=== PATIENT | female | born 1975 | race Caucasian/White ===

== ENCOUNTER → 2020-05-28 | Outpatient (CLI) | payer OTHER ==
--- NOTE | 2020-05-28 14:22 | P.HPBAR ---
Bariatric H&P - History & Physicial H&P Date: 05/28/20 History & Physicial: Visit/CC: initial clinic visit Patient initial contact: Initial weight: Initial weight in pounds: Height: 5 ft 5 in Initial BMI: Last weight: Current weight: 114.759 kg Current weight in pounds: 253.00 Current BMI: 42.0 [place] body weight (based on NIH guidelines): 56.699 kg Excess body weight loss: The patient is a 45 year-old F who presents for Bariatric Assessment. Has [place]: Once in a lifetime. Food and exercise journal. Urine drug screen. She is looking into procedures. Her highest with 374 pounds in high school and lost 100 pounds on her own. She went down to 150 pounds 10 years ago and now has re-gained. She has severe GERD. Esophogram, EGD and heart check. Tobacco use screen. Past Medical History Past Medical History: Hypertension Additional Past Medical History / Comment(s): history of kidney stones History of Any Multi-Drug Resistant Organisms: MRSA Year Discovered:: 2012 MDRO Source:: right hand Past Surgical History: Orthopedic Surgery Additional Past Surgical History / Comment(s): right heel surgery Past Anesthesia/Blood Transfusion Reactions: Postoperative Nausea & Vomiting (PONV) Past Psychological History: No Psychological Hx Reported Smoking Status: Former smoker Past Alcohol Use History: None Reported Additional Past Alcohol Use History / Comment(s): quit 2015 Past Drug Use History: None Reported Surgical - Exam Vital Signs Temp Pulse BP 98.4 F 105 H 129/90 05/28/20 13:16 05/28/20 13:16 05/28/20 13:16 Bariatric Checklist Checklist: Plan: Checklist: EGD: 1. Hiatal hernia: 2. H. Pylori: HgbA1c: Vitamin D: Smoking: Former smoker Primary care physician referral: dr bravo Psychiatry clearance: Cardiology clearance: Sleep study: Diet journal: VTE risk score: VTE risk level: Rehab needs at discharge:
[2020-05-28 15:47] LABS: HGB 13.8 gm/dL (11.4-16.0); MCH 28.8 pg (25.0-35.0); MCHC 32.1 g/dL (31.0-37.0); MCV 89.6 fL (80.0-100.0); Mean Platelet Volume 7.4; Platelet Count 288 k/uL (150-450); RDW 12.2 % (11.5-15.5); WBC 9.6 k/uL (3.8-10.6)
[2020-05-28 22:52] LABS: INR 0.97 (0.90-1.11); Partial Thromboplastin Time 29.1 sec (24.7-29.9); Prothrombin Time 10.4 sec (9.9-11.9)
[2020-05-28 23:26] LABS: % Iron Saturation 47.79 (12.00-45.00); African American GFR (CKD) 104.7 (60.0-200.0); Albumin 4.3 g/dL (3.80-4.90); Albumin/Globulin Ratio 1.95 (1.60-3.17); Anion Gap 9.1 mmol/L (4.00-12.00); BUN/Creat Ratio 22.5 Ratio (12.00-20.00); Calcium 9.2 mg/dL (8.7-10.3); Carbon Dioxide 25.9 mmol/L (21.6-31.8); Chol/HDL Ratio 4.23; Globulin 2.2 g/dL (1.6-3.3); LDL Cholesterol,Calculated 70.6 mg/dL (0.0-131.0); Magnesium 1.7 mg/dL (1.5-2.4); Non-African American GFR(CKD) 90.3 (60.0-200.0); Potassium 4.2 mmol/L (3.5-5.5); Total Bilirubin 0.4 mg/dL (0.3-1.2); Total Protein 6.5 g/dL (6.2-8.2); VLDL Calculation 55.4 mg/dL (5.00-40.00)
[2020-05-28 23:34] LABS: Ferritin 52.2 ng/mL (10.0-291.0)
[2020-05-28 23:52] LABS: Folate, Serum 11.8 ng/mL
[2020-05-29 00:24] LABS: Hemoglobin A1C 5.7 % (4.0-6.0)
[2020-05-29 11:55] LABS: Zinc, Serum 57 ug/dL (60-130)
[2020-05-30 07:29] LABS: Vitamin A 56 ug/dL (38-106)
[2020-05-30 09:27] VITALS: BP 129/90; PULSE 105; TEMP 98.4; BMI 42.0
[2020-05-30 13:17] LABS: Vit B1(Thiamine) 78 ug/L (38-122)
[2020-05-31 00:48] LABS: Selenium 112 mcg/L (63-160)
== END | disposition home or self-care (01) ==
LOC: BARWHC3 12:45
PROVIDERS: ATTEND Surgery Plastic and Reconstructive Surgery
DX: E66.01 Morbid (severe) obesity due to excess calories (principal); K21.9 Gastro-esophageal reflux disease without esophagitis; R82.998 Other abnormal findings in urine; E21.1 Secondary hyperparathyroidism, not elsewhere classified; D50.9 Iron deficiency anemia, unspecified; K90.9 Intestinal malabsorption, unspecified; E55.9 Vitamin D deficiency, unspecified; K74.1 Hepatic sclerosis; N19 Unspecified kidney failure; K50.90 Crohn's disease, unspecified, without complications; E89.1 Postprocedural hypoinsulinemia; Z68.41 Body mass index [BMI] 40.0-44.9, adult; Z87.891 Personal history of nicotine dependence
CPT/HCPCS: 84255; 84134; 84425; 80061; 80053; 82607; 82728; 82525; 82746; 83540; 83550; 83735; 84100; 84443; 84590; 84630; 85027; 85610; 85730; 82306; 83970; 83036; 93005; G0463; 99211

== ENCOUNTER → 2020-06-16 | Outpatient (CLI) | payer OTHER ==
--- NOTE | 2020-06-16 09:39 | FL ---
EXAMINATION TYPE: FL barium swallow DATE OF EXAM: 06/16/2020 COMPARISON: None HISTORY: Dysphasia, reflux TECHNIQUE: Double air-contrast technique is utilized to evaluate the esophagus. FINDINGS: Esophagus dilates to normal caliber has normal contour to the gastroesophageal junction. Ga stroesophageal junction opens to normal caliber. Reflux into the distal one half of the esophagus was elicited during the examination. No hiatal herni a is identified. No intraluminal or extramural defects are evident. Some subtle tertiary contractions may be evident during the exam. IMPRESSION: 1. Gastroesophageal reflux into the distal one half the esophagus below level aortic arch
== END | disposition home or self-care (01) ==
LOC: RADUSWWP 08:49
PROVIDERS: ATTEND Surgery Plastic and Reconstructive Surgery
DX: K21.9 Gastro-esophageal reflux disease without esophagitis (principal)
CPT/HCPCS: 74220

== ENCOUNTER → 2020-09-04 | Outpatient (CLI) | payer OTHER ==
--- NOTE | 2020-09-04 17:28 | CONS ---
CONSULTATION DATE OF SERVICE: 09/04/2020 A 45-year-old lady who has been evaluated in the [facility] for possible obstructive sleep apnea-hypopnea syndrome. HISTORY OF PRESENT ILLNESS/SLEEP WAKE EVALUATION: Patient usual sleep schedule on weekdays from 11 p.m. until 8 a.m. and on weekends from 11 p.m. until 9 - 10 a.m. She does have problems with falling asleep, has TV set in bedroom. She usually sleeps on the side position. According to her family, she has severe slow snoring and she has witnessed episodes of stopped breathing during sleep and awakenings from choking, episodes of restless legs, positive history of sleep talking, heartburn, dry mouth, grinding teeth. In the morning, patient wakes up tired, has difficulties paying attention, worrying about her sleep. Has problem with memory, concentration, debility, depression, anxiety. [place] Sleepiness Scale is 9. She may take up to 2 naps usually before 2 pm. During the sleep, she wakes up from sleep up to 7 times with up to 2 episodes of nocturia. Positive history of some jerking leg movements and muscle spasms. PAST MEDICAL HISTORY: Positive for hypertension, sciatic nerve problems. PAST SURGICAL HISTORY: Foot surgery 2 years ago. Surgery for venous problems of the legs, lithotripsy. MEDICATIONS: Lisinopril 20 mg twice daily, melatonin, multivitamins. SOCIAL HISTORY: Positive for smoking for about 20 pack years, quit 4 years ago. Alcohol consumption occasional. FAMILY HISTORY: Positive for heart problems, sleep apnea. REVIEW OF SYSTEMS: Multiple awakenings from sleep, sleepiness during the day. PHYSICAL EXAM: lady without distress, BP 167/120, HR 88, RR 15, height 5, 5, weight 252, BMI 42.7, temperature 98.5, oxygen saturation at room air 97%. OROPHARYNX: Extremely low position of soft palate, Mallampati IV, wide neck is 17-1/2 inches in circumference. ABDOMEN: Obese. NECK: Supple, no JVD. Thyroid is not palpable. LUNGS: Clear to percussion and to auscultation. Good air exchange. No wheezing or rhonchi. HEART: S1, S2 regular. No murmurs, gallops, or rubs. EXTREMITIES: No clubbing or cyanosis. [employer] OPERATOR: Awake, alert, and oriented X3. Cranial nerves 2 to 7 intact. There is no fasciculation or atrophy. noted. No focal deficits observed. IMPRESSION: 1. Loud snoring, witnessed episodes of stopped breathing during the sleep, extremely low position of soft palate, wide neck, obstructive sleep apnea-hypopnea syndrome. 2. Obesity, BMI 42.7. 3. Jerking movements during sleep. Possible . 4. Hypertension. 5. Status post foot surgery 2 years ago. 6. Status post lithotripsy. 7. Status post leg surgery for venous problems. 8. Status post cervix surgery at age of 30. PLAN: 1. Polysomnography for evaluation of patient's breathing during sleep. 2. CPAP/BiPAP titration if sleep study confirms obstructive sleep apnea-hypopnea syndrome. 3. Preferable position during sleep on the side. 4. No driving if patient feels any sleepiness. 5. I will see patient for follow up visit to explain results of testing and following plan. Thank you very much for referring this patient for consultation. Sincerely. Enrico Lynch MD, PhD, FAASM Diplomat of [employer] Mysql Database Developer of [facility] [place] MMODL / IJN: [id number] /
== END | disposition home or self-care (01) ==
LOC: SLEEP 11:27
PROVIDERS: ATTEND Internal Medicine
DX: G47.33 Obstructive sleep apnea (adult) (pediatric) (principal); I10 Essential (primary) hypertension; Z98.890 Other specified postprocedural states; E66.9 Obesity, unspecified; Z68.41 Body mass index [BMI] 40.0-44.9, adult; Z79.3 Long term (current) use of hormonal contraceptives; Z79.899 Other long term (current) drug therapy
CPT/HCPCS: 99211

== ENCOUNTER → 2020-09-22 | Outpatient (CLI) | payer OTHER ==
[2020-09-22 14:19] VITALS: BMI 42.3
== END | disposition home or self-care (01) ==
LOC: BARWHC3 08:39
PROVIDERS: ATTEND Surgery Plastic and Reconstructive Surgery
DX: E66.01 Morbid (severe) obesity due to excess calories (principal); Z71.3 Dietary counseling and surveillance; Z68.41 Body mass index [BMI] 40.0-44.9, adult
CPT/HCPCS: 97804

== ENCOUNTER → 2020-11-05 | Outpatient (CLI) | payer OTHER ==
[2020-11-05 14:35] VITALS: BP 145/82; PULSE 101; RESP 18; TEMP 97.9; BMI 41.5
--- NOTE | 2020-11-05 15:02 | P.PN ---
Subjective Progress Note Date: 11/05/20 DATE OF SERVICE: 11/05/2020 CHIEF COMPLAINT: Morbid obesity HISTORY OF PRESENT ILLNESS: Kathleen Velez is a 45-year-old female who comes with lifelong morbid obesity. As a result of her morbid obesity, she has developed hypertensive heart disease. She completed medical supervised weight loss. Separately, she is on lisinopril. She is looking into gastric bypass. At height of 5 feet 5 inches, her ideal body weight is 149 pounds. Her highest weight was 374 pounds, BMI 62.4. She comes in 250 pounds from 255 pounds, 4 months ago. She has lost 5 pounds, 4 months. Her body mass index is 41.6. She is 101 pounds overweight. PAST MEDICAL HISTORY: 1. Morbid obesity due to excess calories 2. Body mass index of 62.4, initial 3. Hypertensive heart disease. 4. Gastroesophageal reflux disease PAST SURGICAL HISTORY: 1. Right heel surgery 2. Upper endoscopy HOME MEDICATIONS: Home Medications Medication Instructions Recorded Confirmed Cholecalciferol (Vitamin D3) 125 mcg PO DAILY 06/16/20 11/05/20 [Vitamin D3] Loratadine [Claritin] 10 mg PO DAILY PRN 06/16/20 11/05/20 Melatonin 20 mg PO HS 06/16/20 11/05/20 diphenhydrAMINE [Benadryl] 50 mg PO HS 06/16/20 11/05/20 lisinopriL [Prinivil] 20 mg PO BID 06/16/20 11/05/20 Bio Cleanse 1 tab PO DIRECTED 09/22/20 11/05/20 Cider Vinegar [Apple Cider Vinegar] 1 tab PO DAILY 09/22/20 11/05/20 Multivitamin [Multivitamins Adult 1 each PO DAILY 09/22/20 11/05/20 Gummies] ALLERGIES: Allergies Allergy/AdvReac Type Severity Reaction Status Date / Time No Known Allergies Allergy Verified 11/05/20 15:21 SOCIAL HISTORY: Past tobacco use. FAMILY HISTORY: No family history of ulcerative colitis disease or Crohn's disease. Family history of morbid obesity. No lupus in the family. No reports of stomach or esophageal cancer. REVIEW OF ORGAN SYSTEMS: CONSTITUTIONAL: At height of 5 feet 5 inches, her ideal body weight is 149 pounds. Her highest weight was 374 pounds, BMI 62.4. HEENT: Denies any active troubles with vision or hearing. ENDOCRINE: Denies diabetes. No hypothyroidism. CARDIOVASCULAR: New palpitations. No heart attacks or chest pain. Has hypertension. RESPIRATORY: Has daytime somnolence. Denies asthma. GASTROINTESTINAL: Denies any bright red blood per rectum. No diarrhea. No constipation. Has gastroesophageal reflux disease. MUSCULOSKELETAL: Has lower back pain and joint pain. Has osteoarthritis of the knees. NEURO: No headaches. No seizure disorders. PSYCH: Denies depression. No suicidal ideation. RHEUMATOLOGIC: No lupus. No rheumatoid arthritis. HEMATOLOGIC: Denies any abnormal bleeding or bruising. No personal history of DVTs. SKIN: No rash. No skin cancer. PHYSICAL EXAM: VITAL SIGNS: Height 5 foot 5 inches, weight 250 pounds. BMI 41.6 Vital Signs Temp 97.9 F 11/05/20 14:23 Pulse 101 H 11/05/20 14:23 Resp 18 11/05/20 14:23 BP 145/82 11/05/20 14:23 Pulse Ox GENERAL: Well-developed in no acute distress. HEENT: No scleral icterus. Extraocular movements grossly intact. Hears conversational speech. No nasal drainage. NECK: Supple without lymphadenopathy. CHEST: Nonlabored respirations with equal bilateral excursions. CARDIOVASCULAR: Tachycardic. Distal 2+ pulses. ABDOMEN: Obese, soft, nontender, nondistended. MUSCULOSKELETAL: No clubbing, cyanosis. NEURO: No focal or lateralizing signs. Cranial nerves 2 through 12 grossly within normal limits. PSYCH: Appropriate affect. Alert and oriented to person, place and time. SKIN: Good skin turgor. Well perfused. ASSESSMENT: 1. Morbid obesity due to excess calories 2. Body mass index of 62.4, initial 3. Hypertensive heart disease. 4. Gastroesophageal reflux disease 5. Persistent tachycardia 6. Hiatal hernia 7. Chronic gastritis PLAN: 1. Bariatric options between a sleeve, band and a Jewels-en-Y gastric bypass were reviewed in detail. The patient elected for a gastric bypass. Robotic assisted approach described. 2. The [place] [facility] Data was also reviewed with benefits and risks as described. 3. An 8 page second-generation bariatric consent form was reviewed in detail including potential of bleeding, infection, leaks, adequate weight loss, nutritional deficiencies which the patient demonstrated understanding of the risks. 4. A 2 week high-protein low caloric 800 kcal diet described to address hepatomegaly. 5. Preoperative labs including complete metabolic panel and CBC with type and screen recommended. 6. DVT prophylaxis per [place] [facility]. 7. Antibiotic prophylaxis. 8. Inpatient hospitalization anticipated for more than 2 nights. 9. All questions and concerns were addressed with the patient. 10. She is at elevated risk for perioperative complications secondary to pre- existing persistent tachycardia. 11. Overall, patient has expressed understanding of bariatric care including postoperative diet and commitment of lifestyle. Patient should benefit from surgical intervention for correction of her morbid obesity. 12. Recommend cardiac risk assessment for persistent tachycardia. 13. She is on lisinopril. Recommend well hydrated diet prior to surgery. Objective - Vital Signs Vital signs: Vital Signs Temp 97.9 F 11/05/20 14:23 Pulse 101 H 11/05/20 14:23 Resp 18 11/05/20 14:23 BP 145/82 11/05/20 14:23 Pulse Ox Intake & Output 11/04/20 11/05/20 11/05/20 18:59 06:59 18:59 Weight 113.443 kg
== END | disposition home or self-care (01) ==
LOC: BARWHC3 14:13
PROVIDERS: ATTEND Surgery Plastic and Reconstructive Surgery
DX: E66.01 Morbid (severe) obesity due to excess calories (principal); I11.9 Hypertensive heart disease without heart failure; K21.9 Gastro-esophageal reflux disease without esophagitis; R00.0 Tachycardia, unspecified; K44.9 Diaphragmatic hernia without obstruction or gangrene; K29.50 Unspecified chronic gastritis without bleeding; Z68.44 Body mass index [BMI] 60.0-69.9, adult; Z87.891 Personal history of nicotine dependence; Z83.49 Family history of other endocrine, nutritional and metabolic diseases; Z79.899 Other long term (current) drug therapy
CPT/HCPCS: 99211

== ENCOUNTER → 2020-12-24 | Outpatient (CLI) | payer OTHER ==
[2020-12-24 14:54] VITALS: BP 124/79; PULSE 117; RESP 18; TEMP 98.1; BMI 41.9
--- NOTE | 2020-12-24 15:18 | P.PN ---
Subjective Progress Note Date: 12/24/20 DATE OF SERVICE: 12/24/2020 CHIEF COMPLAINT: Morbid obesity HISTORY OF PRESENT ILLNESS: Kathleen Velez is a 45-year-old female who comes with lifelong morbid obesity. As a result of her morbid obesity, she has developed hypertensive heart disease. She is looking into gastric bypass. 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 She denies active right upper quadrant abdominal, nausea or vomiting. She presents for bariatric surgical options. At height of 5 feet 5 inches, her ideal body weight is 149 pounds. Her highest weight was 374 pounds, BMI 62.4. She comes in 251 pounds from 250 pounds, 2 months ago. She has lost 2 pounds, 2 months. Her body mass index is 41.9. She is 102 pounds overweight. PAST MEDICAL HISTORY: 1. Morbid obesity due to excess calories 2. Body mass index of 62.4, initial 3. Hypertensive heart disease. 4. Gastroesophageal reflux disease PAST SURGICAL HISTORY: 1. Right heel surgery 2. Upper endoscopy HOME MEDICATIONS: Home Medications Medication Instructions Recorded Confirmed Cholecalciferol (Vitamin D3) 125 mcg PO DAILY 06/16/20 11/05/20 [Vitamin D3] Loratadine [Claritin] 10 mg PO DAILY PRN 06/16/20 11/05/20 Melatonin 20 mg PO HS 06/16/20 11/05/20 diphenhydrAMINE [Benadryl] 50 mg PO HS 06/16/20 11/05/20 lisinopriL [Prinivil] 20 mg PO BID 06/16/20 11/05/20 Bio Cleanse 1 tab PO DIRECTED 09/22/20 11/05/20 Cider Vinegar [Apple Cider Vinegar] 1 tab PO DAILY 09/22/20 11/05/20 Multivitamin [Multivitamins Adult 1 each PO DAILY 09/22/20 11/05/20 Gummies] ALLERGIES: Allergies Allergy/AdvReac Type Severity Reaction Status Date / Time No Known Allergies Allergy Verified 11/05/20 15:21 SOCIAL HISTORY: Past tobacco use. FAMILY HISTORY: No family history of ulcerative colitis disease or Crohn's disease. Family history of morbid obesity. No lupus in the family. No reports of stomach or esophageal cancer. REVIEW OF ORGAN SYSTEMS: CONSTITUTIONAL: At height of 5 feet 5 inches, her ideal body weight is 149 pounds. Her highest weight was 374 pounds, BMI 62.4. HEENT: Denies any active troubles with vision or hearing. ENDOCRINE: Denies diabetes. No hypothyroidism. CARDIOVASCULAR: New palpitations. No heart attacks or chest pain. Has hypertension. RESPIRATORY: Has daytime somnolence. Denies asthma. GASTROINTESTINAL: Denies any bright red blood per rectum. No diarrhea. No constipation. Has gastroesophageal reflux disease. MUSCULOSKELETAL: Has lower back pain and joint pain. Has osteoarthritis of the knees. NEURO: No headaches. No seizure disorders. PSYCH: Denies depression. No suicidal ideation. RHEUMATOLOGIC: No lupus. No rheumatoid arthritis. HEMATOLOGIC: Denies any abnormal bleeding or bruising. No personal history of DVTs. SKIN: No rash. No skin cancer. PHYSICAL EXAM: VITAL SIGNS: Height 5 foot 5 inches, weight 251 pounds. BMI 41.9 Vital Signs Temp 98.1 F 12/24/20 14:49 Pulse 117 H 12/24/20 14:49 Resp 18 12/24/20 14:49 BP 124/79 12/24/20 14:49 Pulse Ox GENERAL: Well-developed in no acute distress. HEENT: No scleral icterus. Extraocular movements grossly intact. Hears conversational speech. No nasal drainage. NECK: Supple without lymphadenopathy. CHEST: Nonlabored respirations with equal bilateral excursions. CARDIOVASCULAR: Tachycardic. Distal 2+ pulses. ABDOMEN: Obese, soft, nontender, nondistended. MUSCULOSKELETAL: No clubbing, cyanosis. NEURO: No focal or lateralizing signs. Cranial nerves 2 through 12 grossly within normal limits. PSYCH: Appropriate affect. Alert and oriented to person, place and time. SKIN: Good skin turgor. Well perfused. ASSESSMENT: 1. Morbid obesity due to excess calories 2. Body mass index of 62.4, initial to 41.9 3. Hypertensive heart disease. 4. Gastroesophageal reflux disease 5. Persistent tachycardia 6. Hiatal hernia 7. Chronic gastritis PLAN: 1. Bariatric options between a sleeve, band and a Jewels-en-Y gastric bypass were reviewed in detail. The patient elected for a gastric bypass. Robotic assisted approach described. 2. The [place] [facility] Data was also reviewed with benefits and risks as described. 3. An 8 page second-generation bariatric consent form was reviewed in detail including potential of bleeding, infection, leaks, adequate weight loss, nutritional deficiencies which the patient demonstrated understanding of the risks. 4. A 2 week high-protein low caloric 800 kcal diet described to address hepatomegaly. 5. Preoperative labs including complete metabolic panel and CBC with type and screen recommended. 6. DVT prophylaxis per [place] [facility]. 7. Antibiotic prophylaxis. 8. All questions and concerns were addressed with the patient. 9. She is at elevated risk for complications with pre-existing cardiac disease. Objective - Vital Signs Vital signs: Vital Signs Temp 98.1 F 12/24/20 14:49 Pulse 117 H 12/24/20 14:49 Resp 18 12/24/20 14:49 BP 124/79 12/24/20 14:49 Pulse Ox Intake & Output 12/23/20 12/24/20 12/24/20 18:59 06:59 18:59 Weight 114.305 kg
== END | disposition home or self-care (01) ==
LOC: BARWHC3 14:04
PROVIDERS: ATTEND Surgery Plastic and Reconstructive Surgery
DX: E66.01 Morbid (severe) obesity due to excess calories (principal); Z68.44 Body mass index [BMI] 60.0-69.9, adult; I11.9 Hypertensive heart disease without heart failure; K21.9 Gastro-esophageal reflux disease without esophagitis; K44.9 Diaphragmatic hernia without obstruction or gangrene; K29.50 Unspecified chronic gastritis without bleeding; R00.0 Tachycardia, unspecified; Z88.8 Allergy status to other drugs, medicaments and biological substances; Z79.899 Other long term (current) drug therapy; Z79.811 Long term (current) use of aromatase inhibitors
CPT/HCPCS: 99211

== ENCOUNTER → 2021-01-01 | Outpatient (CLI) | payer OTHER ==
[2021-01-01 13:29] LABS: Basophils % (A) 0 %; Eosinophils # (A) 0.1 k/uL (0-0.7); Eosinophils % (A) 1 %; HCT 39.9 % (34.0-46.0); HGB 13.6 gm/dL (11.4-16.0); Lymphocytes # (A) 1.9 k/uL (1.0-4.8); Lymphocytes % (A) 22 %; MCH 30.3 pg (25.0-35.0); MCHC 34.1 g/dL (31.0-37.0); Mean Platelet Volume 7.7; Monocytes # (A) 0.6 k/uL (0-1.0); Monocytes % (A) 7 %; Neutrophils # (A) 5.8 k/uL (1.3-7.7); Neutrophils % (A) 68 %; Platelet Count 266 k/uL (150-450); RBC 4.48 m/uL (3.80-5.40); RDW 12.2 % (11.5-15.5); WBC 8.5 k/uL (3.8-10.6)
[2021-01-01 13:52] LABS: ALT 57 U/L (4-34); AST 49 U/L (14-36); African American GFR (CKD) >90 (>60 ml/min/1.73 sqM); Albumin 4.3 g/dL (3.5-5.0); Alkaline Phosphatase 46 U/L (38-126); Anion Gap 7 mmol/L; Blood Urea Nitrogen 24 mg/dL (7-17); Calcium 9.8 mg/dL (8.4-10.2); Carbon Dioxide 29 mmol/L (22-30); Chloride 100 mmol/L (98-107); Glucose 94 mg/dL (74-99); Non-African American GFR(CKD) >90 (>60 ml/min/1.73 sqM); Potassium 4.4 mmol/L (3.5-5.1); Sodium 136 mmol/L (137-145); Total Bilirubin 0.5 mg/dL (0.2-1.3); Total Protein 7.2 g/dL (6.3-8.2)
== END | disposition home or self-care (01) ==
LOC: LABPAT 13:00
PROVIDERS: ATTEND Surgery Plastic and Reconstructive Surgery
DX: Z01.818 Encounter for other preprocedural examination (principal)
CPT/HCPCS: 36415; 80053; 85025

== ENCOUNTER 2021-01-05 06:09 | Inpatient (IN) | payer OTHER ==
[2021-01-02 09:15] VITALS: BMI 41.9
--- NOTE | 2021-01-05 05:06 | P.GSHP ---
History of Present Illness H&P Date: 01/05/21 CHIEF COMPLAINT: Morbid obesity HISTORY OF PRESENT ILLNESS: Kathleen Velez is a 45-year-old female who comes with lifelong morbid obesity. As a result of her morbid obesity, she has developed hypertensive heart disease. She presents today for gastric bypass At height of 5 feet 5 inches, her ideal body weight is 149 pounds. Her highest weight was 374 pounds, BMI 62.4. She comes in 251 pounds. Her body mass index is 41.9. She is 102 pounds overweight. PAST MEDICAL HISTORY: 1. Morbid obesity due to excess calories 2. Body mass index of 62.4, initial 3. Hypertensive heart disease. 4. Gastroesophageal reflux disease PAST SURGICAL HISTORY: 1. Right heel surgery 2. Upper endoscopy HOME MEDICATIONS: Home Medications Medication Instructions Recorded Confirmed Cholecalciferol (Vitamin D3) 125 mcg PO DAILY 06/16/20 11/05/20 [Vitamin D3] Loratadine [Claritin] 10 mg PO DAILY PRN 06/16/20 11/05/20 Melatonin 20 mg PO HS 06/16/20 11/05/20 diphenhydrAMINE [Benadryl] 50 mg PO HS 06/16/20 11/05/20 lisinopriL [Prinivil] 20 mg PO BID 06/16/20 11/05/20 Bio Cleanse 1 tab PO DIRECTED 09/22/20 11/05/20 Cider Vinegar [Apple Cider Vinegar] 1 tab PO DAILY 09/22/20 11/05/20 Multivitamin [Multivitamins Adult 1 each PO DAILY 09/22/20 11/05/20 Gummies] ALLERGIES: Allergies Allergy/AdvReac Type Severity Reaction Status Date / Time No Known Allergies Allergy Verified 11/05/20 15:21 SOCIAL HISTORY: Past tobacco use. FAMILY HISTORY: No family history of ulcerative colitis disease or Crohn's disease. Family history of morbid obesity. No lupus in the family. No reports of stomach or esophageal cancer. REVIEW OF ORGAN SYSTEMS: CONSTITUTIONAL: At height of 5 feet 5 inches, her ideal body weight is 149 pounds. Her highest weight was 374 pounds, BMI 62.4. HEENT: Denies any active troubles with vision or hearing. ENDOCRINE: Denies diabetes. No hypothyroidism. CARDIOVASCULAR: New palpitations. No heart attacks or chest pain. Has hypertension. RESPIRATORY: Has daytime somnolence. Denies asthma. GASTROINTESTINAL: Denies any bright red blood per rectum. No diarrhea. No constipation. Has gastroesophageal reflux disease. MUSCULOSKELETAL: Has lower back pain and joint pain. Has osteoarthritis of the knees. NEURO: No headaches. No seizure disorders. PSYCH: Denies depression. No suicidal ideation. RHEUMATOLOGIC: No lupus. No rheumatoid arthritis. HEMATOLOGIC: Denies any abnormal bleeding or bruising. No personal history of DVTs. SKIN: No rash. No skin cancer. PHYSICAL EXAM: VITAL SIGNS: Height 5 foot 5 inches, weight 251 pounds. BMI 41.9 GENERAL: Well-developed in no acute distress. HEENT: No scleral icterus. Extraocular movements grossly intact. Hears conversational speech. No nasal drainage. NECK: Supple without lymphadenopathy. CHEST: Nonlabored respirations with equal bilateral excursions. CARDIOVASCULAR: Tachycardic. Distal 2+ pulses. ABDOMEN: Obese, soft, nontender, nondistended. MUSCULOSKELETAL: No clubbing, cyanosis. NEURO: No focal or lateralizing signs. Cranial nerves 2 through 12 grossly within normal limits. PSYCH: Appropriate affect. Alert and oriented to person, place and time. SKIN: Good skin turgor. Well perfused. ASSESSMENT: 1. Morbid obesity due to excess calories 2. Body mass index of 62.4, initial to 41.9 3. Hypertensive heart disease. 4. Gastroesophageal reflux disease 5. Persistent tachycardia 6. Hiatal hernia 7. Chronic gastritis PLAN: 1. Bariatric options between a sleeve, band and a Jewels-en-Y gastric bypass were reviewed in detail. The patient elected for a gastric bypass. Robotic assisted approach described. 2. DVT prophylaxis per [place] [facility] collaborative. 3. Antibiotic prophylaxis. 4. All questions and concerns were addressed with the patient. 5. She is at elevated risk for complications with pre-existing cardiac disease. Past Medical History Past Medical History: Hypertension, Sleep Apnea/CPAP/BIPAP Additional Past Medical History / Comment(s): uses cpap, hx history of kidney stones,varicose veins History of Any Multi-Drug Resistant Organisms: MRSA Date of last positivie culture/infection: 2012 MDRO Source:: right hand Past Surgical History: Orthopedic Surgery Additional Past Surgical History / Comment(s): right heel surgery,egd,vein stripping Past Anesthesia/Blood Transfusion Reactions: Postoperative Nausea & Vomiting (PONV) Additional Past Anesthesia/Blood Transfusion Reaction / Comment(s): no hx blood transfusion Smoking Status: Former smoker - Past Family History Mother Family Medical History: No Reported History Brother(s) Additional Family Medical History / Comment(s): oral CA-tongue partially removed Medications and Allergies Home Medications Medication Instructions Recorded Confirmed Type Cholecalciferol (Vitamin D3) 125 mcg PO DAILY 06/16/20 01/02/21 History [Vitamin D3 (5000 Iu)] Loratadine [Claritin] 10 mg PO DAILY PRN 06/16/20 01/02/21 History Melatonin 20 mg PO HS 06/16/20 01/02/21 History diphenhydrAMINE [Benadryl] 50 mg PO HS PRN 06/16/20 01/02/21 History lisinopriL [Prinivil] 20 mg PO BID 06/16/20 01/02/21 History Bio Cleanse 1 tab PO DIRECTED 09/22/20 01/02/21 History Cider Vinegar [Apple Cider Vinegar] 1 tab PO DAILY 09/22/20 01/02/21 History Multivitamin [Multivitamins Adult 1 each PO DAILY 09/22/20 01/02/21 History Gummies] Allergies Allergy/AdvReac Type Severity Reaction Status Date / Time No Known Allergies Allergy Verified 12/25/20 12:39
[~2021-01-05 06:09] MED LIST: ACETAMINOPHEN TAB 500 MG TAB PO STA; CHLORHEXIDINE GLUCONATE 15 ML CUP MUCOUS MEM PRN; DEXAMETHASONE SOD PHOSPHATE 4 MG/ML 1 ML VIAL IV ONE; ENOXAPARIN 40 MG/0.4 ML SYRINGE SQ PRN; GABAPENTIN 300 MG CAP PO STA; MELOXICAM 7.5 MG TAB PO ONE; MIDAZOLAM 2 MG/2 ML VIAL IV PRN; PANTOPRAZOLE 40 MG/10 ML VIAL IVP PRN; SCOPOLAMINE 1.5MG/72HR PATCH TRANSDERM ONE; SCOPOLAMINE 1.5MG/72HR PATCH TRANSDERM STA
[2021-01-05] MEDS: LACTATED RINGERS 1,000 ML IV SCH (07:17)
[2021-01-05] MEDS: ONDANSETRON 4 MG/2 ML VIAL IVP ONE ×2 (07:17→10:47)
[2021-01-05 08:11] LABS: Basophils % (A) 1 %; Eosinophils # (A) 0.1 k/uL (0-0.7); Eosinophils % (A) 2 %; HCT 39.7 % (34.0-46.0); HGB 13.3 gm/dL (11.4-16.0); Lymphocytes # (A) 1.6 k/uL (1.0-4.8); Lymphocytes % (A) 28 %; MCH 29.6 pg (25.0-35.0); MCHC 33.4 g/dL (31.0-37.0); MCV 88.6 fL (80.0-100.0); Mean Platelet Volume 8.3; Monocytes # (A) 0.5 k/uL (0-1.0); Monocytes % (A) 9 %; Neutrophils # (A) 3.4 k/uL (1.3-7.7); Neutrophils % (A) 60 %; Platelet Count 275 k/uL (150-450); RBC 4.48 m/uL (3.80-5.40); RDW 12.5 % (11.5-15.5); WBC 5.6 k/uL (3.8-10.6)
[2021-01-05 08:24] LABS: ALT 70 U/L (4-34); AST 67 U/L (14-36); African American GFR (CKD) >90 (>60 ml/min/1.73 sqM); Albumin 4.3 g/dL (3.5-5.0); Alkaline Phosphatase 47 U/L (38-126); Anion Gap 11 mmol/L; Blood Urea Nitrogen 12 mg/dL (7-17); Calcium 9.5 mg/dL (8.4-10.2); Carbon Dioxide 21 mmol/L (22-30); Chloride 103 mmol/L (98-107); Glucose 91 mg/dL (74-99); Non-African American GFR(CKD) >90 (>60 ml/min/1.73 sqM); Potassium 4.3 mmol/L (3.5-5.1); Sodium 135 mmol/L (137-145); Total Bilirubin 0.8 mg/dL (0.2-1.3); Total Protein 7.2 g/dL (6.3-8.2)
[2021-01-05] MEDS ORDERED: LIDOCAINE 1%-EPI 1:100,000 20 ML VIAL SQ ONE (08:40)
[2021-01-05] MEDS ORDERED: LACTATED RINGERS 1,000 ML IV ONE (09:55)
[2021-01-05] MEDS ORDERED: NALOXONE 0.4 MG/ML 1 ML VIAL IV PRN (10:26)
[2021-01-05] MEDS: HYDROmorphone 0.5 MG/0.5 ML SYRINGE IVP PRN ×6 (10:28→12:45)
--- NOTE | 2021-01-05 10:36 | P.OP ---
Date of Procedure: 01/05/21 Description of Procedure: SURGEON: SUKHDEV GAMA MD PREOPERATIVE DIAGNOSES: 1. Morbid obesity due to excess calories 2. Body mass index of 62.4, initial to 42.0 3. Hypertensive heart disease. 4. Gastroesophageal reflux disease 5. Persistent tachycardia 6. Hiatal hernia 7. Chronic gastritis POSTOPERATIVE DIAGNOSES: 1. Morbid obesity due to excess calories 2. Body mass index of 62.4, initial to 42.0 3. Hypertensive heart disease. 4. Gastroesophageal reflux disease 5. Persistent tachycardia 6. Hiatal hernia 7. Chronic gastritis OPERATION: 1. Robotic assisted da Neftaly Xi laparoscopic Valerie-en-Y gastric bypass, 100 cm antecolic antegastric Valerie limb, with 25 mm EEA. 2. Intraoperative esophagogastrojejunoscopy. ANESTHESIA: GETA and local ESTIMATED BLOOD LOSS: 5 mL SPECIMENS REMOVED: None. COMPLICATIONS: NONE. INDICATIONS: Kathleen Velez is a 45-year-old female who comes with lifelong morbid obesity. As a result of her morbid obesity, she has developed hypertensive heart disease. She presents today for gastric bypass At height of 5 feet 5 inches, her ideal body weight is 149 pounds. Her highest weight was 374 pounds, BMI 62.4. She comes in 251 pounds. Her body mass index is 41.9. She is 102 pounds overweight. A second-generation bariatric consent form was described in detail including the possibility of protein malnutrition, leaks, gastrojejunal stricture, venous thrombosis, need for further surgery for which she demonstrated understanding. Benefits and risks of the procedure were described at length. Informed consent was obtained. DESCRIPTION: The patient was brought into the operating room theater. She was placed supine. She had received Lovenox subcutaneously for DVT prophylaxis. Additionally she Peridex oral solution as an oral decontaminant was placed per anesthesia. After general induction, the abdomen was prepped and draped in standard sterile fashion. Ioban draping was placed along the abdomen. Rose catheter was placed A robotic da Neftaly Xi system was prepped and primed. Incisions were proposed at 15 cm from the xiphoid. Proposed port sites were marked with indelible marker along the anterior axillary line bilaterally, mid clavicular line bilaterally with each port marked 10 cm from each other. The robotic stapler port was marked for the right midclavicular line including along the left midclavicular line. A 5 mm 0 degrees laparoscopic trocar entry was performed along the left upper quadrant. The abdomen was insufflated to 15 mmHg pressure, which she tolerated well. Diagnostic laparoscopy demonstrated no injury to bowel, viscera, or mesentery. The liver was consistent with her 2-week protein diet. An 8 mm camera port was placed left lateral to the umbilicus at the epigastrium, 15 cm distal to the xiphoid. Next, 12-mm robot stapler port was placed along the right mid abdomen. An 12 mm port was exchanged along the left upper quadrant. An 8 mm port was placed on the left lateral abdominal wall under direct visualization Please note that the ports were placed 18 to 20 cm away from the target anatomy of the stomach. Care was taken to check that each robotic arm was safely away from collision with the bed or the patient. At the epigastrium, a medium sized Kassandra liver retractor was placed under direct visualization with the Iron Guest Services Ambassador placed under the right shoulder of the patient. The patient was repositioned in reverse Trendelenburg position at 21-degrees after lowering the bed. The robot was docked over the patient. Using grasper for arm 3, a grasper for arm 1, including vessel sealer for arm 4, the robotic system was docked and primed as described. Instruments were interchanged by the multimedia assistant including endoscissors, the needle oil transport driver, and stapler. I had sat at the console. Next, the transverse mesocolon was reflected into the upper abdomen after dividing the mesentery and preparing for the jejunojejunostomy portion of the case. The ligament of Treitz was identified and measured 60 cm antegrade and marked using 3-0 Silk. The jejunum was divided at the 60 cm point using 60-mm white loads above the suture measurement. The biliopancreatic limb was held in place. The Valerie limb was measured 100 cm in an antegrade fashion to avoid tension along the proposed gastrojejunal anastomosis. At 100 cm along the anti-mesenteric border of the Valerie limb, a jejunojejunostomy was proposed whereby enterotomies were created along the biliopancreatic limb including the Valerie limb using a Bovie cautery. A stay suture of 3-0 Slik was placed to align and create the anastomosis. The enterotomies along the anti- mesenteric borders were created followed by unidirectional fire from the patient's right side using 60 mm blue loads Smart technology robotic stapler. The jejunojejunostomy was found to be hemostatic. The enterotomy was closed after horizontal mattress stitch of 3-0 silk used to elevate the enterotomy followed by closure with the robotic stapler blue load. The jejunal limb was temporarily tacked along the left upper quadrant. Attention was now brought to the creation of the gastrojejunostomy. Along the lesser curvature of the stomach, dissection was made along the retrogastric space to allow first firing of the robotic staple. Green loads of 60 mm staplers were used to divide the stomach to create the gastric pouch. The patient was then prepared for placement of a Orvil. The patient was Mallampati 2. A 25-mm Orvil was selected for placement by the nurse senior production manager. The Orvil tubing was placed anterior to the staple line of the gastric pouch and brought out through the left inferior lateral port. I re-scrubbed into the case. The robotic arms were temporarily undocked. The Orvil was then carefully and successfully navigated with the help of the nurse senior production manager into the gastric pouch. The sutures were identified and divided. The tubing was from the 25 mm anvil. As the Orvil had been placed, the blind jejunal limb was brought proximally into the upper abdomen. No torsion was found upon the Valerie limb. No tension was identified as the limb was brought along the upper abdomen. The blind jejunal limb was previously opened using endo-scissors with cautery. The 25-mm EEA stapler was brought through the left anterior lateral port site from the left side. The EEA stapler was brought through the open jejunal limb and its needle was deployed at the antimesenteric border where the anvil were mated for a pproximately 1 minute upon firing. The stapler was removed after irrigating the shaft of the instrument with warm normal saline. Donuts were found to be intact and on both sides. The GripeO Xi robot arms were then re-docked. I sat at the console. The open jejunal limb defect was closed using 60 mm blue loads after releasing any tension from the blind jejunal limb. Care was taken to avoid any long blind limb to avoid candycane syndrome. Reinforcement sutures were placed along the gastrojejunal anastomosis and placed along the 9:00 and 3 o'clock position using 3-0 Vicryl. The Deutshc's and jejunojejunostomy mesenteric defect were closed using 2-0 VLOC I then went to the head of the bed to perform the esophagogastrojejunoscopy and a leak test. An Olympus gastroscope was passed alongthe posterior oropharynx which was unremarkable for any injury to the vocal cords. The scope was passed down to the proximal portion of the pouch, whereby no active bleeding was encountered. Excellent visualization of the gastrojejunostomy anastomosis, including the Valerie limb was encountered with endoscopic image obtained. The anastomosis was found to be patent. The gastrointestinal tract was desufflated. No evidence of intraoperative leak was encountered as the gastric pouch and anastomosis were submerged under normal saline solution. The robot was then undocked. I then went back to the bedside of the patient, whereby with coordinated effort of the multimedia assistant, irrigation was aspirated from the upper abdominal cavity. Tisseel was placed circumferentially over the anastomosis of the ga strojejunostomy. The fascial defect of the EEA stapler was closed using Heriberto Fry and 0 Vicryl. All instruments and pneumoperitoneum were evacuated from the abdominal cavity. The port correlating with the EEA stapler device was cleansed with normal saline solution and hydrogen peroxide. The rest of incisions were reapproximated using 4-0 Monocryl in an interrupted subcuticular fashion. Local anesthetic was infiltrated along the skin for postop analgesia. Liquid glue was applied to the skin. OptiFoam dressing was placed along the EEA stapler site. At the end of the procedure, needle, sponge and instrument count had been verified correct by the ophthalmology surgical technician. The patient had tolerated the procedure well and was extubated and taken to the postanesthesia unit in stable condition. Intraoperative findings were described to the patient's family who were very pleased with the level of care. Operative Findings: 1. Biliopancreatic limb 60 cm 2. Bypass performed using 100 cm valerie limb secondary to avoid increased tension at 150 cm. 3. Jejunojejunostomy and Deutsch's defects closed using 2-0 VLOC 4. Leak test negative with gastrojejunal anastomosis patent and hemostatic. 5. Reinforcement sutures were placed along the gastrojejunal anastomosis at 9:00, 12:00 and 3:00 6. No fatty liver disease with gallbladder unremarkable and apparent 7. Thoracic length 18 cm 8. Total staple loads 8-60 mm with 460 mm green staple loads for gastric pouch
[2021-01-05] MEDS ORDERED: DEXAMETHASONE SOD PHOSPHATE 10 MG/ML 1 ML VIAL IV PRN (12:53)
[2021-01-05] MEDS ORDERED: LORATADINE 10 MG TAB PO PRN (12:55)
[2021-01-05] MEDS ORDERED: diphenhydrAMINE 50 MG CAP PO PRN (12:55)
[2021-01-05] MEDS: ALBUTEROL NEBULIZED 2.5 MG/3 ML INHALATION SCH ×3 (14:39→19:13)
[2021-01-05] MEDS: ACETAMINOPHEN IV (For NPO) 1,000 MG in EMPTY BAG 1 BAG IVPB SCH ×2 (15:14→20:51)
[2021-01-05] MEDS: SIMETHICONE 40 MG/0.6 ML DROPS 2,000 MG/30 ML BOTTLE PO SCH ×3 (15:16→20:52)
[2021-01-05] MEDS: DEXAMETHASONE SOD PHOSPHATE 4 MG/ML 1 ML VIAL IV SCH ×2 (15:19→19:16)
[2021-01-05] MEDS: 0.9% NACL WITH KCL 20 MEQ/L 1,000 ML IV SCH ×2 (17:16→18:00)
[2021-01-05] MEDS: HYDROmorphone 1 MG/ML 1 ML SYRINGE IVP PRN ×2 (19:16→23:34)
[2021-01-05] MEDS: LIDOCAINE 5% PATCH TOPICAL SCH (19:16)
[2021-01-05] MEDS: lisinopriL 20 MG TAB PO SCH (20:52)
[2021-01-06] MEDS: ACETAMINOPHEN IV (For NPO) 1,000 MG in EMPTY BAG 1 BAG IVPB SCH ×2 (02:32→09:12)
[2021-01-06] MEDS: DEXAMETHASONE SOD PHOSPHATE 4 MG/ML 1 ML VIAL IV SCH ×4 (02:32→19:07)
[2021-01-06] MEDS: HYDROmorphone 1 MG/ML 1 ML SYRINGE IVP PRN ×6 (03:19→23:07)
[2021-01-06] MEDS: 0.9% NACL WITH KCL 20 MEQ/L 1,000 ML IV SCH ×3 (03:23→18:19)
[2021-01-06] MEDS: ALBUTEROL NEBULIZED 2.5 MG/3 ML INHALATION SCH ×4 (07:15→20:18)
[2021-01-06] MEDS: LACTATED RINGERS 1,000 ML IV SCH (09:10)
[2021-01-06] MEDS: ENOXAPARIN 40 MG/0.4 ML SYRINGE SQ SCH (09:11)
[2021-01-06] MEDS: SIMETHICONE 40 MG/0.6 ML DROPS 2,000 MG/30 ML BOTTLE PO SCH ×4 (09:11→20:35)
[2021-01-06] MEDS: lisinopriL 20 MG TAB PO SCH (09:18)
[2021-01-06 11:50] LABS: Basophils # (A) 0.01 X 10*3/uL (0.00-0.10); Basophils % (A) 0.1 %; Eosinophils # (A) 0 X 10*3/uL (0.04-0.35); Eosinophils % (A) 0 %; HCT 27.5 % (37.2-46.3); HGB 8.8 g/dL (12.0-15.0); Lymphocytes # (A) 0.57 X 10*3/uL (0.90-5.00); Lymphocytes % (A) 5.9 %; MCH 29.7 pg (27.0-32.0); MCV 92.9 fL (80.0-97.0); Mean Platelet Volume 11.1 fL (9.5-12.2); Monocytes # (A) 0.52 X 10*3/uL (0.20-1.00); Monocytes % (A) 5.4 %; Neutrophils # (A) 8.52 X 10*3/uL (1.80-7.70); Neutrophils % (A) 88.3 %; Platelet Count 256 X 10*3/uL (140-440); RBC 2.96 X 10*6/uL (4.10-5.20); RDW 12.1 % (11.5-14.5); WBC 9.65 X 10*3/uL (4.50-10.00)
[2021-01-06 12:07] LABS: African American GFR (CKD) 129.4 (60.0-200.0); Calcium 8.2 mg/dL (8.7-10.3); Magnesium 1.8 mg/dL (1.5-2.4); Non-African American GFR(CKD) 111.6 (60.0-200.0); Phosphorus 2.9 mg/dL (2.4-5.1); Potassium 4.8 mmol/L (3.5-5.5)
--- NOTE | 2021-01-06 14:23 | P.PN ---
<Jenny Dover - Last Filed: 01/06/21 15:26> Subjective Progress Note Date: 01/06/21 CHIEF COMPLAINT: Morbid obesity HISTORY OF PRESENT ILLNESS: Patient is status post Robotic assisted da Neftaly Xi laparoscopic Jewels-en-Y gastric bypass and Intraoperative esophagogastrojejunoscopy. Patient is complaining of urinary retention. She did require to be straight cath 3 times. Scopolamine patch was removed this morning. Patient is now able to urinate. She does complain of abdominal pain. However, she does report the pain is controlled with pain medication. She denies any nausea or vomiting. Denies any flatus or BM. She has been up and ambulating. She is currently on bariatric clear liquid diet. She is afebrile. WBC 9.65 hemoglobin decreased from 13.3 to 8.8, creatinine 0.6 magnesium 1.8 PHYSICAL EXAM: VITAL SIGNS: Reviewed GENERAL: Well-developed in no acute distress. HEENT: No sclera icterus. Extraocular movements grossly intact. Moist buccal mucosa. Head is atraumatic, normocephalic. Hears conversational speech. No nasal drainage. NECK: Supple without lymphadenopathy. CHEST: Non-labored respirations and equal bilateral excursions. CARDIOVASCULAR: Palpable 2+ radial pulses. ABDOMEN: Soft. Nondistended. Incision sites clean dry and intact. Abdominal binder in place MUSCULOSKELETAL: No clubbing or cyanosis. NEUROLOGIC: No focal or lateralizing signs. Cranial nerves II through XII grossly intact. PSYCH: Appropriate affect. Alert and oriented to person, place and time. SKIN: Well perfused. Good skin turgor. ASSESSMENT: 1. Morbid obesity due to excess calories status post Robotic assisted da Neftaly Xi laparoscopic Jewels-en-Y gastric bypass and Intraoperative esophagogas trojejunoscopy 2. Body mass index of 62.4, initial to 42.0 3. Hypertensive heart disease. 4. Gastroesophageal reflux disease 5. Persistent tachycardia 6. Hiatal hernia 7. Chronic gastritis 8. Hypomagnesemia 9. Urinary retention improved after discontinuation of scopolamine patch PLAN: -Continue pain medication as needed -Continue bariatric clear liquid diet -Replace magnesium -Continue IV fluids -Encourage patient to ambulate -Encourage patient to use incentive spirometer -DVT prophylaxis Lovenox prophylaxis Lovenox Physician Associate Designer note has been reviewed by physician. Signing provider agrees with the documented findings, assessment, and plan of care. Objective - Vital Signs Vital signs: Vital Signs Temp 97.6 F 01/06/21 14:00 Pulse 105 H 01/06/21 14:00 Resp 18 01/06/21 14:00 BP 95/61 01/06/21 14:00 Pulse Ox 96 01/06/21 14:00 Intake & Output 01/05/21 01/06/21 01/06/21 18:59 06:59 18:59 Intake Total 1050 0 Output Total 65 1999 300 Balance 985 -2000 -300 Weight 114.4 kg Intake: IV 1050 Oral 0 Output: Urine 60 1999 300 Straight 1300 Estimated Blood Loss 5 Other: Voiding Method Toilet # Voids 1 1 - Labs CBC & Chem 7: 01/06/21 06:41 01/06/21 06:41 Labs: Abnormal Lab Results - Last 24 Hours (Table) 01/06/21 01/06/21 Range/Units 06:41 06:41 RBC 2.96 L (4.10-5.20) X 10*6/uL Hgb 8.8 L (12.0-15.0) g/dL Hct 27.5 L (37.2-46.3) % Neutrophils # 8.52 H (1.80-7.70) X 10*3/uL Lymphocytes # 0.57 L (0.90-5.00) X 10*3/uL Eosinophils # 0 L (0.04-0.35) X 10*3/uL Calcium 8.2 L (8.7-10.3) mg/dL <Anabella Denton N - Last Filed: 01/06/21 17:47> Subjective Patient seen and evaluated. She denies nausea. She is tolerating liquids. B lood pressure has been under 100 systolic with anti-hypertensive medications. Recommend discontinue antihypertensive medications for low blood pressure. Patient had minimal blood loss during surgery and will monitor CBC. Hemoglobin likely dilutional. Objective - Vital Signs Vital signs: Vital Signs Temp 97.6 F 01/06/21 14:00 Pulse 102 H 01/06/21 16:39 Resp 18 01/06/21 14:00 BP 95/61 01/06/21 14:00 Pulse Ox 96 01/06/21 14:00 Intake & Output 01/05/21 01/06/21 01/06/21 18:59 06:59 18:59 Intake Total 1050 0 Output Total 65 1999 300 Balance 985 -1999 -300 Weight 114.4 kg Intake: IV 1050 Oral 0 Output: Urine 60 1999 300 Straight 1300 Estimated Blood Loss 5 Other: Voiding Method Toilet # Voids 1 1 - Labs CBC & Chem 7: 01/06/21 06:41 01/06/21 06:41 Labs: Abnormal Lab Results - Last 24 Hours (Table) 01/06/21 01/06/21 Range/Units 06:41 06:41 RBC 2.96 L (4.10-5.20) X 10*6/uL Hgb 8.8 L (12.0-15.0) g/dL Hct 27.5 L (37.2-46.3) % Neutrophils # 8.52 H (1.80-7.70) X 10*3/uL Lymphocytes # 0.57 L (0.90-5.00) X 10*3/uL Eosinophils # 0 L (0.04-0.35) X 10*3/uL Calcium 8.2 L (8.7-10.3) mg/dL
[2021-01-06] MEDS ORDERED: MAGNESIUM SULFATE-D5W PMX 1 GM in DEXTROSE/WATER 1 100ML.BAG IVPB ONE (14:30)
[2021-01-06] MEDS: LIDOCAINE 5% PATCH TOPICAL SCH (15:54)
[2021-01-07] MEDS: DEXAMETHASONE SOD PHOSPHATE 4 MG/ML 1 ML VIAL IV SCH ×3 (02:22→14:19)
[2021-01-07] MEDS: HYDROmorphone 1 MG/ML 1 ML SYRINGE IVP PRN ×4 (02:22→23:42)
[2021-01-07] MEDS: 0.9% NACL WITH KCL 20 MEQ/L 1,000 ML IV SCH ×2 (03:39→19:36)
[2021-01-07] MEDS: LACTATED RINGERS 1,000 ML IV SCH (03:40)
[2021-01-07] MEDS: ALBUTEROL NEBULIZED 2.5 MG/3 ML INHALATION SCH ×4 (07:18→19:54)
[2021-01-07] MEDS: ENOXAPARIN 40 MG/0.4 ML SYRINGE SQ SCH (07:44)
[2021-01-07] MEDS: LIDOCAINE 5% PATCH TOPICAL SCH (07:44)
[2021-01-07] MEDS: SIMETHICONE 40 MG/0.6 ML DROPS 2,000 MG/30 ML BOTTLE PO SCH ×4 (07:45→21:00)
[2021-01-07 09:21] LABS: Basophils # (A) 0 X 10*3/uL (0.00-0.10); Basophils % (A) 0 %; Eosinophils # (A) 0 X 10*3/uL (0.04-0.35); Eosinophils % (A) 0 %; HGB 8.3 g/dL (12.0-15.0); Lymphocytes # (A) 0.63 X 10*3/uL (0.90-5.00); Lymphocytes % (A) 7.9 %; MCH 29.7 pg (27.0-32.0); MCHC 31.9 g/dL (32.0-37.0); MCV 93.2 fL (80.0-97.0); Monocytes # (A) 0.69 X 10*3/uL (0.20-1.00); Monocytes % (A) 8.6 %; Neutrophils # (A) 6.64 X 10*3/uL (1.80-7.70); Neutrophils % (A) 82.9 %; Platelet Count 239 X 10*3/uL (140-440); RBC 2.79 X 10*6/uL (4.10-5.20); RDW 12.5 % (11.5-14.5); WBC 8.01 X 10*3/uL (4.50-10.00)
[2021-01-07] MEDS: SODIUM CHLORIDE 0.9% 1,000 ML IV SCH ×2 (11:54→14:19)
[2021-01-07] MEDS: SODIUM FERRIC GLUCONAT-SUCROSE 125 MG in SODIUM CHLORIDE 0.9% 100 ML IVPB SCH (12:56)
--- NOTE | 2021-01-07 13:22 | P.PN ---
<Jenny Dover - Last Filed: 01/07/21 13:12> Subjective Progress Note Date: 01/07/21 CHIEF COMPLAINT: Morbid obesity HISTORY OF PRESENT ILLNESS: Patient is status post Robotic assisted da Neftaly Xi laparoscopic Jewels-en-Y gastric bypass and Intraoperative esophagogastrojejunoscopy. Postoperative day #2. Patient had 2 large dark bloody bowel movements today. This is an expected finding after surgery. She also had been complaining of abdominal cramping at that time. The cramping has resolved after the bowel movement. She was feeling nauseous and lightheaded. Vitals showed a blood pressure of 108/76 and heart rate of 101. She is currently on a bariatric clear liquid diet. Patient had been ambulating in the hallway earlier today without difficulty. Afebrile. WBC 8.01 hemoglobin 8.3 magnesium 2.0 PHYSICAL EXAM: VITAL SIGNS: Reviewed GENERAL: Well-developed in no acute distress. HEENT: No sclera icterus. Extraocular movements grossly intact. Moist buccal mucosa. Head is atraumatic, normocephalic. Hears conversational speech. No nasal drainage. NECK: Supple without lymphadenopathy. CHEST: Non-labored respirations and equal bilateral excursions. CARDIOVASCULAR: Palpable 2+ radial pulses. ABDOMEN: Soft. Nondistended. Incision sites clean dry and intact. Abdominal binder in place MUSCULOSKELETAL: No clubbing or cyanosis. NEUROLOGIC: No focal or lateralizing signs. Cranial nerves II through XII grossly intact. PSYCH: Appropriate affect. Alert and oriented to person, place and time. SKIN: Well perfused. Good skin turgor. ASSESSMENT: 1. Morbid obesity due to excess calories status post Robotic assisted da Neftaly Xi laparoscopic Jewels-en-Y gastric bypass and Intraoperative esophagogastrojejunoscopy 2. Body mass index of 62.4, initial to 42.0 3. Hypertensive heart disease. 4. Gastroesophageal reflux disease 5. Persistent tachycardia 6. Hiatal hernia 7. Chronic gastritis 8. Hypomagnesemia improved with supplement 9. Urinary retention improved after discontinuation of scopolamine patch PLAN: -Due to bloody bowel movements lovenox has been discontinued, 2 L fluid bolus ordered and 1 dose of IV iron ordered -Continue pain medication as needed -Continue bariatric clear liquid diet -Continue IV fluids -Encourage patient to ambulate -Encourage patient to use incentive spirometer Physician Reliability Engineer note has been reviewed by physician. Signing provider agrees with the documented findings, assessment, and plan of care. Objective - Vital Signs Vital signs: Vital Signs Temp 98.2 F 01/07/21 07:28 Pulse 99 01/07/21 07:46 Resp 16 01/07/21 07:46 BP 121/83 01/07/21 07:28 Pulse Ox 96 01/07/21 07:28 Intake & Output 01/06/21 01/07/21 01/07/21 18:59 06:59 18:59 Intake Total 1000 Output Total 300 1800 Balance -300 -800 Weight 114.4 kg Intake: Intake, IV Titration 800 Amount 0.9% NaCl with KCl 20 Meq 800 /l 1,000 ml @ 150 mls/hr IV .Q6H40M [facility] Rx#: [id number] Oral 200 Output: Urine 300 1800 Other: Voiding Method Toilet Toilet # Voids 1 - Labs CBC & Chem 7: 01/07/21 06:22 01/06/21 06:41 Labs: Abnormal Lab Results - Last 24 Hours (Table) 01/07/21 Range/Units 06:22 RBC 2.79 L (4.10-5.20) X 10*6/uL Hgb 8.3 L (12.0-15.0) g/dL Hct 26.0 L (37.2-46.3) % MCHC 31.9 L (32.0-37.0) g/dL Immature Gran # 0.05 H (0.00-0.04) X 10*3/uL Lymphocytes # 0.63 L (0.90-5.00) X 10*3/uL Eosinophils # 0 L (0.04-0.35) X 10*3/uL <Anabella Denton N - Last Filed: 01/07/21 19:12> Subjective Patient seen and evaluated this evening. No further bloody bowel movement. Abdominal cramps resolved. She reported right lower quadrant abdominal pain at Lovenox injection site. Mild bruising identified. She reports feeling better this evening compared to this morning and yesterday. She is passing flatus with out diarrhea. She is trying to maintain her liquid intake. Her main concern includes trouble sleeping. She takes melatonin and Benadryl for sleep. Will order melatonin including Benadryl one-time dose. Will use scheduled Tylenol liquid. Recommend another 1-L NS due to dehydration from protein diet. Advance to protein shakes tomorrow including full liquid diet. Continue iron infusion Bloody bowel movement is expected following gastric bypass with Lovenox injection Likely discharge tomorrow following our infusion and tolerating Objective - Vital Signs Vital signs: Vital Signs Temp 99 F 01/07/21 14:03 Pulse 98 01/07/21 17:08 Resp 18 01/07/21 14:03 BP 112/74 01/07/21 14:03 Pulse Ox 97 01/07/21 14:03 Intake & Output 01/07/21 01/07/21 01/08/21 06:59 18:59 06:59 Intake Total 1000 Output Total 1800 Balance -800 Weight 114.4 kg Intake: Intake, IV Titration 800 Amount 0.9% NaCl with KCl 20 Meq 800 /l 1,000 ml @ 150 mls/hr IV .Q6H40M [facility] Rx#: [id number] Oral 200 Output: Urine 1800 Other: Voiding Method Toilet Toilet - Labs CBC & Chem 7: 01/07/21 06:22 01/06/21 06:41 Labs: Abnormal Lab Results - Last 24 Hours (Table) 01/07/21 Range/Units 06:22 RBC 2.79 L (4.10-5.20) X 10*6/uL Hgb 8.3 L (12.0-15.0) g/dL Hct 26.0 L (37.2-46.3) % MCHC 31.9 L (32.0-37.0) g/dL Immature Gran # 0.05 H (0.00-0.04) X 10*3/uL Lymphocytes # 0.63 L (0.90-5.00) X 10*3/uL Eosinophils # 0 L (0.04-0.35) X 10*3/uL
[2021-01-07] MEDS ORDERED: SODIUM CHLORIDE 0.9% 1,000 ML IV ONE (19:06)
[2021-01-07] MEDS ORDERED: diphenhydrAMINE 50 MG/ML 1 ML VIAL IVP STA (19:06)
[2021-01-07] MEDS ORDERED: ACETAMINOPHEN TAB 500 MG TAB PO SCH (19:15)
[2021-01-07] MEDS: ONDANSETRON 4 MG/2 ML VIAL IVP SCH (20:58)
[2021-01-07] MEDS: ACETAMINOPHEN ORAL SUSP (PEDS) 3,840 MG/120 ML BOTTLE PO SCH (20:59)
[2021-01-07] MEDS: MELATONIN 5 MG TABLET PO SCH (21:00)
[2021-01-08] MEDS: ONDANSETRON 4 MG/2 ML VIAL IVP SCH ×5 (01:44→22:09)
[2021-01-08] MEDS: ACETAMINOPHEN ORAL SUSP (PEDS) 3,840 MG/120 ML BOTTLE PO SCH ×4 (01:45→19:30)
[2021-01-08] MEDS: 0.9% NACL WITH KCL 20 MEQ/L 1,000 ML IV SCH ×2 (01:45→11:14)
[2021-01-08] MEDS: LACTATED RINGERS 1,000 ML IV SCH (07:11)
[2021-01-08] MEDS: ALBUTEROL NEBULIZED 2.5 MG/3 ML INHALATION SCH ×4 (08:02→20:17)
[2021-01-08] MEDS: LIDOCAINE 5% PATCH TOPICAL SCH (08:42)
[2021-01-08] MEDS: SODIUM FERRIC GLUCONAT-SUCROSE 125 MG in SODIUM CHLORIDE 0.9% 100 ML IVPB SCH (08:46)
[2021-01-08] MEDS: SIMETHICONE 40 MG/0.6 ML DROPS 2,000 MG/30 ML BOTTLE PO SCH ×4 (09:02→19:44)
[2021-01-08 10:37] LABS: MCH 30.2 pg (25.0-35.0); MCHC 32.3 g/dL (31.0-37.0); MCV 93.5 fL (80.0-100.0); Mean Platelet Volume 8.1; Platelet Count 182 k/uL (150-450); RBC 1.82 m/uL (3.80-5.40); RDW 12.6 % (11.5-15.5); WBC 6.5 k/uL (3.8-10.6)
[2021-01-08 10:50] LABS: HGB 5.5 gm/dL (11.4-16.0)
--- NOTE | 2021-01-08 13:30 | P.PN ---
Subjective Progress Note Date: 01/08/21 CHIEF COMPLAINT: Morbid obesity HISTORY OF PRESENT ILLNESS: Kathleen Velez is a 45-year-old female status post gastric bypass 01/05/2021. She is postoperative day 3. She reports having a bowel movement dark however improved from her last bowel movement yesterday. Her abdominal cramping has also improved. She feels better today. No reports of nausea or vomiting. She is tolerating full liquid diet. She reports moderate urination. She received 3 L of normal saline yesterday. She reports her urine is clear. She reports dizziness. PHYSICAL EXAM: VITAL SIGNS: Reviewed GENERAL: Well-developed in no acute distress. HEENT: No scleral icterus. Extraocular movements grossly intact. Hears conversational speech. No nasal drainage. NECK: Supple without lymphadenopathy. CHEST: Nonlabored respirations with equal bilateral excursions. CARDIOVASCULAR: Tachycardic. Distal 2+ pulses. ABDOMEN: Obese, soft, nontender, nondistended. MUSCULOSKELETAL: No clubbing, cyanosis. NEURO: No focal or lateralizing signs. Cranial nerves 2 through 12 grossly within normal limits. PSYCH: Appropriate affect. Alert and oriented to person, place and time. SKIN: Good skin turgor. Well perfused. LABS: Hemoglobin down 8.3-5.5 ASSESSMENT: 1. Morbid obesity due to excess calories 2. Body mass index of 62.4, initial to 42.0 3. Hypertensive heart disease. 4. Gastroesophageal reflux disease 5. Persistent tachycardia 6. Hiatal hernia 7. Chronic gastritis 8. Status post gastric bypass 9. Acute blood loss anemia 10. Melena, expected following gastric bypass PLAN: 1. Agree with blood transfusion for symptomatic anemia 2. Continue iron infusion 3. Continue hospitalization. 4. Discontinue additional IV fluids due to dilutional factor Objective - Vital Signs Vital signs: Vital Signs Temp 98.3 F 01/08/21 07:36 Pulse 82 01/08/21 12:24 Resp 16 01/08/21 07:41 BP 96/63 01/08/21 07:36 Pulse Ox 97 01/08/21 07:36 Intake & Output 01/07/21 01/08/21 01/08/21 18:59 06:59 18:59 Weight 114.4 kg Other: Voiding Method Toilet Toilet Toilet - Labs CBC & Chem 7: 01/08/21 10:01 01/06/21 06:41 Labs: Abnormal Lab Results - Last 24 Hours (Table) 01/08/21 01/08/21 Range/Units 10:01 11:21 RBC 1.82 L (3.80-5.40) m/uL Hgb 5.5 L* D (11.4-16.0) gm/dL Hct 17.0 L* (34.0-46.0) % Crossmatch See Detail Assessment and Plan (1) Acute blood loss anemia Current Visit: Yes Status: Acute Code(s): D62 - ACUTE POSTHEMORRHAGIC ANEMIA SNOMED Code(s): 423691925 (2) Melena Current Visit: Yes Status: Acute Code(s): K92.1 - MELENA SNOMED Code(s): 6710377 (3) Status post gastric surgery Current Visit: Yes Status: Acute Code(s): Z98.890 - OTHER SPECIFIED POSTPROCEDURAL STATES SNOMED Code(s): 001634011 (4) BMI 40.0-44.9, adult Current Visit: Yes Status: Acute Code(s): Z68.41 - BODY MASS INDEX [BMI]40.0-44.9, ADULT SNOMED Code(s): 956282991 (5) Hypertensive heart disease Current Visit: Yes Status: Acute Code(s): I11.9 - HYPERTENSIVE HEART DISEASE WITHOUT HEART FAILURE SNOMED Code(s): 35469557 (6) Morbid obesity due to excess calories Current Visit: Yes Status: Acute Code(s): E66.01 - MORBID (SEVERE) OBESITY DUE TO EXCESS CALORIES SNOMED Code(s): 465517783 (7) Sleep apnea Current Visit: Yes Status: Acute Code(s): G47.30 - SLEEP APNEA, UNSPECIFIED SNOMED Code(s): 83075082
[2021-01-08] MEDS: ONDANSETRON 4 MG TAB PO PRN (19:26)
[2021-01-08] MEDS: MELATONIN 5 MG TABLET PO SCH (19:44)
[2021-01-09] MEDS: ACETAMINOPHEN ORAL SUSP (PEDS) 3,840 MG/120 ML BOTTLE PO SCH ×3 (01:50→14:34)
[2021-01-09] MEDS: ONDANSETRON 4 MG/2 ML VIAL IVP SCH ×2 (05:06→13:28)
[2021-01-09 06:55] LABS: Glucose,Whole Blood 98 mg/dL (75-99)
[2021-01-09] MEDS ORDERED: DESMOPRESSIN ACETATE 4 MCG/ML VIAL (MDV) IV SCH ×2 (07:00→09:00)
[2021-01-09] MEDS: SIMETHICONE 40 MG/0.6 ML DROPS 2,000 MG/30 ML BOTTLE PO SCH ×2 (07:29→14:38)
[2021-01-09] MEDS: ALBUTEROL NEBULIZED 2.5 MG/3 ML INHALATION SCH ×3 (08:50→15:06)
[2021-01-09] MEDS: SODIUM FERRIC GLUCONAT-SUCROSE 125 MG in SODIUM CHLORIDE 0.9% 100 ML IVPB SCH (09:00)
[2021-01-09 09:22] LABS: MCH 31.1 pg (25.0-35.0); MCHC 34.5 g/dL (31.0-37.0); MCV 90.2 fL (80.0-100.0); Mean Platelet Volume 7.7; Platelet Count 219 k/uL (150-450); RBC 2.13 m/uL (3.80-5.40); RDW 13.4 % (11.5-15.5); WBC 6.7 k/uL (3.8-10.6)
[2021-01-09 09:25] LABS: HGB 6.6 gm/dL (11.4-16.0)
[2021-01-09 09:26] LABS: HCT 19.2 % (34.0-46.0)
[2021-01-09] MEDS: LIDOCAINE 5% PATCH TOPICAL SCH (09:37)
[2021-01-09] MEDS ORDERED: FUROSEMIDE 10 MG/ML 2 ML VIAL IV PRN (09:41)
[2021-01-09] MEDS ORDERED: diphenhydrAMINE 50 MG/ML 1 ML VIAL IVP ONE (09:41)
[2021-01-09 09:59] LABS: HCT 18.2 % (37.2-46.3); HGB 5.9 g/dL (12.0-15.0); MCH 30.3 pg (27.0-32.0); MCHC 32.4 g/dL (32.0-37.0); MCV 93.3 fL (80.0-97.0); Mean Platelet Volume 10.7 fL (9.5-12.2); Platelet Count 206 X 10*3/uL (140-440); RBC 1.95 X 10*6/uL (4.10-5.20); RDW 13.5 % (11.5-14.5); WBC 7.49 X 10*3/uL (4.50-10.00)
[2021-01-09] MEDS: ONDANSETRON 4 MG TAB PO PRN ×2 (10:18→16:48)
--- NOTE | 2021-01-09 10:37 | P.PN ---
Subjective Progress Note Date: 01/09/21 CHIEF COMPLAINT: Morbid obesity HISTORY OF PRESENT ILLNESS: Kathleen Velez is a 45-year-old female status post gastric bypass 01/05/2021. She is postoperative day 4. Overnight and this morning, she had smaller baby smear bowel movements. She reports her bowel movements small being dark with blood. SNo moderate abdominal pain. She wants to go home. She is tolerating liquids. PHYSICAL EXAM: VITAL SIGNS: Reviewed GENERAL: Well-developed in no acute distress. HEENT: No scleral icterus. Extraocular movements grossly intact. Hears conversational speech. No nasal drainage. NECK: Supple without lymphadenopathy. CHEST: Nonlabored respirations with equal bilateral excursions. CARDIOVASCULAR: Regular rate and rhythm. Distal 2+ pulses. ABDOMEN: Obese, soft, nontender, nondistended. MUSCULOSKELETAL: No clubbing, cyanosis. NEURO: No focal or lateralizing signs. Cranial nerves 2 through 12 grossly within normal limits. PSYCH: Appropriate affect. Alert and oriented to person, place and time. SKIN: Good skin turgor. Well perfused. LABS: Hemoglobin 5.9-6.6. ASSESSMENT: 1. Morbid obesity due to excess calories 2. Body mass index of 62.4, initial to 42.0 3. Hypertensive heart disease. 4. Gastroesophageal reflux disease 5. Persistent tachycardia 6. Hiatal hernia 7. Chronic gastritis 8. Status post gastric bypass 9. Acute blood loss anemia 10. Melena, expected following gastric bypass PLAN: 1. I reviewed with her causes for bleeding including treatment plan. At this time, we'll treat for dysfunctional bleeding including with cryoprecipitate and DDAVP. She has received DDAVP subcutaneously. 2. She had a loss of IV access despite multiple tries, midline performed for blood transfusion 3. Additionally, element of hemodilution reviewed. We'll give Lasix in between blood transfusions to minimize volume overload. 4. Repeat of hemoglobin following blood transfusions. 5. Possible discharge pending response to blood transfusion and blood count. Objective - Vital Signs Vital signs: Vital Signs Temp 98.1 F 01/09/21 07:24 Pulse 92 01/09/21 09:01 Resp 16 01/09/21 08:05 BP 109/75 01/09/21 07:24 Pulse Ox 99 01/09/21 07:24 Intake & Output 01/08/21 01/09/21 01/09/21 18:59 06:59 18:59 Intake Total 386 Balance 386 Intake: Intake, IV Titration 100 Amount Sodium Ferric Gluconat- 100 Sucrose 125 mg In Sodium Chloride 0.9% 100 ml @ 100 mls/hr IVPB DAILY [facility] Rx#:[id number] Blood Product 286 Rc Pheresis As-3 Unit 286 [id number] Other: Voiding Method Toilet Toilet Toilet # Voids 2 # Bowel Movements 1 1 - Labs CBC & Chem 7: 01/09/21 08:04 01/06/21 06:41 Labs: Abnormal Lab Results - Last 24 Hours (Table) 01/08/21 01/08/21 01/09/21 Range/Units 10:01 11:21 06:07 RBC 1.82 L 1.95 L (3.80-5.40) m/uL Hgb 5.5 L* D 5.9 L* (11.4-16.0) gm/dL Hct 17.0 L* 18.2 L* (34.0-46.0) % Absolute Nucleated RBC 0.03 H (0.00-0.00) X 10*3/uL NRBC/100 WBC Diff 0.4 H (0.0-0.0) /100 WBCS Crossmatch See Detail 01/09/21 Range/Units 08:04 RBC 2.13 L (3.80-5.40) m/uL Hgb 6.6 L* (11.4-16.0) gm/dL Hct 19.2 L* (34.0-46.0) % Absolute Nucleated RBC (0.00-0.00) X 10*3/uL NRBC/100 WBC Diff (0.0-0.0) /100 WBCS Crossmatch Assessment and Plan (1) Acute blood loss anemia Current Visit: Yes Status: Acute Code(s): D62 - ACUTE POSTHEMORRHAGIC ANEMIA SNOMED Code(s): 069054873 (2) Melena Current Visit: Yes Status: Acute Code(s): K92.1 - MELENA SNOMED Code(s): 9455868 (3) Status post gastric surgery Current Visit: Yes Status: Acute Code(s): Z98.890 - OTHER SPECIFIED POSTPROCEDURAL STATES SNOMED Code(s): 084360194 (4) BMI 40.0-44.9, adult Current Visit: Yes Status: Acute Code(s): Z68.41 - BODY MASS INDEX [BMI]40.0-44.9, ADULT SNOMED Code(s): 616856679 (5) Hypertensive heart disease Current Visit: Yes Status: Acute Code(s): I11.9 - HYPERTENSIVE HEART DISEASE WITHOUT HEART FAILURE SNOMED Code(s): 41341131 (6) Morbid obesity due to excess calories Current Visit: Yes Status: Acute Code(s): E66.01 - MORBID (SEVERE) OBESITY DUE TO EXCESS CALORIES SNOMED Code(s): 148948227 (7) Sleep apnea Current Visit: Yes Status: Acute Code(s): G47.30 - SLEEP APNEA, UNSPECIFIED SNOMED Code(s): 06530185
[2021-01-09 11:41] LABS: Glucose,Whole Blood 89 mg/dL (75-99)
[2021-01-09 14:01] VITALS: RESP 16
[2021-01-09 15:33] VITALS: TEMP 98.1
[2021-01-09 16:10] LABS: Basophils % (A) 0 %; Eosinophils # (A) 0.1 k/uL (0-0.7); Eosinophils % (A) 2 %; HCT 20.5 % (34.0-46.0); Lymphocytes # (A) 2.1 k/uL (1.0-4.8); Lymphocytes % (A) 32 %; MCH 30.9 pg (25.0-35.0); MCHC 34.4 g/dL (31.0-37.0); MCV 89.8 fL (80.0-100.0); Mean Platelet Volume 7.8; Monocytes # (A) 0.4 k/uL (0-1.0); Monocytes % (A) 6 %; Neutrophils # (A) 3.9 k/uL (1.3-7.7); Neutrophils % (A) 59 %; Platelet Count 190 k/uL (150-450); RBC 2.28 m/uL (3.80-5.40); RDW 13.5 % (11.5-15.5); WBC 6.5 k/uL (3.8-10.6)
[2021-01-09 16:35] LABS: Glucose,Whole Blood 100 mg/dL (75-99)
--- NOTE | 2021-01-09 17:22 | CDI ---
Documentation Clarification Form Date: 01/09/2021 04:57:00 PM From: Karley Dominguez RN, CCDS Admit Date: 01/05/2021 06:09:00 AM Patient Name: Kathleen Velez Visit Number: [id number] Discharge Date: ATTENTION: The Clinical Documentation Specialists (CDI) and [facility] Coding Staff appreciate your assistance in clarifying documentation. Please respond to the clarification below the line at the bottom and electronically sign. The CDI & [facility] Coding staff will review the response and follow-up if needed. Please note: Queries are made part of the Legal Health Record. If you have any questions, please contact the author of this message via ITS. Dr. Anabella Denton Acute blood loss anemia is documented on 01/08 and in subsequent progress notes. Please further clarify acute blood loss anemia following a procedure. Patients Admitting Diagnosis: Morbid obesity due to excess calories Post-Operative Diagnosis: Same Procedure performed: 01/05: Robotic assisted dev Neftaly Xi laparoscopic Jewels-en-Y gastric bypass History/Risk Factors: Morbid obesity, GERD, Hiatal hernia, chronic gastritis, Clinical Indicators: 45-year-old female present on 01/05 for elective Robotic assisted da Neftaly Xi laparoscopic Jewels-en-Y gastric bypass. Per operative note estimated blood loss was 5 ml. 01/06 vital signs 95/61 105 18 97.6 01/06 progress notes: hemoglobin decreased from 13.3 to 8.8 01/08 HGB 5.5, HCT 17.0 01/09 HGB 5.9, HCT 18.2 Treatment: Monitor CBC DAILY Transfuse PRBC (01/08, 01/09 total =2 Units) DDAVP 1 mcg IV 01/09 Lasix 20 mg IV once .9 NS 1,000 ML/IV Bolus x2 01/07 In order to accurately reflect this patients severity of illness, please clarify if the acute blood loss anemia: -is a complication of surgical procedure -is an expected outcome of the surgical procedure -is related to co-morbid condition(s) of -Other please specify -Unable to determine (Last Revision: December 2019) -is an expected outcome of the surgical procedure 01/09/2021 1745 [facility]
[2021-01-09 17:43] VITALS: BP 112/72; PULSE 90
--- NOTE | 2021-01-09 17:56 | P.DS ---
Providers Date of admission: 01/05/21 06:09 Expected date of discharge: 01/09/21 Attending physician: Anabella Denton Primary care physician: Nel Stephen, DO - Discharge Diagnosis(es) (1) Acute blood loss anemia Current Visit: Yes Status: Acute (2) Melena Current Visit: Yes Status: Acute (3) Status post gastric surgery Current Visit: Yes Status: Acute (4) BMI 40.0-44.9, adult Current Visit: Yes Status: Acute (5) Hypertensive heart disease Current Visit: Yes Status: Acute (6) Morbid obesity due to excess calories Current Visit: Yes Status: Acute (7) Sleep apnea Current Visit: Yes Status: Acute Hospital Course: COURSE: Kathleen Velez is a 45-year-old female status post gastric bypass 01/05/2021. Following surgery, she had melena. Hemoglobin dropped from 13-5.5. She received 2 units of packed RBCs including DDAVP. She also received IV fluid hydration. Hemoglobin on repeat increased to 7.0. Prior to discharge, she reported feeling much better than yesterday and in the morning. She denied any large bloody bowel movements. She was eager to go home. Options including extended stay with repeat hemoglobin tomorrow was described. The patient was clinically stable without weakness. She reportedly more energy. She opted for discharge with follow-up in the bariatric center in 3 days. Discharge instructions including contact information were reviewed. PHYSICAL EXAM: VITAL SIGNS: Reviewed GENERAL: Well-developed in no acute distress. HEENT: No scleral icterus. Extraocular movements grossly intact. Hears conversational speech. No nasal drainage. NECK: Supple without lymphadenopathy. CHEST: Nonlabored respirations with equal bilateral excursions. CARDIOVASCULAR: Regular rate and rhythm. Distal 2+ pulses. ABDOMEN: Obese, soft, nontender, nondistended. MUSCULOSKELETAL: No clubbing, cyanosis. NEURO: No focal or lateralizing signs. Cranial nerves 2 through 12 grossly within normal limits. PSYCH: Appropriate affect. Alert and oriented to person, place and time. SKIN: Good skin turgor. Well perfused. LABS: Hemoglobin 5.9-6.6, now 7.0 ASSESSMENT: 1. Morbid obesity due to excess calories 2. Body mass index of 62.4, initial to 42.0 3. Hypertensive heart disease. 4. Gastroesophageal reflux disease 5. Persistent tachycardia 6. Hiatal hernia 7. Chronic gastritis 8. Status post gastric bypass 9. Acute blood loss anemia, expected outcome of the procedure 10. Melena, expected following gastric bypass Patient Condition at Discharge: Stable Plan - Discharge Summary Discharge Rx Participant: Yes New Discharge Prescriptions: New bisacodyL [Dulcolax] 5 mg PO DAILY PRN #10 tablet.dr EASON Reason: Constipation Simethicone 40 mg/0.6 ml Drops [Mylicon Drops] 40 mg PO PCHS PRN #30 ml PRN Reason: Gas Omeprazole [PriLOSEC] 40 mg PO DAILY #30 capsule. Ondansetron Odt [Zofran Odt] 4 mg PO Q8HR PRN #9 tab PRN Reason: Nausea Acetaminophen Oral Susp [Tylenol Oral Susp] 500 mg PO Q4-6H PRN #400 ml PRN Reason: Pain Continue diphenhydrAMINE [Benadryl] 50 mg PO HS PRN PRN Reason: alg Melatonin 20 mg PO HS lisinopriL [Prinivil] 20 mg PO BID Loratadine [Claritin] 10 mg PO DAILY PRN PRN Reason: ALLERGY SYMPTOMS Discontinued Cholecalciferol (Vitamin D3) [Vitamin D3 (5000 Iu)] 125 mcg PO DAILY Multivitamin [Multivitamins Adult Gummies] 1 each PO DAILY Cider Vinegar [Apple Cider Vinegar] 1 tab PO DAILY Bio Cleanse 1 tab PO DIRECTED Discharge Medication List Loratadine [Claritin] 10 mg PO DAILY PRN 06/16/20 [History] Melatonin 20 mg PO HS 06/16/20 [History] diphenhydrAMINE [Benadryl] 50 mg PO HS PRN 06/16/20 [History] lisinopriL [Prinivil] 20 mg PO BID 06/16/20 [History] Acetaminophen Oral Susp [Tylenol Oral Susp] 500 mg PO Q4-6H PRN #400 ml 01/09/21 [Rx] Omeprazole [PriLOSEC] 40 mg PO DAILY #30 capsule. 01/09/21 [Rx] Ondansetron Odt [Zofran Odt] 4 mg PO Q8HR PRN #9 tab 01/09/21 [Rx] Simethicone 40 mg/0.6 ml Drops [Mylicon Drops] 40 mg PO PCHS PRN #30 ml 02/19/21 [Rx] bisacodyL [Dulcolax] 5 mg PO DAILY PRN #10 tablet. 01/09/21 [Rx] Follow up [facility]ment(s[facility] [facility] [place] [facility] - 01/14/21 1:00 pm Patient Instructions/Handouts: How to Use an Incentive Spirometer (DC), Abdominal Binder (DC), Nutrition after Bariatric Surgery (DC), Jewels-en-Y Gastric Bypass (GEN) Activity/Diet/Wound Care/Special Instructions: AVOID OVER EXERTION!!!!! Continue to use incentive spirometry to prevent pneumonias. Please continue to ambulate at home to prevent blood clots in legs. Please notify your surgeon if you develop nausea and vomiting including new onset of abdominal pain. (CALL BARIATRIC CENTER OFFICE NUMBER FIRST) No lifting over 4 pounds in 4 weeks, February 02 Follow-up at the bariatric center. May shower. No soaking in bath tubs for 2 weeks until, until January 19 Drink 64 oz of fluid daily. Conitnue protein shakes. Notify bariatric center for temp over 101.0, increased pain, drainage from incisions. No straws or carbonated beverages. Liquid diet only. Sugar content should be less than 6 g to avoid dumping syndrome. Take MOM for constipation. CRUSH, OPEN, OR CUT TABLETS LARGER THAN A SIZE OF A TIC TAC Discharge Disposition: HOME SELF-CARE
== END 2021-01-09 18:30 | disposition home or self-care (01) | DRG 620 ==
LOC: 2ORMAIN 06:09 → 4SSUR 13:53
PROVIDERS: ADMIT Surgery Plastic and Reconstructive Surgery; ATTEND Surgery Plastic and Reconstructive Surgery
PROC: 8E0W4CZ Robotic Assisted Procedure of Trunk Region, Percutaneous Endoscopic Approach (ICD-10-PCS; 2021-01-05)
PROC: 0DJ08ZZ Inspection of Upper Intestinal Tract, Via Natural or Artificial Opening Endoscopic (ICD-10-PCS; 2021-01-05)
PROC: 0D164ZA Bypass Stomach to Jejunum, Percutaneous Endoscopic Approach (ICD-10-PCS; principal; 2021-01-05 07:30)
PROC: 5A09357 Assistance with Respiratory Ventilation, Less than 24 Consecutive Hours, Continuous Positive Airway Pressure (ICD-10-PCS; 2021-01-06)
PROC: 30233N1 Transfusion of Nonautologous Red Blood Cells into Peripheral Vein, Percutaneous Approach (ICD-10-PCS; 2021-01-08)
PROC: 05HD33Z Insertion of Infusion Device into Right Cephalic Vein, Percutaneous Approach (ICD-10-PCS; 2021-01-09)
DX: E66.01 Morbid (severe) obesity due to excess calories (principal); D62 Acute posthemorrhagic anemia; K92.1 Melena; I11.9 Hypertensive heart disease without heart failure; Z68.41 Body mass index [BMI] 40.0-44.9, adult; K21.9 Gastro-esophageal reflux disease without esophagitis; K44.9 Diaphragmatic hernia without obstruction or gangrene; K29.50 Unspecified chronic gastritis without bleeding; R00.0 Tachycardia, unspecified; G47.30 Sleep apnea, unspecified; I83.90 Asymptomatic varicose veins of unspecified lower extremity; R33.9 Retention of urine, unspecified; M17.0 Bilateral primary osteoarthritis of knee; Z71.3 Dietary counseling and surveillance; E83.42 Hypomagnesemia; Z98.890 Other specified postprocedural states; Z79.899 Other long term (current) drug therapy; Z87.891 Personal history of nicotine dependence; Z87.442 Personal history of urinary calculi; Z86.14 Personal history of Methicillin resistant Staphylococcus aureus infection; Z80.8 Family history of malignant neoplasm of other organs or systems
CPT/HCPCS: 80051; 80053; 81025; 82310; 82565; 83735; 84100; 84520; 85025; 85027; 86850; 86900; 86901; 86920; 94640; 94760

== ENCOUNTER → 2021-01-12 | Outpatient (CLI) | payer OTHER ==
[2021-01-12 12:47] LABS: HCT 27.7 % (34.0-46.0); MCH 30.7 pg (25.0-35.0); MCHC 33.3 g/dL (31.0-37.0); MCV 92.2 fL (80.0-100.0); Mean Platelet Volume 8.2; Platelet Count 322 k/uL (150-450); RDW 13.9 % (11.5-15.5); WBC 10.4 k/uL (3.8-10.6)
[2021-01-12 12:52] LABS: HGB 9.2 gm/dL (11.4-16.0)
[2021-01-12 14:17] VITALS: BP 120/86; PULSE 98; RESP 18; TEMP 98.7; BMI 41.1
[2021-01-12 19:10] LABS: % Iron Saturation 9.31 (12.00-45.00)
[2021-01-12 19:18] LABS: Ferritin 150.5 ng/mL (10.0-291.0)
== END | disposition home or self-care (01) ==
LOC: BARWHC3 12:04
PROVIDERS: ATTEND Surgery Plastic and Reconstructive Surgery
DX: D50.9 Iron deficiency anemia, unspecified (principal)
CPT/HCPCS: 82728; 83540; 83550; 85027; G0463; 99211

== ENCOUNTER → 2021-01-14 | Outpatient (CLI) | payer OTHER ==
[2021-01-14 14:06] VITALS: BP 127/88; PULSE 100; RESP 16; TEMP 98.2; BMI 41.1
--- NOTE | 2021-01-14 14:49 | P.PN ---
Subjective Progress Note Date: 01/14/21 DATE OF SERVICE: 01/14/2021 CHIEF COMPLAINT: Status post gastric bypass HISTORY OF PRESENT ILLNESS: Kathleen Velez is a 45-year-old female who is status post gastric bypass, 01/05/21. She is 1 week out. She feels great! Her bowel movements are good. No further abdominal pain. She is drinking her fluids. Her protein is between 2 to 3 shakes per day. No swelling of the feet. Otherwise she is doing well. At height of 5 feet 5 inches, her ideal body weight is 149 pounds. Her highest weight was 374 pounds, BMI 62.4. She comes in 246 pounds from 251 pounds, 3 weeks ago. She has lost 5 pounds, 3 weeks. Her body mass index is 41.1. Lifetime weight loss is 128 pounds. Her lifetime weight loss is 57%. She is 97 pounds overweight. PHYSICAL EXAM: VITAL SIGNS: Height 5 foot 5 inches, weight 246 pounds. BMI 41.1 Vital Signs Temp 98.2 F 01/14/21 14:04 Pulse 100 01/14/21 14:04 Resp 16 01/14/21 14:04 BP 127/88 01/14/21 14:04 Pulse Ox GENERAL: Well-developed in no acute distress. HEENT: No scleral icterus. Extraocular movements grossly intact. Hears conversational speech. No nasal drainage. NECK: Supple without lymphadenopathy. CHEST: Nonlabored respirations with equal bilateral excursions. CARDIOVASCULAR: Tachycardic. Distal 2+ pulses. ABDOMEN: Obese, soft, nontender, nondistended. MUSCULOSKELETAL: No clubbing, cyanosis. NEURO: No focal or lateralizing signs. Cranial nerves 2 through 12 grossly within normal limits. PSYCH: Appropriate affect. Alert and oriented to person, place and time. SKIN: Good skin turgor. Well perfused. LABS: Hgb is stable 9.1 from 9.2. Iron is low ASSESSMENT: 1. Morbid obesity due to excess calories 2. Body mass index of 62.4, initial to 41.1 3. Hypertensive heart disease. 4. Gastroesophageal reflux disease 5. Persistent tachycardia 6. Hiatal hernia 7. Chronic gastritis 8. Status post gastric bypass 9. Iron deficiency anemia PLAN: 1. Recommend 4 weeks of recovery. 2. Follow up in 2 weeks. 3. Her labs were reviewed. 4. Recommend iron infusion for iron deficiency anemia Objective - Vital Signs Vital signs: Vital Signs Temp 98.2 F 01/14/21 14:04 Pulse 100 01/14/21 14:04 Resp 16 01/14/21 14:04 BP 127/88 01/14/21 14:04 Pulse Ox Intake & Output 01/13/21 01/14/21 01/14/21 18:59 06:59 18:59 Weight 112.037 kg
== END | disposition home or self-care (01) ==
LOC: BARWHC3 14:03
PROVIDERS: ATTEND Surgery Plastic and Reconstructive Surgery
DX: E66.01 Morbid (severe) obesity due to excess calories (principal); Z68.44 Body mass index [BMI] 60.0-69.9, adult; I11.9 Hypertensive heart disease without heart failure; K21.9 Gastro-esophageal reflux disease without esophagitis; K44.9 Diaphragmatic hernia without obstruction or gangrene; K29.50 Unspecified chronic gastritis without bleeding; D50.9 Iron deficiency anemia, unspecified; R00.0 Tachycardia, unspecified; Z98.84 Bariatric surgery status
CPT/HCPCS: 97803; G0463; 99211

== ENCOUNTER → 2021-01-22 | Outpatient (CLI) | payer OTHER ==
--- NOTE | 2021-01-22 18:50 | SFUN ---
SLEEP CENTER FOLLOW UP NOTE DATE OF SERVICE: 01/22/2021 This 45-year-old lady has been followed in Sleep Center for treatment of obstructive sleep apnea-hypopnea syndrome. Recently, patient had a home sleep apnea test which showed apnea-hypopnea index 13.2 with oxygen desaturation to 75%. Subsequently, after the patient was started on treatment with CPAP. The patient is able to use CPAP equipment pretty well, but then she underwent gastric bypass surgery and after surgery because of discomfort in her belly she has had more difficulties to use her CPAP equipment. [place] Sleepiness Scale today is slightly increased to 11. I checked her CPAP unit. Range of the pressure 5-15, average pressure 8.3. For the last month, usage 27/30 nights and 11/30 nights more than 4 hours. Average usage 3.8 hours per night, leakage 31 L/minute. Apnea-hypopnea index only 2.0. For the whole period of time when the patient has the machine she used it 63/66 nights and 43/66 nights for more than 4 hours. At present she has some discomfort with her mask. MEDICATIONS: Amlodipine, Levemir, Xanax, Motrin, candesartan. PHYSICAL EXAM: GENERAL: Patient in no distress. VITAL SIGNS: BP 138/86, HR 94, RR 12, weight 234.6, temperature 97.3, oxygen saturation at room air 97%. HEENT: PERRLA, EOMI, evaluation of oropharynx showed tongue protrudes midline. Low position of soft palate, Mallampati 3-4. NECK: Supple, no JVD. Thyroid is not palpable. LUNGS: Clear to percussion and to auscultation. Good air exchange. No wheezing or rhonchi. HEART: S1, S2 regular. No murmurs, gallops, or rubs. ABDOMEN: Obese, soft and nontender. Bowel sounds are present. No organomegaly appreciated. EXTREMITIES: No clubbing or cyanosis. [employer]: Awake, alert, and oriented X3. Cranial nerves 2 to 7 intact. There is no fasciculation or atrophy. noted. No focal deficits observed. IMPRESSION: 1. Obstructive sleep apnea-hypopnea syndrome. The patient demonstrated borderline compliance with treatment, benefitting from treatment. 2. Obesity status post gastric bypass surgery about one month ago. 3. Hypertension. 4. History of kicking at night, possibly periodic limb movements. 5. Diabetes mellitus. 6. History of anxiety. PLAN: 1. The patient should use equipment every night for the whole night. At present she is using it every night, but the time of usage slightly shorter than recommended. The patient promised to follow our recommendations. 2. I discussed with the patient the possibility to use special pillow with a space for the tube. 3. Sleep hygiene with regular time in bed for at least 7-1/2 to 8 hours. 4. Precautions related to driving. No driving if feeling sleepiness. 5. I will maintain all necessary prescription for PAP supplies including mask, tube, filters. 6. Watching weight. 7. No driving if feeling sleepiness. 8. Follow-up visit in 6 months or earlier if patient has any problems. Thank you very much for allowing me to participate in the management of your patient. Sincerely, Enrico Lynch MD, PhD, FAASM Diplomat of [place] [place] Loss Control Consultant of [facility] [place] MMMERT / SHIRLEYN: [id number] /
== END | disposition home or self-care (01) ==
LOC: SLEEP 14:51
PROVIDERS: ATTEND Internal Medicine
DX: G47.33 Obstructive sleep apnea (adult) (pediatric) (principal); E66.9 Obesity, unspecified; I10 Essential (primary) hypertension; E11.9 Type 2 diabetes mellitus without complications; Z99.89 Dependence on other enabling machines and devices; Z79.1 Long term (current) use of non-steroidal anti-inflammatories (NSAID); Z79.899 Other long term (current) drug therapy; Z98.84 Bariatric surgery status; Z86.59 Personal history of other mental and behavioral disorders

== ENCOUNTER 2021-01-25 10:05 | Emergency (ER) | payer OTHER ==
[2021-01-25 10:11] VITALS: TEMP 97.8
[2021-01-25] MEDS ORDERED: ONDANSETRON 4 MG/2 ML VIAL IVP STA (10:22)
[2021-01-25] MEDS ORDERED: HYDROmorphone 0.5 MG/0.5 ML SYRINGE IVP STA ×2 (10:22→12:55)
[2021-01-25] MEDS ORDERED: SODIUM CHLORIDE 0.9% 500 ML 500 ML IV STA (10:22)
--- NOTE | 2021-01-25 10:29 | ED ---
Abdominal Pain HPI - General Chief Complaint: Abdominal Pain Stated Complaint: Kidney stone Time Seen by Provider: 01/25/21 10:11 Source: patient Mode of arrival: ambulatory Limitations: no limitations - History of Present Illness Initial Comments: 45-year-old female with history of kidney stones and recent bariatric surgery presents emergency Department with chief complaint of flank pain. Patient reports the pain started early this morning and woke her up out of bed. Patient reports the pain is located in the right flank region and feels that her typical kidney stone. States the pain does radiate to the groin. Reports some nausea but no vomiting. She believes there is some gross hematuria. Does report obstructive urinary symptoms like dribbling but denies dysuria or increased frequency or urgency. Denies any back pain chest pain shortness of breath. Denies any vaginal symptoms. - Related Data Home Medications Medication Instructions Recorded Confirmed diphenhydrAMINE [Benadryl] 50 mg PO HS PRN 06/16/20 01/25/21 Acetaminophen Oral Susp [Tylenol 480 mg PO Q4-6H PRN 01/25/21 01/25/21 Oral Susp] Magnesium Hydroxide [Milk of 400 mg PO DAILY PRN 01/25/21 01/25/21 Magnesia] Previous Rx's Medication Instructions Recorded Omeprazole [PriLOSEC] 40 mg PO DAILY #30 capsule. 01/09/21 HYDROcodone/APAP [[place] Elixir 15 ml PO Q6HR PRN #180 ml 01/25/21 7.5-325Mg/15Ml] Allergies Allergy/AdvReac Type Severity Reaction Status Date / Time No Known Allergies Allergy Verified 01/25/21 11:41 Review of Systems ROS Statement: Those systems with pertinent positive or pertinent negative responses have been documented in the HPI. ROS Other: All systems not noted in ROS Statement are negative. Past Medical History Past Medical History: Hypertension, Sleep Apnea/CPAP/BIPAP Additional Past Medical History / Comment(s): history of kidney stones History of Any Multi-Drug Resistant Organisms: MRSA Date of last positivie culture/infection: 2012 MDRO Source:: right hand Past Surgical History: Orthopedic Surgery Additional Past Surgical History / Comment(s): right heel surgery, gastric bypass 2020, leg artery cauterization Past Anesthesia/Blood Transfusion Reactions: Postoperative Nausea & Vomiting (PONV) Additional Past Anesthesia/Blood Transfusion Reaction / Comment(s): no hx blood transfusion Past Psychological History: No Psychological Hx Reported Smoking Status: Former smoker Past Alcohol Use History: Occasional Past Drug Use History: None Reported - Past Family History Mother Family Medical History: No Reported History Brother(s) Additional Family Medical History / Comment(s): oral CA-tongue partially removed General Exam Limitations: no limitations General appearance: alert, in no apparent distress, obese Head exam: Present: atraumatic, normocephalic, normal inspection Eye exam: Present: normal appearance, PERRL, EOMI Pupils: Present: normal accommodation ENT exam: Present: normal exam, normal oropharynx, mucous membranes moist Neck exam: Present: normal inspection, full ROM. Absent: tenderness Respiratory exam: Present: normal lung sounds bilaterally. Absent: respiratory distress, wheezes, rales, rhonchi, stridor Cardiovascular Exam: Present: regular rate, normal rhythm, normal heart sounds GI/Abdominal exam: Present: soft. Absent: distended, tenderness, guarding Extremities exam: Present: normal inspection, full ROM, normal capillary refill, other (Palpable DP and PT bilaterally). Absent: tenderness, pedal edema, joint swelling, calf tenderness Back exam: Present: normal inspection, full ROM, CVA tenderness (R). Absent: tenderness, CVA tenderness (L) Neurological exam: Present: alert, oriented X3, normal gait Psychiatric exam: Present: normal affect, normal mood Skin exam: Present: warm, dry, intact, normal color Course Vital Signs 01/25/21 10:06 Temperature 97.8 F Pulse Rate 91 Respiratory 18 Rate Blood Pressure 164/109 O2 Sat by Pulse 100 Oximetry Medical Decision Making - Medical Decision Making 44-year-old female with history of kidney stones presents emergency Department with a chief complaint of a kidney stone. On physical examination, right-sided flank tenderness. Patient was given IV fluids, antiemetics and analgesia. CBC shows anemia of 10.7 which has improved compare to most recent laboratory work. CMP unremarkable. UA shows elevated red blood cells and positive for blood. Very low suspicion for a UTI at this time. Urine culture pending. KUB shows no signs of a renal stone. Clinically does not correlate to colitis or an ileus. Patient will be discharged with [place] for pain and advised to follow-up with urologist. Opioid form signed. Strict return parameters were thoroughly discussed the patient was understanding and agreeable. Case discussed with Dr. Dotson. - Lab Data Result diagrams: 01/25/21 10:32 01/25/21 10:32 Lab Results 01/25/21 01/25/21 01/25/21 Range/Units 10:32 10:32 10:54 WBC 5.8 (3.8-10.6) k/uL RBC 3.58 L (3.80-5.40) m/uL Hgb 10.7 L (11.4-16.0) gm/dL Hct 32.9 L (34.0-46.0) % MCV 92.0 (80.0-100.0) fL MCH 30.0 (25.0-35.0) pg MCHC 32.6 (31.0-37.0) g/dL RDW 14.6 (11.5-15.5) % Plt Count 313 (150-450) k/uL MPV 7.9 Neutrophils % 68 % Lymphocytes % 23 % Monocytes % 5 % Eosinophils % 2 % Basophils % 0 % Neutrophils # 3.9 (1.3-7.7) k/uL Lymphocytes # 1.3 (1.0-4.8) k/uL Monocytes # 0.3 (0-1.0) k/uL Eosinophils # 0.1 (0-0.7) k/uL Basophils # 0.0 (0-0.2) k/uL Hypochromasia Slight Poikilocytosis Slight Sodium 141 (137-145) mmol/L Potassium 4.2 (3.5-5.1) mmol/L Chloride 109 H (98-107) mmol/L Carbon Dioxide 24 (22-30) mmol/L Anion Gap 8 mmol/L BUN 12 (7-17) mg/dL Creatinine 0.64 (0.52-1.04) mg/dL Est GFR (CKD-EPI)AfAm >90 (>60 ml/min/1.73 sqM) Est GFR (CKD-EPI)NonAf >90 (>60 ml/min/1.73 sqM) Glucose 107 H (74-99) mg/dL Calcium 8.8 (8.4-10.2) mg/dL Total Bilirubin 0.4 (0.2-1.3) mg/dL AST 32 (14-36) U/L ALT 31 (4-34) U/L Alkaline Phosphatase 67 (38-126) U/L Total Protein 6.5 (6.3-8.2) g/dL Albumin 3.8 (3.5-5.0) g/dL Lipase 92 (23-300) U/L Urine Color Light Red Urine Appearance Turbid H (Clear) Urine pH 5.5 (5.0-8.0) Ur Specific [place] 1.028 (1.001-1.035) Urine Protein 1+ H (Negative) Urine Glucose (UA) Negative (Negative) Urine Ketones 1+ H (Negative) Urine Blood Large H (Negative) Urine Nitrite Negative (Negative) Urine Bilirubin Negative (Negative) Urine Urobilinogen <2.0 (<2.0) mg/dL Ur Leukocyte Esterase Negative (Negative) Urine RBC >182 H (0-5) /hpf Urine WBC 22 H (0-5) /hpf Ur Squamous Epith Cells 3 (0-4) /hpf Amorphous Sediment Few H (None) /hpf Urine Bacteria Few H (None) /hpf Urine Mucus Many H (None) /hpf Disposition Clinical Impression: Kidney stones, Hematuria Disposition: HOME SELF-CARE Condition: Stable Instructions (If sedation given, give patient instructions): Kidney Stones (ED) Additional Instructions: Take prescribed medication as directed. Follow-up with a urologist. Return to emergency department if symptoms worsen. Prescriptions: HYDROcodone/APAP [[place] Elixir 7.5-325Mg/15Ml] 15 ml PO Q6HR PRN #180 ml PRN Reason: Pain Is patient prescribed a controlled substance at d/c from ED?: Yes If prescribed controlled substance>3 days was MAPS reviewed?: Prescribed <3 Days Referrals: Nonstaff,Physician [Primary Care Provider] - 1-2 days Dwayne Pabon MD [STAFF PHYSICIAN] - 1-2 days Time of Disposition: 12:50
[2021-01-25 10:41] LABS: Basophils % (A) 0 %; Eosinophils # (A) 0.1 k/uL (0-0.7); Eosinophils % (A) 2 %; HCT 32.9 % (34.0-46.0); HGB 10.7 gm/dL (11.4-16.0); Hypochromasia Slight; Lymphocytes # (A) 1.3 k/uL (1.0-4.8); Lymphocytes % (A) 23 %; MCHC 32.6 g/dL (31.0-37.0); Mean Platelet Volume 7.9; Monocytes # (A) 0.3 k/uL (0-1.0); Monocytes % (A) 5 %; Neutrophils # (A) 3.9 k/uL (1.3-7.7); Neutrophils % (A) 68 %; Platelet Count 313 k/uL (150-450); Poikilocytosis Slight; RBC 3.58 m/uL (3.80-5.40); RDW 14.6 % (11.5-15.5); WBC 5.8 k/uL (3.8-10.6)
[2021-01-25 10:50] LABS: ALT 31 U/L (4-34); AST 32 U/L (14-36); African American GFR (CKD) >90 (>60 ml/min/1.73 sqM); Albumin 3.8 g/dL (3.5-5.0); Alkaline Phosphatase 67 U/L (38-126); Anion Gap 8 mmol/L; Blood Urea Nitrogen 12 mg/dL (7-17); Calcium 8.8 mg/dL (8.4-10.2); Carbon Dioxide 24 mmol/L (22-30); Chloride 109 mmol/L (98-107); Glucose 107 mg/dL (74-99); Lipase 92 U/L (23-300); Non-African American GFR(CKD) >90 (>60 ml/min/1.73 sqM); Potassium 4.2 mmol/L (3.5-5.1); Sodium 141 mmol/L (137-145); Total Bilirubin 0.4 mg/dL (0.2-1.3); Total Protein 6.5 g/dL (6.3-8.2)
--- NOTE | 2021-01-25 11:41 | XR ---
KUB HISTORY: Abdominal pain, right flank pain Frontal KUB submitted on 2 images, no comparisons There is mild spinal curvature. Lung bases are clear. Air-fluid levels present without bowel distenti on. No pneumoperitoneum. No pathologic calcification seen. IMPRESSION: Correlate for enteritis, ileus
[2021-01-25 12:25] LABS: Amorphous Sediment,Urine Few /hpf; Appearance,Urine Turbid (Clear); Bacteria,Urine Few /hpf; Bilirubin,Urine Negative (Negative); Blood,Urine Large (Negative); Color,Urine Light Red; Glucose,Urine (UA) Negative (Negative); Ketones,Urine 1+ (Negative); Leukocyte Esterase,Urine Negative (Negative); Mucus,Urine Many /hpf; Nitrite,Urine Negative (Negative); PH, Urine 5.5 (5.0-8.0); Protein,Urine 1+ (Negative); RBC,Urine >182 /hpf (0-5); Specific Gravity,Urine 1.028 (1.001-1.035); Squamous Epithelial Cell,Urine 3 /hpf (0-4); Urobilinogen,Urine <2.0 mg/dL (<2.0); WBC,Urine 22 /hpf (0-5)
[2021-01-25 13:25] VITALS: BP 127/80; PULSE 81; RESP 19
== END 2021-01-25 13:40 | disposition home or self-care (01) ==
LOC: EC 10:05
DX: N20.0 Calculus of kidney (principal); I10 Essential (primary) hypertension; Z87.891 Personal history of nicotine dependence; Z98.84 Bariatric surgery status
CPT/HCPCS: 36415; 80053; 83690; 85025; 81001; 87086; 74018; 99284; 96374; 96375; 96376; 96361; J2405; J1170

== ENCOUNTER → 2021-01-28 | Outpatient (CLI) | payer OTHER ==
[2021-01-28 14:20] VITALS: BP 127/84; PULSE 100; TEMP 98.2; BMI 39.1
--- NOTE | 2021-01-28 14:48 | P.PN ---
Subjective Progress Note Date: 01/28/21 She is on pureed diet. She cannot tolerate textured food. She has 5 mm stones. She had to go to the ER. She lost over 20 pounds in 1 month. She has history of kidney stones. She may beed kidney stone extraction. No heart burn. She reports mild dysphagia with tuna. Recommend EGD as need. Warm beverages advised. Flomax advised per ER. Avoiding NSAIDs. Recommend excellent hydration. Constipation. Add dulcolax. Possible EGD planned for February 09 and . May need iron infusion. Objective - Vital Signs Vital signs: Vital Signs Temp 98.2 F 01/28/21 14:17 Pulse 100 01/28/21 14:17 Resp BP 127/84 01/28/21 14:17 Pulse Ox Intake & Output 01/27/21 01/28/21 01/28/21 18:59 06:59 18:59 Weight 106.594 kg
== END | disposition home or self-care (01) ==
LOC: BARWHC3 13:41
PROVIDERS: ATTEND Surgery Plastic and Reconstructive Surgery
DX: E66.01 Morbid (severe) obesity due to excess calories (principal)
CPT/HCPCS: 97803; G0463; 99211

== ENCOUNTER 2021-02-02 11:58 | Day surgery (SDC) | payer OTHER ==
[2021-01-30 12:22] VITALS: BMI 38.9
--- NOTE | 2021-01-30 17:41 | P.GSHP ---
History of Present Illness H&P Date: 01/30/21 Chief Complaint: Right renal colic The patient is a 45-year-old white female who underwent a robotic-assisted laparoscopic Jewels-en-Y gastric bypass on 01/05/2021. She has a history of recurrent urolithiasis. She has undergone a formal metabolic evaluation and previously was treated with potassiums citrate. On January 25, she experienced acute onset of right renal colic. A computed tomography scan showed mild right hydronephrosis due to a 5 mm right proximal ureteral calculus, just distal to the ureteropelvic junction. She has experienced intermittent symptoms since January 25. The calculus is not visible on a plain radiograph. - Constitutional Constitutional: Denies chills, Denies fever - Gastrointestinal Gastrointestinal: Reports nausea, Reports vomiting - Genitourinary (Female) Genitourinary: Reports flank pain, Reports hematuria, Reports kidney stones Past Medical History Past Medical History: GERD/Reflux, Hypertension, Sleep Apnea/CPAP/BIPAP Additional Past Medical History / Comment(s): No HTN Rx since gastric bypass. Uses CPAP. HR is fast; has leaky valve being monitored. History of kidney stones History of Any Multi-Drug Resistant Organisms: MRSA Date of last positivie culture/infection: 2012 MDRO Source:: right hand Past Surgical History: Bariatric Surgery, Orthopedic Surgery Additional Past Surgical History / Comment(s): right heel surgery, Jewels-en-Y gastric bypass 01-05-2021, varicose vein leg artery cauterization. Lithotripsy. Laparoscopy x2 w/ exc pre-cancer lesions Past Anesthesia/Blood Transfusion Reactions: Postoperative Nausea & Vomiting (PONV) Additional Past Anesthesia/Blood Transfusion Reaction / Comment(s): no hx blood transfusion Smoking Status: Former smoker - Past Family History Mother Family Medical History: No Reported History Brother(s) Family Medical History: Cancer Additional Family Medical History / Comment(s): oral CA-tongue partially removed Medications and Allergies Home Medications Medication Instructions Recorded Confirmed Type diphenhydrAMINE [Benadryl] 50 mg PO HS PRN 06/16/20 01/30/21 History Omeprazole [PriLOSEC] 40 mg PO DAILY #30 capsule. 01/09/21 01/30/21 Rx Acetaminophen Oral Susp [Tylenol 480 mg PO Q4-6H PRN 01/25/21 01/30/21 History Oral Susp] bisacodyL [Dulcolax] 5 mg PO DAILY #20 tablet. 01/28/21 01/30/21 Rx Glycerin Adult Suppository 1 each RECTAL ONCE PRN 01/30/21 01/30/21 History HYDROcodone/APAP 5-325MG [[place] 1 tab PO Q6HR PRN 01/30/21 01/30/21 History 5-325] Hydrocodone/Acetaminophen 15 ml PO Q6HR PRN 01/30/21 01/30/21 History [Hydrocodone/Acetaminophen 7.5-325/15 Ml] Ondansetron [Zofran ODT] 4 mg PO Q8HR PRN 01/30/21 01/30/21 History Tamsulosin HCl [Flomax] 0.4 mg PO DAILY 01/30/21 01/30/21 History Allergies Allergy/AdvReac Type Severity Reaction Status Date / Time No Known Allergies Allergy Verified 01/30/21 11:55 Surgical - Exam - General well developed, well nourished, no distress - Neck no masses, trachea midline - Respiratory normal respiratory effort, clear to auscultation - Cardiovascular Rhythm: regular Abnormal Heart Sounds: no systolic murmur, no diastolic murmur, no rub, no S3 Gallop, no S4 Gallop, no click, no other - Abdomen Abdomen: soft, non tender, no guarding, no rigid, no rebound - Psychiatric oriented to time, oriented to person, oriented to place, speech is normal, memory intact Results - Imaging CT scan - abdomen: report reviewed, image reviewed Assessment and Plan (1) Calculus of ureter Status: Acute Code(s): N20.1 - CALCULUS OF URETER SNOMED Code(s): 79612690 Plan: The patient was offered the options of medical expulsion therapy versus ureteroscopy with laser lithotripsy. The pros and cons of each approach were discussed in detail. She has elected to undergo cystoscopy, right retrograde pyelogram, right ureteroscopy with Holmium laser lithotripsy, right ureteral candace nt insertion. The procedure has been reviewed in detail with the patient. Risks were discussed, which include anesthesia, bleeding, infection, ureteral injury, postoperative pain, and the development of a ureteral stricture.
[~2021-02-02 11:58] MED LIST changes: -ACETAMINOPHEN TAB 500 MG TAB PO STA; -CHLORHEXIDINE GLUCONATE 15 ML CUP MUCOUS MEM PRN; -ENOXAPARIN 40 MG/0.4 ML SYRINGE SQ PRN; -GABAPENTIN 300 MG CAP PO STA; +HYDROmorphone 0.5 MG/0.5 ML SYRINGE IVP PRN; +LACTATED RINGERS 1,000 ML IV SCH; -MELOXICAM 7.5 MG TAB PO ONE; +ONDANSETRON 4 MG/2 ML VIAL IVP ONE; -PANTOPRAZOLE 40 MG/10 ML VIAL IVP PRN; -SCOPOLAMINE 1.5MG/72HR PATCH TRANSDERM STA
[2021-02-02] MEDS ORDERED: ONDANSETRON 4 MG/2 ML VIAL IVP ONE (13:14)
[2021-02-02] MEDS ORDERED: DEXAMETHASONE SOD PHOSPHATE 4 MG/ML 1 ML VIAL IVP ONE (13:14)
[2021-02-02] MEDS ORDERED: LIDOCAINE 1% INJ 10MG/ML (20 ML MDV) ONE (14:04)
[2021-02-02] MEDS ORDERED: fentaNYL (PF) 50 MCG/ML 2 ML AMP ONE (14:04)
[2021-02-02] MEDS ORDERED: HYDROmorphone (PF) 1 MG/ML ONE (14:04)
[2021-02-02] MEDS ORDERED: MIDAZOLAM 2 MG/2 ML VIAL ONE (14:04)
[2021-02-02] MEDS ORDERED: SUCCINYLCHOLINE CHLORIDE 100 MG/5 ML SYR IV ONE (14:04)
[2021-02-02] MEDS ORDERED: PROPOFOL 10 MG/ML 20 ML VIAL IV ONE (14:04)
[2021-02-02] MEDS ORDERED: KETOROLAC 15 MG/ML 1 ML VIAL ONE (14:04)
[2021-02-02] MEDS ORDERED: LACTATED RINGERS 1,000 ML IV ONE ×2 (14:54)
[2021-02-02] MEDS ORDERED: IOPAMIDOL-370 50ML BTL IRRIGATION ONE ×2 (14:54)
[2021-02-02 15:28] VITALS: TEMP 98.5
--- NOTE | 2021-02-02 15:33 | P.OP ---
Date of Procedure: 02/02/21 Preoperative Diagnosis: Right ureteral calculus Postoperative Diagnosis: Same Procedure(s) Performed: Cystoscopy, right retrograde pyelogram, right ureteroscopy with Holmium laser lithotripsy and stone basketing Anesthesia: LALITA Surgeon: Dwayne Pabon Estimated Blood Loss (ml): 0 IV fluids (ml): 600 Pathology: other (Calculus fragments, sent for chemical analysis) Condition: stable Disposition: PACU Indications for Procedure: The patient is a 45-year-old white female who underwent a robotic-assisted laparoscopic Jewels-en-Y gastric bypass on 01/05/2021. She has a history of recurrent urolithiasis. She has undergone a formal metabolic evaluation and previously was treated with potassiums citrate. On January 25, she experienced acute onset of right renal colic. A computed tomography scan showed mild right hydronephrosis due to a 5 mm right proximal ureteral calculus, just distal to the ureteropelvic junction. She has experienced intermittent symptoms since January 25. The calculus is not visible on a plain radiograph. Operative Findings: Right proximal ureteral calculus, fragmented and removed completely. Description of Procedure: The patient was taken to the operating room and placed in the dorsolithotomy position, with legs supported in Connor stirrups. The external genitalia was prepped and draped sterilely. The 30 lens was used to introduce the 21-[place] Satrks cystoscopic sheath through the urethra and into the bladder under direct vision. The bladder was examined in its entirety. Both ureteral orifices were normal anatomic location and configuration. No tumors or foreign bodies were seen. Using a 10-[place] cone-tipped catheter, a right retrograde pyelogram was performed in the standard fashion. The calculus was identified within the right proximal ureter. The ureter was otherwise unremarkable. The cystoscope was removed. The [place] semirigid ureteroscope was advanced into the bladder, and the right ureteral orifice was cannulated. The ureteroscope was slowly advanced under direct vision, up to the calculus. The 272 micron Holmium laser probe was passed through the ureteroscope, and lithotripsy was performed. A dusting mode was primarily utilized, with settings to minimize retropulsion. Once the calculus had been lasered, there were several fragments measuring 2-3 mm in size. These were removed using a 1.9-[place] nitinol basket. The ureter was inspected. There was no evidence of ureteral trauma. After removing the ureteroscope, the cystoscope was replaced into the bladder, and the calculus fragments were removed. The patient tolerated the procedure well and was taken to the recovery room in stable condition. EUNICE ROCKChristoph Report: Procedure Acuity: Semi-Urgent Stone Size and Location: 6 mm, right proximal ureter Ureteral Dilation: No Ureteral Access Sheath Used: No Stone Sent for Analysis: Yes All Stones/Fragments Were Removed with a Basket: Yes Complications: No Preoperative Antibiotics Given: Yes Stent Placed: No
[2021-02-02] MEDS ORDERED: diphenhydrAMINE 50 MG/ML 1 ML VIAL IVP ONE (15:56)
[2021-02-02 16:01] VITALS: RESP 16
[2021-02-02 16:33] VITALS: BP 137/96; PULSE 77
--- NOTE | 2021-02-03 09:21 | FL ---
EXAMINATION TYPE: FL urography retrograde DATE OF EXAM: 02/02/2021 COMPARISON: NONE HISTORY: Fluoroscopy. TECHNIQUE: Fluoroscopy. FINDINGS: Fluoroscopic guidance was provided during procedure of 6 seconds. IMPRESSION: 1. Fluoroscopy
== END 2021-02-02 16:35 | disposition home or self-care (01) ==
LOC: OR 11:58
PROVIDERS: ATTEND Urology
DX: N20.1 Calculus of ureter (principal); K21.9 Gastro-esophageal reflux disease without esophagitis; I10 Essential (primary) hypertension; G47.33 Obstructive sleep apnea (adult) (pediatric); Z99.89 Dependence on other enabling machines and devices; Z87.442 Personal history of urinary calculi; I38 Endocarditis, valve unspecified; Z86.14 Personal history of Methicillin resistant Staphylococcus aureus infection; Z98.84 Bariatric surgery status; Z98.890 Other specified postprocedural states; Z87.891 Personal history of nicotine dependence; Z80.8 Family history of malignant neoplasm of other organs or systems; Z79.899 Other long term (current) drug therapy
CPT/HCPCS: 81025; 82365; 74420; 52353; C1758; J2250; J1200; J1100; J0690; J2405; J2001; J3010; J1170 ×2; J1885; J0330; J2704; Q9967

== ENCOUNTER → 2021-02-04 | Outpatient (CLI) | payer OTHER ==
[2021-02-04 14:32] VITALS: BP 129/79; PULSE 81; RESP 16; TEMP 98.6; BMI 38.9
--- NOTE | 2021-02-04 15:03 | P.PN ---
Subjective Progress Note Date: 02/04/21 She had a lithotripsy for stones and without fragments. She did take flomax is smaller than omeprazole. Labs described. Tuna sticks in the chest. May need esophogram. Objective - Vital Signs Vital signs: Vital Signs Temp 98.6 F 02/04/21 14:29 Pulse 81 02/04/21 14:29 Resp 16 02/04/21 14:29 BP 129/79 02/04/21 14:29 Pulse Ox Intake & Output 02/03/21 02/04/21 02/04/21 18:59 06:59 18:59 Weight 106.141 kg
--- NOTE | 2021-02-04 15:07 | P.PN ---
Progress Note - Text Progress Note Date: 02/04/21 To whom it may concern: Kathleen Velez is under my surgical care. She may return to work February 14, 2021 without restrictions. Regards, Anabella Denton MD, FACS
[2021-02-04 15:55] LABS: HCT 34.7 % (34.0-46.0); HGB 11.2 gm/dL (11.4-16.0); Hypochromasia Slight; MCH 30.2 pg (25.0-35.0); MCHC 32.3 g/dL (31.0-37.0); MCV 93.3 fL (80.0-100.0); Mean Platelet Volume 7.8; Platelet Count 252 k/uL (150-450); RBC 3.72 m/uL (3.80-5.40); RDW 14.3 % (11.5-15.5)
[2021-02-05 00:45] LABS: INR 0.95 (0.90-1.11); Partial Thromboplastin Time 25.7 sec (23.5-31.0); Prothrombin Time 10.4 sec (9.9-11.9)
[2021-02-05 03:48] LABS: Hemoglobin A1C 3.9 % (4.0-6.0)
[2021-02-05 06:34] LABS: % Iron Saturation 9.67 (12.00-45.00); African American GFR (CKD) 104.7 (60.0-200.0); Albumin 4.6 g/dL (3.80-4.90); Albumin/Globulin Ratio 2.3 (1.60-3.17); Calcium 9.9 mg/dL (8.7-10.3); Magnesium 1.9 mg/dL (1.5-2.4); Non-African American GFR(CKD) 90.3 (60.0-200.0); Phosphorus 4.4 mg/dL (2.4-5.1); Potassium 4.1 mmol/L (3.5-5.5); Total Bilirubin 0.3 mg/dL (0.3-1.2); Total Protein 6.6 g/dL (6.2-8.2)
[2021-02-05 06:43] LABS: Ferritin 84.2 ng/mL (10.0-291.0)
[2021-02-05 07:41] LABS: Folate, Serum 22.2 ng/mL
[2021-02-05 14:55] LABS: Zinc, Serum 62 ug/dL (60-130)
[2021-02-06 11:05] LABS: Vit B1(Thiamine) 73 ug/L (38-122)
[2021-02-08 17:22] LABS: Selenium 119 mcg/L (63-160)
[2021-02-10 06:18] LABS: Vitamin A 52 ug/dL (38-106)
== END ==
LOC: BARWHC3 13:16
PROVIDERS: ATTEND Surgery Plastic and Reconstructive Surgery
DX: E66.01 Morbid (severe) obesity due to excess calories (principal); E89.1 Postprocedural hypoinsulinemia; D50.8 Other iron deficiency anemias; E44.0 Moderate protein-calorie malnutrition; E55.9 Vitamin D deficiency, unspecified; K74.1 Hepatic sclerosis; N19 Unspecified kidney failure; K50.90 Crohn's disease, unspecified, without complications; Z68.38 Body mass index [BMI] 38.0-38.9, adult; I10 Essential (primary) hypertension; K21.9 Gastro-esophageal reflux disease without esophagitis; Z79.899 Other long term (current) drug therapy
CPT/HCPCS: 84255; 84134; 84425; 80053; 82607; 82728; 82525; 82746; 83540; 83550; 83735; 84100; 84443; 84590; 84630; 85027; 85610; 85730; 82306; 83970; 83036; G0463; 99211

== ENCOUNTER 2021-02-25 17:06 | Observation (INO) | payer OTHER ==
[2021-02-25] MEDS ORDERED: SODIUM CHLORIDE 0.9% 1,000 ML IV STA ×2 (17:18)
[2021-02-25] MEDS ORDERED: AMPICILLIN-SULBACTAM 3 GM in SODIUM CHLORIDE 0.9% 100 ML IVPB STA (17:18)
[2021-02-25] MEDS ORDERED: MORPHINE SULFATE 4 MG/ML SYRINGE IV STA (17:18)
[2021-02-25] MEDS ORDERED: ONDANSETRON 4 MG/2 ML VIAL IVP STA (17:18)
[2021-02-25] MEDS ORDERED: NALOXONE 0.4 MG/ML 1 ML VIAL IV PRN (17:19)
--- NOTE | 2021-02-25 18:03 | ED ---
Abdominal Pain HPI - General Stated Complaint: Abd Pain Time Seen by Provider: 02/25/21 17:18 - History of Present Illness Initial Comments: Kathleen a pleasant 45-year-old female who presents to the ER today from her surgeon's office for evaluation of right upper quadrant abdominal pain. Patient underwent bariatric surgery on January 05 since that time she suffered from chronic abdominal pain. She states that since Tuesday she has not been able to tolerate any oral intake. She has severe pain in her right upper quadrant. She was evaluated by her surgeon today who has concern for gallbladder dysfunction requested admission to the hospital with IV antibiotics with the plan for cholecystectomy. - Related Data Home Medications Medication Instructions Recorded Confirmed diphenhydrAMINE [Benadryl] 50 mg PO HS PRN 06/16/20 02/25/21 Acetaminophen Oral Susp [Tylenol 480 mg PO Q4-6H PRN 01/25/21 02/25/21 Oral Susp] HYDROcodone/APAP 5-325MG [[place] 1 tab PO Q6HR PRN 01/30/21 02/25/21 5-325] Ondansetron [Zofran ODT] 4 mg PO Q8HR PRN 01/30/21 02/25/21 Ferrous Sulfate [Feosol] 65 mg PO DAILY 02/25/21 02/25/21 Previous Rx's Medication Instructions Recorded Omeprazole [PriLOSEC] 40 mg PO DAILY #30 capsule. 01/09/21 bisacodyL [Dulcolax] 5 mg PO DAILY #20 tablet. 01/28/21 Allergies Allergy/AdvReac Type Severity Reaction Status Date / Time No Known Allergies Allergy Verified 02/25/21 18:26 Review of Systems ROS Statement: Those systems with pertinent positive or pertinent negative responses have been documented in the HPI. ROS Other: All systems not noted in ROS Statement are negative. Past Medical History Past Medical History: GERD/Reflux, Hypertension, Sleep Apnea/CPAP/BIPAP Additional Past Medical History / Comment(s): No HTN Rx since gastric bypass. Uses CPAP. HR is fast; has leaky valve being monitored. History of kidney stones History of Any Multi-Drug Resistant Organisms: MRSA Date of last positivie culture/infection: 2012 MDRO Source:: right hand Past Surgical History: Bariatric Surgery, Orthopedic Surgery Additional Past Surgical History / Comment(s): right heel surgery, Jewels-en-Y gastric bypass 2-15-2021, varicose vein leg artery cauterization. Lithotripsy. Laparoscopy x2 w/ exc pre-cancer lesions Past Anesthesia/Blood Transfusion Reactions: Postoperative Nausea & Vomiting (PONV) Additional Past Anesthesia/Blood Transfusion Reaction / Comment(s): no hx blood transfusion Past Psychological History: No Psychological Hx Reported Smoking Status: Former smoker Past Alcohol Use History: Occasional Additional Past Alcohol Use History / Comment(s): quit 2015 Past Drug Use History: None Reported - Past Family History Mother Family Medical History: No Reported History Brother(s) Family Medical History: Cancer Additional Family Medical History / Comment(s): oral CA-tongue partially removed General Exam - General Exam Comments Initial Comments: Physical Exam GENERAL: Patient is well-developed and well-nourished. Patient is nontoxic and well-hydrated and is in no distress. HENT: Normocephalic, Atraumatic. EYES: PERRL, EOMI PULMONARY: Unlabored respirations. CARDIOVASCULAR: RRR Warm and well perfused extremities ABDOMEN: Non-distended SKIN: No rashes or bruising : Deferred NEUROLOGIC: Alert and oriented Normal speech Normal gait MUSCULOSKELETAL: Moving all extremities with no apparent injury PSYCHIATRIC: No SI/HI Course Vital Signs 02/25/21 18:26 Temperature 98 F Pulse Rate 78 Respiratory 18 Rate Blood Pressure 139/84 O2 Sat by Pulse 99 Oximetry Medical Decision Making - Medical Decision Making She contacted me prior to patient coming to the ER requesting the patient receive IV fluids, pain management, antibiotics and admission Patient was seen and evaluated, history is obtained from patient and surgeon Patient with right upper quadrant abdominal pain Labs, ultrasound and antibiotics ordered She was admitted to her surgeon Dr. Denton Disposition Clinical Impression: Abdominal pain Disposition: ADMITTED IP TO THIS HOSP Condition: Stable Referrals: Nonstaff,Physician [Primary Care Provider] - 1-2 days
[2021-02-25 18:35] LABS: Basophils % (A) 1 %; Eosinophils # (A) 0.1 k/uL (0-0.7); Eosinophils % (A) 1 %; HCT 42.8 % (34.0-46.0); Lymphocytes % (A) 27 %; MCH 30.4 pg (25.0-35.0); MCHC 34.1 g/dL (31.0-37.0); MCV 89.2 fL (80.0-100.0); Mean Platelet Volume 7.9; Monocytes # (A) 0.4 k/uL (0-1.0); Monocytes % (A) 6 %; Neutrophils # (A) 4.8 k/uL (1.3-7.7); Neutrophils % (A) 64 %; Platelet Count 236 k/uL (150-450); RDW 14.1 % (11.5-15.5); WBC 7.5 k/uL (3.8-10.6)
[2021-02-25 18:42] LABS: Appearance,Urine Cloudy (Clear); Bilirubin,Urine Negative (Negative); Blood,Urine Negative (Negative); Color,Urine Yellow; Glucose,Urine (UA) Negative (Negative); Ketones,Urine 4+ (Negative); Leukocyte Esterase,Urine Negative (Negative); Mucus,Urine Few /hpf; Nitrite,Urine Negative (Negative); PH, Urine 5.5 (5.0-8.0); Protein,Urine Trace (Negative); Squamous Epithelial Cell,Urine 2 /hpf (0-4); Urobilinogen,Urine <2.0 mg/dL (<2.0); WBC,Urine 2 /hpf (0-5)
[2021-02-25 18:43] LABS: HGB 14.6 gm/dL (11.4-16.0)
[2021-02-25 18:47] LABS: ALT 36 U/L (4-34); AST 42 U/L (14-36); African American GFR (CKD) >90 (>60 ml/min/1.73 sqM); Albumin 4.7 g/dL (3.5-5.0); Alkaline Phosphatase 71 U/L (38-126); Amylase 59 U/L (30-110); Anion Gap 11 mmol/L; Blood Urea Nitrogen 8 mg/dL (7-17); Calcium 9.7 mg/dL (8.4-10.2); Carbon Dioxide 25 mmol/L (22-30); Chloride 103 mmol/L (98-107); Glucose 81 mg/dL (74-99); Lipase 121 U/L (23-300); Non-African American GFR(CKD) >90 (>60 ml/min/1.73 sqM); Sodium 139 mmol/L (137-145); Total Bilirubin 0.5 mg/dL (0.2-1.3); Total Protein 7.5 g/dL (6.3-8.2)
[2021-02-25] MEDS ORDERED: IOPAMIDOL CONTRAST (ORAL USE) VIAL PO PRN (21:17)
--- NOTE | 2021-02-25 22:32 | US ---
EXAMINATION TYPE: US gallbladder DATE OF EXAM: 02/25/2021 COMPARISON: NONE CLINICAL HISTORY: RUQ pain. RUQ pain x 2 days. Hx gastric bypass 01/05/2021. Hx kidney stones. EXAM MEASUREMENTS: Liver Length: 19.7 cm Gallbladder Wall: 0.23 cm CBD: 0.24 cm Right Kidney: 11.0 x 5.6 x 4.5 cm Limited due to gas and patient body habitus. Pancreas: Not well seen. Liver: Appears enlarged and heterogeneous. Appears to have an increased echogenicity. Gallbladder: Minimal internal echoes versus artifact seen. Evidence for sonographic Bowers's sign: Patient felt tenderness while scanning over the gallbladde r. CBD: Limited, portion seen appears wnl. Right Kidney: No hydronephrosis or masses seen IMPRESSION: Suggestion of biliary sludge with reported positive sonographic Bowers's sign. Findings are equivocal for acute cholecystitis. HIDA scan may be obtained as clinically indicated. Hepatomegaly with steatosis.
[2021-02-25] MEDS: ACETAMINOPHEN IV (For NPO) 1,000 MG in EMPTY BAG 1 BAG IVPB SCH (22:39)
--- NOTE | 2021-02-25 22:47 | CT ---
EXAMINATION TYPE: CT abdomen pelvis w con DATE OF EXAM: 02/25/2021 COMPARISON: Single view HISTORY: abdominal pain and htn post bariatric sx CT DLP: 1804.2 mGycm Automated exposure control for dose reduction was used. CONTRAST: Performed with IV Contrast, patient injected with 100 mL of Isovue 300. Images obtained from the diaphragm to the floor the pelvis with IV contrast. Lung bases are clear. There is no pleural effusion. Heart size is normal. There is no pericardial eff usion. There is previous gastric bariatric surgery. Spleen is intact. There is no pancreatic mass. Ga llbladder appears normal. Liver appears normal. There is no adrenal mass. Kidneys show satisfactory contrast opacification. There is no hydronephrosi s. Delayed images show normal renal excretion. There is subcutaneous fat stranding over the left mid abdomen that could relate to previous surgery. The bladder distends smoothly. There is no inguinal hernia. There is small amount of fluid in the cul -de-sac on the left side. There is no evidence of a solid pelvic mass. Uterus appears normal. There is no mesenteric edema. There is no ascites or free air. There is no bowel obstruction. Appendi x appears normal. Lumbar vertebra have normal alignment. There is no compression fracture. Posterior elements are intac t. Bony pelvis is intact. The hip joints are intact. Sacrum and coccyx appear intact. IMPRESSION: Negative CT scan of the abdomen and pelvis. Previous surgery.
[2021-02-26] MEDS: HYDROmorphone 1 MG/ML 1 ML SYRINGE IVP PRN ×3 (00:46→23:28)
[2021-02-26] MEDS ORDERED: diphenhydrAMINE 50 MG/ML 1 ML VIAL ONE (02:02)
[2021-02-26] MEDS: diphenhydrAMINE 50 MG/ML 1 ML VIAL IVP PRN ×2 (02:09→20:36)
[2021-02-26] MEDS: ACETAMINOPHEN IV (For NPO) 1,000 MG in EMPTY BAG 1 BAG IVPB SCH ×6 (04:12→21:55)
[2021-02-26] MEDS ORDERED: SODIUM CHLORIDE 0.9% 2,000 ML IV ONE (08:33)
--- NOTE | 2021-02-26 08:57 | P.GSHP ---
History of Present Illness H&P Date: 02/26/21 CHIEF COMPLAINT: Acute cholecystitis HISTORY OF PRESENT ILLNESS: Kathleen Velez is a 45-year-old female status post gastric bypass 01/05/2021. She is almost 2 months out. She reports severe right upper back including she is as multiple recent procedures including for kidney stones. Her last procedure was less than 1 month ago for lithotripsy and removal of kidney stones from the right side. She reports an otherwise fatigue. She has new epigastric abdominal pain for more than 2 days. She reports new intractable nausea and vomiting. She is unable to keep fluids down. She presented to the bariatric center with worsening symptoms and was directed to the emergency room. Patient had additional diagnostic studies confirming acute cholecystitis hence her admission. At height of 5 feet 5 inches, her ideal body weight is 149 pounds. Her highest weight was 374 pounds, BMI 62.4. She has lost 30 pounds in less than 2 months. Her body mass index is 37.1. She is 74 pounds overweight. PAST MEDICAL HISTORY: 1. Morbid obesity due to excess calories 2. Body mass index of 62.4, initial 3. Hypertensive heart disease. 4. Gastroesophageal reflux disease PAST SURGICAL HISTORY: 1. Right heel surgery 2. Upper endoscopy 3. Status post gastric bypass December, 4. Status post lithotripsy, right kidney, January 2021 HOME MEDICATIONS: See list and reviewed ALLERGIES: See list and reviewed SOCIAL HISTORY: Past tobacco use. FAMILY HISTORY: No family history of ulcerative colitis disease or Crohn's disease. Family history of morbid obesity. No lupus in the family. No reports of stomach or esophageal cancer. REVIEW OF ORGAN SYSTEMS: CONSTITUTIONAL: At height of 5 feet 5 inches, her ideal body weight is 149 pounds. Her highest weight was 374 pounds, BMI 62.4. HEENT: Denies any active troubles with vision or hearing. ENDOCRINE: Denies diabetes. No hypothyroidism. CARDIOVASCULAR: New palpitations. No heart attacks or chest pain. Has hypertension. RESPIRATORY: Has daytime somnolence. Denies asthma. GASTROINTESTINAL: Denies any bright red blood per rectum. No diarrhea. No constipation. Has gastroesophageal reflux disease. MUSCULOSKELETAL: Has lower back pain and joint pain. Has osteoarthritis of the knees. NEURO: No headaches. No seizure disorders. PSYCH: Denies depression. No suicidal ideation. RHEUMATOLOGIC: No lupus. No rheumatoid arthritis. HEMATOLOGIC: Denies any abnormal bleeding or bruising. No personal history of DVTs. SKIN: No rash. No skin cancer. PHYSICAL EXAM: VITAL SIGNS: Height 5 foot 5 inches, weight 223 pounds. BMI 37.1 GENERAL: Well-developed in mild distress. HEENT: No scleral icterus. Extraocular movements grossly intact. Hears conversational speech. No nasal drainage. NECK: Supple without lymphadenopathy. CHEST: Nonlabored respirations with equal bilateral excursions. CARDIOVASCULAR: Regular rate and regular rhythm Distal 2+ pulses. ABDOMEN: Obese, soft, nontender, nondistended. MUSCULOSKELETAL: No clubbing, cyanosis. NEURO: No focal or lateralizing signs. Cranial nerves 2 through 12 grossly within normal limits. PSYCH: Appropriate affect. Alert and oriented to person, place and time. SKIN: Good skin turgor. Well perfused. LABS: AST and ALT elevated, 42 and 36 respectively. WBC normal 7.5. Hemoglobin of 14.6. Iron within normal limits. STUDIES: Abdominal ultrasound independent review demonstrating sludge is in the gallbladder. CT of the abdomen pelvis independent review demonstrating no leaks or small bowel obstruction. This is my independent interpretation. No mesentery swirl identified. RADIOLOGY: Radiology report on ultrasound confirms tenderness along right upper quadrant consistent with Bowers sign and acute cholecystitis ASSESSMENT: 1. Acute cholecystitis 2. Epigastric abdominal pain 3. Elevated AST ALT, transaminitis 4. History of kidney stones status post recent right kidney stone lithotripsy 5. Morbid obesity due to excess calories 6. Body mass index of 62.4, initial to 37.1 7. Hypertensive heart disease. 8. Gastroesophageal reflux disease 9. Status post gastric bypass. PLAN: 1. She reports epigastric abdominal pain in the setting of gastric bypass. Recommend upper endoscopy with balloon dilation including assessment for active ulcers and obstruction. 2. She has clinical findings consistent with acute cholecystitis. Robotic cholecystectomy also described. 3. Patient's elevated risk for perioperative complications due to recent surgical procedure less than 30 days ago 4. DVT prophylaxis. 5. Antibiotic prophylaxis 6. Protonix 40 mg IV daily. 7. Change antibiotics from Unasyn to Zosyn for broader antibiotic coverage. Past Medical History Past Medical History: GERD/Reflux, Hypertension, Sleep Apnea/CPAP/BIPAP Additional Past Medical History / Comment(s): No HTN Rx since gastric bypass. Uses CPAP. HR is fast; has leaky valve being monitored. History of kidney stones History of Any Multi-Drug Resistant Organisms: MRSA Date of last positivie culture/infection: 2012 MDRO Source:: right hand Past Surgical History: Bariatric Surgery, Orthopedic Surgery Additional Past Surgical History / Comment(s): right heel surgery, Jewels-en-Y gastric bypass 01-05-2021, varicose vein leg artery cauterization. Lithotripsy. Laparoscopy x2 w/ exc pre-cancer lesions Past Anesthesia/Blood Transfusion Reactions: Postoperative Nausea & Vomiting (PONV) Additional Past Anesthesia/Blood Transfusion Reaction / Comment(s): no hx blood transfusion Past Psychological History: No Psychological Hx Reported Smoking Status: Former smoker Past Alcohol Use History: Occasional Additional Past Alcohol Use History / Comment(s): quit 2015 Past Drug Use History: None Reported - Past Family History Mother Family Medical History: No Reported History Brother(s) Family Medical History: Cancer Additional Family Medical History / Comment(s): oral CA-tongue partially removed Medications and Allergies Home Medications Medication Instructions Recorded Confirmed Type Acetaminophen Oral Susp [Tylenol 480 mg PO Q4-6H PRN 01/25/21 02/25/21 History Oral Susp] bisacodyL [Dulcolax] 5 mg PO DAILY #20 tablet. 01/28/21 02/25/21 Rx Ondansetron [Zofran ODT] 4 mg PO Q8HR PRN 01/30/21 02/25/21 History Calcium Citrate 500 mg PO DAILY 02/25/21 02/25/21 History Cholecalciferol (Vitamin D3) 125 mcg PO DAILY 02/25/21 02/25/21 History [Vitamin D3 (5000 Iu)] Ferrous Sulfate [Feosol] 325 mg PO DAILY 02/25/21 02/25/21 History Multivitamins, Thera [Multivitamin 1 tab PO DAILY 02/25/21 02/25/21 History (formulary)] diphenhydrAMINE HCL [Benadryl] 50 mg PO HS PRN 02/25/21 02/25/21 History lisinopriL 20 mg PO BID 02/25/21 02/25/21 History Allergies Allergy/AdvReac Type Severity Reaction Status Date / Time No Known Allergies Allergy Verified 02/25/21 19:53 Surgical - Exam Vital Signs Temp Pulse Resp BP Pulse Ox 98 F 78 18 139/84 99 02/25/21 18:26 02/25/21 18:26 02/25/21 18:26 02/25/21 18:26 02/25/21 18:26 Results - Labs 02/25/21 18:29 02/25/21 18:29 Abnormal Lab Results - Last 24 Hours (Table) 02/25/21 02/25/21 Range/Units 18:29 18:29 AST 42 H (14-36) U/L ALT 36 H (4-34) U/L Urine Appearance Cloudy H (Clear) Urine Protein Trace H (Negative) Urine Ketones 4+ H (Negative) Urine Mucus Few H (None) /hpf Diabetes panel 02/25/21 Range/Units 18:29 Sodium 139 (137-145) mmol/L Potassium 4.0 (3.5-5.1) mmol/L Chloride 103 (98-107) mmol/L Carbon Dioxide 25 (22-30) mmol/L BUN 8 (7-17) mg/dL Creatinine 0.66 (0.52-1.04) mg/dL Glucose 81 (74-99) mg/dL Calcium 9.7 (8.4-10.2) mg/dL AST 42 H (14-36) U/L ALT 36 H (4-34) U/L Alkaline Phosphatase 71 (38-126) U/L Total Protein 7.5 (6.3-8.2) g/dL Albumin 4.7 (3.5-5.0) g/dL Calcium panel 02/25/21 Range/Units 18:29 Calcium 9.7 (8.4-10.2) mg/dL Albumin 4.7 (3.5-5.0) g/dL Pituitary panel 02/25/21 Range/Units 18:29 Sodium 139 (137-145) mmol/L Potassium 4.0 (3.5-5.1) mmol/L Chloride 103 (98-107) mmol/L Carbon Dioxide 25 (22-30) mmol/L BUN 8 (7-17) mg/dL Creatinine 0.66 (0.52-1.04) mg/dL Glucose 81 (74-99) mg/dL Calcium 9.7 (8.4-10.2) mg/dL Adrenal panel 02/25/21 Range/Units 18:29 Sodium 139 (137-145) mmol/L Potassium 4.0 (3.5-5.1) mmol/L Chloride 103 (98-107) mmol/L Carbon Dioxide 25 (22-30) mmol/L BUN 8 (7-17) mg/dL Creatinine 0.66 (0.52-1.04) mg/dL Glucose 81 (74-99) mg/dL Calcium 9.7 (8.4-10.2) mg/dL Total Bilirubin 0.5 (0.2-1.3) mg/dL AST 42 H (14-36) U/L ALT 36 H (4-34) U/L Alkaline Phosphatase 71 (38-126) U/L Total Protein 7.5 (6.3-8.2) g/dL Albumin 4.7 (3.5-5.0) g/dL Assessment and Plan (1) Acute cholecystitis due to biliary calculus Current Visit: Yes Status: Acute Code(s): K80.00 - CALCULUS OF GALLBLADDER W ACUTE CHOLECYST W/O OBSTRUCTION SNOMED Code(s): 09375514287040
[2021-02-26 09:25] LABS: Basophils % (A) 0 %; Eosinophils # (A) 0.1 k/uL (0-0.7); Eosinophils % (A) 2 %; HCT 34.4 % (34.0-46.0); HGB 11.7 gm/dL (11.4-16.0); Lymphocytes # (A) 1.4 k/uL (1.0-4.8); Lymphocytes % (A) 34 %; MCHC 34.1 g/dL (31.0-37.0); MCV 90.9 fL (80.0-100.0); Mean Platelet Volume 7.7; Monocytes # (A) 0.3 k/uL (0-1.0); Monocytes % (A) 8 %; Neutrophils # (A) 2.2 k/uL (1.3-7.7); Neutrophils % (A) 53 %; Platelet Count 151 k/uL (150-450); RBC 3.78 m/uL (3.80-5.40); RDW 14.2 % (11.5-15.5); WBC 4.1 k/uL (3.8-10.6)
[2021-02-26 09:31] LABS: ALT 24 U/L (4-34); AST 30 U/L (14-36); African American GFR (CKD) >90 (>60 ml/min/1.73 sqM); Alkaline Phosphatase 47 U/L (38-126); Anion Gap 6 mmol/L; Blood Urea Nitrogen 7 mg/dL (7-17); Calcium 8.2 mg/dL (8.4-10.2); Carbon Dioxide 21 mmol/L (22-30); Chloride 110 mmol/L (98-107); Glucose 76 mg/dL (74-99); Non-African American GFR(CKD) >90 (>60 ml/min/1.73 sqM); Potassium 3.8 mmol/L (3.5-5.1); Sodium 137 mmol/L (137-145); Total Bilirubin 0.4 mg/dL (0.2-1.3); Total Protein 5.5 g/dL (6.3-8.2)
[2021-02-26] MEDS: PIPERACILLIN-TAZOBACTAM 3.375 GM in SODIUM CHLORIDE 0.9% 100 ML IVPB SCH ×2 (09:33→16:51)
[2021-02-26] MEDS ORDERED: IV FLUID CONTINUATION 1,000 ML IV ONE (10:01)
[2021-02-26] MEDS: IV FLUID CONTINUATION 1,000 ML IV ONE ×2 (10:01→13:05)
[2021-02-26] MEDS ORDERED: ONDANSETRON 4 MG/2 ML VIAL ONE (10:03)
[2021-02-26] MEDS ORDERED: LIDOCAINE 1% INJ 10MG/ML (20 ML MDV) ONE ×2 (10:03→13:58)
[2021-02-26] MEDS ORDERED: PROPOFOL 10 MG/ML 20 ML VIAL IV ONE ×2 (10:03→13:58)
--- NOTE | 2021-02-26 10:22 | P.PCN ---
Date of Procedure: 02/26/21 Description of Procedure: PREOPERATIVE DIAGNOSES: 1. Epigastric abdominal pain. 2. Nausea and vomiting. 3. History of gastric bypass. POSTOPERATIVE DIAGNOSES: 1. Epigastric abdominal pain. 2. Nausea and vomiting. 3. Acute gastrojejunal ulceration which gastric stricture PROCEDURE PERFORMED: Esophagogastrojejunoscopy. SURGEON: Anabella Denton MD ANESTHESIA: MAC. INDICATIONS: The patient is a 45-year-old female with intermittent nausea and vomiting, particularly of the epigastric abdominal pain. Upper endoscopy was offered for further evaluation and management. DESCRIPTION: Patient was brought to the endoscopy suite and laid in the left lateral decubitus position. After adequate IV sedation, a bite block was placed. An Olympus gastroscope was passed along the posterior oropharynx down to the distal esophagus where the squamocolumnar junction was found at approximately 36 cm from the incisors. She had active gastrojejunal ulcer 8 mm. The scope was advanced 60 cm from the incisors. No evidence of foreign body was found. Active gastrojejunal ulcerations were encountered. The stricture was identified and undisturbed due to active acute gastric ulcer. The GI tract was desufflated. The patient tolerated the procedure well. FINDINGS: 1. Acute gastrojejunal ulceration with partial stenosis 2. No foreign body found along the anastomosis. PLAN: 1. Omeprazole and Carafate treatment for 4 weeks. 2. Repeat upper endoscopy in 4 weeks for dilation
--- NOTE | 2021-02-26 10:29 | P.PN ---
Progress Note - Text Progress Note Date: 02/26/21 Per patient request, kortney Aguilar [phone] notified of upper endoscopy findings of new gastric ulcers including plan for surgery of cholecystectomy for acute cholecystitis later today.
[2021-02-26] MEDS: PANTOPRAZOLE 40 MG/10 ML VIAL IVP SCH ×2 (10:44→20:32)
[2021-02-26] MEDS ORDERED: HEPARIN SODIUM,PORCINE/PF 5,000 UNIT/0.5 ML SYRINGE SQ ONE (13:40)
[2021-02-26] MEDS ORDERED: HEPARIN SODIUM,PORCINE 5,000 UNIT/ML 1 ML VIAL SQ ONE ×2 (13:43)
[2021-02-26] MEDS ORDERED: SCOPOLAMINE 1.5MG/72HR PATCH TRANSDERM ONE (13:44)
[2021-02-26] MEDS ORDERED: ROCURONIUM 10 MG/ML (5 ML VIAL) IV ONE (13:58)
[2021-02-26] MEDS ORDERED: GLYCOPYRROLATE 0.2 MG/ML 2 ML VIAL ONE (13:58)
[2021-02-26] MEDS ORDERED: INDOCYANINE GREEN 25 MG VIAL IV ONE (13:58)
[2021-02-26] MEDS ORDERED: fentaNYL (PF) 50 MCG/ML 2 ML AMP ONE (13:58)
[2021-02-26] MEDS ORDERED: SUCCINYLCHOLINE CHLORIDE 100 MG/5 ML SYR IV ONE (13:58)
[2021-02-26] MEDS ORDERED: MIDAZOLAM 2 MG/2 ML VIAL ONE (13:58)
[2021-02-26] MEDS ORDERED: NEOSTIGMINE 1 MG/ML 10 ML VIAL ONE (13:58)
[2021-02-26] MEDS ORDERED: BUPIVACAINE (PF) 0.25% 30 ML VIAL SQ ONE ×2 (14:20→14:23)
[2021-02-26] MEDS ORDERED: ONDANSETRON 4 MG/2 ML VIAL IVP ONE (15:49)
[2021-02-26] MEDS: HYDROmorphone 0.5 MG/0.5 ML SYRINGE IVP ONE ×4 (15:49→16:13)
--- NOTE | 2021-02-26 15:51 | P.OP ---
Date of Procedure: 02/26/21 Description of Procedure: SURGEON: SUKHDEV GAMA MD PREOPERATIVE DIAGNOSES: 1. Acute cholecystitis 2. Symptomatic gallstones 3. Gastrojejunal ulcer 4. Status post gastric bypass 5. Morbid obesity due to excess calories 6. Body mass index of 62.4, initial to 37.1 7. Hypertensive heart disease. 8. Gastroesophageal reflux disease 9. Anemia POSTOPERATIVE DIAGNOSES: 1. Acute cholecystitis 2. Symptomatic gallstones 3. Gastrojejunal ulcer 4. Status post gastric bypass 5. Morbid obesity due to excess calories 6. Body mass index of 62.4, initial to 37.1 7. Hypertensive heart disease. 8. Gastroesophageal reflux disease 9. Anemia 10. Moderate hepatomegaly OPERATION: Robotic-assisted da Neftaly Xi laparoscopic cholecystectomy, multiport with FIREFLY ESTIMATED BLOOD LOSS: 20 mL. SPECIMENS REMOVED: Gallbladder. COMPLICATIONS: None. OPERATIVE FINDINGS: 1. Acute cholecystitis with hydrops and distended gallbladder 2. Common bile duct within normal limits, without dilation 3. Moderate hepatomegaly INDICATIONS: The patient is a 45 year-old female who presents with epigastric and symptomatic gallstones with moderate severe pain. Surgical intervention with cholecystectomy was described. Robotic assisted laparoscopic approach was described. Benefits and risks of the procedure including but not limited to bleeding, infection, injury to the biliary tree was reviewed. Informed consent was obtained. DESCRIPTION OF PROCEDURE: Patient was brought to the operating room, placed in supine position. After general induction, the abdomen had been prepped and draped in standard sterile fashion. The robotic da Neftaly XI system was primed. After a timeout protocol was performed, the patient had been prepped and draped in standard sterile fashion. The patient was injected with indocyanine green. A 5 mm 0 degrees laparoscopic trocar entry was performed along the left upper quadrant. The abdomen insufflated to 15 mmHg pressure which was tolerated well. Diagnostic laparoscopy demonstrated no injury to bowel viscera or mesentery. The liver surface was unremarkable. A moderately distended gallbladder was identified adding complexity to the case. Next, two 8 mm robotic ports were placed along the right upper abdomen. The camera 8-mm port was maintained along the epigastrium. Another 8 mm port was placed along the left upper abdominal wall after exchanging the 5 mm port. Please note that the ports were placed at least 10 to 15 cm away from the target anatomy of the gallbladder. The robot was docked along the left lateral abdomen. The patient was repositioned in reverse Trendelenburg position with the right side up. Using a grasper for arm 3, a grasper for arm 4, including hook cautery for arm 1, the robotic system was docked and primed as described. Instruments were interchanged by the assistant loan processor including hook cautery, Bovie cautery and clip appliers. I had sat at the console. The gallbladder was reflected towards the dome of the liver. Moderate hepatomegaly was identified adding complexity to her case including moderately distended gallbladder. Initial dissection was performed on the gallbladder infundibulum using indocyanine green to illuminate the cystic duct and common bile duct. Due to moderate distention of the infundibulum, dome down technique was performed removing the gallbladder from the hepatic fossa starting from the fundus towards the infundibulum. The liver was reflected towards the diaphragm and starting at the gallbladder fundus, hook cautery was used to find the avascular plane between the liver and the gallbladder. As the gallbladder was dissected from the hepatic fossa, hemostasis was checked using vessel sealer along the posterior gallbladder. Next, indocyanine green was used to confirm the common bile duct as well as cystic duct. The cystic duct was short and dissection was performed at the junction of the cystic duct and infundibulum. The infundibulum was retracted laterally to expose the cystic duct away from the common bile duct. The cystic duct was dissected free from its surrounding tissue. FIREFLY was used to identify the cystic structures. A critical view of safety was obtained. Large PLASTIC clips were used throughout the entire case. Using a clip neurodiagnostic tech, a clip was placed at the junction of the infundibulum and cystic duct. The cystic duct was divided using vessel sealer. Next, the cystic artery was divided using vessel sealer. Electro-Bovie cautery and vessel sealer was used to remove the gallbladder without decompression. Hemostasis was checked and found to be adequate. The robot was undocked. I re-scrubbed into the case. A 10 mm Endo Catch bag was used to remove the gallbladder in total via the left upper quadrant incision after widening the incision. The specimen was removed from the abdominal cavity. Heriberto Fry and 0 Vicryl was used to close the fascial defect of the left upper quadrant. All pneumoperitoneum instruments were evacuated from the abdominal cavity. The incisions were cleansed using dilute hydrogen peroxide. The incisions were reapproximated using 4-0 Monocryl in an interrupted subcuticular fashion. Please note along the trocar sites, local anesthetic was placed as a field block prior to insertion of all instruments. Liquid glue was applied to the skin. At the end of the procedure needle, sponge, and instrument count had been verified correct by the surgical appliance fitter. The patient was transferred to postanesthesia care unit in stable condition. Intraoperative findings were discussed with the phone with her margoth.
[2021-02-26] MEDS ORDERED: AMPICILLIN-SULBACTAM 3 GM in SODIUM CHLORIDE 0.9% 100 ML IVPB SCH (16:00)
[2021-02-26] MEDS: SIMETHICONE 40 MG/0.6 ML DROPS 2,000 MG/30 ML BOTTLE PO SCH ×4 (16:52→21:54)
[2021-02-27] MEDS: PIPERACILLIN-TAZOBACTAM 3.375 GM in SODIUM CHLORIDE 0.9% 100 ML IVPB SCH ×2 (02:10→10:13)
[2021-02-27] MEDS: diphenhydrAMINE 50 MG/ML 1 ML VIAL IVP PRN (03:05)
[2021-02-27] MEDS: HYDROmorphone 1 MG/ML 1 ML SYRINGE IVP PRN (03:06)
[2021-02-27] MEDS: ACETAMINOPHEN IV (For NPO) 1,000 MG in EMPTY BAG 1 BAG IVPB SCH ×3 (04:14→10:12)
[2021-02-27 08:19] LABS: Basophils % (A) 0 %; Eosinophils # (A) 0.1 k/uL (0-0.7); Eosinophils % (A) 2 %; HGB 11.4 gm/dL (11.4-16.0); Lymphocytes # (A) 0.8 k/uL (1.0-4.8); Lymphocytes % (A) 20 %; MCH 30.3 pg (25.0-35.0); MCHC 33.6 g/dL (31.0-37.0); MCV 90.4 fL (80.0-100.0); Mean Platelet Volume 8.4; Monocytes # (A) 0.2 k/uL (0-1.0); Monocytes % (A) 6 %; Neutrophils # (A) 2.9 k/uL (1.3-7.7); Neutrophils % (A) 71 %; Platelet Count 147 k/uL (150-450); RBC 3.76 m/uL (3.80-5.40); RDW 14.1 % (11.5-15.5); WBC 4.1 k/uL (3.8-10.6)
[2021-02-27 08:23] LABS: ALT 121 U/L (4-34); AST 269 U/L (14-36); African American GFR (CKD) >90 (>60 ml/min/1.73 sqM); Albumin 3.1 g/dL (3.5-5.0); Alkaline Phosphatase 59 U/L (38-126); Anion Gap 6 mmol/L; Blood Urea Nitrogen 5 mg/dL (7-17); Calcium 8.3 mg/dL (8.4-10.2); Carbon Dioxide 24 mmol/L (22-30); Chloride 106 mmol/L (98-107); Glucose 76 mg/dL (74-99); Non-African American GFR(CKD) >90 (>60 ml/min/1.73 sqM); Potassium 3.8 mmol/L (3.5-5.1); Sodium 136 mmol/L (137-145); Total Bilirubin 0.5 mg/dL (0.2-1.3); Total Protein 5.6 g/dL (6.3-8.2)
[2021-02-27 09:23] VITALS: BP 150/98; PULSE 85; RESP 20; TEMP 98.1
--- NOTE | 2021-02-27 09:32 | P.DS ---
Providers Date of admission: 02/25/21 17:20 Expected date of discharge: 02/27/21 Attending physician: Anabella Denton Primary care physician: Physician Nonstaff - Discharge Diagnosis(es) (1) Acute cholecystitis due to biliary calculus Current Visit: Yes Status: Acute Hospital Course: POSTOPERATIVE DIAGNOSES: 1. Acute cholecystitis 2. Symptomatic gallstones 3. Gastrojejunal ulcer 4. Status post gastric bypass 5. Morbid obesity due to excess calories 6. Body mass index of 62.4, initial to 37.1 7. Hypertensive heart disease. 8. Gastroesophageal reflux disease 9. Anemia 10. Moderate hepatomegaly COURSE: The patient is a 45-year-old female admitted for atypical chest pain including right upper back pain. Clinical presentation consistent with acute cholecystitis. She had a upper endoscopy finding of acute gastric ulcer. She is now status post cholecystectomy for acute cholecystitis. She is postoperative day 1. She is tolerating diet. No further ports of atypical chest pain. She only complains of incisional pain. Her back pain is resolved. ROS: No reports of nausea and vomiting. No bowel movements. No fevers or chills. No new chest pain. No productive sputum PHYSICAL EXAM: VITAL SIGNS: Reviewed CONSTITUTIONAL: Well developed and in no acute distress. EYES: Conjuctivae without sclera icterus. Extraocular movements grossly intact. HEAD, EARS, NOSE, THROAT: Moist buccal mucosa. Head is atraumatic, normocephalic. Hears conversational speech. No nasal drainage. NECK: Supple. No thyroidomegaly. RESPIRATORY: Non-labored respirations and equal bilateral excursions. CARDIOVASCULAR: Palpable 2+ radial pulses. Regular rate. Regular rhythm. ABDOMEN: Incisions clean dry and intact. Soft. No peritonitis. Minimal tenderness left upper quadrant. MUSCULOSKELETAL: No gross deformity of the lower extremities noted. No clubbing. No cyanosis. SKIN: Good skin turgor. Well perfused. NEUROLOGIC: Cranial nerves II through XII grossly intact. No focal or lateralizing signs. PSYCH: Appropriate affect. Alert and oriented to person, place and time. CLINICAL LABS: White blood cell count normal. AST ALT elevated. Total bilirubin normal. ASSESSMENT: 1. Acute hydrops cholecystitis due to gallstones PLAN: 1. Monitor LFTs with repeat blood work as outpatient. 2. Stable for discharge with follow-up at the bariatric center one week. Procedures: OPERATION: Robotic-assisted da Neftaly Xi laparoscopic cholecystectomy, multiport with FIREFLY ESTIMATED BLOOD LOSS: 20 mL. SPECIMENS REMOVED: Gallbladder. COMPLICATIONS: None. OPERATIVE FINDINGS: 1. Acute cholecystitis with hydrops and distended gallbladder 2. Common bile duct within normal limits, without dilation 3. Moderate hepatomegaly Patient Condition at Discharge: Stable Plan - Discharge Summary Discharge Rx Participant: Yes New Discharge Prescriptions: New Sucralfate [Carafate] 1 gm PO BID #60 tablet Omeprazole [PriLOSEC] 40 mg PO BID #60 cap Acetaminophen Tab [Tylenol Tab] 1,000 mg PO Q6HR PRN #30 tablet PRN Reason: Pain Simethicone 40 mg/0.6 ml Drops [Mylicon Drops] 40 mg PO Q6HR PRN #30 ml PRN Reason: Abdominal Distention Continue lisinopriL 20 mg PO BID Discontinued Acetaminophen Oral Susp [Tylenol Oral Susp] 480 mg PO Q4-6H PRN PRN Reason: Pain bisacodyL [Dulcolax] 5 mg PO DAILY #20 tablet. Ondansetron [Zofran ODT] 4 mg PO Q8HR PRN PRN Reason: Nausea Multivitamins, Thera [Multivitamin (formulary)] 1 tab PO DAILY diphenhydrAMINE HCL [Benadryl] 50 mg PO HS PRN PRN Reason: SLEEP Ferrous Sulfate [Feosol] 325 mg PO DAILY Cholecalciferol (Vitamin D3) [Vitamin D3 (5000 Iu)] 125 mcg PO DAILY Calcium Citrate 500 mg PO DAILY Discharge Medication List lisinopriL 20 mg PO BID 02/25/21 [History] Acetaminophen Tab [Tylenol Tab] 1,000 mg PO Q6HR PRN #30 tablet 02/26/21 [Rx] Omeprazole [PriLOSEC] 40 mg PO BID #60 cap 02/26/21 [Rx] Simethicone 40 mg/0.6 ml Drops [Mylicon Drops] 40 mg PO Q6HR PRN #30 ml 02/26/21 [Rx] Sucralfate [Carafate] 1 gm PO BID #60 tablet 02/26/21 [Rx] Follow up Appointment(s)/Referral(s): Nonstaff,Physician [Primary Care Provider] - 1-2 days [place], [place] [NON-STAFF] - 03/04/21 Patient Instructions/Handouts: Peptic Ulcer (GEN), Diet for Stomach Ulcers and Gastritis (ED) Activity/Diet/Wound Care/Special Instructions: Recommend blenderized or pured low-fat diet for the next 2 days. Open capsule, cut or crush to tolerate.No lifting pushing or pulling over 10 pounds in 2 weeks until March 12.May shower. No bath tub soaks for two weeks until March 12. Use Tylenol scheduled for the next 24-48 hours for best pain relief. Use ice along incisions for today to prevent swelling. Follow up with physicians as directed. Call with any questions comments concerns worsening returning symptoms, fever 101 or higher, not tolerating diet or fluids, pain not controlled by prescribed pain medications. Discharge Disposition: HOME SELF-CARE
[2021-02-27] MEDS: PANTOPRAZOLE 40 MG/10 ML VIAL IVP SCH (09:49)
[2021-02-27] MEDS: SIMETHICONE 40 MG/0.6 ML DROPS 2,000 MG/30 ML BOTTLE PO SCH (10:17)
== END 2021-02-27 11:10 | disposition home or self-care (01) ==
LOC: EC 17:06 → 6PED 17:20
PROVIDERS: ADMIT Surgery Plastic and Reconstructive Surgery; ATTEND Surgery Plastic and Reconstructive Surgery
DX: K81.2 Acute cholecystitis with chronic cholecystitis (principal); K28.3 Acute gastrojejunal ulcer without hemorrhage or perforation; K82.1 Hydrops of gallbladder; K21.9 Gastro-esophageal reflux disease without esophagitis; G47.33 Obstructive sleep apnea (adult) (pediatric); I11.9 Hypertensive heart disease without heart failure; K76.0 Fatty (change of) liver, not elsewhere classified; E66.01 Morbid (severe) obesity due to excess calories; Z68.37 Body mass index [BMI] 37.0-37.9, adult; R74.01 Elevation of levels of liver transaminase levels; D64.9 Anemia, unspecified; I34.1 Nonrheumatic mitral (valve) prolapse; Z99.89 Dependence on other enabling machines and devices; Z79.899 Other long term (current) drug therapy; Z98.84 Bariatric surgery status; Z86.14 Personal history of Methicillin resistant Staphylococcus aureus infection; Z87.442 Personal history of urinary calculi; Z87.891 Personal history of nicotine dependence; Z98.890 Other specified postprocedural states; Z80.8 Family history of malignant neoplasm of other organs or systems
CPT/HCPCS: 47562; S2900; 36415; 43235; 74177; 76705; 80053; 81001; 82150; 83690; 84703; 85025; 87635; 88304; 96365; 96375; 96376; 99211; 99285

== ENCOUNTER → 2021-02-25 | Outpatient (CLI) | payer OTHER ==
[2021-02-25 16:16] VITALS: BP 156/96; PULSE 108; RESP 16; TEMP 98.2; BMI 37.0
--- NOTE | 2021-02-25 16:59 | P.PN ---
Subjective Progress Note Date: 02/25/21 She comes in with right upper quadrant abdominal pain. She comes in with acute cholecystitis. Recommend immediate admission with lap rei, EGD for epigastric pain. Objective - Vital Signs Vital signs: Vital Signs Temp 98.2 F 02/25/21 16:14 Pulse 108 H 02/25/21 16:14 Resp 16 02/25/21 16:14 BP 156/96 02/25/21 16:14 Pulse Ox Intake & Output 02/24/21 02/25/21 02/25/21 18:59 06:59 18:59 Weight 101.151 kg
== END ==
LOC: BARWHC3 15:47
PROVIDERS: ATTEND Surgery Plastic and Reconstructive Surgery
DX: E66.01 Morbid (severe) obesity due to excess calories (principal); Z68.37 Body mass index [BMI] 37.0-37.9, adult; K21.9 Gastro-esophageal reflux disease without esophagitis; I10 Essential (primary) hypertension; Z98.84 Bariatric surgery status; Z87.891 Personal history of nicotine dependence
CPT/HCPCS: 99211

== ENCOUNTER → 2021-03-04 | Outpatient (CLI) | payer OTHER ==
[2021-03-04 14:08] VITALS: BP 138/91; PULSE 91; RESP 18; TEMP 99.4; BMI 36.9
--- NOTE | 2021-03-04 14:27 | P.PN ---
Subjective Progress Note Date: 03/04/21 She feels better. No further pain. She is swallowing better. She reports still moderate soreness. She wants to return to work when able. Recommend taking vitamin C. She wants a refresher. She is pending for EGD. Objective - Vital Signs Vital signs: Vital Signs Temp 99.4 F 03/04/21 13:56 Pulse 91 03/04/21 13:56 Resp 18 03/04/21 13:56 BP 138/91 03/04/21 13:56 Pulse Ox Intake & Output 03/03/21 03/04/21 03/04/21 18:59 06:59 18:59 Weight 100.698 kg
--- NOTE | 2021-03-04 14:30 | P.PN ---
Progress Note - Text Progress Note Date: 03/04/21 To whom it may concern: Ventura Velez is under my surgical care. She may return to work without restrictions Sunday, March 14, 2021. Regards, Anabella Denton MD, FACS
== END | disposition home or self-care (01) ==
LOC: BARWHC3 13:48
PROVIDERS: ATTEND Surgery Plastic and Reconstructive Surgery
DX: Z02.79 Encounter for issue of other medical certificate (principal)
CPT/HCPCS: 99211

== ENCOUNTER → 2021-03-12 | Outpatient (CLI) | payer OTHER ==
[2021-03-13 01:34] LABS: ALT 32 U/L (8-44); AST 28 U/L (13-35); Alkaline Phosphatase 73 U/L (41-126)
== END | disposition home or self-care (01) ==
LOC: LABWHC1 12:41
PROVIDERS: ATTEND Surgery Plastic and Reconstructive Surgery
DX: R94.5 Abnormal results of liver function studies (principal)
CPT/HCPCS: 36415; 84075; 84450; 84460

== ENCOUNTER → 2021-03-25 | Outpatient (CLI) | payer OTHER ==
--- NOTE | 2021-03-25 12:57 | US ---
EXAMINATION TYPE: US kidneys/renal and bladder DATE OF EXAM: 03/25/2021 COMPARISON: CT 2020 CLINICAL HISTORY: N13.2 Hydronephrosis. History of kidney stones EXAM MEASUREMENTS: Right Kidney: 11.5 x 5.5 x 5.1 cm Left Kidney: 11.7 x 5.3 x 4.6 cm Right Kidney: No hydronephrosis or masses seen Left Kidney: No hydronephrosis or masses seen Bladder: wnl Bilateral Jets seen: yes There is no evidence for hydronephrosis at this point in time. No nephrolithiasis is seen. No georgina s are identified. The urinary bladder is anechoic. Bilateral ureteral jets are seen. IMPRESSION: Unremarkable study.
== END | disposition home or self-care (01) ==
LOC: RADUSWWP 12:26
PROVIDERS: ATTEND Urology
DX: N13.30 Unspecified hydronephrosis (principal)
CPT/HCPCS: 76770

== ENCOUNTER → 2021-04-08 | Outpatient (CLI) | payer OTHER ==
[2021-04-08 14:49] VITALS: BP 115/72; PULSE 92; TEMP 98.2; BMI 35.7
--- NOTE | 2021-04-08 15:21 | P.PN ---
Subjective Progress Note Date: 04/08/21 DATE OF SERVICE: 04/08/2021 CHIEF COMPLAINT: Status post gastric bypass HISTORY OF PRESENT ILLNESS: Kathleen Velez is a 45-year-old female who is status post gastric bypass, 01/05/21. She is status post cholecystectomy, 02/26/2021. She is over 1 month out. She feels great since her gallbladder surge ry. She has recurrent kidney stones. She was drinking much diet soda. Nos, she feels fine. She is over 3 months out from her gastric bypass. She is down from 20 to size 14 and is happy. At height of 5 feet 5 inches, her ideal body weight is 149 pounds. Her highest weight was 374 pounds, BMI 62.4. She comes in 214 pounds from 221 pounds, 1 month ago. She has lost 7 pounds, 1 month. Her body mass index is 35.8. Lifetime weight loss is 159 pounds. Her lifetime weight loss is 71 %. She is 65 pounds overweight. PHYSICAL EXAM: VITAL SIGNS: Height 5 foot 5 inches, weight 214 pounds. BMI 35.8 Vital Signs Temp 98.2 F 04/08/21 14:47 Pulse 92 04/08/21 14:47 Resp BP 115/72 04/08/21 14:47 Pulse Ox GENERAL: Well-developed in no acute distress. HEENT: No scleral icterus. Extraocular movements grossly intact. Hears conversational speech. No nasal drainage. NECK: Supple without lymphadenopathy. CHEST: Nonlabored respirations with equal bilateral excursions. CARDIOVASCULAR: Regular, rate and rhythm. 2+ radial pulses. ABDOMEN: No infection. Non-tender. MUSCULOSKELETAL: No clubbing, cyanosis. NEURO: No focal or lateralizing signs. Cranial nerves 2 through 12 grossly within normal limits. PSYCH: Appropriate affect. Alert and oriented to person, place and time. SKIN: Good skin turgor. Well perfused. ASSESSMENT: 1. Morbid obesity due to excess calories 2. Body mass index of 62.4, initial to 35.8 3. Hypertensive heart disease. 4. Gastroesophageal reflux disease 5. Persistent tachycardia 6. Hiatal hernia 7. Chronic gastritis 8. Status post gastric bypass 9. Iron deficiency anemia 10. Dysphagia. 11. Kidney stones, right 12. Low hemoglobin A1c 13. Hypoglycemia 14. Acalculous chronic cholecystitis 15. Acute gastrojejunal ulcer with stricture. PLAN: 1. She has kidney stones. Kidney stone diet reviewed including potassium citrate to decrease stone formation. 2. Recommend bariatric labs for follow-up gastric bypass. Objective - Vital Signs Vital signs: Vital Signs Temp 98.2 F 04/08/21 14:47 Pulse 92 04/08/21 14:47 Resp BP 115/72 04/08/21 14:47 Pulse Ox Intake & Output 04/07/21 04/08/21 04/08/21 18:59 06:59 18:59 Weight 97.522 kg - Labs CBC & Chem 7: 04/08/21 15:41 04/08/21 15:41
[2021-04-08 16:02] LABS: HCT 42.9 % (34.0-46.0); MCH 28.1 pg (25.0-35.0); MCHC 32.7 g/dL (31.0-37.0); MCV 86.1 fL (80.0-100.0); Mean Platelet Volume 7.8; Platelet Count 247 k/uL (150-450); RBC 4.98 m/uL (3.80-5.40); RDW 13.9 % (11.5-15.5); WBC 7.4 k/uL (3.8-10.6)
[2021-04-08 16:16] LABS: INR 0.9 (<1.2); Partial Thromboplastin Time 23.1 sec (22.0-30.0)
[2021-04-09 04:38] LABS: Ferritin 115.3 ng/mL (10.0-291.0)
[2021-04-09 04:46] LABS: % Iron Saturation 30.73 (12.00-45.00); ALT 39 U/L (8-44); AST 29 U/L (13-35); African American GFR (CKD) 90.8 (60.0-200.0); Albumin/Globulin Ratio 2.13 (1.60-3.17); Alkaline Phosphatase 82 U/L (41-126); BUN/Creat Ratio 22.22 Ratio (12.00-20.00); Calcium 9.9 mg/dL (8.7-10.3); Carbon Dioxide 23.9 mmol/L (21.6-31.8); Chloride 105 mmol/L (96-109); Chol/HDL Ratio 2.96; Cholesterol 166 mg/dL (0-200); Folate, Serum >24.0 ng/mL; Globulin 2.3 g/dL (1.6-3.3); Glucose 101 mg/dL (70-110); Iron 114 ug/dL (50-170); LDL Cholesterol,Calculated 92.2 mg/dL (0.0-131.0); Magnesium 1.8 mg/dL (1.5-2.4); Non-African American GFR(CKD) 78.3 (60.0-200.0); Phosphorus 3.9 mg/dL (2.4-5.1); Potassium 4.3 mmol/L (3.5-5.5); Sodium 141 mmol/L (135-145); Total Bilirubin 0.4 mg/dL (0.3-1.2); Total Iron Binding Capacity 371 ug/dL (228-460); Total Protein 7.2 g/dL (6.2-8.2)
[2021-04-09 14:46] LABS: Vitamin A 71 ug/dL (38-106)
[2021-04-09 15:07] LABS: Zinc, Serum 55 ug/dL (60-130)
[2021-04-10 06:55] LABS: Vit B1(Thiamine) 79 ug/L (38-122)
[2021-04-11 00:25] LABS: Hemoglobin A1C 5.5 % (4.0-6.0)
[2021-04-13 10:53] LABS: Selenium 123 mcg/L (63-160)
== END ==
LOC: BARWHC3 14:28
PROVIDERS: ATTEND Surgery Plastic and Reconstructive Surgery
DX: E66.01 Morbid (severe) obesity due to excess calories (principal); D50.9 Iron deficiency anemia, unspecified; I11.9 Hypertensive heart disease without heart failure; K21.9 Gastro-esophageal reflux disease without esophagitis; K29.50 Unspecified chronic gastritis without bleeding; K44.9 Diaphragmatic hernia without obstruction or gangrene; N20.0 Calculus of kidney; R00.0 Tachycardia, unspecified; K81.1 Chronic cholecystitis; E16.2 Hypoglycemia, unspecified; K28.9 Gastrojejunal ulcer, unspecified as acute or chronic, without hemorrhage or perforation; Z68.35 Body mass index [BMI] 35.0-35.9, adult; Z98.84 Bariatric surgery status; Z87.891 Personal history of nicotine dependence
CPT/HCPCS: 84255; 84134; 84425; 80061; 80053; 82607; 82728; 82525; 82746; 83540; 83550; 83735; 84100; 84443; 84590; 84630; 85027; 85610; 85730; 82306; 83970; 83036; 97803; 36415; G0463; 99211

== ENCOUNTER 2021-04-30 16:25 | Emergency (ER) | payer OTHER ==
--- NOTE | 2021-04-30 17:14 | ED ---
SOB HPI - General Chief Complaint: Shortness of Breath Stated Complaint: Covid, MALINA Time Seen by Provider: 04/30/21 17:00 Source: patient Mode of arrival: ambulatory Limitations: no limitations - History of Present Illness Initial Comments: 65-year-old female presents to emergency Department with a chief complaint of shortness of breath. States she began having symptoms about 4 days ago and tested negative on a rapid covert test. States she received the PCR results today and spoke to her primary care physician who prescribed her an albuterol inhaler along with a Medrol dosepak. States she continues to feel dyspneic on exertion along with pleuritic chest pain whenever she taking a deep breath. Also reports generalized myalgias and fatigue. However, she denies any fevers or chills. Reports she has been taking [id number] antihistamines as well. Denies any nausea vomiting diarrhea abdominal pain. - Related Data Home Medications Medication Instructions Recorded Confirmed lisinopriL 20 mg PO BID 02/25/21 04/08/21 Iron 64 mg PO DAILY 04/08/21 04/08/21 Metoprolol Succinate [Toprol XL] 25 mg PO DAILY 04/08/21 04/08/21 amLODIPine [Norvasc] 6 mg PO DAILY 04/08/21 04/08/21 Previous Rx's Medication Instructions Recorded Omeprazole [PriLOSEC] 40 mg PO BID #60 cap 02/26/21 Allergies Allergy/AdvReac Type Severity Reaction Status Date / Time No Known Allergies Allergy Verified 04/30/21 16:40 Review of Systems ROS Statement: Those systems with pertinent positive or pertinent negative responses have been documented in the HPI. ROS Other: All systems not noted in ROS Statement are negative. Past Medical History Past Medical History: GERD/Reflux, Hypertension, Sleep Apnea/CPAP/BIPAP Additional Past Medical History / Comment(s): No HTN Rx since gastric bypass. Uses CPAP. HR is fast; has leaky valve being monitored. History of kidney stones History of Any Multi-Drug Resistant Organisms: MRSA Date of last positivie culture/infection: 2012 MDRO Source:: right hand Past Surgical History: Bariatric Surgery, Cholecystectomy, Orthopedic Surgery Additional Past Surgical History / Comment(s): right heel surgery, Jewels-en-Y gastric bypass 01-05-2021, varicose vein leg artery cauterization. Lithotripsy. Laparoscopy x2 w/ exc pre-cancer lesions Past Anesthesia/Blood Transfusion Reactions: Postoperative Nausea & Vomiting (PONV) Additional Past Anesthesia/Blood Transfusion Reaction / Comment(s): no hx blood transfusion Past Psychological History: No Psychological Hx Reported Smoking Status: Former smoker Past Alcohol Use History: Occasional Past Drug Use History: None Reported - Past Family History Mother Family Medical History: No Reported History Brother(s) Family Medical History: Cancer Additional Family Medical History / Comment(s): oral CA-tongue partially removed General Exam Limitations: no limitations General appearance: alert, in no apparent distress, obese Head exam: Present: atraumatic, normocephalic, normal inspection Eye exam: Present: normal appearance, PERRL, EOMI Pupils: Present: normal accommodation ENT exam: Present: normal exam, normal oropharynx, mucous membranes moist Neck exam: Present: normal inspection, full ROM. Absent: tenderness Respiratory exam: Present: normal lung sounds bilaterally. Absent: respiratory distress, wheezes, rales, rhonchi, stridor, chest wall tenderness, accessory muscle use Cardiovascular Exam: Present: regular rate, normal rhythm, normal heart sounds. Absent: systolic murmur GI/Abdominal exam: Present: soft. Absent: distended, tenderness, guarding, rebound Extremities exam: Present: normal inspection, full ROM, normal capillary refill. Absent: tenderness, pedal edema, joint swelling Back exam: Present: normal inspection, full ROM. Absent: tenderness, CVA tenderness (R), CVA tenderness (L) Neurological exam: Present: alert, oriented X3 Psychiatric exam: Present: normal affect, normal mood Skin exam: Present: warm, dry, intact, normal color Course Vital Signs 04/30/21 04/30/21 16:37 17:27 Temperature 97.9 F Pulse Rate 116 H Respiratory 22 18 Rate Blood Pressure 126/86 O2 Sat by Pulse 98 Oximetry Medical Decision Making - Medical Decision Making 65-year-old female presents to emergency Department with a chief complaint of shortness of breath. Physical examination, she is well-appearing but she had complaints of pleuritic chest pain. No respiratory distress here. Vital signs within normal limits. Chest x-ray is unremarkable. CBC CMP coags within normal limits. D-dimer negative. Patient was given monoclonal antibody. Return parameters were discussed the patient was upsetting agreeable. Case discussed with Dr. Davey. - Lab Data Result diagrams: 04/30/21 17:42 04/30/21 17:42 Lab Results 04/30/21 04/30/21 04/30/21 Range/Units 17:42 17:42 17:42 WBC 3.4 L (3.8-10.6) k/uL RBC 5.36 (3.80-5.40) m/uL Hgb 15.1 (11.4-16.0) gm/dL Hct 45.2 (34.0-46.0) % MCV 84.4 (80.0-100.0) fL MCH 28.3 (25.0-35.0) pg MCHC 33.5 (31.0-37.0) g/dL RDW 14.6 (11.5-15.5) % Plt Count 169 (150-450) k/uL MPV 8.0 Neutrophils % 56 % Lymphocytes % 28 % Monocytes % 14 % Eosinophils % 0 % Basophils % 1 % Neutrophils # 1.9 (1.3-7.7) k/uL Lymphocytes # 1.0 (1.0-4.8) k/uL Monocytes # 0.5 (0-1.0) k/uL Eosinophils # 0.0 (0-0.7) k/uL Basophils # 0.0 (0-0.2) k/uL PT 10.0 (9.0-12.0) sec INR 0.9 (<1.2) APTT 22.6 (22.0-30.0) sec D-Dimer 0.51 (<0.60) mg/L FEU Sodium 136 L (137-145) mmol/L Potassium 4.6 (3.5-5.1) mmol/L Chloride 100 (98-107) mmol/L Carbon Dioxide 25 (22-30) mmol/L Anion Gap 11 mmol/L BUN 20 H (7-17) mg/dL Creatinine 0.74 (0.52-1.04) mg/dL Est GFR (CKD-EPI)AfAm >90 (>60 ml/min/1.73 sqM) Est GFR (CKD-EPI)NonAf >90 (>60 ml/min/1.73 sqM) Glucose 111 H (74-99) mg/dL Calcium 9.8 (8.4-10.2) mg/dL Total Bilirubin 0.3 (0.2-1.3) mg/dL AST 150 H (14-36) U/L ALT 134 H (4-34) U/L Alkaline Phosphatase 92 (38-126) U/L Troponin I (0.000-0.034) ng/mL Total Protein 7.9 (6.3-8.2) g/dL Albumin 4.8 (3.5-5.0) g/dL 04/30/21 Range/Units 17:42 WBC (3.8-10.6) k/uL RBC (3.80-5.40) m/uL Hgb (11.4-16.0) gm/dL Hct (34.0-46.0) % MCV (80.0-100.0) fL MCH (25.0-35.0) pg MCHC (31.0-37.0) g/dL RDW (11.5-15.5) % Plt Count (150-450) k/uL MPV Neutrophils % % Lymphocytes % % Monocytes % % Eosinophils % % Basophils % % Neutrophils # (1.3-7.7) k/uL Lymphocytes # (1.0-4.8) k/uL Monocytes # (0-1.0) k/uL Eosinophils # (0-0.7) k/uL Basophils # (0-0.2) k/uL PT (9.0-12.0) sec INR (<1.2) APTT (22.0-30.0) sec D-Dimer (<0.60) mg/L FEU Sodium (137-145) mmol/L Potassium (3.5-5.1) mmol/L Chloride (98-107) mmol/L Carbon Dioxide (22-30) mmol/L Anion Gap mmol/L BUN (7-17) mg/dL Creatinine (0.52-1.04) mg/dL Est GFR (CKD-EPI)AfAm (>60 ml/min/1.73 sqM) Est GFR (CKD-EPI)NonAf (>60 ml/min/1.73 sqM) Glucose (74-99) mg/dL Calcium (8.4-10.2) mg/dL Total Bilirubin (0.2-1.3) mg/dL AST (14-36) U/L ALT (4-34) U/L Alkaline Phosphatase (38-126) U/L Troponin I <0.012 (0.000-0.034) ng/mL Total Protein (6.3-8.2) g/dL Albumin (3.5-5.0) g/dL - EKG Data EKG Comments: Sinus tachycardia Ventricular rate 103, NV 134, QRS 80, QTC 427. Disposition Clinical Impression: Shortness of breath, COVID-19 Disposition: HOME SELF-CARE Condition: Stable Instructions (If sedation given, give patient instructions): Coronavirus Disease 2019 (COVID-19) Additional Instructions: Please return to the Emergency Department if symptoms worsen or any other concerns. Is patient prescribed a controlled substance at d/c from ED?: No Referrals: LOBO GARCÍA DO [Primary Care Provider] - 1-2 days Time of Disposition: 19:44
[2021-04-30 17:54] LABS: Basophils % (A) 1 %; Eosinophils % (A) 0 %; HCT 45.2 % (34.0-46.0); HGB 15.1 gm/dL (11.4-16.0); Lymphocytes % (A) 28 %; MCH 28.3 pg (25.0-35.0); MCHC 33.5 g/dL (31.0-37.0); MCV 84.4 fL (80.0-100.0); Monocytes # (A) 0.5 k/uL (0-1.0); Monocytes % (A) 14 %; Neutrophils # (A) 1.9 k/uL (1.3-7.7); Neutrophils % (A) 56 %; Platelet Count 169 k/uL (150-450); RBC 5.36 m/uL (3.80-5.40); RDW 14.6 % (11.5-15.5); WBC 3.4 k/uL (3.8-10.6)
[2021-04-30 18:04] LABS: ALT 134 U/L (4-34); AST 150 U/L (14-36); African American GFR (CKD) >90 (>60 ml/min/1.73 sqM); Albumin 4.8 g/dL (3.5-5.0); Alkaline Phosphatase 92 U/L (38-126); Anion Gap 11 mmol/L; Blood Urea Nitrogen 20 mg/dL (7-17); Calcium 9.8 mg/dL (8.4-10.2); Carbon Dioxide 25 mmol/L (22-30); Chloride 100 mmol/L (98-107); Glucose 111 mg/dL (74-99); Non-African American GFR(CKD) >90 (>60 ml/min/1.73 sqM); Potassium 4.6 mmol/L (3.5-5.1); Sodium 136 mmol/L (137-145); Total Bilirubin 0.3 mg/dL (0.2-1.3); Total Protein 7.9 g/dL (6.3-8.2)
[2021-04-30 18:05] LABS: D-Dimer 0.51 mg/L FEU (<0.60); INR 0.9 (<1.2); Partial Thromboplastin Time 22.6 sec (22.0-30.0)
--- NOTE | 2021-04-30 18:36 | XR ---
EXAMINATION: XR chest 1V portable DATE AND TIME: 04/30/2021 5:56 PM CLINICAL INDICATION: [facility]; covid TECHNIQUE: Departmental protocol COMPARISON: None FINDINGS: The lungs are clear. The pleural spaces are negative. The cardiac silhouette is not enlarged. The remainder of the mediastinal silhouette is unremarkable. The skeletal structures and soft tissues are negative for acute findings. IMPRESSION: NO ACUTE PROCESS.
[2021-04-30] MEDS ORDERED: BAMLANIVIMAB (EUA) 700 MG, ETESEVIMAB (EUA) 1,400 MG in SODIUM CHLORIDE 0.9% 50 ML IVPB ONE (19:30)
[2021-04-30] MEDS ORDERED: SODIUM CHLORIDE 0.9% 50 ML IVPB ONE (19:30)
[2021-04-30] MEDS ORDERED: ONDANSETRON 4 MG/2 ML VIAL IVP STA (23:04)
[2021-05-01 00:21] VITALS: BP 136/74; PULSE 77; RESP 21; TEMP 97.8
== END 2021-05-01 00:19 | disposition home or self-care (01) ==
LOC: EC 16:25
DX: R06.02 Shortness of breath (principal); U07.1 COVID-19; I10 Essential (primary) hypertension; K21.9 Gastro-esophageal reflux disease without esophagitis; G47.33 Obstructive sleep apnea (adult) (pediatric); Z99.81 Dependence on supplemental oxygen; Z87.442 Personal history of urinary calculi; Z87.891 Personal history of nicotine dependence; Z98.84 Bariatric surgery status
CPT/HCPCS: 36415; 93005; 85379; 80053; 84484; 85025; 85610; 85730; 71045; 99285; 96365; 96375; J2405; Q0245; 96374

== ENCOUNTER 2021-05-01 19:33 | Emergency (ER) | payer OTHER ==
[2021-05-01 19:40] VITALS: TEMP 98.3
[2021-05-01] MEDS ORDERED: SODIUM CHLORIDE 0.9% 500 ML 500 ML IV STA (19:41)
--- NOTE | 2021-05-01 20:00 | ED ---
General Adult HPI - General Chief complaint: Nausea/Vomiting/Diarrhea Stated complaint: nausea, vomiting, COVID+ Time Seen by Provider: 05/01/21 19:40 Source: patient, EMS Mode of arrival: EMS Limitations: no limitations - History of Present Illness Initial comments: Dictation was produced using [employer] dictation software. please excuse any grammatical, word or spelling errors. Chief Complaint: 45-year-old female presents today with nausea vomiting abdominal cramping History of Present Illness: 45-year-old female she presents to the emergency department for nausea vomiting and abdominal cramping. Patient states that she's had these symptoms for the last 3-4 days. She isn't symptomatically: For 6 days and tested positive for days ago. Patient still having some fevers. She was seen here in emergency department last night. She is given monoclonal antibodies. The ROS documented in this emergency department record has been reviewed and confirmed by me. Those systems with pertinent positive or negative responses have been documented in the HPI. All other systems are other negative and/or noncontributory. PHYSICAL EXAM: General Impression: Alert and oriented x3, not in acute distress HEENT: Normocephalic atraumatic, extra-ocular movements intact, pupils equal and reactive to light bilaterally, mucous membranes moist. Cardiovascular: Heart regular rate and rhythm Chest: Able to complete full sentences, no retractions, no tachypnea Abdomen: abdomen soft, non-tender, non-distended, no organomegaly Musculoskeletal: Pulses present and equal in all extremities, no peripheral edema Motor: no focal deficits noted Neurological: CN II-XII grossly intact, no focal motor or sensory deficits noted Skin: Intact with no visualized rashes Psych: Normal affect and mood ED course: 45-year-old female presents with nausea, anorexia and abdominal cramping. vital signs upon arrival shows tachycardia of 112, rest of vital signs are within acceptable limits. Patient evaluated at bedside with normal heart rate. Patient is not hypoxic. Laboratory evaluation obtained. CBC, metabolic panel is unremarkable. Abdominal x-ray shows no acute processes. Patient reevaluated at bedside. Patient reevaluated at bedside at 8:45 PM. She states she still having some severe cramping. She does appear to be in acute distress. She continuously says that "something is wrong." CT of the abdomen and pelvis is ordered.Computed tomography scan of the abdomen and pelvis shows no acute processes. Patient is agreeable with discharge. She is given prescription for Zofran and [place]. Patient's symptoms are likely secondary to coronavirus - Related Data Home Medications Medication Instructions Recorded Confirmed lisinopriL 20 mg PO DAILY 02/25/21 05/01/21 Metoprolol Succinate [Toprol XL] 25 mg PO DAILY 04/08/21 05/01/21 amLODIPine [Norvasc] 5 mg PO DAILY 04/08/21 05/01/21 Albuterol Sulfate [Proair Hfa] 2 puff INHALATION RT-Q6H PRN 05/01/21 05/01/21 Ascorbic Acid [Vitamin C] 500 mg PO DAILY 05/01/21 05/01/21 Aspirin EC [Ecotrin Low Dose] 81 mg PO DAILY 05/01/21 05/01/21 [place] 1 tab PO BID 05/01/21 05/01/21 Bisacodyl 5 mg PO BID PRN 05/01/21 05/01/21 Calcium Citrate 500 mg PO DAILY 05/01/21 05/01/21 Doxycycline Hyclate [Vibramycin] 100 mg PO BID 05/01/21 05/01/21 Ferrous Sulfate [Feosol] 325 mg PO DAILY 05/01/21 05/01/21 Fexofenadine HCl [Terese Allergy] 180 mg PO DAILY PRN 05/01/21 05/01/21 Potassium Citrate [Urocit-K] 15 meq PO TID 05/01/21 05/01/21 methylPREDNISolone Dose Pack See Taper PO DIRECTED 05/01/21 05/01/21 [Medrol Dose Pack] Previous Rx's Medication Instructions Recorded Omeprazole [PriLOSEC] 40 mg PO BID #60 cap 02/26/21 HYDROcodone/APAP 5-325MG [[place] 1 tab PO Q6HR PRN 3 Days #12 tab 05/01/21 5-325] Ondansetron Odt [Zofran Odt] 4 mg PO Q8HR PRN #12 tab 05/01/21 Allergies Allergy/AdvReac Type Severity Reaction Status Date / Time No Known Allergies Allergy Verified 05/01/21 19:40 Review of Systems ROS Statement: Those systems with pertinent positive or pertinent negative responses have been documented in the HPI. ROS Other: All systems not noted in ROS Statement are negative. Past Medical History Past Medical History: GERD/Reflux, Hypertension, Sleep Apnea/CPAP/BIPAP Additional Past Medical History / Comment(s): No HTN Rx since gastric bypass. Uses CPAP. HR is fast; has leaky valve being monitored. History of kidney stones History of Any Multi-Drug Resistant Organisms: MRSA Date of last positivie culture/infection: 2012 MDRO Source:: right hand Past Surgical History: Bariatric Surgery, Cholecystectomy, Orthopedic Surgery Additional Past Surgical History / Comment(s): right heel surgery, Jewels-en-Y gastric bypass 01-05-2021, varicose vein leg artery cauterization. Lithotripsy. Laparoscopy x2 w/ exc pre-cancer lesions Past Anesthesia/Blood Transfusion Reactions: Postoperative Nausea & Vomiting (PONV) Additional Past Anesthesia/Blood Transfusion Reaction / Comment(s): no hx blood transfusion Past Psychological History: No Psychological Hx Reported Smoking Status: Former smoker Past Alcohol Use History: Occasional Past Drug Use History: None Reported - Past Family History Mother Family Medical History: No Reported History Brother(s) Family Medical History: Cancer Additional Family Medical History / Comment(s): oral CA-tongue partially removed General Exam Limitations: no limitations Course Vital Signs 05/01/21 05/01/21 05/01/21 19:34 20:00 22:02 Temperature 98.3 F Pulse Rate 112 H 92 93 Respiratory 18 18 16 Rate Blood Pressure 123/95 123/81 96/68 O2 Sat by Pulse 98 99 97 Oximetry Medical Decision Making - Lab Data Result diagrams: 05/01/21 19:50 05/01/21 19:50 Lab Results 05/01/21 05/01/21 Range/Units 19:50 19:50 WBC 6.6 (3.8-10.6) k/uL RBC 5.06 (3.80-5.40) m/uL Hgb 14.8 (11.4-16.0) gm/dL Hct 42.8 (34.0-46.0) % MCV 84.5 (80.0-100.0) fL MCH 29.2 (25.0-35.0) pg MCHC 34.6 (31.0-37.0) g/dL RDW 14.1 (11.5-15.5) % Plt Count 150 (150-450) k/uL MPV 8.5 Neutrophils % 71 % Lymphocytes % 17 % Monocytes % 10 % Eosinophils % 0 % Basophils % 1 % Neutrophils # 4.7 (1.3-7.7) k/uL Lymphocytes # 1.1 (1.0-4.8) k/uL Monocytes # 0.6 (0-1.0) k/uL Eosinophils # 0.0 (0-0.7) k/uL Basophils # 0.1 (0-0.2) k/uL Sodium 135 L (137-145) mmol/L Potassium 4.3 (3.5-5.1) mmol/L Chloride 99 (98-107) mmol/L Carbon Dioxide 24 (22-30) mmol/L Anion Gap 12 mmol/L BUN 24 H (7-17) mg/dL Creatinine 0.67 (0.52-1.04) mg/dL Est GFR (CKD-EPI)AfAm >90 (>60 ml/min/1.73 sqM) Est GFR (CKD-EPI)NonAf >90 (>60 ml/min/1.73 sqM) Glucose 124 H (74-99) mg/dL Calcium 9.3 (8.4-10.2) mg/dL Total Bilirubin 0.4 (0.2-1.3) mg/dL AST 98 H (14-36) U/L ALT 116 H (4-34) U/L Alkaline Phosphatase 86 (38-126) U/L Total Protein 7.2 (6.3-8.2) g/dL Albumin 4.2 (3.5-5.0) g/dL Lipase 190 (23-300) U/L Disposition Clinical Impression: Abdominal cramping Disposition: HOME SELF-CARE Condition: Fair Instructions (If sedation given, give patient instructions): Acute Nausea and Vomiting (ED) Prescriptions: HYDROcodone/APAP 5-325MG [[place] 5-325] 1 tab PO Q6HR PRN 3 Days #12 tab PRN Reason: Severe Pain Ondansetron Odt [Zofran Odt] 4 mg PO Q8HR PRN #12 tab PRN Reason: Nausea Is patient prescribed a controlled substance at d/c from ED?: No Referrals: LOBO GARCÍA DO [Primary Care Provider] - 1-2 days
[2021-05-01 20:01] LABS: Basophils # (A) 0.1 k/uL (0-0.2); Basophils % (A) 1 %; Eosinophils % (A) 0 %; HCT 42.8 % (34.0-46.0); HGB 14.8 gm/dL (11.4-16.0); Lymphocytes # (A) 1.1 k/uL (1.0-4.8); Lymphocytes % (A) 17 %; MCH 29.2 pg (25.0-35.0); MCHC 34.6 g/dL (31.0-37.0); MCV 84.5 fL (80.0-100.0); Mean Platelet Volume 8.5; Monocytes # (A) 0.6 k/uL (0-1.0); Monocytes % (A) 10 %; Neutrophils # (A) 4.7 k/uL (1.3-7.7); Neutrophils % (A) 71 %; Platelet Count 150 k/uL (150-450); RBC 5.06 m/uL (3.80-5.40); RDW 14.1 % (11.5-15.5); WBC 6.6 k/uL (3.8-10.6)
--- NOTE | 2021-05-01 20:27 | XR ---
EXAMINATION TYPE: XR abdomen 1V DATE OF EXAM: 05/01/2021 COMPARISON: 02/04/2021 HISTORY: Abdominal cramping TECHNIQUE: 3 views supine FINDINGS: There is no sign of intestinal obstruction or pneumoperitoneum. Fecal pattern is normal. Th ere is no evidence of a mass. There are no pathologic calcifications over the kidneys. Lung bases are clear. Bony structures are intact. IMPRESSION: Nonacute abdomen. No adverse change compared to old exam.
[2021-05-01 20:35] LABS: ALT 116 U/L (4-34); AST 98 U/L (14-36); African American GFR (CKD) >90 (>60 ml/min/1.73 sqM); Albumin 4.2 g/dL (3.5-5.0); Alkaline Phosphatase 86 U/L (38-126); Anion Gap 12 mmol/L; Blood Urea Nitrogen 24 mg/dL (7-17); Calcium 9.3 mg/dL (8.4-10.2); Carbon Dioxide 24 mmol/L (22-30); Chloride 99 mmol/L (98-107); Glucose 124 mg/dL (74-99); Lipase 190 U/L (23-300); Non-African American GFR(CKD) >90 (>60 ml/min/1.73 sqM); Potassium 4.3 mmol/L (3.5-5.1); Sodium 135 mmol/L (137-145); Total Bilirubin 0.4 mg/dL (0.2-1.3); Total Protein 7.2 g/dL (6.3-8.2)
--- NOTE | 2021-05-01 21:54 | CT ---
EXAMINATION TYPE: CT abdomen pelvis w con DATE OF EXAM: 05/01/2021 COMPARISON: February 25, 2021 HISTORY: abd pain CT DLP: 1610 mGycm Automated exposure control for dose reduction was used. CONTRAST: Performed with IV Contrast, patient injected with 100 mL of Isovue 300. Lung bases are clear. There is no pleural effusion. There are multiple gastric surgical clips. Heart size is normal. Liver spleen pancreas appear intact. Bile ducts are nondilated. Gallbladder appears absent. There is no adrenal mass. Kidneys show satisfactory contrast opacification. There is no hydronephrosi s. Ureters are not dilated. Bladder distends smoothly. There is no inguinal hernia. There is no free fluid in the pelvis. Uterus is anteverted. There is no evidence of a pelvic mass. There is no adnexal mass. There is no mesenteric edema. There is no ascites or free air. There is no bowel obstruction. There i s no evidence of thickened appendix. Lumbar vertebra have normal alignment. There is no compression f racture. Posterior elements are intact. Bony pelvis is intact. IMPRESSION: No sign of acute abdomen and pelvis. No adverse change compared to old exam.
[2021-05-01 22:03] VITALS: BP 96/68; PULSE 93; RESP 16
[2021-05-01] MEDS ORDERED: ONDANSETRON 4 MG ODT STARTER PACK 2 TAB BTL PO STA (22:14)
== END 2021-05-01 22:30 | disposition home or self-care (01) ==
LOC: EC 19:33
DX: R10.9 Unspecified abdominal pain (principal); I10 Essential (primary) hypertension; K21.9 Gastro-esophageal reflux disease without esophagitis; G47.33 Obstructive sleep apnea (adult) (pediatric); Z79.82 Long term (current) use of aspirin; Z87.442 Personal history of urinary calculi; Z87.891 Personal history of nicotine dependence; Z98.84 Bariatric surgery status; Z99.81 Dependence on supplemental oxygen
CPT/HCPCS: 36415; 80053; 83690; 85025; 74018; 74177; 99284; 96360; S0119; Q9967

== ENCOUNTER 2021-08-27 08:22 | Observation (INO) | payer OTHER ==
[2021-08-27] MEDS ORDERED: SODIUM CHLORIDE 0.9% 1,000 ML IV STA ×2 (08:33)
[2021-08-27] MEDS ORDERED: FAMOTIDINE 20 MG/2 ML VIAL IV STA (08:34)
[2021-08-27 08:52] LABS: Basophils % (A) 0 %; Eosinophils % (A) 1 %; HCT 34.4 % (34.0-46.0); HGB 11.4 gm/dL (11.4-16.0); Lymphocytes # (A) 1.6 k/uL (1.0-4.8); Lymphocytes % (A) 22 %; MCH 31.8 pg (25.0-35.0); MCHC 33.2 g/dL (31.0-37.0); MCV 95.9 fL (80.0-100.0); Mean Platelet Volume 8.4; Monocytes # (A) 0.5 k/uL (0-1.0); Monocytes % (A) 6 %; Neutrophils % (A) 69 %; Platelet Count 182 k/uL (150-450); RBC 3.58 m/uL (3.80-5.40); WBC 7.3 k/uL (3.8-10.6)
--- NOTE | 2021-08-27 08:52 | ED ---
Nausea/Vomiting/Diarrhea HPI - General Chief complaint: Nausea/Vomiting/Diarrhea Stated complaint: vomiting blood Time Seen by Provider: 08/27/21 08:30 Source: patient, EMS, RN notes reviewed Mode of arrival: EMS Limitations: no limitations - History of Present Illness Initial comments: 46-year-old female with a history of gastric bypass history of ulcers in the past who presents with complaints of vomiting blood this morning. She states she started feeling nauseated around 7 AM vomited up for some dark colored blood with clots and seem to get later and she vomited. She states she had a total of 7 episodes. No blood per rectum no black colored stools he does have a history of ulcers in the past but has not had any problems with this since. No fevers chills sweats she did have some lightheadedness. MD complaint: nausea, vomiting, abdominal pain, other - Related Data Home Medications Medication Instructions Recorded Confirmed lisinopriL 20 mg PO DAILY 02/25/21 08/27/21 Metoprolol Succinate [Toprol XL] 25 mg PO DAILY 04/08/21 08/27/21 amLODIPine [Norvasc] 5 mg PO DAILY 04/08/21 08/27/21 Rome-Melts 1 tab PO BID 05/01/21 08/27/21 Calcium Citrate 500 mg PO DAILY 05/01/21 08/27/21 Ferrous Sulfate [Feosol] 325 mg PO DAILY 05/01/21 08/27/21 Cholecalciferol (Vitamin D3) 125 mcg PO DAILY 08/27/21 08/27/21 [Vitamin D3 (125 MCG = 5,000 IU)] Previous Rx's Medication Instructions Recorded Omeprazole [PriLOSEC] 40 mg PO BID #60 cap 02/26/21 Allergies Allergy/AdvReac Type Severity Reaction Status Date / Time No Known Allergies Allergy Verified 08/27/21 10:25 Review of Systems ROS Statement: Those systems with pertinent positive or pertinent negative responses have been documented in the HPI. ROS Other: All systems not noted in ROS Statement are negative. Past Medical History Past Medical History: GERD/Reflux, Hypertension, Sleep Apnea/CPAP/BIPAP Additional Past Medical History / Comment(s): No HTN Rx since gastric bypass. Uses CPAP. HR is fast; has leaky valve being monitored. History of kidney stones History of Any Multi-Drug Resistant Organisms: MRSA Date of last positivie culture/infection: 2012 MDRO Source:: right hand Past Surgical History: Bariatric Surgery, Cholecystectomy, Orthopedic Surgery Additional Past Surgical History / Comment(s): right heel surgery, Jewels-en-Y gastric bypass 01-05-2021, varicose vein leg artery cauterization. Lithotripsy. Laparoscopy x2 w/ exc pre-cancer lesions Past Anesthesia/Blood Transfusion Reactions: Postoperative Nausea & Vomiting (PONV) Additional Past Anesthesia/Blood Transfusion Reaction / Comment(s): no hx blood transfusion Past Psychological History: No Psychological Hx Reported Smoking Status: Former smoker Past Alcohol Use History: Occasional Past Drug Use History: None Reported - Past Family History Mother Family Medical History: No Reported History Brother(s) Family Medical History: Cancer Additional Family Medical History / Comment(s): oral CA-tongue partially removed General Exam - General Exam Comments Initial Comments: This is a well-developed well-nourished awake alert oriented 3 female Limitations: no limitations General appearance: alert, anxious Head exam: Present: atraumatic, normocephalic, normal inspection Eye exam: Present: normal appearance, PERRL, EOMI. Absent: scleral icterus, conjunctival injection, periorbital swelling ENT exam: Present: normal exam, mucous membranes moist Neck exam: Present: normal inspection. Absent: tenderness, meningismus, l ymphadenopathy Respiratory exam: Present: normal lung sounds bilaterally. Absent: respiratory distress, wheezes, rales, rhonchi, stridor Cardiovascular Exam: Present: regular rate, normal rhythm, normal heart sounds. Absent: systolic murmur, diastolic murmur, rubs, gallop, clicks GI/Abdominal exam: Present: soft, tenderness (Mild epigastric tenderness with no guarding rebound masses or bruits), normal bowel sounds. Absent: distended, guarding, rebound, rigid Rectal exam: Present: deferred, other (The patient did have a bowel movement while in emergency department it appeared be dark colored Hemoccult testing was performed) Extremities exam: Present: normal inspection, full ROM, normal capillary refill. Absent: tenderness, pedal edema, joint swelling, calf tenderness Back exam: Present: normal inspection Neurological exam: Present: alert, oriented X3, CN II-XII intact Psychiatric exam: Present: normal affect, normal mood Skin exam: Present: warm, dry, intact, normal color. Absent: rash Course Vital Signs 08/27/21 08/27/21 08/27/21 08:26 09:02 10:00 Temperature 98.4 F Pulse Rate 96 70 85 Respiratory 18 18 18 Rate Blood Pressure 100/77 128/90 115/82 O2 Sat by Pulse 96 98 99 Oximetry Medical Decision Making - Medical Decision Making The patient was heme positive on Hemoccult testing. Patient does demonstrate elevated BUN though the hemoglobin and hematocrit currently is normal. His symptoms patient will be admitted I did discuss case with Dr. Aquino. - Lab Data Result diagrams: 08/27/21 08:36 08/27/21 08:36 Lab Results 08/27/21 08/27/21 08/27/21 Range/Units 08:36 08:36 08:36 WBC 7.3 (3.8-10.6) k/uL RBC 3.58 L (3.80-5.40) m/uL Hgb 11.4 (11.4-16.0) gm/dL Hct 34.4 (34.0-46.0) % MCV 95.9 (80.0-100.0) fL MCH 31.8 (25.0-35.0) pg MCHC 33.2 (31.0-37.0) g/dL RDW 12.0 (11.5-15.5) % Plt Count 182 (150-450) k/uL MPV 8.4 Neutrophils % 69 % Lymphocytes % 22 % Monocytes % 6 % Eosinophils % 1 % Basophils % 0 % Neutrophils # 5.0 (1.3-7.7) k/uL Lymphocytes # 1.6 (1.0-4.8) k/uL Monocytes # 0.5 (0-1.0) k/uL Eosinophils # 0.0 (0-0.7) k/uL Basophils # 0.0 (0-0.2) k/uL PT (9.0-12.0) sec INR (<1.2) APTT (22.0-30.0) sec Sodium 136 L (137-145) mmol/L Potassium 4.6 (3.5-5.1) mmol/L Chloride 106 (98-107) mmol/L Carbon Dioxide 22 (22-30) mmol/L Anion Gap 8 mmol/L BUN 27 H (7-17) mg/dL Creatinine 0.57 (0.52-1.04) mg/dL Est GFR (CKD-EPI)AfAm >90 (>60 ml/min/1.73 sqM) Est GFR (CKD-EPI)NonAf >90 (>60 ml/min/1.73 sqM) Glucose 111 H (74-99) mg/dL Calcium 8.3 L (8.4-10.2) mg/dL Magnesium 1.5 L (1.6-2.3) mg/dL Total Bilirubin 0.5 (0.2-1.3) mg/dL AST 32 (14-36) U/L ALT 27 (4-34) U/L Alkaline Phosphatase 50 (38-126) U/L Troponin I (0.000-0.034) ng/mL Total Protein 5.6 L (6.3-8.2) g/dL Albumin 3.1 L (3.5-5.0) g/dL Lipase 88 (23-300) U/L Stool Occult Blood Positive H (Negative) 08/27/21 08/27/21 Range/Units 08:36 08:36 WBC (3.8-10.6) k/uL RBC (3.80-5.40) m/uL Hgb (11.4-16.0) gm/dL Hct (34.0-46.0) % MCV (80.0-100.0) fL MCH (25.0-35.0) pg MCHC (31.0-37.0) g/dL RDW (11.5-15.5) % Plt Count (150-450) k/uL MPV Neutrophils % % Lymphocytes % % Monocytes % % Eosinophils % % Basophils % % Neutrophils # (1.3-7.7) k/uL Lymphocytes # (1.0-4.8) k/uL Monocytes # (0-1.0) k/uL Eosinophils # (0-0.7) k/uL Basophils # (0-0.2) k/uL PT 10.3 (9.0-12.0) sec INR 1.0 (<1.2) APTT 20.6 L (22.0-30.0) sec Sodium (137-145) mmol/L Potassium (3.5-5.1) mmol/L Chloride (98-107) mmol/L Carbon Dioxide (22-30) mmol/L Anion Gap mmol/L BUN (7-17) mg/dL Creatinine (0.52-1.04) mg/dL Est GFR (CKD-EPI)AfAm (>60 ml/min/1.73 sqM) Est GFR (CKD-EPI)NonAf (>60 ml/min/1.73 sqM) Glucose (74-99) mg/dL Calcium (8.4-10.2) mg/dL Magnesium (1.6-2.3) mg/dL Total Bilirubin (0.2-1.3) mg/dL AST (14-36) U/L ALT (4-34) U/L Alkaline Phosphatase (38-126) U/L Troponin I <0.012 (0.000-0.034) ng/mL Total Protein (6.3-8.2) g/dL Albumin (3.5-5.0) g/dL Lipase (23-300) U/L Stool Occult Blood (Negative) - EKG Data -: EKG Interpreted by Me EKG shows normal: sinus rhythm, axis, intervals, QRS complexes, ST-T waves Rate: normal EKG Comments: Normal sinus rhythm of 89. Interval 138 QRS duration 74 QT since QTC 370/450 and no T-wave changes - Radiology Data Radiology results: report reviewed (Initial imaging reviewed no acute findings.), image reviewed Disposition Clinical Impression: Upper GI bleeding, Epigastric pain, History of gastric bypass Disposition: ADMITTED IP TO THIS [facility] Condition: Fair Referrals: LOBO GARCÍA DO [Primary Care Provider] - 1-2 days
[2021-08-27 09:02] LABS: Anion Gap 8 mmol/L; Blood Urea Nitrogen 27 mg/dL (7-17); Carbon Dioxide 22 mmol/L (22-30); Chloride 106 mmol/L (98-107); Glucose 111 mg/dL (74-99); Potassium 4.6 mmol/L (3.5-5.1); Sodium 136 mmol/L (137-145)
[2021-08-27 09:03] LABS: ALT 27 U/L (4-34); AST 32 U/L (14-36); African American GFR (CKD) >90 (>60 ml/min/1.73 sqM); Albumin 3.1 g/dL (3.5-5.0); Alkaline Phosphatase 50 U/L (38-126); Calcium 8.3 mg/dL (8.4-10.2); Lipase 88 U/L (23-300); Magnesium 1.5 mg/dL (1.6-2.3); Non-African American GFR(CKD) >90 (>60 ml/min/1.73 sqM); Total Bilirubin 0.5 mg/dL (0.2-1.3); Total Protein 5.6 g/dL (6.3-8.2)
--- NOTE | 2021-08-27 09:19 | XR ---
EXAMINATION TYPE: XR KUB DATE OF EXAM: 08/27/2021 COMPARISON: NONE HISTORY: Vomiting TECHNIQUE: One view abdominal series FINDINGS: The osseous structures are intact. The bowel gas pattern is nonspecific. Multiple air-fluid levels a re seen involving the right abdomen. Curvature of the spine. Lung bases clear. IMPRESSION: 1. Multiple air-fluid levels correlate for ileus, enteritis or partial obstruction
[2021-08-27 09:23] LABS: Prothrombin Time 10.3 sec (9.0-12.0)
[2021-08-27 09:30] LABS: Partial Thromboplastin Time 20.6 sec (22.0-30.0)
[2021-08-27] MEDS ORDERED: IOPAMIDOL CONTRAST (ORAL USE) VIAL PO PRN (10:14)
[2021-08-27] MEDS ORDERED: NALOXONE 0.4 MG/ML 1 ML VIAL IV PRN (10:47)
[2021-08-27 11:48] LABS: Basophils % (A) 0 %; Eosinophils % (A) 1 %; HCT 33.5 % (34.0-46.0); HGB 11.5 gm/dL (11.4-16.0); Lymphocytes # (A) 1.1 k/uL (1.0-4.8); Lymphocytes % (A) 15 %; MCH 32.2 pg (25.0-35.0); MCHC 34.3 g/dL (31.0-37.0); MCV 93.8 fL (80.0-100.0); Mean Platelet Volume 8.5; Monocytes # (A) 0.3 k/uL (0-1.0); Monocytes % (A) 4 %; Neutrophils % (A) 79 %; Platelet Count 197 k/uL (150-450); RBC 3.57 m/uL (3.80-5.40); RDW 12.5 % (11.5-15.5); WBC 7.5 k/uL (3.8-10.6)
[2021-08-27] MEDS: HYDROmorphone 0.5 MG/0.5 ML SYRINGE IVP PRN ×3 (11:53→21:47)
[2021-08-27] MEDS: SODIUM CHLORIDE 0.9% 1,000 ML IV SCH ×2 (11:54→18:38)
[2021-08-27] MEDS ORDERED: MAGNESIUM SULFATE-D5W PMX 2 GM in DEXTROSE/WATER 1 100ML.BAG IVPB ONE (13:54)
--- NOTE | 2021-08-27 14:14 | CT ---
EXAMINATION TYPE: CT abdomen pelvis w con DATE OF EXAM: 08/27/2021 HISTORY: Epigastric pain CT DLP: 1329.5mGycm Automated Exposure Control for Dose Reduction was Utilized. CONTRAST: CT scan of the abdomen and pelvis is performed with IV Contrast, patient injected with 100 ml mL of I sovue 300. COMPARISON: CT abdomen and pelvis May 01, 2021 FINDINGS: LUNG BASES: No significant abnormality is appreciated. LIVER/GB: Liver is diffusely low dense consistent with diffuse fatty infiltration. Gallbladder is sofia gically absent. PANCREAS: No significant abnormality is seen. SPLEEN: No significant abnormality is seen. ADRENALS: No significant abnormality is seen. KIDNEYS: No significant abnormality is seen. BOWEL: Oral contrast does not reach level of terminal ileum. No suspicious small or large bowel dilat ation. Some abnormal fluid with a few air-fluid levels in the distal colon. Surgical changes from gas tric bypass procedure redemonstrated. Some scattered air-fluid levels in the upper to mid abdominal s mall and large bowel loops. Additional surgical sutures in the left upper anterior small bowel loops redemonstrated. UTERUS/ADNEXA: Anteverted uterus. LYMPH NODES: No greater than 1cm abdominal or pelvic lymph nodes are appreciated. OSSEOUS STRUCTURES: No significant abnormality is seen. OTHER: No significant additional abnormality is seen. IMPRESSION: Possible mild underlying enterocolitis as detailed above. No bowel obstruction.
--- NOTE | 2021-08-27 15:42 | P.GSHP ---
History of Present Illness H&P Date: 08/27/21 CHIEF COMPLAINT: Vomiting blood and black stools HISTORY OF PRESENT ILLNESS: This is a 46-year-old female with a known history of peptic ulcer disease and history of Jewels-en-Y gastric bypass. Patient presents to the emergency room with complaints of vomiting bright red blood that started this morning. She's also had 3 black stools. This mornings emesis was bright red blood with clots. She reports vomiting about 7 times. She reports symptoms presented suddenly. She complains of a burning sensation and the epigastric area and had reported some lower abdominal discomfort. She is feeling bloated. She does take a baby aspirin daily at home. She denies any NSAID use or steroid use. Her hemoglobin was 11.5 and fecal occult blood was positive. Patient denies any difficulty with swallowing. PAST MEDICAL HISTORY: GERD, hypertension, obstructive sleep apnea, moderate hepatomegaly PAST SURGICAL HISTORY: Jewels-en-Y gastric bypass 01/05/2021, cholecystectomy and varicose vein leg adrianna ry cauterization, lithotripsy, laparoscopy 2 MEDICATIONS: See list. ALLERGIES: See list. SOCIAL HISTORY: No illicit drug use. REVIEW OF SYSTEMS: CONSTITUTIONAL: Denies fever or chills. HEENT: Denies blurred vision, vision changes, or eye pain. Denies hemoptysis ENDOCRINE: Denies heat or cold intolerance. CARDIOVASCULAR: Denies chest pain or pressure. RESPIRATORY: No shortness of breath. GASTROINTESTINAL: Please refer to HPI NEURO: Denies history of seizures. PSYCH: No depression or suicidal ideation HEMATOLOGIC: Denies bleeding disorders. LYMPHATIC: The patient denies any lumps and bumps around the neck. GENITOURINARY: Denies any blood in urine or increased urinary frequency. MUSCULOSKELETAL: Denies myalgias. Denies joint swelling. Denies decreased range of motion beyond patients baseline. SKIN: Denies pruitis. Denies rash. PHYSICAL EXAM: VITAL SIGNS: Reviewed GENERAL: Well-developed in no acute distress. HEENT: No sclera icterus. Extraocular movements grossly intact. Moist buccal mucosa. Head is atraumatic, normocephalic. Hears conversational speech. No nasal drainage. NECK: Supple without lymphadenopathy. CHEST: Non-labored respirations and equal bilateral excursions. CARDIOVASCULAR: Palpable 2+ radial pulses. ABDOMEN: Soft. Nondistended. Epigastric tenderness MUSCULOSKELETAL: No clubbing or cyanosis. NEUROLOGIC: No focal or lateralizing signs. Cranial nerves II through XII grossly intact. PSYCH: Appropriate affect. Alert and oriented to person, place and time. SKIN: Well perfused. Good skin turgor. LABORATORY DATA: WBC 7.5 hemoglobin 11.4 on admission and repeat hemoglobin 11.5 platelets 197 INR 1.0 Sodium 136 potassium 4.6 BUN 27 creatinine 0.57 Magnesium 1.5 LFTs normal lipase normal stool for occult blood positive COVID-19 not detected IMAGING: KUB x-ray shows multiple air fluid levels correlate for ileus, enteritis or partial obstruction Computed tomography scan abdomen and pelvis showing possible mild underlying enterocolitis. No bowel obstruction ASSESSMENT: 1. Acute GI bleed with hematemesis and black stools. Patient has been taking a daily baby aspirin 2. History of peptic ulcer disease 3. History of Jewels-en-Y 4. Hypomagnesemia PLAN: -Patient scheduled for EGD tomorrow, 08/28/[address] Denton -Patient can have bariatric clear liquid diet today and then nothing by mouth after midnight -Hold aspirin -Continue Protonix 40 mg IV twice a day -Start Carafate 1 g twice a day -Replace magnesium Physician Sectionizer note has been reviewed by physician. Signing provider agrees with the documented findings, assessment, and plan of care. Past Medical History Past Medical History: GERD/Reflux, Hypertension, Sleep Apnea/CPAP/BIPAP Additional Past Medical History / Comment(s): No HTN Rx since gastric bypass. Uses CPAP. HR is fast; has leaky valve being monitored. History of kidney stones History of Any Multi-Drug Resistant Organisms: MRSA Date of last positivie culture/infection: 2012 MDRO Source:: right hand Past Surgical History: Bariatric Surgery, Cholecystectomy, Orthopedic Surgery Additional Past Surgical History / Comment(s): right heel surgery, Jewels-en-Y gastric bypass 01-05-2021, varicose vein leg artery cauterization. Lithotripsy. Laparoscopy x2 w/ exc pre-cancer lesions Past Anesthesia/Blood Transfusion Reactions: Postoperative Nausea & Vomiting (PONV) Additional Past Anesthesia/Blood Transfusion Reaction / Comment(s): no hx blood transfusion Past Psychological History: No Psychological Hx Reported Smoking Status: Former smoker Past Alcohol Use History: Occasional Past Drug Use History: None Reported - Past Family History Mother Family Medical History: No Reported History Brother(s) Family Medical History: Cancer Additional Family Medical History / Comment(s): oral CA-tongue partially removed Medications and Allergies Home Medications Medication Instructions Recorded Confirmed Type lisinopriL 20 mg PO DAILY 02/25/21 08/27/21 History Omeprazole [PriLOSEC] 40 mg PO BID #60 cap 02/26/21 08/27/21 Rx Metoprolol Succinate [Toprol XL] 25 mg PO DAILY 04/08/21 08/27/21 History amLODIPine [Norvasc] 5 mg PO DAILY 04/08/21 08/27/21 History Rome-Melts 1 tab PO BID 05/01/21 08/27/21 History Calcium Citrate 500 mg PO DAILY 05/01/21 08/27/21 History Ferrous Sulfate [Feosol] 325 mg PO DAILY 05/01/21 08/27/21 History Cholecalciferol (Vitamin D3) 125 mcg PO DAILY 08/27/21 08/27/21 History [Vitamin D3 (125 MCG = 5,000 IU)] Allergies Allergy/AdvReac Type Severity Reaction Status Date / Time No Known Allergies Allergy Verified 08/27/21 10:25 Surgical - Exam Vital Signs Temp Pulse Resp BP Pulse Ox 98.4 F 96 18 100/77 96 08/27/21 08:26 08/27/21 08:26 08/27/21 08:26 08/27/21 08:26 08/27/21 08:26 Results - Labs 08/27/21 11:30 08/27/21 08:36 Abnormal Lab Results - Last 24 Hours (Table) 08/27/21 08/27/21 08/27/21 Range/Units 08:36 08:36 08:36 RBC 3.58 L (3.80-5.40) m/uL Hct (34.0-46.0) % APTT (22.0-30.0) sec Sodium 136 L (137-145) mmol/L BUN 27 H (7-17) mg/dL Glucose 111 H (74-99) mg/dL Calcium 8.3 L (8.4-10.2) mg/dL Magnesium 1.5 L (1.6-2.3) mg/dL Total Protein 5.6 L (6.3-8.2) g/dL Albumin 3.1 L (3.5-5.0) g/dL Stool Occult Blood Positive H (Negative) 08/27/21 08/27/21 Range/Units 08:36 11:30 RBC 3.57 L (3.80-5.40) m/uL Hct 33.5 L (34.0-46.0) % APTT 20.6 L (22.0-30.0) sec Sodium (137-145) mmol/L BUN (7-17) mg/dL Glucose (74-99) mg/dL Calcium (8.4-10.2) mg/dL Magnesium (1.6-2.3) mg/dL Total Protein (6.3-8.2) g/dL Albumin (3.5-5.0) g/dL Stool Occult Blood (Negative) Diabetes panel 08/27/21 Range/Units 08:36 Sodium 136 L (137-145) mmol/L Potassium 4.6 (3.5-5.1) mmol/L Chloride 106 (98-107) mmol/L Carbon Dioxide 22 (22-30) mmol/L BUN 27 H (7-17) mg/dL Creatinine 0.57 (0.52-1.04) mg/dL Glucose 111 H (74-99) mg/dL Calcium 8.3 L (8.4-10.2) mg/dL AST 32 (14-36) U/L ALT 27 (4-34) U/L Alkaline Phosphatase 50 (38-126) U/L Total Protein 5.6 L (6.3-8.2) g/dL Albumin 3.1 L (3.5-5.0) g/dL Calcium panel 08/27/21 Range/Units 08:36 Calcium 8.3 L (8.4-10.2) mg/dL Albumin 3.1 L (3.5-5.0) g/dL Pituitary panel 08/27/21 Range/Units 08:36 Sodium 136 L (137-145) mmol/L Potassium 4.6 (3.5-5.1) mmol/L Chloride 106 (98-107) mmol/L Carbon Dioxide 22 (22-30) mmol/L BUN 27 H (7-17) mg/dL Creatinine 0.57 (0.52-1.04) mg/dL Glucose 111 H (74-99) mg/dL Calcium 8.3 L (8.4-10.2) mg/dL Adrenal panel 08/27/21 Range/Units 08:36 Sodium 136 L (137-145) mmol/L Potassium 4.6 (3.5-5.1) mmol/L Chloride 106 (98-107) mmol/L Carbon Dioxide 22 (22-30) mmol/L BUN 27 H (7-17) mg/dL Creatinine 0.57 (0.52-1.04) mg/dL Glucose 111 H (74-99) mg/dL Calcium 8.3 L (8.4-10.2) mg/dL Total Bilirubin 0.5 (0.2-1.3) mg/dL AST 32 (14-36) U/L ALT 27 (4-34) U/L Alkaline Phosphatase 50 (38-126) U/L Total Protein 5.6 L (6.3-8.2) g/dL Albumin 3.1 L (3.5-5.0) g/dL
[2021-08-27] MEDS ORDERED: MAGNESIUM SULFATE-D5W PMX 1 GM in DEXTROSE/WATER 1 100ML.BAG IVPB ONE (16:15)
[2021-08-27 17:39] LABS: Basophils % (A) 0 %; Eosinophils # (A) 0.1 k/uL (0-0.7); Eosinophils % (A) 1 %; HCT 31.9 % (34.0-46.0); HGB 10.8 gm/dL (11.4-16.0); Lymphocytes % (A) 31 %; MCH 32.4 pg (25.0-35.0); MCHC 33.8 g/dL (31.0-37.0); MCV 95.7 fL (80.0-100.0); Mean Platelet Volume 8.4; Monocytes # (A) 0.5 k/uL (0-1.0); Monocytes % (A) 7 %; Neutrophils # (A) 3.8 k/uL (1.3-7.7); Neutrophils % (A) 58 %; Platelet Count 180 k/uL (150-450); RBC 3.33 m/uL (3.80-5.40); RDW 12.1 % (11.5-15.5); WBC 6.5 k/uL (3.8-10.6)
[2021-08-27] MEDS: ONDANSETRON 4 MG/2 ML VIAL IVP PRN (18:38)
[2021-08-27] MEDS: SUCRALFATE 1 GM TAB PO SCH (18:38)
[2021-08-27] MEDS: ACETAMINOPHEN IV (For NPO) 1,000 MG in EMPTY BAG 1 BAG IVPB SCH (19:27)
[2021-08-27] MEDS: PANTOPRAZOLE 40 MG/10 ML VIAL IVP SCH (20:23)
[2021-08-28] MEDS: ACETAMINOPHEN IV (For NPO) 1,000 MG in EMPTY BAG 1 BAG IVPB SCH ×3 (01:01→14:39)
[2021-08-28] MEDS: HYDROmorphone 0.5 MG/0.5 ML SYRINGE IVP PRN ×2 (03:57→08:44)
[2021-08-28] MEDS: SUCRALFATE 1 GM TAB PO SCH ×2 (06:25→17:05)
[2021-08-28] MEDS: SODIUM CHLORIDE 0.9% 1,000 ML IV SCH ×3 (06:27→19:46)
[2021-08-28 06:41] LABS: HCT 25.9 % (34.0-46.0); MCH 31.9 pg (25.0-35.0); MCHC 33.1 g/dL (31.0-37.0); MCV 96.3 fL (80.0-100.0); Mean Platelet Volume 8.7; Platelet Count 122 k/uL (150-450); RBC 2.69 m/uL (3.80-5.40); WBC 3.5 k/uL (3.8-10.6)
[2021-08-28 06:46] LABS: HGB 8.6 gm/dL (11.4-16.0)
[2021-08-28 07:36] LABS: African American GFR (CKD) >90 (>60 ml/min/1.73 sqM); Anion Gap 5 mmol/L; Blood Urea Nitrogen 16 mg/dL (7-17); Calcium 7.8 mg/dL (8.4-10.2); Carbon Dioxide 23 mmol/L (22-30); Chloride 106 mmol/L (98-107); Glucose 72 mg/dL (74-99); Magnesium 1.6 mg/dL (1.6-2.3); Non-African American GFR(CKD) >90 (>60 ml/min/1.73 sqM); Potassium 3.7 mmol/L (3.5-5.1); Sodium 134 mmol/L (137-145)
[2021-08-28] MEDS: ONDANSETRON 4 MG/2 ML VIAL IVP PRN (08:45)
[2021-08-28] MEDS: PANTOPRAZOLE 40 MG/10 ML VIAL IVP SCH ×2 (08:46→21:05)
[2021-08-28] MEDS: SODIUM FERRIC GLUCONAT-SUCROSE 125 MG in SODIUM CHLORIDE 0.9% 100 ML IVPB SCH (08:46)
[2021-08-28] MEDS ORDERED: PANTOPRAZOLE 40 MG/10 ML VIAL IV SCH (09:00)
--- NOTE | 2021-08-28 11:26 | P.PN ---
Subjective Progress Note Date: 08/28/21 CHIEF COMPLAINT: GI bleed HISTORY OF PRESENT ILLNESS: Kathleen Velez is a 46-year-old female who is status post gastric bypass, 01/05/21. She is status post cholecystectomy, 02/26/2021. She came acutely to the emergency room with hematemesis abdominal pain. She reports taking Aspirin daily per recommendations of her net software architect. She developed acute epigastric abdominal pain with bloody bowel movements and crampy pain. Her hemoglobin has dropped to 8.6, 2 g/dL in 24 hrs. She reports her bowel movements has decreased and abdominal pain is improving with Protonix, Carafate and Ofirmev. REVIEW OF ORGAN SYSTEMS: No chest pain. No shortness of breath. Has blood in stools. PHYSICAL EXAM: VITAL SIGNS: Reviewed. GENERAL: Well-developed in no acute distress. HEENT: No scleral icterus. Extraocular movements grossly intact. Hears conversational speech. No nasal drainage. NECK: Supple without lymphadenopathy. CHEST: Nonlabored respirations with equal bilateral excursions. CARDIOVASCULAR: Regular, rate and rhythm. ABDOMEN: Mild tenderness epigastrium. No peritonitis. MUSCULOSKELETAL: No clubbing, cyanosis. NEURO: No focal or lateralizing signs. Cranial nerves 2 through 12 grossly within normal limits. PSYCH: Appropriate affect. Alert and oriented to person, place and time. SKIN: Good skin turgor. Well perfused. LABS: Reviewed. Hgb drop to 8.6 from over 11.0 on admission. Type and screen completed O+ ASSESSMENT: 1. Upper GI bleed likely due to recurrent ulcer 2. Status post gastric bypass 3. History of acute gastrojejunal ulcer with stricture. 4. Acute blood loss anemia 5. Iron deficiency anemia PLAN: 1. Recommend proceed with upper endoscopy for upper GI bleed 2. Full inpatient admission discussed and advised 3. Iron infusion for iron deficiency anemia 4. Avoid anticoagulants for acute bleed. 5. Avoid ALL NSAIDS including aspirin for recurrent ulcers. Objective - Vital Signs Vital signs: Vital Signs Temp 97.9 F 08/28/21 08:14 Pulse 76 08/28/21 08:14 Resp 20 08/28/21 08:14 BP 128/77 08/28/21 08:14 Pulse Ox 100 08/28/21 08:14 Intake & Output 08/27/21 08/28/21 08/28/21 18:59 06:59 18:59 Intake Total 260 Balance 260 Weight 84.368 kg 87.9 kg Intake: Intake, IV Titration 260 Amount Sodium Chloride 0.9% 1, 260 000 ml @ 130 mls/hr IV . [facility] Rx#:[id number] Other: Voiding Method Toilet # Voids 1 # Bowel Movements 1 - Labs CBC & Chem 7: 08/28/21 06:14 08/28/21 06:14 Labs: Abnormal Lab Results - Last 24 Hours (Table) 08/27/21 08/27/21 08/28/21 Range/Units 11:30 17:29 06:14 WBC 3.5 L (3.8-10.6) k/uL RBC 3.57 L 3.33 L 2.69 L (3.80-5.40) m/uL Hgb 10.8 L 8.6 L D (11.4-16.0) gm/dL Hct 33.5 L 31.9 L 25.9 L (34.0-46.0) % Plt Count 122 L (150-450) k/uL Sodium (137-145) mmol/L Glucose (74-99) mg/dL Calcium (8.4-10.2) mg/dL 08/28/21 Range/Units 06:14 WBC (3.8-10.6) k/uL RBC (3.80-5.40) m/uL Hgb (11.4-16.0) gm/dL Hct (34.0-46.0) % Plt Count (150-450) k/uL Sodium 134 L (137-145) mmol/L Glucose 72 L (74-99) mg/dL Calcium 7.8 L (8.4-10.2) mg/dL Assessment and Plan (1) Gastrojejunal ulcer with hemorrhage Current Visit: Yes Status: Acute Code(s): K28.4 - CHRONIC OR UNSPECIFIED GASTROJEJUNAL ULCER WITH HEMORRHAGE SNOMED Code(s): 30384893 (2) GI bleed due to NSAIDs Current Visit: Yes Status: Acute Code(s): K92.2 - GASTROINTESTINAL HEMORRHAGE, UNSPECIFIED; T39.395A - ADVERSE EFFECT OF NONSTEROIDAL ANTI- INFLAMMATORY DRUGS, INIT SNOMED Code(s): 39366759 (3) Upper GI bleeding Current Visit: Yes Status: Acute Code(s): K92.2 - GASTROINTESTINAL HEMORRHAGE, UNSPECIFIED SNOMED Code(s): 79064175 (4) Acute blood loss anemia Current Visit: No Status: Acute Code(s): D62 - ACUTE POSTHEMORRHAGIC ANEMIA SNOMED Code(s): 511605383 (5) Melena Current Visit: No Status: Acute Code(s): K92.1 - MELENA SNOMED Code(s): 5315256 (6) Status post gastric surgery Current Visit: No Status: Acute Code(s): Z98.890 - OTHER SPECIFIED POSTPROCEDURAL STATES SNOMED Code(s): 152460253
[2021-08-28] MEDS ORDERED: LIDOCAINE 1% INJ 10MG/ML (20 ML MDV) ONE (11:47)
[2021-08-28] MEDS ORDERED: PROPOFOL 10 MG/ML 20 ML VIAL IV ONE (11:47)
[2021-08-28] MEDS ORDERED: SODIUM CHLORIDE 0.9% 1,000 ML IV ONE (12:03)
[2021-08-28] MEDS ORDERED: diphenhydrAMINE 50 MG/ML 1 ML VIAL IVP PRN (12:13)
--- NOTE | 2021-08-28 12:19 | P.PCN ---
Date of Procedure: 08/28/21 Description of Procedure: PREOPERATIVE DIAGNOSES: 1. Gastrointestinal bleeding with hematemesis 2. Epigastric abdominal pain. 2. Nausea and vomiting. 3. History of gastric bypass. 4. History of gastrojejunal ulcer 5. Melena POSTOPERATIVE DIAGNOSES: 1. Gastrointestinal bleeding with hematemesis 2. Epigastric abdominal pain. 2. Nausea and vomiting. 3. History of gastric bypass. 4. History of gastrojejunal ulcer 5. Melena PROCEDURE PERFORMED: Esophagogastrojejunoscopy. SURGEON: Anabella Denton MD ANESTHESIA: MAC. INDICATIONS: The patient is a 46-year-old female with prior history of Jewels-en-Y gastric bypass who presented with hematemesis, melena and pre-existing history o f gastrojejunal ulcers. She had acute blood loss anemia. With history of Jewels-en-Y gastric bypass, upper endoscopy was offered for further evaluation and management. DESCRIPTION: Patient was brought to the endoscopy suite and laid in the left lateral decubitus position. After adequate IV sedation, a bite block was placed. An Olympus gastroscope was passed along the posterior oropharynx down to the distal esophagus where the squamocolumnar junction was found at approximately 38 cm from the incisors. The anastomosis was found at 43 cm, consistent with approximately 5 cm gastric pouch. The scope was advanced 60 cm from the incisors. [place] along the anastomosis were identified however undisturbed due to recent GI bleed. Small marginal gastrojejunal ulcerations were encountered without active bleeding. The GI tract was desufflated. The patient tolerated the procedure well. FINDINGS: 1. Small marginal gastrojejunal ulcerations were encountered without active bleeding. PLAN: 1. Continue Protonix 40 mg twice a day for 4 weeks 2. Continue Carafate for 4 weeks 3. May start diet
[2021-08-28] MEDS: SIMETHICONE 40 MG/0.6 ML DROPS 2,000 MG/30 ML BOTTLE PO SCH ×3 (13:55→21:06)
[2021-08-28] MEDS: PIPERACILLIN-TAZOBACTAM 3.375 GM in SODIUM CHLORIDE 0.9% 100 ML IVPB SCH ×2 (14:39→21:05)
[2021-08-28] MEDS: TEMAZEPAM 30 MG CAP PO SCH (21:27)
[2021-08-29] MEDS: PIPERACILLIN-TAZOBACTAM 3.375 GM in SODIUM CHLORIDE 0.9% 100 ML IVPB SCH ×3 (03:24→20:57)
[2021-08-29] MEDS: SODIUM CHLORIDE 0.9% 1,000 ML IV SCH ×4 (03:25→23:13)
[2021-08-29] MEDS: SUCRALFATE 1 GM TAB PO SCH ×2 (06:27→18:39)
[2021-08-29] MEDS: SIMETHICONE 40 MG/0.6 ML DROPS 2,000 MG/30 ML BOTTLE PO SCH ×4 (08:24→20:57)
[2021-08-29] MEDS: PANTOPRAZOLE 40 MG/10 ML VIAL IVP SCH ×2 (08:25→20:57)
[2021-08-29] MEDS: ONDANSETRON 4 MG/2 ML VIAL IVP PRN (08:25)
[2021-08-29] MEDS ORDERED: lisinopriL 20 MG TAB PO SCH (09:00)
[2021-08-29] MEDS ORDERED: METOPROLOL SUCCINATE (ER) 25 MG TAB.ER.24H PO SCH (09:00)
[2021-08-29] MEDS ORDERED: HYDROmorphone 1 MG/ML 1 ML SYRINGE IVP PRN (09:37)
[2021-08-29] MEDS: SODIUM FERRIC GLUCONAT-SUCROSE 125 MG in SODIUM CHLORIDE 0.9% 100 ML IVPB SCH (09:53)
--- NOTE | 2021-08-29 10:21 | P.PN ---
Subjective Progress Note Date: 08/29/21 Principal diagnosis: Upper GI bleed Patient doing better today. Tolerating a low fiber diet. Did have 1 episode of emesis that was bilious. No rectal bleeding or hematemesis. Hemoglobin pending from today. Objective - Vital Signs Vital signs: Vital Signs Temp 97.8 F 08/29/21 08:33 Pulse 90 08/29/21 08:33 Resp 18 08/29/21 08:33 BP 125/77 08/29/21 08:33 Pulse Ox 95 08/29/21 08:33 Intake & Output 08/28/21 08/29/21 08/29/21 18:59 06:59 18:59 Intake Total 1190 380 120 Balance 1190 380 120 Weight 88.1 kg Intake: IV 50 20 Invasive Line 2 20 Oral 1140 360 120 Other: Voiding Method Toilet Toilet # Voids 1 2 # Bowel Movements 1 - Exam Abdomen: Soft, nontender, nondistended - Labs CBC & Chem 7: 08/28/21 06:14 08/28/21 06:14 Assessment and Plan (1) Upper GI bleeding Narrative/Plan: Patient overall doing better. Continue regular diet. Ambulate. Recheck labs today. Continue iron transfusion. Current Visit: Yes Status: Acute Code(s): K92.2 - GASTROINTESTINAL HEMORRHAGE, UNSPECIFIED SNOMED Code(s): 42266443
[2021-08-29 10:39] LABS: Basophils % (A) 0 %; Eosinophils # (A) 0.1 k/uL (0-0.7); Eosinophils % (A) 2 %; HCT 28.3 % (34.0-46.0); HGB 9.6 gm/dL (11.4-16.0); Lymphocytes # (A) 1.1 k/uL (1.0-4.8); Lymphocytes % (A) 23 %; MCH 32.6 pg (25.0-35.0); MCV 95.8 fL (80.0-100.0); Monocytes # (A) 0.3 k/uL (0-1.0); Monocytes % (A) 6 %; Neutrophils # (A) 3.2 k/uL (1.3-7.7); Neutrophils % (A) 68 %; Platelet Count 150 k/uL (150-450); RBC 2.95 m/uL (3.80-5.40); WBC 4.7 k/uL (3.8-10.6)
[2021-08-29] MEDS: ACETAMINOPHEN IV (For NPO) 1,000 MG in EMPTY BAG 1 BAG IVPB SCH ×3 (14:12→23:13)
[2021-08-29] MEDS: ONDANSETRON 4 MG/2 ML VIAL IVP SCH ×3 (17:50→23:13)
[2021-08-29] MEDS: TEMAZEPAM 30 MG CAP PO SCH (20:57)
[2021-08-30] MEDS: PIPERACILLIN-TAZOBACTAM 3.375 GM in SODIUM CHLORIDE 0.9% 100 ML IVPB SCH (03:05)
[2021-08-30] MEDS: ACETAMINOPHEN IV (For NPO) 1,000 MG in EMPTY BAG 1 BAG IVPB SCH (05:12)
[2021-08-30] MEDS: ONDANSETRON 4 MG/2 ML VIAL IVP SCH (05:12)
[2021-08-30] MEDS: SUCRALFATE 1 GM TAB PO SCH (06:11)
[2021-08-30 08:05] LABS: Basophils % (A) 0 %; Eosinophils # (A) 0.1 k/uL (0-0.7); Eosinophils % (A) 2 %; HCT 27.7 % (34.0-46.0); HGB 9.3 gm/dL (11.4-16.0); Lymphocytes # (A) 1.6 k/uL (1.0-4.8); Lymphocytes % (A) 39 %; MCH 32.3 pg (25.0-35.0); MCHC 33.7 g/dL (31.0-37.0); MCV 95.8 fL (80.0-100.0); Mean Platelet Volume 9.9; Monocytes # (A) 0.3 k/uL (0-1.0); Monocytes % (A) 6 %; Neutrophils # (A) 2.1 k/uL (1.3-7.7); Neutrophils % (A) 51 %; Platelet Count 148 k/uL (150-450); RBC 2.89 m/uL (3.80-5.40); RDW 12.3 % (11.5-15.5); WBC 4.1 k/uL (3.8-10.6)
[2021-08-30] MEDS: PANTOPRAZOLE 40 MG/10 ML VIAL IVP SCH (08:40)
[2021-08-30] MEDS: SIMETHICONE 40 MG/0.6 ML DROPS 2,000 MG/30 ML BOTTLE PO SCH (08:42)
[2021-08-30] MEDS: SODIUM FERRIC GLUCONAT-SUCROSE 125 MG in SODIUM CHLORIDE 0.9% 100 ML IVPB SCH (08:46)
[2021-08-30 08:56] VITALS: BP 115/65; PULSE 85; RESP 18; TEMP 98.1
--- NOTE | 2021-08-30 11:57 | P.DS ---
Providers Date of admission: 08/28/21 07:51 Expected date of discharge: 08/30/21 Attending physician: Anabella Denton Primary care physician: LOBO GARCÍA DO - Discharge Diagnosis(es) (1) Upper GI bleeding 46-year-old female admitted for upper GI bleed. Patient underwent upper endoscopy showing small ulcerations. Patient has done well postoperative. Hemoglobin is stable. Patient will be discharged today on increase antiacid therapy. Outpatient follow-up with Dr. Aquino. Current Visit: Yes Status: Acute Patient Condition at Discharge: Fair Plan - Discharge Summary Discharge Rx Participant: No New Discharge Prescriptions: No Action Omeprazole [PriLOSEC] 40 mg PO BID #60 cap Metoprolol Succinate [Toprol XL] 25 mg PO DAILY Rome-Melts 1 tab PO BID Ferrous Sulfate [Feosol] 325 mg PO DAILY lisinopriL 20 mg PO DAILY amLODIPine [Norvasc] 5 mg PO DAILY Calcium Citrate 500 mg PO DAILY Cholecalciferol (Vitamin D3) [Vitamin D3 (125 MCG = 5,000 IU)] 125 mcg PO DAILY Discharge Medication List lisinopriL 20 mg PO DAILY 02/25/21 [History] Omeprazole [PriLOSEC] 40 mg PO BID #60 cap 02/26/21 [Rx] Metoprolol Succinate [Toprol XL] 25 mg PO DAILY 04/08/21 [History] amLODIPine [Norvasc] 5 mg PO DAILY 04/08/21 [History] Rome-Melts 1 tab PO BID 05/01/21 [History] Calcium Citrate 500 mg PO DAILY 05/01/21 [History] Ferrous Sulfate [Feosol] 325 mg PO DAILY 05/01/21 [History] Cholecalciferol (Vitamin D3) [Vitamin D3 (125 MCG = 5,000 IU)] 125 mcg PO DAILY 08/27/21 [History] Follow up Appointment(s)/Referral(s): LOBO GARCÍA DO [Primary Care Provider] - 1-2 days
== END 2021-08-30 13:13 | disposition home or self-care (01) ==
LOC: EC 08:22 → 6NMEDSUR 10:47 → 2SICU 18:44 → 3SCARD 19:53 → INTOOBSV 08-28 07:51 → OBSVTOIN 08-28 07:51 → UNDODISIN 08-30 13:13
PROVIDERS: ADMIT Surgery Plastic and Reconstructive Surgery; ATTEND Surgery Plastic and Reconstructive Surgery
PROC: 0DJ08ZZ Inspection of Upper Intestinal Tract, Via Natural or Artificial Opening Endoscopic (ICD-10-PCS; principal; 2021-08-28 07:30)
DX: K28.4 Chronic or unspecified gastrojejunal ulcer with hemorrhage (principal); T39.395A Adverse effect of other nonsteroidal anti-inflammatory drugs [NSAID], initial encounter; D62 Acute posthemorrhagic anemia; D50.9 Iron deficiency anemia, unspecified; E83.42 Hypomagnesemia; I10 Essential (primary) hypertension; R16.0 Hepatomegaly, not elsewhere classified; Z20.822 Contact with and (suspected) exposure to COVID-19; K21.9 Gastro-esophageal reflux disease without esophagitis; G47.33 Obstructive sleep apnea (adult) (pediatric); Z79.899 Other long term (current) drug therapy; Z79.82 Long term (current) use of aspirin; Z98.84 Bariatric surgery status; Z87.442 Personal history of urinary calculi; Z87.891 Personal history of nicotine dependence; Z90.49 Acquired absence of other specified parts of digestive tract; Z86.14 Personal history of Methicillin resistant Staphylococcus aureus infection; Z98.890 Other specified postprocedural states; Z80.8 Family history of malignant neoplasm of other organs or systems
CPT/HCPCS: 43235; 99285; 96376 ×2; 96366 ×2; 96367 ×2; 96361; 96365; 96375; 36415; 93005; 86900; 86901; 80053; 80048; 83690; 83735 ×2; 84484; 85025 ×3; 85027; 85610; 85730; 86850; 82272; 81025; 87635; 74018; 74177; G0378 ×4; J2543 ×3; J2405 ×3; J2001; J2916 ×3; J3475; J0131 ×2; J2704; C9113 ×4; J1170 ×2; Q9967; 96374

== ENCOUNTER → 2022-01-20 | Outpatient (CLI) | payer OTHER ==
[2022-01-20 15:36] VITALS: BP 125/86; PULSE 86; RESP 16; TEMP 97.6; BMI 30.1
--- NOTE | 2022-01-20 16:13 | P.BASOAP ---
Subjective Progress Note Date: 01/20/22 DATE OF SERVICE: 01/20/2022 CHIEF COMPLAINT: Status post gastric bypass HISTORY OF PRESENT ILLNESS: Kathleen Velez is a 46-year-old female who is status post gastric bypass, 01/05/21. She is over 1 year out. "I feel amazing" She reports no concerns. No fatigue. She denies abdominal pain. She is taking ALIVE multivitamin. She is on a high protein diet. She reports elevated liver enzymes. At height of 5 feet 5 inches, her ideal body weight is 149 pounds. Her highest weight was 374 pounds, BMI 62.4. She comes in 181 pounds from 193 pounds, 5 months ago. She has lost 12 pounds, 5 months. Her body mass index is 30.1. Lifetime weight loss is 193 pounds. Her lifetime weight loss is 86 %. She is 32 pounds overweight. PHYSICAL EXAM: VITAL SIGNS: Height 5 foot 5 inches, weight 181 pounds. BMI 30.1 Vital Signs Temp 97.6 F 01/20/22 15:34 Pulse 86 01/20/22 15:34 Resp 16 01/20/22 15:34 BP 125/86 01/20/22 15:34 Pulse Ox GENERAL: Well-developed in no acute distress. HEENT: No scleral icterus. Extraocular movements grossly intact. Hears conversational speech. No nasal drainage. NECK: Supple without lymphadenopathy. CHEST: Nonlabored respirations with equal bilateral excursions. CARDIOVASCULAR: Regular, rate and rhythm. 2+ radial pulses. ABDOMEN: Non-distended. Non-tender. No hernia. MUSCULOSKELETAL: No clubbing, cyanosis. NEURO: No focal or lateralizing signs. Cranial nerves 2 through 12 grossly within normal limits. PSYCH: Appropriate affect. Alert and oriented to person, place and time. SKIN: Good skin turgor. Well perfused. ASSESSMENT: 1. Morbid obesity due to excess calories 2. Body mass index of 62.4 to 30.1 3. Hypertensive heart disease. 4. Gastroesophageal reflux disease 5. Persistent tachycardia 6. Hiatal hernia 7. Chronic gastritis 8. Status post gastric bypass 9. Iron deficiency anemia 10. Dysphagia. 11. Kidney stones, right 12. Low hemoglobin A1c 13. Hypoglycemia 14. Chronic cholecystitis 15. Gastrojejunal ulcer with stricture. PLAN: 1. Recommend check protein intake and adjust. 2. Increase water fluid intake. 3. Recommend 1 year bariatric labs. Objective - Vital Signs Vital signs: Vital Signs Temp 97.6 F 01/20/22 15:34 Pulse 86 01/20/22 15:34 Resp 16 01/20/22 15:34 BP 125/86 01/20/22 15:34 Pulse Ox Intake & Output 01/19/22 01/20/22 01/20/22 18:59 06:59 18:59 Weight 82.1 kg Assessment/Plan Plan: Date: 01/20/22 Initial Weight: 114.872 kg Initial BMI: 42.1 Current Weight: 82.1 kg Current BMI: 30.1 Type of Surgery: Jewels-en-Y Gastric Bypass Total Volume in Band: Previous Volume: Volume Removed: Volume Added: Band Size:
== END ==
LOC: BARWHC3 15:25
PROVIDERS: ATTEND Surgery Plastic and Reconstructive Surgery
DX: E66.01 Morbid (severe) obesity due to excess calories (principal); Z68.30 Body mass index [BMI] 30.0-30.9, adult; I11.0 Hypertensive heart disease with heart failure; K21.9 Gastro-esophageal reflux disease without esophagitis; R00.0 Tachycardia, unspecified; K44.9 Diaphragmatic hernia without obstruction or gangrene; K29.50 Unspecified chronic gastritis without bleeding; Z98.84 Bariatric surgery status; D50.9 Iron deficiency anemia, unspecified; R13.10 Dysphagia, unspecified; N20.0 Calculus of kidney; E16.2 Hypoglycemia, unspecified; K81.1 Chronic cholecystitis; K25.9 Gastric ulcer, unspecified as acute or chronic, without hemorrhage or perforation
CPT/HCPCS: 99211

== ENCOUNTER 2022-09-01 21:07 | Observation (INO) | payer OTHER ==
[2022-09-01 22:17] LABS: Basophils % (A) 1 %; Eosinophils # (A) 0.1 k/uL (0-0.7); Eosinophils % (A) 1 %; HCT 37.9 % (34.0-46.0); HGB 12.5 gm/dL (11.4-16.0); Lymphocytes % (A) 44 %; MCH 29.7 pg (25.0-35.0); Mean Platelet Volume 8.7; Monocytes # (A) 0.4 k/uL (0-1.0); Monocytes % (A) 6 %; Neutrophils # (A) 3.2 k/uL (1.3-7.7); Neutrophils % (A) 46 %; Platelet Count 264 k/uL (150-450); RBC 4.21 m/uL (3.80-5.40); RDW 11.9 % (11.5-15.5); WBC 6.9 k/uL (3.8-10.6)
[2022-09-01 22:26] LABS: Albumin 4.1 g/dL (3.5-5.0); Magnesium 1.8 mg/dL (1.6-2.3); Potassium 3.8 mmol/L (3.5-5.1); Total Bilirubin 0.2 mg/dL (0.2-1.3); Total Protein 6.7 g/dL (6.3-8.2)
[2022-09-01 22:46] LABS: INR 0.9 (<1.2); Partial Thromboplastin Time 23.6 sec (22.0-30.0)
[2022-09-01 23:02] LABS: Appearance,Urine Clear (Clear); Bilirubin,Urine Negative (Negative); Blood,Urine Negative (Negative); Color,Urine Colorless; Glucose,Urine (UA) Negative (Negative); Ketones,Urine Negative (Negative); Leukocyte Esterase,Urine Negative (Negative); Nitrite,Urine Negative (Negative); PH, Urine 5.5 (5.0-8.0); Protein,Urine Negative (Negative); Specific Gravity,Urine 1.001 (1.001-1.035); Urobilinogen,Urine <2.0 mg/dL (<2.0)
[2022-09-02] MEDS ORDERED: ONDANSETRON 4 MG/2 ML VIAL IVP PRN (03:47)
[2022-09-02] MEDS ORDERED: NALOXONE 0.4 MG/ML 1 ML VIAL IV PRN (03:47)
--- NOTE | 2022-09-02 03:47 | ED ---
Recheck HPI - General Chief Complaint: GI Bleed Stated Complaint: bowel obstruction Time Seen by Provider: 09/02/22 03:34 Source: patient, RN notes reviewed, old records reviewed Mode of arrival: ambulatory Limitations: no limitations - History of Present Illness Initial Comments: This is a 47-year-old female DF for evaluation presents today for evaluation regards to abdominal pain occasional diarrhea irritable bowel, not feeling well. Patient has no other complaints. Patient did see Dr. Aquino who advised to come the emergency department and to be seen for possible need of surgical intervention MD Complaint: other (Persistent nausea vomiting diarrhea) -: week(s) Returns Today for: persistent/worsening pain related to initial visit Symptoms Since Prior Visit: worsening pain Associated Symptoms: nausea, abdominal pain Treatments Prior to Arrival: Given Pain Meds on - Related Data Home Medications Medication Instructions Recorded Confirmed lisinopriL [Prinivil] 20 mg PO DAILY 02/25/21 09/01/22 Metoprolol Succinate [Toprol XL] 25 mg PO DAILY 04/08/21 09/01/22 Calcium Citrate 1,000 mg PO DAILY 05/01/21 09/01/22 Cholecalciferol (Vitamin D3) 125 mcg PO DAILY 08/27/21 09/01/22 [Vitamin D3 (125 MCG = 5,000 IU)] Dicyclomine [Bentyl] 20 mg PO TID 09/01/22 09/01/22 Famotidine [Pepcid] 20 mg PO DAILY 09/01/22 09/01/22 Multivit-Min/Folic Acid/Lrs304 1 each PO DAILY 09/01/22 09/01/22 [Alive Premium Adult Multivit] Ondansetron [Zofran] 4 mg PO Q8HR PRN 09/01/22 09/01/22 Previous Rx's Medication Instructions Recorded Sucralfate [Carafate] 1 gm PO ACHS #120 tab 08/30/21 Allergies Allergy/AdvReac Type Severity Reaction Status Date / Time No Known Allergies Allergy Verified 09/02/21 13:55 Review of Systems ROS Statement: Those systems with pertinent positive or pertinent negative responses have been documented in the HPI. ROS Other: All systems not noted in ROS Statement are negative. Past Medical History Past Medical History: GERD/Reflux, GI Bleed, Hypertension, Sleep Apnea/CPAP/BIPAP Additional Past Medical History / Comment(s): No HTN Rx since gastric bypass. Uses CPAP. HR is fast; has leaky valve being monitored. History of kidney stones. August 2021 - GI Bleed. 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 Lithotripsy. Laparoscopy x2 w/ exc pre-cancer lesions Past Anesthesia/Blood Transfusion Reactions: Postoperative Nausea & Vomiting (PONV) Additional Past Anesthesia/Blood Transfusion Reaction / Comment(s): no hx blood transfusion Past Psychological History: No Psychological Hx Reported Smoking Status: Former smoker Past Alcohol Use History: Occasional Past Drug Use History: None Reported - Past Family History Mother Family Medical History: No Reported History Brother(s) Family Medical History: Cancer Additional Family Medical History / Comment(s): oral CA-tongue partially removed General Exam Limitations: no limitations General appearance: alert, in no apparent distress Head exam: Present: atraumatic, normocephalic, normal inspection Eye exam: Present: normal appearance, PERRL, EOMI. Absent: scleral icterus, conjunctival injection, periorbital swelling ENT exam: Present: normal exam, mucous membranes moist Neck exam: Present: normal inspection. Absent: tenderness, meningismus, lymphadenopathy Respiratory exam: Present: normal lung sounds bilaterally. Absent: respiratory distress, wheezes, rales, rhonchi, stridor Cardiovascular Exam: Present: regular rate, normal rhythm, normal heart sounds. Absent: systolic murmur, diastolic murmur, rubs, gallop, clicks GI/Abdominal exam: Present: soft, normal bowel sounds. Absent: distended, tenderness, guarding, rebound, rigid Extremities exam: Present: normal inspection, full ROM, normal capillary refill. Absent: tenderness, pedal edema, joint swelling, calf tenderness Back exam: Present: normal inspection Neurological exam: Present: alert, oriented X3, CN II-XII intact Psychiatric exam: Present: normal affect, normal mood Skin exam: Present: warm, dry, intact, normal color. Absent: rash Course Vital Signs 09/01/22 21:37 Temperature 97.7 F Pulse Rate 107 H Respiratory 20 Rate Blood Pressure 116/81 O2 Sat by Pulse 99 Oximetry - Reevaluation(s) Reevaluation #1: 09/02/22 03:45 Medical record is reviewed Reevaluation #2: 09/02/22 03:46 Patient without significant distress or symptoms currently Reevaluation #3: 09/02/22 03:46 Patient informed results and questions answered - Consultations Consultation #1: Spoke with [facility] were agreeable admit this patient Medical Decision Making - Medical Decision Making 47 female to the emergency department F for evaluation patient presents with abdominal pain postop complications. Patient will be admitted for surgical evaluation and treatment - Lab Data Result diagrams: 09/01/22 21:50 09/01/22 21:50 Lab Results 09/01/22 09/01/22 09/01/22 Range/Units 21:50 21:50 21:50 WBC 6.9 (3.8-10.6) k/uL RBC 4.21 (3.80-5.40) m/uL Hgb 12.5 (11.4-16.0) gm/dL Hct 37.9 (34.0-46.0) % MCV 90.0 (80.0-100.0) fL MCH 29.7 (25.0-35.0) pg MCHC 33.0 (31.0-37.0) g/dL RDW 11.9 (11.5-15.5) % Plt Count 264 (150-450) k/uL MPV 8.7 Neutrophils % 46 % Lymphocytes % 44 % Monocytes % 6 % Eosinophils % 1 % Basophils % 1 % Neutrophils # 3.2 (1.3-7.7) k/uL Lymphocytes # 3.0 (1.0-4.8) k/uL Monocytes # 0.4 (0-1.0) k/uL Eosinophils # 0.1 (0-0.7) k/uL Basophils # 0.0 (0-0.2) k/uL PT 10.0 (9.0-12.0) sec INR 0.9 (<1.2) APTT 23.6 (22.0-30.0) sec Sodium 142 (137-145) mmol/L Potassium 3.8 (3.5-5.1) mmol/L Chloride 108 H (98-107) mmol/L Carbon Dioxide 19 L (22-30) mmol/L Anion Gap 15 mmol/L BUN 10 (7-17) mg/dL Creatinine 0.95 (0.52-1.04) mg/dL Est GFR (CKD-EPI)AfAm 84 (>60 ml/min/1.73 sqM) Est GFR (CKD-EPI)NonAf 73 (>60 ml/min/1.73 sqM) Glucose 72 L (74-99) mg/dL Calcium 9.0 (8.4-10.2) mg/dL Magnesium 1.8 (1.6-2.3) mg/dL Total Bilirubin 0.2 (0.2-1.3) mg/dL AST 38 H (14-36) U/L ALT 54 H (4-34) U/L Alkaline Phosphatase 96 (38-126) U/L Troponin I (0.000-0.034) ng/mL Total Protein 6.7 (6.3-8.2) g/dL Albumin 4.1 (3.5-5.0) g/dL Lipase 263 (23-300) U/L Urine Color Urine Appearance (Clear) Urine pH (5.0-8.0) Ur Specific Wright (1.001-1.035) Urine Protein (Negative) Urine Glucose (UA) (Negative) Urine Ketones (Negative) Urine Blood (Negative) Urine Nitrite (Negative) Urine Bilirubin (Negative) Urine Urobilinogen (<2.0) mg/dL Ur Leukocyte Esterase (Negative) Blood Type Blood Type Recheck Bld Type Recheck Status Antibody Screen Spec Expiration Date 09/01/22 09/01/22 09/01/22 Range/Units 21:50 21:50 21:59 WBC (3.8-10.6) k/uL RBC (3.80-5.40) m/uL Hgb (11.4-16.0) gm/dL Hct (34.0-46.0) % MCV (80.0-100.0) fL MCH (25.0-35.0) pg MCHC (31.0-37.0) g/dL RDW (11.5-15.5) % Plt Count (150-450) k/uL MPV Neutrophils % % Lymphocytes % % Monocytes % % Eosinophils % % Basophils % % Neutrophils # (1.3-7.7) k/uL Lymphocytes # (1.0-4.8) k/uL Monocytes # (0-1.0) k/uL Eosinophils # (0-0.7) k/uL Basophils # (0-0.2) k/uL PT (9.0-12.0) sec INR (<1.2) APTT (22.0-30.0) sec Sodium (137-145) mmol/L Potassium (3.5-5.1) mmol/L Chloride (98-107) mmol/L Carbon Dioxide (22-30) mmol/L Anion Gap mmol/L BUN (7-17) mg/dL Creatinine (0.52-1.04) mg/dL Est GFR (CKD-EPI)AfAm (>60 ml/min/1.73 sqM) Est GFR (CKD-EPI)NonAf (>60 ml/min/1.73 sqM) Glucose (74-99) mg/dL Calcium (8.4-10.2) mg/dL Magnesium (1.6-2.3) mg/dL Total Bilirubin (0.2-1.3) mg/dL AST (14-36) U/L ALT (4-34) U/L Alkaline Phosphatase (38-126) U/L Troponin I <0.012 (0.000-0.034) ng/mL Total Protein (6.3-8.2) g/dL Albumin (3.5-5.0) g/dL Lipase (23-300) U/L Urine Color Colorless Urine Appearance Clear (Clear) Urine pH 5.5 (5.0-8.0) Ur Specific Wright 1.001 (1.001-1.035) Urine Protein Negative (Negative) Urine Glucose (UA) Negative (Negative) Urine Ketones Negative (Negative) Urine Blood Negative (Negative) Urine Nitrite Negative (Negative) Urine Bilirubin Negative (Negative) Urine Urobilinogen <2.0 (<2.0) mg/dL Ur Leukocyte Esterase Negative (Negative) Blood Type O Positive Blood Type Recheck O Pos Bld Type Recheck Status No Antibody Screen NEGATIVE Spec Expiration Date 09/04/20222349 Disposition Clinical Impression: Abdominal pain, Gastrointestinal bleeding, Gastritis, Status post gastric surgery Disposition: ADMITTED IP TO THIS HOSP Condition: Good Is patient prescribed a controlled substance at d/c from ED?: No Referrals: Anabella Denton MD [Primary Care Provider] - 1-2 days Time of Disposition: 03:45
[2022-09-02] MEDS: SODIUM CHLORIDE 0.9% 1,000 ML IV SCH ×3 (05:11→21:13)
[2022-09-02] MEDS: MORPHINE SULFATE 4 MG/ML SYRINGE IV PRN ×2 (06:02→12:54)
[2022-09-02] MEDS ORDERED: IOPAMIDOL CONTRAST (ORAL USE) VIAL PO PRN (06:25)
--- NOTE | 2022-09-02 08:25 | P.GSHP ---
History of Present Illness H&P Date: 09/02/22 Patient presents with intractable abdominal pain history of gastric bypass. Prior outside films suggested a possible intussusception versus internal hernia. Patient reports any recurrent pain. Repeat computed tomography scan. Robotic lysis of adhesions diagnostic laparoscopy described. Past Medical History Past Medical History: GERD/Reflux, GI Bleed, Hypertension, Sleep Apnea/CPAP/BIPAP Additional Past Medical History / Comment(s): No HTN Rx since gastric bypass. Uses CPAP. HR is fast; has leaky valve being monitored. History of kidney stones. August 2021 - GI Bleed. 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 Lithotripsy. Laparoscopy x2 w/ exc pre-cancer lesions Past Anesthesia/Blood Transfusion Reactions: Postoperative Nausea & Vomiting (PONV) Additional Past Anesthesia/Blood Transfusion Reaction / Comment(s): no hx blood transfusion Past Psychological History: No Psychological Hx Reported Smoking Status: Former smoker Past Alcohol Use History: Occasional Past Drug Use History: None Reported - Past Family History Mother Family Medical History: No Reported History Brother(s) Family Medical History: Cancer Additional Family Medical History / Comment(s): oral CA-tongue partially removed Medications and Allergies Home Medications Medication Instructions Recorded Confirmed Type lisinopriL [Prinivil] 20 mg PO DAILY 02/25/21 09/01/22 History Metoprolol Succinate [Toprol XL] 25 mg PO DAILY 04/08/21 09/01/22 History Calcium Citrate 1,000 mg PO DAILY 05/01/21 09/01/22 History Cholecalciferol (Vitamin D3) 125 mcg PO DAILY 08/27/21 09/01/22 History [Vitamin D3 (125 MCG = 5,000 IU)] Sucralfate [Carafate] 1 gm PO ACHS #120 tab 08/30/21 09/01/22 Rx Dicyclomine [Bentyl] 20 mg PO TID 09/01/22 09/01/22 History Famotidine [Pepcid] 20 mg PO DAILY 09/01/22 09/01/22 History Multivit-Min/Folic Acid/Tvd277 1 each PO DAILY 09/01/22 09/01/22 History [Alive Premium Adult Multivit] Ondansetron [Zofran] 4 mg PO Q8HR PRN 09/01/22 09/01/22 History Allergies Allergy/AdvReac Type Severity Reaction Status Date / Time No Known Allergies Allergy Verified 09/02/21 13:55 Surgical - Exam Vital Signs Temp Pulse Resp BP Pulse Ox 97.7 F 107 H 20 116/81 99 09/01/22 21:37 09/01/22 21:37 09/01/22 21:37 09/01/22 21:37 09/01/22 21:37 Results - Labs 09/01/22 21:50 09/01/22 21:50 Abnormal Lab Results - Last 24 Hours (Table) 09/01/22 Range/Units 21:50 Chloride 108 H (98-107) mmol/L Carbon Dioxide 19 L (22-30) mmol/L Glucose 72 L (74-99) mg/dL AST 38 H (14-36) U/L ALT 54 H (4-34) U/L Diabetes panel 09/01/22 Range/Units 21:50 Sodium 142 (137-145) mmol/L Potassium 3.8 (3.5-5.1) mmol/L Chloride 108 H (98-107) mmol/L Carbon Dioxide 19 L (22-30) mmol/L BUN 10 (7-17) mg/dL Creatinine 0.95 (0.52-1.04) mg/dL Glucose 72 L (74-99) mg/dL Calcium 9.0 (8.4-10.2) mg/dL AST 38 H (14-36) U/L ALT 54 H (4-34) U/L Alkaline Phosphatase 96 (38-126) U/L Total Protein 6.7 (6.3-8.2) g/dL Albumin 4.1 (3.5-5.0) g/dL Calcium panel 09/01/22 Range/Units 21:50 Calcium 9.0 (8.4-10.2) mg/dL Albumin 4.1 (3.5-5.0) g/dL Pituitary panel 09/01/22 Range/Units 21:50 Sodium 142 (137-145) mmol/L Potassium 3.8 (3.5-5.1) mmol/L Chloride 108 H (98-107) mmol/L Carbon Dioxide 19 L (22-30) mmol/L BUN 10 (7-17) mg/dL Creatinine 0.95 (0.52-1.04) mg/dL Glucose 72 L (74-99) mg/dL Calcium 9.0 (8.4-10.2) mg/dL Adrenal panel 09/01/22 Range/Units 21:50 Sodium 142 (137-145) mmol/L Potassium 3.8 (3.5-5.1) mmol/L Chloride 108 H (98-107) mmol/L Carbon Dioxide 19 L (22-30) mmol/L BUN 10 (7-17) mg/dL Creatinine 0.95 (0.52-1.04) mg/dL Glucose 72 L (74-99) mg/dL Calcium 9.0 (8.4-10.2) mg/dL Total Bilirubin 0.2 (0.2-1.3) mg/dL AST 38 H (14-36) U/L ALT 54 H (4-34) U/L Alkaline Phosphatase 96 (38-126) U/L Total Protein 6.7 (6.3-8.2) g/dL Albumin 4.1 (3.5-5.0) g/dL
[2022-09-02] MEDS: PANTOPRAZOLE 40 MG/10 ML VIAL IV SCH (08:37)
--- NOTE | 2022-09-02 09:59 | CT ---
EXAMINATION TYPE: CT abdomen pelvis w con CT DLP: 1230 mGycm, Automated exposure control for dose reduction was used. DATE OF EXAM: 09/02/2022 9:34 AM COMPARISON: CT abdomen pelvis most recent from 08/27/2021 . CLINICAL INDICATION:Female, 47 years old with history of Abdominal pain; TECHNIQUE: Standard CT of the abdomen and pelvis following the administration of 100 cc of Isovue 3 00 IV contrast material and oral contrast. Coronal and sagittal reformats were performed. FINDINGS: LOWER CHEST: 6 mm right midlung pulmonary nodule (series 204, image 1). Bibasilar segmental atelectas is. ABDOMEN LIVER: Heterogenous attenuation consistent with geographic regions of steatosis. GALLBLADDER AND BILE DUCTS: The gallbladder is surgically absent. No biliary duct dilatation. PANCREAS: Unremarkable. SPLEEN: Unremarkable. ADRENAL GLANDS: Unremarkable. KIDNEYS AND URETERS: No evidence of hydronephrosis or renal calculus. The kidneys enhance symmetrical ly. Contrast is demonstrated within both collecting systems on delayed phase. PELVIS BLADDER: Unremarkable REPRODUCTIVE: Unremarkable. ABDOMEN & PELVIS STOMACH AND BOWEL: Postsurgical changes from Jewles-en-Y gastric bypass. No focal wall thickening. Ente zachery contrast reaches the distal small bowel. No evidence of bowel obstruction. The appendix is within normal limits. No pneumatosis or portal venous gas. PERITONEUM: No evidence of pneumoperitoneum or free fluid. VASCULATURE: No evidence of aortic aneurysm. MUSCULOSKELETAL: No acute osseous abnormalities. No aggressive osseous lesion. LYMPH NODES: No gross evidence for lymphadenopathy. SOFT TISSUE/ABDOMINAL WALL: Unremarkable IMPRESSION: 1. No acute abdominal/pelvic process. 2. Hepatic steatosis.
[2022-09-02] MEDS ORDERED: ACETAMINOPHEN IV (For NPO) 1,000 MG in EMPTY BAG 1 BAG IVPB ONE (15:16)
[2022-09-02] MEDS ORDERED: HEPARIN SODIUM,PORCINE/PF 5,000 UNIT/0.5 ML SYRINGE SQ PRN (15:16)
[2022-09-02] MEDS ORDERED: HYDROmorphone 1 MG/ML 1 ML SYRINGE IVP PRN (15:18)
[2022-09-02 15:58] VITALS: RESP 16
[2022-09-02] MEDS ORDERED: ONDANSETRON 4 MG/2 ML VIAL IVP ONE (18:16)
[2022-09-02] MEDS ORDERED: IV FLUID CONTINUATION 1,000 ML IV ONE (18:19)
[2022-09-02] MEDS ORDERED: HYDROmorphone 0.5 MG/0.5 ML SYRINGE IVP ONE ×3 (19:36→22:53)
[2022-09-02] MEDS ORDERED: fentaNYL (PF) 50 MCG/ML 2 ML AMP ONE (20:56)
[2022-09-02] MEDS ORDERED: ROCURONIUM 10 MG/ML (5 ML VIAL) IV ONE (20:56)
[2022-09-02] MEDS ORDERED: PROPOFOL 10 MG/ML 20 ML VIAL IV ONE (20:56)
[2022-09-02] MEDS ORDERED: MIDAZOLAM 2 MG/2 ML VIAL ONE (20:56)
[2022-09-02] MEDS ORDERED: SUCCINYLCHOLINE CHLORIDE 200 MG/10 ML VIAL IV ONE (20:56)
[2022-09-02] MEDS ORDERED: LIDOCAINE 1%-EPI 1:100,000 20 ML VIAL SQ ONE (21:13)
[2022-09-02] MEDS ORDERED: LACTATED RINGERS 1,000 ML IV ONE (22:15)
[2022-09-02] MEDS ORDERED: HYDROmorphone 0.5 MG/0.5 ML SYRINGE IVP PRN (22:24)
--- NOTE | 2022-09-02 22:24 | P.OP ---
Date of Procedure: 09/02/22 Description of Procedure: SURGEON: SUKHDEV GAMA MD PREOPERATIVE DIAGNOSES: 1. Internal hernia with intermittent small bowel obstruction 2. Abnormal computed tomography scan with internal hernia 3. History of gastric bypass 4. Gastroesophageal reflux disease 5. Obstructive sleep apnea 6. Hypertensive heart disease 7. Obesity due to excess calories, BMI 30.0 POSTOPERATIVE DIAGNOSES: 1. Internal hernia with intermittent small bowel obstruction 2. Abnormal computed tomography scan with internal hernia 3. History of gastric bypass 4. Gastroesophageal reflux disease 5. Obstructive sleep apnea 6. Hypertensive heart disease 7. Obesity due to excess calories, BMI 30.0 8. Intraloop adhesions OPERATION: 1. Robotic-assisted da Neftaly Xi laparoscopic with lysis of adhesions 2. Robotic-assisted da Neftaly Xi laparoscopic reduction of small bowel volvulus and closure of internal hernias x 2. COMPLICATIONS: None. Anesthesia: GETA, local Estimated Blood Loss (ml): 5 Pathology: none sent Condition: stable Disposition: floor Operative Findings: 1. Reopening of jejunojejunostomy and Bush mesenteric defect 2. Internal hernia of jejunojejunostomy mesenteric defect with small bowel volvulus completely reduced 3. Mesenteric defects of jejunojejunostomy and Bush defect oversewn using 2-0 VLOC 4. All bowel viable upon completion of procedure 5. Abnormal adhesions involving jejunojejunostomy lysed. INDICATIONS: The patient is a 47-year-old female who presents with intermittent small bowel obstruction and abnormal computed tomography scan with internal hernia. Surgical intervention with diagnostic laparoscopy, lysis of adhesions were described. Robotic assisted laparoscopic approach was described. Benefits and risks of the procedure including but not limited to bleeding, infection, injury to the small bowel with small bowel resection, additional surgeries were described. Informed consent was obtained. DESCRIPTION OF PROCEDURE: Patient was brought to the operating room, placed in supine position. After general induction, the abdomen had been prepped and draped in standard sterile fashion. The robotic da Neftaly XI system was primed. After a timeout protocol was performed, the patient had been prepped and draped in standard sterile fashion. The robot was docked along the right lateral abdomen. The patient was repositioned in with right side up. Please note prior to docking of the robot; however, a 5 mm 0 degrees laparoscopic trocar entry was performed along the left upper quadrant then exchanged for a 12 mm trocar. The abdomen was insufflated to 15 mmHg pressure which she tolerated well. Diagnostic laparoscopy was performed. Next, three 8 mm robotic ports were placed along the right side of the abdominal wall. Please note that the ports were placed at least 8 to 10 cm away from the target anatomy. Instruments including graspers and vessel sealer were interchanged by the chiropractor assistant. I had sat at the console. No incisional hernia was identified. The small bowel from the valerie limb to distal ileum was inspected demonstrating wide jejunojejunostomy mesenteric defect including small bowel herniation through the Bush's and jejunojejunostomy mesenteric defect. The small bowel was investigated from the terminal ileum to the ligament of Treitz with finding of redundant mesentery with active small bowel volvulus involving the common channel into the jejunojejunostomy mesenteric defect. Abnormal adhesions to the jejunojejunostomy was identified and divided. The small bowel volvulus were reduced. Small bowel herniation into the Bush's defect was found. The mesenteric defects of jejunojejunostomy and Bush defects were oversewn using absorbable 2-0 VLOC. Rest of the small bowel was viable. Final inspection of the small bowel including valerie limb and mesenteric defects confirmed closure of all internal hernias including reduction of any small bowel volvulus. The robot was undocked. All pneumoperitoneum instruments were evacuated from the abdominal cavity. The incisions cleaned using dilute hydrogen peroxide were reapproximated using 4-0 Monocryl in an interrupted subcuticular fashion. Please note along the trocar sites, local anesthetic was placed as a field block prior to insertion of all instruments. Exofin was applied to the skin. At the end of the procedure needle, sponge, and instrument count had been verified correct by the surgical elastic knitter hand frame. The patient was transferred to postanesthesia care unit in stable condition. The patient's family Rich was notified by telephone of intraoperative findings.
[2022-09-02] MEDS ORDERED: SCOPOLAMINE 1 MG/72 HR PATCH TRANSDERM STA (22:27)
[2022-09-03] MEDS: SODIUM CHLORIDE 0.9% 1,000 ML IV SCH ×3 (05:11→09:39)
[2022-09-03] MEDS: ACETAMINOPHEN IV (For NPO) 1,000 MG in EMPTY BAG 1 BAG IVPB SCH ×2 (05:13→05:38)
[2022-09-03] MEDS: METOCLOPRAMIDE 5 MG/ML 2 ML VIAL IVP SCH ×2 (05:14→05:37)
[2022-09-03 08:08] VITALS: BP 121/85; PULSE 77; TEMP 97.6
[2022-09-03] MEDS ORDERED: SIMETHICONE 40 MG/0.6 ML DROPS 2,000 MG/30 ML BOTTLE PO SCH (08:30)
[2022-09-03] MEDS ORDERED: ENOXAPARIN 30 MG/0.3 ML SYRINGE SQ SCH (09:00)
[2022-09-03] MEDS ORDERED: lisinopriL 20 MG TAB PO SCH (09:00)
[2022-09-03] MEDS: PANTOPRAZOLE 40 MG/10 ML VIAL IV SCH (09:39)
--- NOTE | 2022-09-03 12:09 | P.DS ---
Providers Date of admission: 09/02/22 03:47 Expected date of discharge: 09/03/22 Attending physician: Anabella Denton Primary care physician: LOBO GARCÍA DO Hospital Course: Discharge diagnosis 1. Internal hernia with intermittent small bowel obstruction 2. Abnormal computed tomography scan with internal hernia 3. History of gastric bypass 4. Gastroesophageal reflux disease 5. Obstructive sleep apnea 6. Hypertensive heart disease 7. Obesity due to excess calories, BMI 30.0 8. Intraloop adhesions Hospital course The patient is a 47-year-old female who presents with intermittent small bowel obstruction and abnormal computed tomography scan with internal hernia. Patient is status post robotic-assisted laparoscopic lysis of adhesions and reduction of small bowel volvulus and closure of internal hernias 2. Patient tolerated surgery well. Her pain is controlled. She is up and ambulating. She is tolerating diet. She's afebrile. She is having flatus. She is stable for discharge. Physician Home Paraprofessional note has been reviewed by physician. Signing provider agrees with the documented findings, assessment, and plan of care. Patient Condition at Discharge: Stable Plan - Discharge Summary Discharge Rx Participant: Yes New Discharge Prescriptions: New Simethicone 40 mg/0.6 ml Drops [Mylicon Drops] 80 mg PO PCHS ml Acetaminophen Tab [Tylenol] 1,000 mg PO Q6HR PRN #30 tablet PRN Reason: Pain Continue Potassium Citrate Er 1620mg 1,620 mg PO TID lisinopriL [Prinivil] 20 mg PO BID Calcium Citrate 1,000 mg PO DAILY Cholecalciferol (Vitamin D3) [Vitamin D3 (125 MCG = 5,000 IU)] 125 mcg PO DAILY Famotidine [Pepcid] 20 mg PO DAILY Multivit-Min/Folic Acid/Rww188 [Alive Premium Adult Multivit] 1 tab PO DAILY Ondansetron Odt [Zofran ODT] 4 mg PO Q6H PRN PRN Reason: Nausea Discontinued Dicyclomine [Bentyl] 20 mg PO TID Discharge Medication List lisinopriL [Prinivil] 20 mg PO BID 02/25/21 [History] Calcium Citrate 1,000 mg PO DAILY 05/01/21 [History] Cholecalciferol (Vitamin D3) [Vitamin D3 (125 MCG = 5,000 IU)] 125 mcg PO DAILY 08/27/21 [History] Famotidine [Pepcid] 20 mg PO DAILY 09/01/22 [History] Multivit-Min/Folic Acid/[id number] [Alive Premium Adult Multivit] 1 tab PO DAILY 09/01/22 [History] Ondansetron Odt [Zofran ODT] 4 mg PO Q6H PRN 09/02/22 [History] Potassium Citrate Er 1620mg 1,620 mg PO TID 09/02/22 [History] Acetaminophen Tab [Tylenol] 1,000 mg PO Q6HR PRN #30 tablet 09/03/22 [Rx] Simethicone 40 mg/0.6 ml Drops [Mylicon Drops] 80 mg PO PCHS ml 09/03/22 [Rx] Follow up [facility]ment(s[facility] [facility] [place] [facility] - 09[place]22 Activity/Diet/Wound Care/Special Instructions: No lifting over 4 pounds for 1 week You May shower. No bath tub soaks for two weeks Use Tylenol scheduled for the next 24-48 hours for best pain relief. Use ice along incisions for the today to prevent swelling. Discharge Disposition: HOME SELF-CARE
== END 2022-09-03 12:37 | disposition home or self-care (01) ==
LOC: EC 21:07 → SUPCPDRO 21:07 → 6NMEDSUR 09-02 03:47
PROVIDERS: ADMIT Surgery Plastic and Reconstructive Surgery; ATTEND Surgery Plastic and Reconstructive Surgery
DX: K46.9 Unspecified abdominal hernia without obstruction or gangrene (principal); K56.609 Unspecified intestinal obstruction, unspecified as to partial versus complete obstruction; K66.0 Peritoneal adhesions (postprocedural) (postinfection); K29.70 Gastritis, unspecified, without bleeding; K56.2 Volvulus; K21.9 Gastro-esophageal reflux disease without esophagitis; G47.33 Obstructive sleep apnea (adult) (pediatric); I11.9 Hypertensive heart disease without heart failure; E66.09 Other obesity due to excess calories; Z68.30 Body mass index [BMI] 30.0-30.9, adult; Z98.84 Bariatric surgery status; Z87.442 Personal history of urinary calculi; Z87.891 Personal history of nicotine dependence; Z79.899 Other long term (current) drug therapy; Z80.8 Family history of malignant neoplasm of other organs or systems
CPT/HCPCS: 96375 ×2; 96376 ×2; 96374; 99285; 36415; 86900; 86901; 80053; 83690; 83735; 84484; 85025; 85610; 85730; 86850; 81003; 81025; 74177; 44238; G0378 ×2; J2270; J2765; J0690; J2405; J1650; J0131; C9113 ×2; J1170; Q9967 ×2

== ENCOUNTER → 2022-09-08 | Outpatient (CLI) | payer OTHER ==
[2022-09-08 15:30] VITALS: BP 125/89; PULSE 76; RESP 16; TEMP 98.4; BMI 29.7
--- NOTE | 2022-09-08 15:41 | P.BASOAP ---
Subjective Progress Note Date: 09/08/22 She had internal hernia. She no longer has back pain. She had GI bleed. She wants to go back to work on Tuesday. Objective - Vital Signs Vital signs: Vital Signs Temp 98.4 F 09/08/22 15:28 Pulse 76 09/08/22 15:28 Resp 16 09/08/22 15:28 BP 125/89 09/08/22 15:28 Pulse Ox FiO2 Intake & Output 09/07/22 09/08/22 09/08/22 18:59 06:59 18:59 Weight 81.193 kg Assessment/Plan Plan: Date: 09/08/22 Initial Weight: 114.872 kg Initial BMI: 42.1 Current Weight: 81.193 kg Current BMI: 29.7 Type of Surgery: Jewels-en-Y Gastric Bypass Total Volume in Band: Previous Volume: Volume Removed: Volume Added: Band Size:
--- NOTE | 2022-09-08 15:43 | P.PN ---
Progress Note - Text Progress Note Date: 09/08/22 To whom it may concern: Kathleen Velez is under my surgical care. She may return to work without restrictions, September 11, 2022. Regards, Anabella Denton MD FACS
== END | disposition home or self-care (01) ==
LOC: BARWHC3 14:38
PROVIDERS: ATTEND Surgery Plastic and Reconstructive Surgery
DX: E66.01 Morbid (severe) obesity due to excess calories (principal)
CPT/HCPCS: 99211

== ENCOUNTER 2022-09-12 11:53 | Observation (INO) | payer OTHER ==
--- NOTE | 2022-09-12 12:51 | ED ---
General Adult HPI - General Chief complaint: Recheck/Abnormal Lab/Rx Stated complaint: post op abd pain, cramping Time Seen by Provider: 09/12/22 12:06 Source: patient Mode of arrival: ambulatory Limitations: no limitations - History of Present Illness Initial comments: Dictation was produced using [employer] dictation software. please excuse any gramm atical, word or spelling errors. Chief Complaint: 47-year-old female presents emergency department for postop abdominal pain History of Present Illness: Is a 47-year-old female she presents emergency department for recurrence of abdominal pain. 10 days ago patient had robotic-assisted surgery for lysis of adhesions and volvulus/internal hernia reduction. Patient states that this morning she will. At around 10:00 AM she began having severe symptoms of abdominal pain and chills. Patient has been having some mild cases of diarrhea. States that the pain is worse in her left abdomen however it is noticeable diffusely. The ROS documented in this emergency department record has been reviewed and confirmed by me. Those systems with pertinent positive or negative responses de guzman ve been documented in the HPI. All other systems are other negative and/or noncontributory. PHYSICAL EXAM: General Impression: Alert and oriented x3, not in acute distress HEENT: Normocephalic atraumatic, extra-ocular movements intact, pupils equal and reactive to light bilaterally, mucous membranes moist. Cardiovascular: Heart regular rate and rhythm Chest: Able to complete full sentences, no retractions, no tachypnea Abdomen: abdomen soft, diffuse tenderness worse in the left lower quadrant, non- distended, no organomegaly Musculoskeletal: Pulses present and equal in all extremities, no peripheral edema Motor: no focal deficits noted Neurological: CN II-XII grossly intact, no focal motor or sensory deficits noted Skin: Intact with no visualized rashes Psych: Normal affect and mood ED course: 47-year-old female presents emergency department for further severe abdominal pain. She is postop day 10 for laparoscopic robotic-assisted surgery for treatment of adhesions and internal hernias. Vital signs upon arrival are within acceptable limits. Patient was seen Return evaluation obtained. CBC Jerome. Metabolic panel is within acceptable limits. Computed tomography scan of the abdomen and pelvis was obtained with contrast. CT shows no acute abnormalities the abdomen and pelvis. Patient reevaluated at bedside at 3:30 PM. Well-appearing. She still does have some abdominal pain. Case discussed with Dr. Denton who is agreeable for observation admission. Patient be admitted to Dr. Denton. - Related Data Home Medications Medication Instructions Recorded Confirmed lisinopriL [Prinivil] 20 mg PO BID 02/25/21 09/09/22 Calcium Citrate 1,000 mg PO DAILY 05/01/21 09/09/22 Cholecalciferol (Vitamin D3) 125 mcg PO DAILY 08/27/21 09/09/22 [Vitamin D3 (125 MCG = 5,000 IU)] Famotidine [Pepcid] 20 mg PO DAILY 09/01/22 09/09/22 Multivit-Min/Folic Acid/Zed399 1 tab PO DAILY 09/01/22 09/09/22 [Alive Premium Adult Multivit] Ondansetron Odt [Zofran ODT] 4 mg PO Q6H PRN 09/02/22 09/09/22 Potassium Citrate Er 1620mg 1,620 mg PO TID 09/02/22 09/09/22 Previous Rx's Medication Instructions Recorded Acetaminophen Tab [Tylenol] 1,000 mg PO Q6HR PRN #30 tablet 09/03/22 Simethicone 40 mg/0.6 ml Drops 80 mg PO PCHS ml 09/03/22 [Mylicon Drops] Allergies Allergy/AdvReac Type Severity Reaction Status Date / Time No Known Allergies Allergy Verified 09/12/22 12:20 Review of Systems ROS Statement: Those systems with pertinent positive or pertinent negative responses have been documented in the HPI. ROS Other: All systems not noted in ROS Statement are negative. Past Medical History Past Medical History: GERD/Reflux, GI Bleed, Hypertension, Sleep Apnea/CPAP/BIPAP Additional Past Medical History / Comment(s): No HTN Rx since gastric bypass. Uses CPAP. HR is fast; has leaky valve being monitored. History of kidney stones. August 2021 - GI Bleed. 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 Lithotripsy. Laparoscopy x2 w/ exc pre-cancer lesions Past Anesthesia/Blood Transfusion Reactions: Postoperative Nausea & Vomiting (PONV) Additional Past Anesthesia/Blood Transfusion Reaction / Comment(s): no hx blood transfusion Past Psychological History: No Psychological Hx Reported Smoking Status: Former smoker Past Alcohol Use History: Occasional Past Drug Use History: None Reported - Past Family History Mother Family Medical History: No Reported History Brother(s) Family Medical History: Cancer Additional Family Medical History / Comment(s): oral CA-tongue partially removed General Exam Limitations: no limitations Course Vital Signs 09/12/22 12:18 Temperature 98.4 F Pulse Rate 73 Respiratory 20 Rate Blood Pressure 152/99 O2 Sat by Pulse 99 Oximetry Medical Decision Making - Lab Data Result diagrams: 09/12/22 13:50 09/12/22 13:50 Lab Results 09/12/22 09/12/22 09/12/22 Range/Units 13:50 13:50 13:50 WBC 6.1 (3.8-10.6) k/uL RBC 4.02 (3.80-5.40) m/uL Hgb 12.2 (11.4-16.0) gm/dL Hct 35.9 (34.0-46.0) % MCV 89.4 (80.0-100.0) fL MCH 30.4 (25.0-35.0) pg MCHC 34.0 (31.0-37.0) g/dL RDW 11.8 (11.5-15.5) % Plt Count 304 (150-450) k/uL MPV 8.2 Neutrophils % 68 % Lymphocytes % 22 % Monocytes % 6 % Eosinophils % 1 % Basophils % 1 % Neutrophils # 4.2 (1.3-7.7) k/uL Lymphocytes # 1.4 (1.0-4.8) k/uL Monocytes # 0.4 (0-1.0) k/uL Eosinophils # 0.1 (0-0.7) k/uL Basophils # 0.0 (0-0.2) k/uL Sodium 137 (137-145) mmol/L Potassium 4.4 (3.5-5.1) mmol/L Chloride 102 (98-107) mmol/L Carbon Dioxide 25 (22-30) mmol/L Anion Gap 10 mmol/L BUN 14 (7-17) mg/dL Creatinine 0.63 (0.52-1.04) mg/dL Est GFR (CKD-EPI)AfAm >90 (>60 ml/min/1.73 sqM) Est GFR (CKD-EPI)NonAf >90 (>60 ml/min/1.73 sqM) Glucose 89 (74-99) mg/dL Plasma Lactic Acid Enzo 0.8 (0.7-2.0) mmol/L Calcium 8.9 (8.4-10.2) mg/dL Total Bilirubin 0.7 (0.2-1.3) mg/dL AST 33 (14-36) U/L ALT 44 H (4-34) U/L Alkaline Phosphatase 116 (38-126) U/L Total Protein 6.7 (6.3-8.2) g/dL Albumin 4.2 (3.5-5.0) g/dL Disposition Clinical Impression: Postoperative lower abdominal pain Disposition: ADMITTED IP TO THIS [facility] Condition: Fair Referrals: Nonstaff,Physician [Primary Care Provider] - 1-2 days Decision Time: 15:28
[2022-09-12 14:04] LABS: Basophils % (A) 1 %; Eosinophils # (A) 0.1 k/uL (0-0.7); Eosinophils % (A) 1 %; HCT 35.9 % (34.0-46.0); HGB 12.2 gm/dL (11.4-16.0); Lymphocytes # (A) 1.4 k/uL (1.0-4.8); Lymphocytes % (A) 22 %; MCH 30.4 pg (25.0-35.0); MCV 89.4 fL (80.0-100.0); Mean Platelet Volume 8.2; Monocytes # (A) 0.4 k/uL (0-1.0); Monocytes % (A) 6 %; Neutrophils # (A) 4.2 k/uL (1.3-7.7); Neutrophils % (A) 68 %; Platelet Count 304 k/uL (150-450); RBC 4.02 m/uL (3.80-5.40); RDW 11.8 % (11.5-15.5); WBC 6.1 k/uL (3.8-10.6)
[2022-09-12 14:17] LABS: ALT 44 U/L (4-34); AST 33 U/L (14-36); African American GFR (CKD) >90 (>60 ml/min/1.73 sqM); Albumin 4.2 g/dL (3.5-5.0); Alkaline Phosphatase 116 U/L (38-126); Anion Gap 10 mmol/L; Blood Urea Nitrogen 14 mg/dL (7-17); Calcium 8.9 mg/dL (8.4-10.2); Carbon Dioxide 25 mmol/L (22-30); Chloride 102 mmol/L (98-107); Glucose 89 mg/dL (74-99); Non-African American GFR(CKD) >90 (>60 ml/min/1.73 sqM); Potassium 4.4 mmol/L (3.5-5.1); Sodium 137 mmol/L (137-145); Total Bilirubin 0.7 mg/dL (0.2-1.3); Total Protein 6.7 g/dL (6.3-8.2)
--- NOTE | 2022-09-12 14:45 | CT ---
EXAMINATION TYPE: CT abdomen pelvis w con DATE OF EXAM: 09/12/2022 COMPARISON: 09/02/2022 HISTORY: Abdominal pain CT DLP: 1067.8 mGycm Automated exposure control for dose reduction was used. CONTRAST: Performed with IV Contrast, patient injected with 100 mL of Isovue 300. Images obtained from the diaphragm to the floor the pelvis with IV contrast. The lung bases are clear. No pleural effusion. Heart size is normal. No pericardial effusion. There a re clips from gastric bariatric surgery. Liver spleen stomach pancreas appear intact. The bile duct are not dilated. Gallbladder appears absen t. There is no adrenal mass. Kidneys have normal size and contour. No hydronephrosis. Ureters are not di lated. No retroperitoneal adenopathy. Bladder distends smoothly. No inguinal hernia. No pelvic mass. No free fluid in the pelvis. Uterus is anteverted. The lumbar vertebrae have normal alignment. Casket Trimmer ior elements are intact. No compression fracture. There is no mesenteric edema. No ascites or free air. No sign of bowel obstruction. There is short ap pendix appears normal. IMPRESSION: No acute abnormality of the abdomen and pelvis. No adverse change compared to the old exam.
[2022-09-12] MEDS ORDERED: MORPHINE SULFATE 4 MG/ML SYRINGE IVP STA (14:47)
[2022-09-12] MEDS ORDERED: ONDANSETRON 4 MG/2 ML VIAL IVP STA (14:47)
[2022-09-12] MEDS ORDERED: ACETAMINOPHEN TAB 325 MG TAB PO PRN (15:26)
[2022-09-12] MEDS ORDERED: ONDANSETRON 4 MG/2 ML VIAL IVP PRN (15:26)
[2022-09-12] MEDS ORDERED: NALOXONE 0.4 MG/ML 1 ML VIAL IV PRN (15:26)
[2022-09-12] MEDS: SIMETHICONE 40 MG/0.6 ML DROPS 2,000 MG/30 ML BOTTLE PO SCH (17:30)
[2022-09-12 18:00] LABS: Appearance,Urine Clear (Clear); Bilirubin,Urine Negative (Negative); Blood,Urine Negative (Negative); Color,Urine Light Yellow; Glucose,Urine (UA) Negative (Negative); Ketones,Urine Trace (Negative); Leukocyte Esterase,Urine Negative (Negative); Nitrite,Urine Negative (Negative); Protein,Urine Negative (Negative); Urobilinogen,Urine <2.0 mg/dL (<2.0)
[2022-09-12 18:07] LABS: Specific Gravity,Urine 1.047 (1.001-1.035)
[2022-09-12] MEDS: MORPHINE SULFATE 4 MG/ML SYRINGE IV PRN ×2 (19:00→22:32)
[2022-09-12] MEDS: SODIUM CHLORIDE 0.9% 1,000 ML IV SCH (19:47)
[2022-09-12] MEDS: METOPROLOL SUCCINATE (ER) 25 MG TAB.ER.24H PO SCH (21:46)
[2022-09-12] MEDS: POTASSIUM CITRATE 5 MEQ TABLET.ER PO SCH (21:46)
[2022-09-12] MEDS: TEMAZEPAM 15 MG CAP PO PRN (22:02)
[2022-09-13] MEDS: MORPHINE SULFATE 4 MG/ML SYRINGE IV PRN ×2 (04:30→13:43)
[2022-09-13] MEDS: SIMETHICONE 40 MG/0.6 ML DROPS 2,000 MG/30 ML BOTTLE PO SCH ×3 (06:38→16:43)
[2022-09-13] MEDS: CALCIUM CARBONATE 500 MG CHEWABLE PO SCH (08:31)
[2022-09-13] MEDS: PANTOPRAZOLE 40 MG/10 ML VIAL IVP SCH (08:37)
[2022-09-13] MEDS: lisinopriL 20 MG TAB PO SCH (08:37)
--- NOTE | 2022-09-13 08:40 | P.GSHP ---
History of Present Illness H&P Date: 09/13/22 CHIEF COMPLAINT: Abdominal pain HISTORY OF PRESENT ILLNESS: The patient is a 47 year old female who is status post gastric bypass, December 2020. She is over one year out. She is status post closure of internal hernia 2 weeks ago. Patient was doing well upon follow-up in the clinic last week. She reports recurrent abdominal pain epigastrium and diffusely tender. She reports her pain is a cramp that last for at least 4 hours. Multiple diagnostic studies were unremarkable. She has personal history of gastric ulcers with epigastric pain. Patient was admitted due to recurrent abdominal pain and gastric ulcers. PAST MEDICAL HISTORY: See list and reviewed PAST SURGICAL HISTORY: See list and reviewed MEDICATIONS: See list and reviewed ALLERGIES: See list and reviewed SOCIAL HISTORY: See list and reviewed FAMILY HISTORY: See list and reviewed REVIEW OF ORGAN SYSTEMS: CONSTITUTIONAL: No fevers or chills. Intentional weight loss over 80 pounds from gastric bypass. EYES: Denies any trouble with vision. No glasses. HEENT: No difficulties with hearing. No nosebleeds. RESPIRATORY: Denies pneumonia. History of sleep apnea CARDIOVASCULAR: Denies recent heart attacks. Has atypical chest pain. Has hypertensive heart disease. GASTROINTESTINAL: Change in bowel habits and gas bloat. Has gastric bypass. GENITOURINARY: History of kidney stones. NEUROLOGICAL: Denies any numbness or tingling along the distal extremities. No seizure disorders or headaches. MUSCULOSKELETAL: Has back pain, stiffness or joint arthritis. SKIN: No current skin cancer. No rash. PSYCHIATRIC: Denies current depression or suicidal thoughts. ENDOCRINE: Denies current thyroid disorders. Denies any blood sugar glucose intolerance. HEME/LYMPHATIC: Denies any lumps and bumps around the neck. No recent deep venous thrombosis. ALLERGY/IMMUNOLOGY: No immunoglobulin therapy. No immune deficiencies. BREAST: Denies current breast lumps, pain or nipple discharge. PHYSICAL EXAM: VITALS: Reviewed CONSTITUTIONAL: Well developed and in no acute distress. EYES: Conjuctivae without sclera icterus. Extraocular movements grossly intact. HEAD, EARS, NOSE, THROAT: Moist buccal mucosa. Head is atraumatic, normocephalic. Hears conversational speech. No nasal drainage. NECK: Supple. No JV distention. No thyroidomegaly. RESPIRATORY: Non-labored respirations and equal bilateral excursions. No gross wheezes. CARDIOVASCULAR: Palpable 2+ radial pulses. ABDOMEN: Tender epigastrium, the lower abdomen. No peritonitis. LYMPH: No neck lymphadenopathy. MUSCULOSKELETAL: Nail and fingers with good capillary refill. SKIN: Warm and well perfused with good skin turgor. NEUROLOGIC: Cranial nerves II through XII grossly intact. Sensation upper and extremities intact. No focal or lateralizing signs. PSYCH: Appropriate affect. Alert and oriented to person, place and time. Displays appropriate insight. CLINCAL LABS: Reviewed. WBC normal. IMAGING: Independently reviewed CT of the abdomen and pelvis demonstrating no recurrent mesenteric swirl or internal hernia. This is my independent interpretation. RADIOLOGY: Report reviewed a CT of the abdomen without bowel obstruction. ASSESSMENT: 1. Recurrent abdominal pain history of gastric bypass 2. History of gastric ulcers, epigastric pain PLAN: 1. Recommend upper endoscopy for risk of gastrojejunal ulcer 2. Recommend IV fluid hydration Past Medical History Past Medical History: GERD/Reflux, GI Bleed, Hypertension, Sleep Apnea/CPAP/BIPAP Additional Past Medical History / Comment(s): No HTN Rx since gastric bypass. Uses CPAP. HR is fast; has leaky valve being monitored. History of kidney stones. August 2021 - GI Bleed. 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 Lithotripsy. Laparoscopy x2 w/ exc pre-cancer lesions Past Anesthesia/Blood Transfusion Reactions: Postoperative Nausea & Vomiting (PONV) Additional Past Anesthesia/Blood Transfusion Reaction / Comment(s): no hx blood transfusion Past Psychological History: No Psychological Hx Reported Smoking Status: Never smoker Past Alcohol Use History: Occasional Additional Past Alcohol Use History / Comment(s): quit 2015 Past Drug Use History: None Reported Additional Drug Use History / Comment(s): patient reports just starting CBD oil and gummies to try to help her sleep. - Past Family History Mother Family Medical History: No Reported History Brother(s) Family Medical History: Cancer Additional Family Medical History / Comment(s): oral CA-tongue partially removed Medications and Allergies Home Medications Medication Instructions Recorded Confirmed Type lisinopriL [Prinivil] 20 mg PO DAILY 02/25/21 09/12/22 History Calcium Citrate 1,000 mg PO DAILY 05/01/21 09/12/22 History Cholecalciferol (Vitamin D3) 125 mcg PO DAILY 08/27/21 09/12/22 History [Vitamin D3 (125 MCG = 5,000 IU)] Famotidine [Pepcid] 20 mg PO DAILY 09/01/22 09/12/22 History Multivit-Min/Folic Acid/Gxk015 1 tab PO DAILY 09/01/22 09/12/22 History [Alive Premium Adult Multivit] Ondansetron Odt [Zofran ODT] 4 mg PO Q6H PRN 09/02/22 09/12/22 History Potassium Citrate Er 1620mg 1,620 mg PO TID 09/02/22 09/12/22 History Acetaminophen Tab [Tylenol] 1,000 mg PO Q6HR PRN #30 tablet 09/03/22 09/12/22 Rx Metoprolol Succinate (ER) [Toprol 25 mg PO HS 09/12/22 09/12/22 History Xl] Simethicone 40 mg/0.6 ml Drops 80 mg PO TID-W/MEALS 09/12/22 09/12/22 History [Mylicon Drops] Allergies Allergy/AdvReac Type Severity Reaction Status Date / Time No Known Allergies Allergy Verified 09/12/22 15:40 Surgical - Exam Vital Signs Temp Pulse Resp BP Pulse Ox 98.4 F 73 20 152/99 99 09/12/22 12:18 09/12/22 12:18 09/12/22 12:18 09/12/22 12:18 09/12/22 12:18 Results - Labs 09/12/22 13:50 09/12/22 13:50 Abnormal Lab Results - Last 24 Hours (Table) 09/12/22 09/12/22 Range/Units 13:50 15:24 ALT 44 H (4-34) U/L Ur Specific Effie 1.047 H (1.001-1.035) Urine Ketones Trace H (Negative) Diabetes panel 09/12/22 Range/Units 13:50 Sodium 137 (137-145) mmol/L Potassium 4.4 (3.5-5.1) mmol/L Chloride 102 (98-107) mmol/L Carbon Dioxide 25 (22-30) mmol/L BUN 14 (7-17) mg/dL Creatinine 0.63 (0.52-1.04) mg/dL Glucose 89 (74-99) mg/dL Calcium 8.9 (8.4-10.2) mg/dL AST 33 (14-36) U/L ALT 44 H (4-34) U/L Alkaline Phosphatase 116 (38-126) U/L Total Protein 6.7 (6.3-8.2) g/dL Albumin 4.2 (3.5-5.0) g/dL Calcium panel 09/12/22 Range/Units 13:50 Calcium 8.9 (8.4-10.2) mg/dL Albumin 4.2 (3.5-5.0) g/dL Pituitary panel 09/12/22 Range/Units 13:50 Sodium 137 (137-145) mmol/L Potassium 4.4 (3.5-5.1) mmol/L Chloride 102 (98-107) mmol/L Carbon Dioxide 25 (22-30) mmol/L BUN 14 (7-17) mg/dL Creatinine 0.63 (0.52-1.04) mg/dL Glucose 89 (74-99) mg/dL Calcium 8.9 (8.4-10.2) mg/dL Adrenal panel 09/12/22 Range/Units 13:50 Sodium 137 (137-145) mmol/L Potassium 4.4 (3.5-5.1) mmol/L Chloride 102 (98-107) mmol/L Carbon Dioxide 25 (22-30) mmol/L BUN 14 (7-17) mg/dL Creatinine 0.63 (0.52-1.04) mg/dL Glucose 89 (74-99) mg/dL Calcium 8.9 (8.4-10.2) mg/dL Total Bilirubin 0.7 (0.2-1.3) mg/dL AST 33 (14-36) U/L ALT 44 H (4-34) U/L Alkaline Phosphatase 116 (38-126) U/L Total Protein 6.7 (6.3-8.2) g/dL Albumin 4.2 (3.5-5.0) g/dL
[2022-09-13] MEDS ORDERED: IV FLUID CONTINUATION 1,000 ML IV ONE ×2 (10:07)
--- NOTE | 2022-09-13 10:20 | P.PCN ---
Date of Procedure: 09/13/22 Description of Procedure: PREOPERATIVE DIAGNOSIS: History of gastric ulcers Epigastric abdominal pain s/p Jewels-en-y gastric bypass. POSTOPERATIVE DIAGNOSIS: Foreign body History of gastric ulcers Epigastric abdominal pain s/p Jewels-en-y gastric bypass. OPERATION: Esophagogastrojejunoscopy with removal of foreign body Esophagogastrojejunoscopy with biopsies jejunum SURGEON: Anabella Denton MD ANESTHESIA: MAC. INDICATIONS: The patient is a 47-year-old female who presents with a history of dysphagia, gastric ulcers and epigastric pain. Benefits and risks of the procedure were described. Informed consent was obtained. DESCRIPTION: The patient was brought into the endoscopy suite and laid in the left lateral decubitus position. After a timeout was confirmed, the procedure was initiated. An Olympus gastroscope was passed along the posterior oropharynx down to the distal esophagus where the squamocolumnar junction was unremarkable. Foreign body was found along the anastomosis which were removed using cold forceps biopsy. Biopsies were obtained of the jejunum. The scope was advanced up to 60 cm from the incisors into the Jewels limb. The mucosa of the gastrojejunal anastomosis was intact. No chronic gastrojejunal marginal ulcer was encountered. No full-thickness injury was encountered. The GI tract was desufflated. The patient tolerated the procedure well. FINDINGS: No chronic gastrojejunal ulceration encountered. Foreign body along anastomosis retrieved. Gastric pouch 5 cm. RECOMMENDATIONS: May start diet Upper endoscopy as needed
[2022-09-13] MEDS: POTASSIUM CITRATE 5 MEQ TABLET.ER PO SCH ×2 (10:55→16:43)
[2022-09-13] MEDS ORDERED: ONDANSETRON 4 MG/2 ML VIAL IVP PRN (13:47)
[2022-09-13] MEDS: METOCLOPRAMIDE 5 MG/ML 2 ML VIAL IVP PRN ×2 (14:04→20:11)
[2022-09-13] MEDS ORDERED: LIDOCAINE 2% INJ 20 MG/ML (2 ML VIAL) ONE (16:04)
[2022-09-13] MEDS ORDERED: PROPOFOL 10 MG/ML 20 ML VIAL IV ONE (16:04)
[2022-09-13] MEDS: SODIUM CHLORIDE 0.9% 1,000 ML IV SCH ×3 (16:43→19:21)
[2022-09-13] MEDS ORDERED: SCOPOLAMINE 1 MG/72 HR PATCH TRANSDERM STA (18:16)
[2022-09-13] MEDS: DICYCLOMINE 10 MG CAP PO SCH ×2 (18:24→21:33)
[2022-09-13 20:07] VITALS: PULSE 67
[2022-09-13] MEDS: TEMAZEPAM 15 MG CAP PO PRN (21:34)
[2022-09-13] MEDS: METOPROLOL SUCCINATE (ER) 25 MG TAB.ER.24H PO SCH (21:34)
[2022-09-14] MEDS: SIMETHICONE 40 MG/0.6 ML DROPS 2,000 MG/30 ML BOTTLE PO SCH ×2 (06:46→12:30)
[2022-09-14] MEDS: lisinopriL 20 MG TAB PO SCH (07:45)
[2022-09-14] MEDS: CALCIUM CARBONATE 500 MG CHEWABLE PO SCH (07:45)
[2022-09-14] MEDS: DICYCLOMINE 10 MG CAP PO SCH ×2 (07:45→12:30)
[2022-09-14] MEDS: PANTOPRAZOLE 40 MG/10 ML VIAL IVP SCH (07:45)
[2022-09-14 07:49] VITALS: BP 146/92; RESP 16; TEMP 97.9
--- NOTE | 2022-09-14 13:22 | P.DS ---
Providers Date of admission: 09/12/22 15:27 Expected date of discharge: 09/14/22 Attending physician: Anabella Denton Primary care physician: Physician Nonstaff Hospital Course: Discharge diagnosis Foreign body History of gastric ulcers Epigastric abdominal pain s/p Jewels-en-y gastric bypass Hospital course The patient is a 47-year-old female who presents with a history of dysphagia, gastric ulcers and epigastric pain. Patient is status post EGD with removal of foreign body. Patient is able to tolerate diet. She's had bowel movements. Abdominal pain has improved. She has been up and ambulating. She's afebrile. She is stable for discharge. Physician Industrial Welder note has been reviewed by physician. Signing provider agrees with the documented findings, assessment, and plan of care. Patient Condition at Discharge: Stable Plan - Discharge Summary Discharge Rx Participant: No New Discharge Prescriptions: New Dicyclomine [Bentyl] 10 mg PO QID #60 cap Continue Potassium Citrate Er 1620mg 1,620 mg PO TID Acetaminophen Tab [Tylenol] 1,000 mg PO Q6HR PRN #30 tablet PRN Reason: Pain Metoprolol Succinate (ER) [Toprol XL] 25 mg PO HS Simethicone 40 mg/0.6 ml Drops [Mylicon Drops] 80 mg PO TID-W/MEALS lisinopriL [Prinivil] 20 mg PO DAILY Calcium Citrate 1,000 mg PO DAILY Cholecalciferol (Vitamin D3) [Vitamin D3 (125 MCG = 5,000 IU)] 125 mcg PO DAILY Famotidine [Pepcid] 20 mg PO DAILY Multivit-Min/Folic Acid/Qik678 [Alive Premium Adult Multivit] 1 tab PO DAILY Ondansetron Odt [Zofran ODT] 4 mg PO Q6H PRN PRN Reason: Nausea Discharge Medication List lisinopriL [Prinivil] 20 mg PO DAILY 02/25/21 [History] Calcium Citrate 1,000 mg PO DAILY 05/01/21 [History] Cholecalciferol (Vitamin D3) [Vitamin D3 (125 MCG = 5,000 IU)] 125 mcg PO DAILY 08/27/21 [History] Famotidine [Pepcid] 20 mg PO DAILY 09/01/22 [History] Multivit-Min/Folic Acid/[id number] [Alive Premium Adult Multivit] 1 tab PO DAILY 09/01/22 [History] Ondansetron Odt [Zofran ODT] 4 mg PO Q6H PRN 09/02/22 [History] Potassium Citrate Er 1620mg 1,620 mg PO TID 09/02/22 [History] Acetaminophen Tab [Tylenol] 1,000 mg PO Q6HR PRN #30 tablet 09/03/22 [Rx] Metoprolol Succinate (ER) [Toprol XL] 25 mg PO HS 09/12/22 [History] Simethicone 40 mg/0.6 ml Drops [Mylicon Drops] 80 mg PO TID-W/MEALS 09/12/22 [History] Dicyclomine [Bentyl] 10 mg PO QID #60 cap 09/14/22 [Rx] Follow up Appointment(s)/Referral(s): Anabella Denton MD [STAFF PHYSICIAN] - 09/21/22 Nonstaff,Physician [Primary Care Provider] - 1-2 days Patient Instructions/Handouts: Acute Abdominal Pain (DC) Discharge Disposition: HOME SELF-CARE
== END 2022-09-14 13:27 | disposition home or self-care (01) ==
LOC: EC 11:53 → 4SSUR 15:27
PROVIDERS: ADMIT Surgery Plastic and Reconstructive Surgery; ATTEND Surgery Plastic and Reconstructive Surgery
DX: T81.69XA Other acute reaction to foreign substance accidentally left during a procedure, initial encounter (principal); I10 Essential (primary) hypertension; K21.9 Gastro-esophageal reflux disease without esophagitis; Z79.899 Other long term (current) drug therapy; Z87.442 Personal history of urinary calculi; Z98.84 Bariatric surgery status; Z90.49 Acquired absence of other specified parts of digestive tract; Z87.891 Personal history of nicotine dependence; Z80.8 Family history of malignant neoplasm of other organs or systems; Z32.02 Encounter for pregnancy test, result negative; Z87.11 Personal history of peptic ulcer disease; Y65.8 Other specified misadventures during surgical and medical care
CPT/HCPCS: 96376 ×3; 96375 ×2; 96374; 99285; 36415; 88305; 80053; 83605; 85025; 81003; 81025; 74177; 43239; 43247; G0378 ×3; J2270 ×2; J2765; J2405 ×2; J2704; C9113 ×2; Q9967; J2001

== ENCOUNTER 2022-09-16 11:30 | Observation (INO) | payer OTHER ==
[2022-09-16] MEDS ORDERED: SODIUM CHLORIDE 0.9% 500 ML 500 ML IV STA (12:15)
[2022-09-16] MEDS ORDERED: MORPHINE SULFATE 4 MG/ML SYRINGE IV STA (12:15)
[2022-09-16] MEDS ORDERED: ONDANSETRON 4 MG/2 ML VIAL IVP STA (12:15)
--- NOTE | 2022-09-16 12:21 | ED ---
Abdominal Pain HPI - General Chief Complaint: Abdominal Pain Stated Complaint: abd pain Time Seen by Provider: 09/16/22 12:03 Source: patient, EMS Mode of arrival: EMS Limitations: no limitations - History of Present Illness Initial Comments: This patient is a 47-year-old woman who presents with complaint that she is having diffuse severe abdominal cramping that is been going on since 10 AM. She states is very similar to pain she was having nearly 2 weeks ago. She states at that time she had to be admitted in the hospital. She has had history of bariatric surgery and about 2 weeks ago was found to have internal hernia and some surgical adhesions. She had surgery to reverse those and had done well for a bit of time. This morning she had recurrence of the pain. Patient states that she is also having nausea and vomiting. Her last bowel movement was this morning. There was no blood. No fever or chills. No chest pain or dyspnea. MD Complaint: abdominal pain Onset/Timin -: hour(s) Location: diffuse Radiation: back Migration to: no migration Severity: severe Quality: cramping Consistency: constant Improves With: nothing Worsens With: nothing Associated Symptoms: nausea, vomiting - Related Data Home Medications Medication Instructions Recorded Confirmed lisinopriL [Prinivil] 20 mg PO DAILY 02/25/21 09/12/22 Calcium Citrate 1,000 mg PO DAILY 05/01/21 09/12/22 Cholecalciferol (Vitamin D3) 125 mcg PO DAILY 08/27/21 09/12/22 [Vitamin D3 (125 MCG = 5,000 IU)] Famotidine [Pepcid] 20 mg PO DAILY 09/01/22 09/12/22 Multivit-Min/Folic Acid/[id number] 1 tab PO DAILY 09/01/22 09/12/22 [Alive Premium Adult Multivit] Ondansetron Odt [Zofran ODT] 4 mg PO Q6H PRN 09/02/22 09/12/22 Potassium Citrate Er 1620mg 1,620 mg PO TID 09/02/22 09/12/22 Metoprolol Succinate (ER) [Toprol 25 mg PO HS 09/12/22 09/12/22 XL] Simethicone 40 mg/0.6 ml Drops 80 mg PO TID-W/MEALS 09/12/22 09/12/22 [Mylicon Drops] Previous Rx's Medication Instructions Recorded Acetaminophen Tab [Tylenol] 1,000 mg PO Q6HR PRN #30 tablet 09/03/22 Dicyclomine [Bentyl] 10 mg PO QID #60 cap 09/14/22 Allergies Allergy/AdvReac Type Severity Reaction Status Date / Time No Known Allergies Allergy Verified 09/12/22 15:40 Review of Systems ROS Statement: Those systems with pertinent positive or pertinent negative responses have been documented in the HPI. ROS Other: All systems not noted in ROS Statement are negative. Constitutional: Denies: fever, chills Respiratory: Denies: cough, dyspnea Cardiovascular: Denies: chest pain, palpitations, edema Gastrointestinal: Reports: abdominal pain. Denies: nausea, vomiting, diarrhea, constipation, hematemesis, melena, hematochezia Genitourinary: Denies: dysuria, frequency, hematuria Musculoskeletal: Denies: back pain Skin: Denies: rash Neurological: Denies: headache, weakness, numbness Past Medical History Past Medical History: GERD/Reflux, GI Bleed, Hypertension, Sleep Soybean Grower ea/CPAP/BIPAP Additional Past Medical History / Comment(s): No HTN Rx since gastric bypass. Uses CPAP. HR is fast; has leaky valve being monitored. History of kidney stones. August 2021 - GI Bleed. 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 Lithotripsy. Laparoscopy x2 w/ exc pre-cancer lesions Past Anesthesia/Blood Transfusion Reactions: Postoperative Nausea & Vomiting (PONV) Additional Past Anesthesia/Blood Transfusion Reaction / Comment(s): no hx blood transfusion Past Psychological History: No Psychological Hx Reported Smoking Status: Never smoker Past Alcohol Use History: Occasional Past Drug Use History: None Reported - Past Family History Mother Family Medical History: No Reported History Brother(s) Family Medical History: Cancer Additional Family Medical History / Comment(s): oral CA-tongue partially removed General Exam Limitations: no limitations General appearance: alert Head exam: Present: atraumatic, normocephalic Eye exam: Present: normal appearance. Absent: scleral icterus, conjunctival injection Neck exam: Present: normal inspection Respiratory exam: Present: normal lung sounds bilaterally. Absent: respiratory distress, wheezes, rales, rhonchi, stridor Cardiovascular Exam: Present: regular rate, normal rhythm, normal heart sounds. Absent: systolic murmur, diastolic murmur, rubs, gallop GI/Abdominal exam: Present: soft. Absent: distended, tenderness, guarding, rebound, rigid, mass, pulsatile mass, hernia Extremities exam: Present: normal inspection, normal capillary refill. Absent: pedal edema, calf tenderness Back exam: Present: normal inspection. Absent: CVA tenderness (R), CVA tenderness (L) Neurological exam: Present: alert Skin exam: Present: warm, dry, intact, normal color. Absent: rash Course Vital Signs 09/16/22 11:33 Pulse Rate 92 Respiratory 20 Rate Blood Pressure 166/51 O2 Sat by Pulse 100 Oximetry Medical Decision Making - Lab Data Result diagrams: 09/16/22 12:34 09/16/22 12:34 Lab Results 09/16/22 09/16/22 09/16/22 Range/Units 12:34 12:34 12:34 WBC 7.5 (3.8-10.6) k/uL RBC 4.06 (3.80-5.40) m/uL Hgb 12.0 (11.4-16.0) gm/dL Hct 36.3 (34.0-46.0) % MCV 89.2 (80.0-100.0) fL MCH 29.5 (25.0-35.0) pg MCHC 33.1 (31.0-37.0) g/dL RDW 12.3 (11.5-15.5) % Plt Count 261 (150-450) k/uL MPV 9.2 Neutrophils % 76 % Lymphocytes % 16 % Monocytes % 6 % Eosinophils % 1 % Basophils % 0 % Neutrophils # 5.7 (1.3-7.7) k/uL Lymphocytes # 1.2 (1.0-4.8) k/uL Monocytes # 0.5 (0-1.0) k/uL Eosinophils # 0.0 (0-0.7) k/uL Basophils # 0.0 (0-0.2) k/uL Sodium (137-145) mmol/L Potassium (3.5-5.1) mmol/L Chloride (98-107) mmol/L Carbon Dioxide (22-30) mmol/L Anion Gap mmol/L BUN (7-17) mg/dL Creatinine (0.52-1.04) mg/dL Est GFR (CKD-EPI)AfAm (>60 ml/min/1.73 sqM) Est GFR (CKD-EPI)NonAf (>60 ml/min/1.73 sqM) Glucose (74-99) mg/dL Calcium (8.4-10.2) mg/dL Total Bilirubin (0.2-1.3) mg/dL AST (14-36) U/L ALT (4-34) U/L Alkaline Phosphatase (38-126) U/L Total Protein (6.3-8.2) g/dL Albumin (3.5-5.0) g/dL Amylase (30-110) U/L Lipase (23-300) U/L Urine Color Yellow Urine Appearance Clear (Clear) Urine pH 5.5 (5.0-8.0) Ur Specific [place] 1.020 (1.001-1.035) Urine Protein Negative (Negative) Urine Glucose (UA) Negative (Negative) Urine Ketones 1+ H (Negative) Urine Blood Negative (Negative) Urine Nitrite Negative (Negative) Urine Bilirubin Negative (Negative) Urine Urobilinogen <2.0 (<2.0) mg/dL Ur Leukocyte Esterase Negative (Negative) Urine HCG, Qual Not Detected (Not Detectd) 09/16/22 Range/Units 12:34 WBC (3.8-10.6) k/uL RBC (3.80-5.40) m/uL Hgb (11.4-16.0) gm/dL Hct (34.0-46.0) % MCV (80.0-100.0) fL MCH (25.0-35.0) pg MCHC (31.0-37.0) g/dL RDW (11.5-15.5) % Plt Count (150-450) k/uL MPV Neutrophils % % Lymphocytes % % Monocytes % % Eosinophils % % Basophils % % Neutrophils # (1.3-7.7) k/uL Lymphocytes # (1.0-4.8) k/uL Monocytes # (0-1.0) k/uL Eosinophils # (0-0.7) k/uL Basophils # (0-0.2) k/uL Sodium 139 (137-145) mmol/L Potassium 4.1 (3.5-5.1) mmol/L Chloride 104 (98-107) mmol/L Carbon Dioxide 24 (22-30) mmol/L Anion Gap 11 mmol/L BUN 18 H (7-17) mg/dL Creatinine 0.58 (0.52-1.04) mg/dL Est GFR (CKD-EPI)AfAm >90 (>60 ml/min/1.73 sqM) Est GFR (CKD-EPI)NonAf >90 (>60 ml/min/1.73 sqM) Glucose 102 H (74-99) mg/dL Calcium 9.3 (8.4-10.2) mg/dL Total Bilirubin 0.4 (0.2-1.3) mg/dL AST 89 H (14-36) U/L ALT 199 H (4-34) U/L Alkaline Phosphatase 164 H (38-126) U/L Total Protein 6.6 (6.3-8.2) g/dL Albumin 4.0 (3.5-5.0) g/dL Amylase 76 (30-110) U/L Lipase 194 (23-300) U/L Urine Color Urine Appearance (Clear) Urine pH (5.0-8.0) Ur Specific [place] (1.001-1.035) Urine Protein (Negative) Urine Glucose (UA) (Negative) Urine Ketones (Negative) Urine Blood (Negative) Urine Nitrite (Negative) Urine Bilirubin (Negative) Urine Urobilinogen (<2.0) mg/dL Ur Leukocyte Esterase (Negative) Urine HCG, Qual (Not Detectd) Disposition Clinical Impression: Abdominal pain Disposition: ADMITTED IP TO THIS HOSP Condition: Fair Instructions (If sedation given, give patient instructions): Abdominal Pain (ED) Is patient prescribed a controlled substance at d/c from ED?: No Referrals: LOBO GARCÍA DO [Primary Care Provider] - 1-2 days
[2022-09-16 12:54] LABS: Basophils % (A) 0 %; Eosinophils % (A) 1 %; HCT 36.3 % (34.0-46.0); Lymphocytes # (A) 1.2 k/uL (1.0-4.8); Lymphocytes % (A) 16 %; MCH 29.5 pg (25.0-35.0); MCHC 33.1 g/dL (31.0-37.0); MCV 89.2 fL (80.0-100.0); Mean Platelet Volume 9.2; Monocytes # (A) 0.5 k/uL (0-1.0); Monocytes % (A) 6 %; Neutrophils # (A) 5.7 k/uL (1.3-7.7); Neutrophils % (A) 76 %; Platelet Count 261 k/uL (150-450); RBC 4.06 m/uL (3.80-5.40); RDW 12.3 % (11.5-15.5); WBC 7.5 k/uL (3.8-10.6)
[2022-09-16 13:05] LABS: ALT 199 U/L (4-34); AST 89 U/L (14-36); African American GFR (CKD) >90 (>60 ml/min/1.73 sqM); Alkaline Phosphatase 164 U/L (38-126); Amylase 76 U/L (30-110); Anion Gap 11 mmol/L; Blood Urea Nitrogen 18 mg/dL (7-17); Calcium 9.3 mg/dL (8.4-10.2); Carbon Dioxide 24 mmol/L (22-30); Chloride 104 mmol/L (98-107); Glucose 102 mg/dL (74-99); Lipase 194 U/L (23-300); Non-African American GFR(CKD) >90 (>60 ml/min/1.73 sqM); Potassium 4.1 mmol/L (3.5-5.1); Sodium 139 mmol/L (137-145); Total Bilirubin 0.4 mg/dL (0.2-1.3); Total Protein 6.6 g/dL (6.3-8.2)
--- NOTE | 2022-09-16 14:29 | CT ---
EXAMINATION TYPE: CT abdomen pelvis wo con CT DLP: 735 mGycm, Automated exposure control for dose reduction was used. DATE OF EXAM: 09/16/2022 2:08 PM COMPARISON: CT abdomen pelvis most recent from 09/12/2022. CLINICAL INDICATION:Female, 47 years old with history of abdominal pain; TECHNIQUE: Standard CT of the abdomen and pelvis without IV or oral contrast. Lack of IV or oral co ntrast limits evaluation of solid and hollow organ viscera. Coronal and sagittal reformats were perfo rmed. FINDINGS: LOWER CHEST: Right middle lobe 5 mm groundglass nodule. No focal consolidation. ABDOMEN LIVER: Stable peripheral left hepatic lobe cyst. Hepatic steatosis. GALLBLADDER AND BILE DUCTS: The gallbladder is surgically absent. No biliary duct dilatation. PANCREAS: Unremarkable noncontrast appearance. SPLEEN: Unremarkable noncontrast appearance. ADRENAL GLANDS: Unremarkable noncontrast appearance. KIDNEYS AND URETERS: No evidence of hydronephrosis or renal calculus. The ureteral calculi PELVIS BLADDER: Unremarkable REPRODUCTIVE: Unremarkable. ABDOMEN & PELVIS STOMACH AND BOWEL: Postsurgical changes from Jewels-en-Y. No focal wall thickening. The appendix is wit hin normal limits. No evidence of bowel obstruction. PERITONEUM: No evidence of pneumoperitoneum or free fluid. VASCULATURE: Mild atherosclerotic calcifications are present throughout the abdominal aorta and its b ranches. No evidence of aortic aneurysm. Pelvic fluid lips. MUSCULOSKELETAL: No acute osseous abnormalities . No aggressive osseous lesion. Mild degenerative dis c disease. LYMPH NODES: No gross evidence for lymphadenopathy. SOFT TISSUE/ABDOMINAL WALL: Unremarkable IMPRESSION: 1. No acute abdominal/pelvic process. 2. Hepatic steatosis.
[2022-09-16 15:13] LABS: Appearance,Urine Clear (Clear); Bilirubin,Urine Negative (Negative); Blood,Urine Negative (Negative); Color,Urine Yellow; Glucose,Urine (UA) Negative (Negative); Ketones,Urine 1+ (Negative); Leukocyte Esterase,Urine Negative (Negative); Nitrite,Urine Negative (Negative); PH, Urine 5.5 (5.0-8.0); Protein,Urine Negative (Negative); Urobilinogen,Urine <2.0 mg/dL (<2.0)
[2022-09-16] MEDS ORDERED: SODIUM CHLORIDE 0.9% 1,000 ML IV ONE (15:48)
--- NOTE | 2022-09-16 15:54 | P.GSHP ---
History of Present Illness H&P Date: 09/16/22 Patient returns with symptoms of lower abdominal pain, obstipation and clinical suspicion on intermittent sigmoid volvulus. LFTs elevated. We'll obtain right upper quadrant liver ultrasound. Patient reports moderate discomfort starts from the lower abdomen and migrates to the upper abdomen throughout causing nausea and vomiting. Computed tomography scan review demonstrates redundancy of sigmoid colon. No ischemic changes. Recommend admission. Recommend bowel prep with colonoscopy for sigmoid volvulus. Past Medical History Past Medical History: GERD/Reflux, GI Bleed, Hypertension, Sleep Apnea/CPAP/BIPAP Additional Past Medical History / Comment(s): No HTN Rx since gastric bypass. Uses CPAP. HR is fast; has leaky valve being monitored. History of kidney stones. August 2021 - GI Bleed. 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 Lithotripsy. Laparoscopy x2 w/ exc pre-cancer lesions Past Anesthesia/Blood Transfusion Reactions: Postoperative Nausea & Vomiting (PO NV) Additional Past Anesthesia/Blood Transfusion Reaction / Comment(s): no hx blood transfusion Past Psychological History: No Psychological Hx Reported Smoking Status: Never smoker Past Alcohol Use History: Occasional Past Drug Use History: None Reported - Past Family History Mother Family Medical History: No Reported History Brother(s) Family Medical History: Cancer Additional Family Medical History / Comment(s): oral CA-tongue partially removed Medications and Allergies Home Medications Medication Instructions Recorded Confirmed Type lisinopriL [Prinivil] 20 mg PO DAILY 02/25/21 09/12/22 History Calcium Citrate 1,000 mg PO DAILY 05/01/21 09/12/22 History Cholecalciferol (Vitamin D3) 125 mcg PO DAILY 08/27/21 09/12/22 History [Vitamin D3 (125 MCG = 5,000 IU)] Famotidine [Pepcid] 20 mg PO DAILY 09/01/22 09/12/22 History Multivit-Min/Folic Acid/Pwo362 1 tab PO DAILY 09/01/22 09/12/22 History [Alive Premium Adult Multivit] Ondansetron Odt [Zofran ODT] 4 mg PO Q6H PRN 09/02/22 09/12/22 History Potassium Citrate Er 1620mg 1,620 mg PO TID 09/02/22 09/12/22 History Acetaminophen Tab [Tylenol] 1,000 mg PO Q6HR PRN #30 tablet 09/03/22 09/12/22 Rx Metoprolol Succinate (ER) [Toprol 25 mg PO HS 09/12/22 09/12/22 History XL] Simethicone 40 mg/0.6 ml Drops 80 mg PO TID-W/MEALS 09/12/22 09/12/22 History [Mylicon Drops] Dicyclomine [Bentyl] 10 mg PO QID #60 cap 09/14/22 Rx Allergies Allergy/AdvReac Type Severity Reaction Status Date / Time No Known Allergies Allergy Verified 09/12/22 15:40 Surgical - Exam Vital Signs Pulse Resp BP Pulse Ox 92 20 166/51 100 09/16/22 11:33 09/16/22 11:33 09/16/22 11:33 09/16/22 11:33 Results - Labs 09/16/22 12:34 09/16/22 12:34 Abnormal Lab Results - Last 24 Hours (Table) 09/16/22 09/16/22 Range/Units 12:34 12:34 BUN 18 H (7-17) mg/dL Glucose 102 H (74-99) mg/dL AST 89 H (14-36) U/L ALT 199 H (4-34) U/L Alkaline Phosphatase 164 H (38-126) U/L Urine Ketones 1+ H (Negative) Diabetes panel 09/16/22 Range/Units 12:34 Sodium 139 (137-145) mmol/L Potassium 4.1 (3.5-5.1) mmol/L Chloride 104 (98-107) mmol/L Carbon Dioxide 24 (22-30) mmol/L BUN 18 H (7-17) mg/dL Creatinine 0.58 (0.52-1.04) mg/dL Glucose 102 H (74-99) mg/dL Calcium 9.3 (8.4-10.2) mg/dL AST 89 H (14-36) U/L ALT 199 H (4-34) U/L Alkaline Phosphatase 164 H (38-126) U/L Total Protein 6.6 (6.3-8.2) g/dL Albumin 4.0 (3.5-5.0) g/dL Calcium panel 09/16/22 Range/Units 12:34 Calcium 9.3 (8.4-10.2) mg/dL Albumin 4.0 (3.5-5.0) g/dL Pituitary panel 09/16/22 Range/Units 12:34 Sodium 139 (137-145) mmol/L Potassium 4.1 (3.5-5.1) mmol/L Chloride 104 (98-107) mmol/L Carbon Dioxide 24 (22-30) mmol/L BUN 18 H (7-17) mg/dL Creatinine 0.58 (0.52-1.04) mg/dL Glucose 102 H (74-99) mg/dL Calcium 9.3 (8.4-10.2) mg/dL Adrenal panel 09/16/22 Range/Units 12:34 Sodium 139 (137-145) mmol/L Potassium 4.1 (3.5-5.1) mmol/L Chloride 104 (98-107) mmol/L Carbon Dioxide 24 (22-30) mmol/L BUN 18 H (7-17) mg/dL Creatinine 0.58 (0.52-1.04) mg/dL Glucose 102 H (74-99) mg/dL Calcium 9.3 (8.4-10.2) mg/dL Total Bilirubin 0.4 (0.2-1.3) mg/dL AST 89 H (14-36) U/L ALT 199 H (4-34) U/L Alkaline Phosphatase 164 H (38-126) U/L Total Protein 6.6 (6.3-8.2) g/dL Albumin 4.0 (3.5-5.0) g/dL
--- NOTE | 2022-09-16 16:34 | US ---
EXAMINATION TYPE: US liver DATE OF EXAM: 09/16/2022 COMPARISON: Same day CT abdomen and pelvis study CLINICAL HISTORY: elevated liver enzymes. elevated liver enzymes. TECHNIQUE: Multiple sonographic images of the right upper quadrant are obtained. FINDINGS: EXAM MEASUREMENTS: Liver Length: 16.7 cm Gallbladder Wall: Surgically absent cm CBD: .7 cm Right Kidney: 10.7 x 3.5 x 4.9 cm TEAM ASSEMBLER NOTES: Pancreas: Obscured by bowel gas Liver: Increased attenuation Gallbladder: Surgically absent Evidence for sonographic Bowers's sign: No CBD: upper limits Right Kidney: No hydronephrosis or masses seen No aneurysm in the visualized abdominal aorta. Visualized liver heterogeneously hyperechoic. No suspi cious masses present. Gallbladder surgically absent. No biliary dilatation. No right-sided hydronephr osis. IMPRESSION: Fatty infiltrated hepatocellular disease redemonstrated.
[2022-09-16] MEDS ORDERED: PEG 3350 (420 GM/BTL) + LYTES 4,000 ML BOTTLE PO ONE (17:10)
[2022-09-16] MEDS ORDERED: LACTULOSE 20 GM/30 ML CUP PO ONE (17:10)
[2022-09-16] MEDS: ACETAMINOPHEN IV (For NPO) 1,000 MG in EMPTY BAG 1 BAG IVPB SCH ×2 (17:38→23:38)
[2022-09-16] MEDS: HYDROmorphone 1 MG/ML 1 ML SYRINGE IVP PRN ×2 (18:09→22:18)
[2022-09-16] MEDS: ONDANSETRON 4 MG/2 ML VIAL IVP PRN (23:17)
[2022-09-17] MEDS: HYDROmorphone 1 MG/ML 1 ML SYRINGE IVP PRN ×2 (01:52→10:16)
[2022-09-17] MEDS: ONDANSETRON 4 MG/2 ML VIAL IVP PRN (05:00)
[2022-09-17] MEDS: ACETAMINOPHEN IV (For NPO) 1,000 MG in EMPTY BAG 1 BAG IVPB SCH (06:09)
[2022-09-17 08:11] VITALS: PULSE 65
[2022-09-17] MEDS ORDERED: PANTOPRAZOLE 40 MG/10 ML VIAL IV SCH (09:00)
[2022-09-17] MEDS ORDERED: PROPOFOL 10 MG/ML 20 ML VIAL IV ONE (10:30)
[2022-09-17] MEDS ORDERED: fentaNYL (PF) 50 MCG/ML 2 ML AMP ONE (10:30)
[2022-09-17] MEDS ORDERED: IV FLUID CONTINUATION 1,000 ML IV ONE (10:31)
[2022-09-17 10:49] LABS: African American GFR (CKD) 134.2 (60.0-200.0); Albumin 3.5 g/dL (3.8-4.9); Albumin/Globulin Ratio 1.76 (1.60-3.17); Anion Gap 9.4 mmol/L (10.00-18.00); BUN/Creat Ratio 20.43 Ratio (12.00-20.00); Blood Urea Nitrogen 10.5 mg/dL (9.0-27.0); Calcium 8.7 mg/dL (8.7-10.3); Carbon Dioxide 26.4 mmol/L (20.0-27.5); Non-African American GFR(CKD) 115.8 (60.0-200.0); Potassium 3.9 mmol/L (3.5-5.5); Total Bilirubin 0.4 mg/dL (0.30-1.20); Total Protein 5.4 g/dL (6.2-8.2)
[2022-09-17] MEDS ORDERED: LACTATED RINGERS 1,000 ML IV ONE (11:12)
[2022-09-17] MEDS ORDERED: SODIUM CHLORIDE 0.9% 2,000 ML IV ONE (11:20)
--- NOTE | 2022-09-17 11:28 | P.PCN ---
Date of Procedure: 09/17/22 Description of Procedure: PREOPERATIVE DIAGNOSIS: Sigmoid volvulus, intermittent bowel obstruction Lower abdominal pain POSTOPERATIVE DIAGNOSIS: Sigmoid volvulus, intermittent bowel obstruction Lower abdominal pain Tubular adenoma, hepatic flexure Tubular adenoma, splenic flexure Tubular adenoma, descending colon Sigmoid diverticulosis OPERATION: Colonoscopy to the ileocecal valve and appendiceal orifice, cecum Colonoscopy with hot snare polypectomy Colonoscopy decompression of sigmoid volvulus SURGEON: Anabella Denton MD. ANESTHESIA: MAC. INDICATIONS: The patient is an 47-year-old female who presents with lower abdominal pain including obstipation/large bowel obstruction due to intermittent sigmoid volvulus. Benefits and risks were described and informed consent was obtained. DESCRIPTION OF PROCEDURE: The patient had undergone Sutab prep. The patient had been brought into the ope rating room and laid in the left lateral decubitus position. After adequate intravenous sedation, the rectum was examined with 2% lidocaine jelly. No external hemorrhoids were encountered. The rectal tone was within normal limits. No lesions were palpated in the rectal vault. An Olympus colonoscope was advanced until the cecum, ileocecal valve and appendiceal orifice were clearly viewed. The prep was fair. Sigmoid diverticulosis was encountered. Colonic polyps were found and removed. No evidence of focal colitis was found. Distended sigmoid colon with torsion consistent with sigmoid volvulus was detorsed and decompressed without ischemia. Retroflexion of the scope demonstrated grade 1 internal hemorrhoids without active bleeding or inflammation. The colon was desufflated. The patient had tolerated the procedure well. Withdrawal time was over 6 minutes. FINDINGS: Aronchick preparation quality scale 2+ (1-5) Internal hemorrhoids, grade 1 No external hemorrhoids Decompression sigmoid volvulus without ischemia No arteriovenous malformations. Sigmoid diverticulosis, few Removal of 3 polyps: - Snare polypectomy 55 cm from the anal verge, 15 -mm tubulovillous adenoma polyp, descending colon - Snare polypectomy splenic flexure, 8 mm flat villous adenoma polyp. - Snare polypectomy hepatic flexure, 6 mm flat villous adenoma polyp. No focal colitis. RECOMMENDATIONS: 1. Repeat colonoscopy one year, September 2023 due to the large adenoma resection 2. May need future decompressions otherwise colon resection advised Plan - Discharge Summary Discharge Rx Participant: Yes New Discharge Prescriptions: No Action Potassium Citrate Er 1620mg 1,620 mg PO TID Acetaminophen Tab [Tylenol] 1,000 mg PO Q6HR PRN #30 tablet PRN Reason: Pain Metoprolol Succinate (ER) [Toprol XL] 25 mg PO HS Simethicone 40 mg/0.6 ml Drops [Mylicon Drops] 80 mg PO TID-W/MEALS Dicyclomine [Bentyl] 10 mg PO QID #60 cap Sucralfate [Carafate] 1 gm PO ACHS PRN PRN Reason: Gi Upset lisinopriL [Prinivil] 20 mg PO DAILY Calcium Citrate 1,000 mg PO DAILY Cholecalciferol (Vitamin D3) [Vitamin D3 (125 MCG = 5,000 IU)] 125 mcg PO DAILY Famotidine [Pepcid] 20 mg PO DAILY Multivit-Min/Folic Acid/Ohz027 [Alive Premium Adult Multivit] 1 tab PO DAILY Ondansetron Odt [Zofran ODT] 4 mg PO Q6H PRN PRN Reason: Nausea Discharge Medication List lisinopriL [Prinivil] 20 mg PO DAILY 02/25/21 [History] Calcium Citrate 1,000 mg PO DAILY 05/01/21 [History] Cholecalciferol (Vitamin D3) [Vitamin D3 (125 MCG = 5,000 IU)] 125 mcg PO DAILY 08/27/21 [History] Famotidine [Pepcid] 20 mg PO DAILY 09/01/22 [History] Multivit-Min/Folic Acid/Noc019 [Alive Premium Adult Multivit] 1 tab PO DAILY 09/01/22 [History] Ondansetron Odt [Zofran ODT] 4 mg PO Q6H PRN 09/02/22 [History] Potassium Citrate Er 1620mg 1,620 mg PO TID 09/02/22 [History] Acetaminophen Tab [Tylenol] 1,000 mg PO Q6HR PRN #30 tablet 09/03/22 [Rx] Metoprolol Succinate (ER) [Toprol XL] 25 mg PO HS 09/12/22 [History] Simethicone 40 mg/0.6 ml Drops [Mylicon Drops] 80 mg PO TID-W/MEALS 09/12/22 [History] Dicyclomine [Bentyl] 10 mg PO QID #60 cap 09/14/22 [Rx] Sucralfate [Carafate] 1 gm PO ACHS PRN 09/16/22 [History] Follow up Appointment(s)/Referral(s): LOBO GARCÍA DO [Primary Care Provider] - 1-2 days Patient Instructions/Handouts: Abdominal Pain (ED)
[2022-09-17] MEDS ORDERED: SIMETHICONE 40 MG/0.6 ML DROPS 2,000 MG/30 ML BOTTLE PO SCH (13:30)
[2022-09-17 14:50] VITALS: BP 159/102; RESP 16; TEMP 98.3
--- NOTE | 2022-09-17 16:20 | P.DS ---
Providers Date of admission: 09/16/22 15:51 Expected date of discharge: 09/17/22 Attending physician: Anabella Denton Primary care physician: LOBO GARCÍA DO Hospital Course: Patient presents with recurrent lower abdominal pain. Multiple diagnostic studies has been performed. Patient underwent colonoscopy with findings of large colon adenoma of the descending colon resected, diverticulosis and intermittent sigmoid volvulus which was reduced. Clinically, patient reported feeling better. She also presented with persistent elevated liver enzymes. Medications were discontinued contributing to elevated liver enzymes. Patient advised to avoid CBD or marijuana products that will also contribute to elevated liver enzymes. Follow-up with primary care provider will repeat LFTs described. Deferred colon resection described due to recent surgery. Patient will follow up closely as outpatient. Patient Condition at Discharge: Good Plan - Discharge Summary Discharge Rx Participant: Yes New Discharge Prescriptions: New Sucralfate [Carafate] 1 gm PO ACHS #30 tab Simethicone [Gas-X] 125 mg PO AC-TID PRN #20 capsule PRN Reason: Pain Simethicone 40 mg/0.6 ml Drops [Mylicon Drops] 80 mg PO Q6HR PRN #30 ml PRN Reason: Abdominal Distention Continue Metoprolol Succinate (ER) [Toprol XL] 25 mg PO HS Simethicone 40 mg/0.6 ml Drops [Mylicon Drops] 80 mg PO TID-W/MEALS Dicyclomine [Bentyl] 10 mg PO QID #60 cap Calcium Citrate 1,000 mg PO DAILY Ondansetron Odt [Zofran ODT] 4 mg PO Q6H PRN PRN Reason: Nausea Discontinued Potassium Citrate Er 1620mg 1,620 mg PO TID Acetaminophen Tab [Tylenol] 1,000 mg PO Q6HR PRN #30 tablet PRN Reason: Pain Sucralfate [Carafate] 1 gm PO ACHS PRN PRN Reason: Gi Upset lisinopriL [Prinivil] 20 mg PO DAILY Cholecalciferol (Vitamin D3) [Vitamin D3 (125 MCG = 5,000 IU)] 125 mcg PO DA FAN Famotidine [Pepcid] 20 mg PO DAILY Multivit-Min/Folic Acid/Dig057 [Alive Premium Adult Multivit] 1 tab PO DAILY Discharge Medication List Calcium Citrate 1,000 mg PO DAILY 05/01/21 [History] Ondansetron Odt [Zofran ODT] 4 mg PO Q6H PRN 09/02/22 [History] Metoprolol Succinate (ER) [Toprol XL] 25 mg PO HS 09/12/22 [History] Simethicone 40 mg/0.6 ml Drops [Mylicon Drops] 80 mg PO TID-W/MEALS 09/12/22 [History] Dicyclomine [Bentyl] 10 mg PO QID #60 cap 09/14/22 [Rx] Simethicone 40 mg/0.6 ml Drops [Mylicon Drops] 80 mg PO Q6HR PRN #30 ml 09/17/22 [Rx] Simethicone [Gas-X] 125 mg PO AC-TID PRN #20 capsule 09/17/22 [Rx] Sucralfate [Carafate] 1 gm PO ACHS #30 tab 09/17/22 [Rx] Follow up Appointment(s)/Referral(s): LOBO GARCÍA DO [Primary Care Provider] - 1-2 days Patient Instructions/Handouts: Abdominal Pain (ED), Bowel Obstruction (GEN) Activity/Diet/Wound Care/Special Instructions: Follow-up with primary care doctor for repeat liver enzymes/LFTs Discharge Disposition: HOME SELF-CARE
== END 2022-09-17 16:46 | disposition home or self-care (01) ==
LOC: EC 11:30 → 6NMEDSUR 15:51 → 4SSUR 18:58
PROVIDERS: ADMIT Surgery Plastic and Reconstructive Surgery; ATTEND Surgery Plastic and Reconstructive Surgery
DX: D12.4 Benign neoplasm of descending colon (principal); D12.3 Benign neoplasm of transverse colon; K56.2 Volvulus; K57.30 Diverticulosis of large intestine without perforation or abscess without bleeding; K64.0 First degree hemorrhoids; R74.8 Abnormal levels of other serum enzymes; I10 Essential (primary) hypertension; G47.30 Sleep apnea, unspecified; K21.9 Gastro-esophageal reflux disease without esophagitis; Z87.442 Personal history of urinary calculi; Z98.84 Bariatric surgery status; Z79.899 Other long term (current) drug therapy
CPT/HCPCS: 96361 ×3; 96366 ×3; 96375 ×2; 96376 ×2; 96365; 99285; 36415; 80053 ×2; 82150; 83690; 85025; 81003; 81025; 76705; 74176; 45385; 45393; G0378 ×3; J2270; J2405 ×2; J1170 ×2; J0131 ×2; C9113

== ENCOUNTER → 2022-11-23 | Outpatient (CLI) | payer OTHER | END | disposition home or self-care (01) | LOC: LABWHC1 14:30 | PROVIDERS: ATTEND Surgery Plastic and Reconstructive Surgery | DX: Z01.818 Encounter for other preprocedural examination (principal); I11.9 Hypertensive heart disease without heart failure | CPT/HCPCS: 36415; 93005 ==

== ENCOUNTER → 2022-12-20 | Outpatient (CLI) | payer OTHER ==
[2022-12-20 15:28] LABS: HGB 11.2 gm/dL (11.4-16.0); MCH 26.3 pg (25.0-35.0); MCHC 31.9 g/dL (31.0-37.0); MCV 82.5 fL (80.0-100.0); Mean Platelet Volume 8.5; Platelet Count 235 k/uL (150-450); RBC 4.25 m/uL (3.80-5.40); RDW 13.9 % (11.5-15.5); WBC 3.9 k/uL (3.8-10.6)
== END | disposition home or self-care (01) ==
LOC: LAB 12:50
PROVIDERS: ATTEND Surgery Plastic and Reconstructive Surgery
DX: Z01.812 Encounter for preprocedural laboratory examination (principal)
CPT/HCPCS: 85027

== ENCOUNTER → 2022-12-21 | Outpatient (CLI) | payer OTHER ==
[2022-12-21 18:59] LABS: ALT 53 U/L (8-44); AST 39 U/L (13-35); African American GFR (CKD) 109.6 (60.0-200.0); Albumin 4.3 g/dL (3.8-4.9); Alkaline Phosphatase 138 U/L (41-126); Blood Urea Nitrogen 25.8 mg/dL (9.0-27.0); Calcium 9.3 mg/dL (8.7-10.3); Carbon Dioxide 23.2 mmol/L (20.0-27.5); Chloride 99 mmol/L (96-109); Globulin 2.5 g/dL (1.6-3.3); Glucose 166 mg/dL (70-110); Non-African American GFR(CKD) 94.6 (60.0-200.0); Potassium 4.2 mmol/L (3.5-5.5); Sodium 136 mmol/L (135-145); Total Bilirubin <0.15 mg/dL (0.30-1.20); Total Protein 6.8 g/dL (6.2-8.2)
== END | disposition home or self-care (01) ==
LOC: LABWHC1 14:27
PROVIDERS: ATTEND Surgery Plastic and Reconstructive Surgery
DX: Z01.812 Encounter for preprocedural laboratory examination (principal)
CPT/HCPCS: 36415; 80053

== ENCOUNTER 2023-02-24 22:27 | Observation (INO) | payer OTHER ==
[2023-02-24] MEDS ORDERED: SODIUM CHLORIDE 0.9% 1,000 ML IV STA (23:16)
--- NOTE | 2023-02-24 23:31 | ED ---
General Adult HPI - General Chief complaint: Abdominal Pain Stated complaint: Abd Pain Time Seen by Provider: 02/24/23 22:32 Source: patient, EMS Mode of arrival: EMS Limitations: no limitations - History of Present Illness Initial comments: Dictation was produced using [employer] dictation software. please excuse any grammatical, word or spelling errors. Chief Complaint: 47-year-old female with chronic abdominal history presents to the emergency room for abdominal pain, constipation, dark stools, hematemesis History of Present Illness: Is a 47-year-old female she has past medical history bariatric surgery. Patient has been running abdominal issues that she attributes to bariatric surgery. Patient allegedly recently had bowel resection to treat sigmoid volvulus. Patient states that she needed laxatives more than usual. States that her pain has been increasing intensity and duration. Denies any fever. Patient does have nausea and poor appetite. She reports history of peptic ulcers. She states that her surgeon is out of town and she was instructed to come to the ER for symptoms are getting worse. The ROS documented in this emergency department record has been reviewed and confirmed by me. Those systems with pertinent positive or negative responses have been documented in the HPI. All other systems are other negative and/or noncontributory. PHYSICAL EXAM: General Impression: Alert and oriented x3, not in acute distress HEENT: Normocephalic atraumatic, extra-ocular movements intact, pupils equal and reactive to light bilaterally, mucous membranes moist. Cardiovascular: Heart regular rate and rhythm Chest: Able to complete full sentences, no retractions, no tachypnea Abdomen: abdomen soft, mild tenderness in the periumbilical area, non-distended, no organomegaly Musculoskeletal: Pulses present and equal in all extremities, no peripheral edema Motor: no focal deficits noted Neurological: CN II-XII grossly intact, no focal motor or sensory deficits noted Skin: Intact with no visualized rashes Psych: Normal affect and mood Rectal exam: No gross blood ED course: 47-year-old female presents emergency department for acute on chronic abdominal symptoms and reported GI bleed. Nursing notes and chart review was performed Was pt. sent in by a medical professional or institution (, PA, BILINGUAL NANNY, urgent care, hospital, or long-term...) When possible be specific @ -No Did you speak to anyone other than the patient for history (EMS, parent, family, police, friend...)? What history was obtained from this source @ -No Did you review nursing and triage notes (agree or disagree)? Why? @ -I reviewed and agree with nursing and triage notes Were old charts reviewed (outside hosp., previous admission, EMS record, old EKG, old radiological studies, urgent care reports/EKG's, long-term records)? Report findings @ -No old charts were reviewed Differential Diagnosis (chest pain, altered mental status, abdominal pain women, abdominal pain men, vaginal bleeding, musculoskeletal, weakness, fever, dyspnea, syncope, headache, dizziness, GI bleed, back pain, seizure, CVA, palpatations, mental health)? @ -Differential GI Bleed: Esophageal varices, aortoenteric fistula, Jaki-Calzada, gastritis, peptic ulcer disease, diverticulosis, inflammatory bowel disease, hemorrhoids, fissure, colitis, malignancy, Meckels diverticulum, this is not meant to be an all- inclusive list. EKG interpreted by me (3pts min.). @ -None done X-rays interpreted by me (1pt min.). @ -None done CT interpreted by me (1pt min.). @ -no acute processes U/S interpreted by me (1pt. min.). @ -None done What testing was considered but not performed or refused? (CT, X-rays, U/S, labs)? Why? @ -None What meds were considered but not given or refused? Why? @ -None Did you discuss the management of the patient with other professionals (professionals i.e. , PA, BILING[employer] NANNY, lab, RT, psych nurse, bilingual social worker, angiographer, teacher, safety security officer, onsite case manager)? Give summary @ - discussed with Dr. Valladares for admission Was smoking cessation discussed for >3mins.? @ -No Was critical care preformed (if so, how long)? @ -No Were there social determinants of health that impacted care today? How? (Homelessness, low income, unemployed, alcoholism, drug addiction, transportation, low edu. Level, literacy, decrease access to med. care, [facility], rehab)? @ -No Was there de-escalation of care discussed even if they declined (Discuss DNR or withdrawal of care, Hospice)? DNR status @ -No What co-morbidities impacted this encounter? (DM, HTN, Smoking, COPD, CAD, Cancer, CVA, ARF, Chemo, Hep., AIDS, mental health diagnosis, sleep apnea, morbid obesity)? @ -Extensive abdominal history Was patient admitted / discharged? Hospital course, mention meds given and route, prescriptions, significant lab abnormalities, going to OR and other pertinent info. @ -47-year-old female with extensive abdominal surgical history presents to the ER for GI bleed. Patient reports symptoms of upper and lower GI bleed. Shows complains of company abdominal pain. Labs are unremarkable. Hemoglobin stable. Shabbir blood is positive. CT of the abdomen and pelvis shows no acute processes. Disposition options were discussed she is agreeable with admission. General surgeon be consulted. We do have GI coverage in the event that she would benefit from GI care. Undiagnosed new problem with uncertain prognosis? @ -No Drug Therapy requiring intensive monitoring for toxicity (Heparin, Nitro, Insulin, Cardizem)? @ -No Were any procedures done? @ -No Diagnosis/symptom? Acute, or Chronic, or Acute on Chronic? Uncomplicated (without systemic symptoms) or Complicated (systemic symptoms)? @ -1. Acute complicated GI bleed Side effects of treatment? @ -No Exacerbation, Progression, or Severe Exacerbation? @ -No Poses a threat to life or bodily function? How? (Chest pain, [place], [place], pneumonia, PE, COPD, DKA, ARF, appy, cholecystitis, CVA, Diverticulitis, Homicidal, Suicidal, threat to staff... and all critical care pts) @ -yes - Related Data Home Medications Medication Instructions Recorded Confirmed Calcium Citrate 1,000 mg PO DAILY 05/01/21 12/27/22 Ondansetron Odt [Zofran ODT] 4 mg PO Q6H PRN 09/02/22 12/29/22 Losartan-Hctz 50-12.5 mg [Hyzaar 1 tab PO DAILY 12/27/22 12/29/22 50-12.5] Melatonin 10 mg PO HS PRN 12/27/22 12/29/22 Unk Hair Skin & Nails 1 tab PO DAILY 12/27/22 12/29/22 Unk Sleep Aid W/Benadryl 1 tab PO HS PRN 12/27/22 12/29/22 Unk Zinc 1 tab PO DAILY 12/27/22 12/29/22 Previous Rx's Medication Instructions Recorded Simethicone [Gas-X] 125 mg PO AC-TID PRN #20 capsule 09/17/22 Sucralfate [Carafate] 1 gm PO ACHS #30 tab 09/17/22 Cyclobenzaprine [Flexeril] 10 mg PO TID #30 tab 01/02/23 Lactulose [Cephulac] 30 gm PO BID PRN #480 ml 01/02/23 Simethicone [Gas-X] 125 mg PO AC-TID PRN #20 capsule 01/02/23 Allergies Allergy/AdvReac Type Severity Reaction Status Date / Time No Known Allergies Allergy Verified 12/29/22 10:35 Review of Systems ROS Statement: Those systems with pertinent positive or pertinent negative responses have been documented in the HPI. ROS Other: All systems not noted in ROS Statement are negative. Past Medical History Past Medical History: GERD/Reflux, GI Bleed, Hypertension, Osteoarthritis (OA), Sleep Apnea/CPAP/BIPAP Additional Past Medical History / Comment(s): Uses CPAP. HR is fast; has leaky valve being monitored. History of kidney stones. August 2021 - GI Bleed. recent ER visit with abdominal pain -had colonoscopy -twisting bowel found 2 large polyps. Gastric bypass. 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 Lithotripsy. Laparoscopy x2 w/ exc pre-cancer lesions. colonoscopy Past Anesthesia/Blood Transfusion Reactions: Postoperative Nausea & Vomiting (PONV) Additional Past Anesthesia/Blood Transfusion Reaction / Comment(s): blood transfusion no issues Past Psychological History: Anxiety Smoking Status: Former smoker Past Alcohol Use History: Occasional Past Drug Use History: Marijuana - Past Family History Mother Family Medical History: Hypertension Brother(s) Family Medical History: Cancer Additional Family Medical History / Comment(s): oral CA-lower lip and gums General Exam Limitations: no limitations Course Vital Signs 02/24/23 22:45 Temperature 97.9 F Pulse Rate 100 Respiratory 18 Rate Blood Pressure 116/90 O2 Sat by Pulse 100 Oximetry Medical Decision Making - Lab Data Result diagrams: 02/24/23 22:55 02/24/23 22:55 Lab Results 02/24/23 02/24/23 02/24/23 Range/Units 22:55 22:55 22:55 WBC 5.9 (3.8-10.6) k/uL RBC 3.97 (3.80-5.40) m/uL Hgb 11.5 (11.4-16.0) gm/dL Hct 34.3 (34.0-46.0) % MCV 86.3 (80.0-100.0) fL MCH 29.0 (25.0-35.0) pg MCHC 33.6 (31.0-37.0) g/dL RDW 15.9 H (11.5-15.5) % Plt Count 221 (150-450) k/uL MPV 8.2 Neutrophils % 44 % Lymphocytes % 45 % Monocytes % 6 % Eosinophils % 1 % Basophils % 1 % Neutrophils # 2.6 (1.3-7.7) k/uL Lymphocytes # 2.7 (1.0-4.8) k/uL Monocytes # 0.3 (0-1.0) k/uL Eosinophils # 0.1 (0-0.7) k/uL Basophils # 0.0 (0-0.2) k/uL Sodium 140 (137-145) mmol/L Potassium 3.7 (3.5-5.1) mmol/L Chloride 102 (98-107) mmol/L Carbon Dioxide 25 (22-30) mmol/L Anion Gap 13 mmol/L BUN 14 (7-17) mg/dL Creatinine 0.56 (0.52-1.04) mg/dL Est GFR (CKD-EPI)AfAm >90 (>60 ml/min/1.73 sqM) Est GFR (CKD-EPI)NonAf >90 (>60 ml/min/1.73 sqM) Glucose 93 (74-99) mg/dL Calcium 8.8 (8.4-10.2) mg/dL Magnesium 1.8 (1.6-2.3) mg/dL Total Bilirubin 0.3 (0.2-1.3) mg/dL AST 31 (14-36) U/L ALT 26 (4-34) U/L Alkaline Phosphatase 95 (38-126) U/L Total Protein 7.0 (6.3-8.2) g/dL Albumin 4.2 (3.5-5.0) g/dL Stool Occult Blood (Negative) Blood Type O Positive Blood Type Recheck O Pos Bld Type Recheck Status No Antibody Screen NEGATIVE Spec Expiration Date 02/27/2023 - 235402/24/23 Range/Units 22:55 WBC (3.8-10.6) k/uL RBC (3.80-5.40) m/uL Hgb (11.4-16.0) gm/dL Hct (34.0-46.0) % MCV (80.0-100.0) fL MCH (25.0-35.0) pg MCHC (31.0-37.0) g/dL RDW (11.5-15.5) % Plt Count (150-450) k/uL MPV Neutrophils % % Lymphocytes % % Monocytes % % Eosinophils % % Basophils % % Neutrophils # (1.3-7.7) k/uL Lymphocytes # (1.0-4.8) k/uL Monocytes # (0-1.0) k/uL Eosinophils # (0-0.7) k/uL Basophils # (0-0.2) k/uL Sodium (137-145) mmol/L Potassium (3.5-5.1) mmol/L Chloride (98-107) mmol/L Carbon Dioxide (22-30) mmol/L Anion Gap mmol/L BUN (7-17) mg/dL Creatinine (0.52-1.04) mg/dL Est GFR (CKD-EPI)AfAm (>60 ml/min/1.73 sqM) Est GFR (CKD-EPI)NonAf (>60 ml/min/1.73 sqM) Glucose (74-99) mg/dL Calcium (8.4-10.2) mg/dL Magnesium (1.6-2.3) mg/dL Total Bilirubin (0.2-1.3) mg/dL AST (14-36) U/L ALT (4-34) U/L Alkaline Phosphatase (38-126) U/L Total Protein (6.3-8.2) g/dL Albumin (3.5-5.0) g/dL Stool Occult Blood Positive H (Negative) Blood Type Blood Type Recheck Bld Type Recheck Status Antibody Screen Spec Expiration Date Disposition Clinical Impression: GI bleed Disposition: ADMITTED IP TO THIS HOSP Condition: Fair Referrals: Anabella Denton MD [Primary Care Provider] - 1-2 days Decision Time: 02:00
[2023-02-24 23:44] LABS: Basophils % (A) 1 %; Eosinophils # (A) 0.1 k/uL (0-0.7); Eosinophils % (A) 1 %; HCT 34.3 % (34.0-46.0); HGB 11.5 gm/dL (11.4-16.0); Lymphocytes # (A) 2.7 k/uL (1.0-4.8); Lymphocytes % (A) 45 %; MCHC 33.6 g/dL (31.0-37.0); MCV 86.3 fL (80.0-100.0); Mean Platelet Volume 8.2; Monocytes # (A) 0.3 k/uL (0-1.0); Monocytes % (A) 6 %; Neutrophils # (A) 2.6 k/uL (1.3-7.7); Neutrophils % (A) 44 %; Platelet Count 221 k/uL (150-450); RBC 3.97 m/uL (3.80-5.40); RDW 15.9 % (11.5-15.5); WBC 5.9 k/uL (3.8-10.6)
[2023-02-25 00:03] LABS: ALT 26 U/L (4-34); AST 31 U/L (14-36); African American GFR (CKD) >90 (>60 ml/min/1.73 sqM); Albumin 4.2 g/dL (3.5-5.0); Alkaline Phosphatase 95 U/L (38-126); Anion Gap 13 mmol/L; Blood Urea Nitrogen 14 mg/dL (7-17); Calcium 8.8 mg/dL (8.4-10.2); Carbon Dioxide 25 mmol/L (22-30); Chloride 102 mmol/L (98-107); Glucose 93 mg/dL (74-99); Magnesium 1.8 mg/dL (1.6-2.3); Non-African American GFR(CKD) >90 (>60 ml/min/1.73 sqM); Potassium 3.7 mmol/L (3.5-5.1); Sodium 140 mmol/L (137-145); Total Bilirubin 0.3 mg/dL (0.2-1.3)
[2023-02-25] MEDS ORDERED: ONDANSETRON 4 MG/2 ML VIAL IVP STA (00:23)
--- NOTE | 2023-02-25 02:27 | CT ---
EXAM: CT Abdomen and Pelvis With Intravenous Contrast CLINICAL HISTORY: ITS.REASON CT Reason: abdominal pain TECHNIQUE: Axial computed tomography images of the abdomen and pelvis with intravenous contrast. CTDI is 24.5 mGy and DLP is 1210.7 mGy-cm. This CT exam was performed using one or more of the following dose reduction techniques: automated exposure control, adjustment of the mA and/or kV according to patient size, and/or use of iterative reconstruction technique. COMPARISON: CT Abdomen Pelvis dated 09/16/2022 FINDINGS: Lung bases: Unremarkable. No mass. No consolidation. ABDOMEN: Liver: Hepatic steatosis. Gallbladder and bile ducts: Absent gallbladder. No ductal dilation. Pancreas: Unremarkable. No mass. No ductal dilation. Spleen: Unremarkable. No splenomegaly. Adrenals: Unremarkable. No mass. Kidneys and ureters: Unremarkable. No solid mass. No hydronephrosis. Stomach and bowel: Gastric bypass surgery. Stable. No obstruction. No mucosal thickening. PELVIS: Appendix: Normal appendix. Bladder: Unremarkable. No mass. Reproductive: Unremarkable as visualized. ABDOMEN and PELVIS: Intraperitoneal space: Unremarkable. No free air. No significant fluid collection. Bones/joints: No acute fracture. No dislocation. Soft tissues: Unremarkable. Vasculature: Unremarkable. No abdominal aortic aneurysm. Lymph nodes: Unremarkable. No enlarged lymph nodes. IMPRESSION: No evidence of acute process in the abdomen and pelvis.
[2023-02-25] MEDS ORDERED: PANTOPRAZOLE 40 MG/10 ML VIAL IVP STA (02:29)
[2023-02-25] MEDS ORDERED: MORPHINE SULFATE 4 MG/ML SYRINGE IV STA (02:37)
[2023-02-25] MEDS ORDERED: MORPHINE SULFATE 4 MG/ML SYRINGE IV PRN (02:41)
[2023-02-25] MEDS ORDERED: NALOXONE 0.4 MG/ML 1 ML VIAL IV PRN (02:41)
[2023-02-25] MEDS: SODIUM CHLORIDE 0.9% 1,000 ML IV SCH ×3 (02:46→21:43)
--- NOTE | 2023-02-25 04:20 | P.HPIM ---
History of Present Illness H&P Date: 02/25/23 Chief Complaint: GI bleed 47 year old female with PUD, gastric bypass, history of GI bleed she is coming in today for GI bleeding of 1 days duration , she has been having epigastric and diffuse abd pain for the past 1-2 weeks, normally it comes and goes usually episodes lasting < 20 min. however, today , she was in pain for over 6 hours , and followed by multiple episodes of melena. denies any coffee ground vomiting or hematemesis she is not on blood thinners, she denies any NSAIDs. however she admits that she had some alcohol drinks today she had similar episodes in the past and was diagnosed with ulcer in the stomach and around the gastric bypass. denies dizziness, lightheadedness, syncope, chest pain or trouble breathing, denies palpitations Review of Systems Pertinent positives as noted in HPI. All other systems were reviewed and are negative Past Medical History Past Medical History: GERD/Reflux, GI Bleed, Hypertension, Osteoarthritis (OA), Sleep Apnea/CPAP/BIPAP Additional Past Medical History / Comment(s): Uses CPAP. HR is fast; has leaky valve being monitored. History of kidney stones. August 2021 - GI Bleed. recent ER visit with abdominal pain -had colonoscopy -twisting bowel found 2 large polyps. Gastric bypass. 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 Lithotripsy. Laparoscopy x2 w/ exc pre-cancer lesions. colonoscopy Past Anesthesia/Blood Transfusion Reactions: Postoperative Nausea & Vomiting (PONV) Additional Past Anesthesia/Blood Transfusion Reaction / Comment(s): blood transfusion no issues Past Psychological History: Anxiety Smoking Status: Former smoker Past Alcohol Use History: Occasional Past Drug Use History: Marijuana - Past Family History Mother Family Medical History: Hypertension Brother(s) Family Medical History: Cancer Additional Family Medical History / Comment(s): oral CA-lower lip and gums Medications and Allergies Home Medications Medication Instructions Recorded Confirmed Type Calcium Citrate 1,000 mg PO DAILY 05/01/21 12/27/22 History Ondansetron Odt [Zofran ODT] 4 mg PO Q6H PRN 09/02/22 12/29/22 History Simethicone [Gas-X] 125 mg PO AC-TID PRN #20 capsule 09/17/22 12/29/22 Rx Sucralfate [Carafate] 1 gm PO ACHS #30 tab 09/17/22 12/29/22 Rx Losartan-Hctz 50-12.5 mg [Hyzaar 1 tab PO DAILY 12/27/22 12/29/22 History 50-12.5] Melatonin 10 mg PO HS PRN 12/27/22 12/29/22 History Unk Hair Skin & Nails 1 tab PO DAILY 12/27/22 12/29/22 History Unk Sleep Aid W/Benadryl 1 tab PO HS PRN 12/27/22 12/29/22 History Unk Zinc 1 tab PO DAILY 12/27/22 12/29/22 History Cyclobenzaprine [Flexeril] 10 mg PO TID #30 tab 01/02/23 Rx Lactulose [Cephulac] 30 gm PO BID PRN #480 ml 01/02/23 Rx Simethicone [Gas-X] 125 mg PO AC-TID PRN #20 capsule 01/02/23 Rx Allergies Allergy/AdvReac Type Severity Reaction Status Date / Time No Known Allergies Allergy Verified 12/29/22 10:35 Physical Exam Vitals: Vital Signs Temp Pulse Pulse Resp BP BP Pulse Ox 02/25/23 03:59 98.1 F 97 15 111/73 100 02/24/23 22:45 97.9 F 100 18 116/90 100 Intake and Output 02/24/23 02/24/23 02/25/23 14:59 22:59 06:59 Other: Voiding Method Toilet Weight 80.739 kg Constitutional: No acute distress, conversant, pleasant Eyes: Anicteric sclerae, moist conjunctiva, Pupils equal round reactive to light ENMT: NC/AT Oropharynx clear, no erythema, or exudates Neck: Supple, no masses, or JVD No carotid bruits No thyromegaly Lungs: Clear to auscultation Clear to percussion Normal respiratory effort, no accessory muscle use Cardiovascular: Heart regular in rate and rhythm, No murmurs, gallops, or rubs No peripheral edema Abdominal: Soft tender to deep palpation over the epigastric region , voluntary guarding, no rebound or rigidity Abdomen moving with respiration Normoactive bowel sounds No hepatomegaly, No splenomegaly No palpable mass No abdominal wall hernia noted Skin: Normal temperature, tone, texture, turgor No induration No subcutaneous nodules No rash, lesions No ulcers Extremities: No digital cyanosis No clubbing Pedal pulses intact and symmetrical Radial pulses intact and symmetrical No calf tenderness Psychiatric: Alert and oriented to person, place and time Appropriate affect fair judgement Neuro Muscles Strength 5/5 in all 4 extremities Sensation to light touch grossly present throughout Cranial nerves II-XII grossly intact Lymphatics: no palpable cervical or supraclavicular lymph nodes Results CBC & Chem 7: 02/24/23 22:55 02/24/23 22:55 Labs: Abnormal Lab Results - Last 24 Hours (Table) 02/24/23 02/24/23 Range/Units 22:55 22:55 RDW 15.9 H (11.5-15.5) % Stool Occult Blood Positive H (Negative) Assessment and Plan Assessment: 47 year old female presented with melena , I discussed the case with ed doc, patient is in a lot of pain with frequent episodes of melena, I accepted the admission for general surgery evaluation due to history of gastric bypass with known PUD. anticipated length of stay < 2 midnights acute GI bleeding h/o PUD NPO PPI IVP BID protonix 40 mg general surgery consult IVF hydration with normal saline 130 cc per hour pain control with diluadid 0.5 mg q3hr ivp zofran prn for nausea and vom ting CT abd pelvis , no acute process hegn 11.5 slight drop platelet 221 , WBC 5.9 unremarkable renal function unremarkable with BUN14 cr 0.56, Na 140, K 3.7 full code DVT PPX mechanical due to GI bleeding
[2023-02-25] MEDS: HYDROmorphone 0.5 MG/0.5 ML SYRINGE IVP PRN ×5 (04:53→19:10)
[2023-02-25] MEDS: ONDANSETRON 4 MG/2 ML VIAL IVP PRN ×2 (07:41→19:54)
[2023-02-25] MEDS: PANTOPRAZOLE 40 MG/10 ML VIAL IVP SCH ×2 (07:41→21:40)
[2023-02-25] MEDS ORDERED: PROCHLORPERAZINE INJ 10 MG/2 ML VIAL IVP PRN (10:15)
[2023-02-25 11:20] LABS: HCT 30.4 % (37.2-46.3); HGB 9.6 g/dL (12.0-15.0); MCH 27.8 pg (27.0-32.0); MCHC 31.6 g/dL (32.0-37.0); MCV 88.1 fL (80.0-97.0); Mean Platelet Volume 10.8 fL (9.5-12.2); NRBC Per 100 WBC 0 /100 WBCS (0.0-0.0); Platelet Count 180 X 10*3/uL (140-440); RBC 3.45 X 10*6/uL (4.10-5.20); RDW 16.5 % (11.5-14.5)
--- NOTE | 2023-02-25 11:45 | P.GSCN ---
History of Present Illness Consult date: 02/25/23 Reason for Consult: GI bleeding History of present illness: 47-year-old female with history of multiple abdominal surgeries. Apparently patient sees Dr. Aquino. She had a previous gastric bypass. Recently one month ago the patient had a sigmoid colectomy. She says that she has had some pain recently between the breasts. Also in the epigastric region. Pain will radiate to the back at times. She was starting to notice more black colored stools at home and yesterday noticed some blood in her emesis. History of previous ulcers after bypass in the past. She takes Carafate but no antiacid therapy. Hemoglobin has dropped slightly. White blood cell count is normal. No tachycardia today. Review of Systems The patient denies any acute changes in vision or hearing, no dysphagia or odynophagia, no chest pain or shortness of breath, no dysuria or hematuria, no headache, no runny nose, no unexplained weight loss Past Medical History Past Medical History: GERD/Reflux, GI Bleed, Hypertension, Osteoarthritis (OA), Sleep Apnea/CPAP/BIPAP Additional Past Medical History / Comment(s): Uses CPAP. HR is fast; has leaky valve being monitored. History of kidney stones. August 2021 - GI Bleed. recent ER visit with abdominal pain -had colonoscopy -twisting bowel found 2 large polyps. Gastric bypass. History of Any Multi-Drug Resistant Organisms: MRSA Year Discovered:: 2012 MDRO Source:: left hand Past Surgical History: Bariatric Surgery, Cholecystectomy, Orthopedic Surgery Additional Past Surgical History / Comment(s): right heel surgery, Jewels-en-Y gastric bypass 01-05-2021, varicose vein leg artery cauterization. Lithotripsy. Laparoscopy x2 w/ exc pre-cancer lesions/cervical. colonoscopy with polyp re moval, colon resection about 9 inches. Past Anesthesia/Blood Transfusion Reactions: Postoperative Nausea & Vomiting (PONV) Additional Past Anesthesia/Blood Transfusion Reaction / Comm: blood transfusion no issues Past Psychological History: Anxiety Smoking Status: Former smoker Past Alcohol Use History: Occasional Additional Past Alcohol Use History / Comment(s): quit 2015, smoked for 20 yrs 1-1 1/2 ppd Past Drug Use History: Marijuana Additional Drug Use History / Comment(s): patient reports occasional gummies and thc oil under tongue to try to help her sleep.pt aware not to use 24 hrs before procedure. - Past Family History Mother Family Medical History: Hypertension Brother(s) Family Medical History: Cancer Additional Family Medical History / Comment(s): oral CA-lower lip and gums Medications and Allergies Home Medications Medication Instructions Recorded Confirmed Type Calcium Citrate 1,000 mg PO DAILY 05/01/21 02/25/23 History Simethicone [Gas-X] 125 mg PO AC-TID PRN #20 capsule 09/17/22 02/25/23 Rx Sucralfate [Carafate] 1 gm PO ACHS #30 tab 09/17/22 02/25/23 Rx Losartan-Hctz 50-12.5 mg [Hyzaar 1 tab PO DAILY 12/27/22 02/25/23 History 50-12.5] Unk Sleep Aid W/Benadryl 1 tab PO HS PRN 12/27/22 02/25/23 History Unk Zinc 1 tab PO DAILY 12/27/22 02/25/23 History Lactulose [Cephulac] 30 gm PO BID PRN #480 ml 01/02/23 02/25/23 Rx Calcium Citrate (Unknown Dose) 1 tab PO DAILY 02/25/23 02/25/23 History Magnesium (Unknown Dose) 1 tab PO DAILY 02/25/23 02/25/23 History Multivitamins, Thera [Multivitamin 1 tab PO DAILY 02/25/23 02/25/23 History (formulary)] Vitamin D (Unknown Dose) 1 tab PO DAILY 02/25/23 02/25/23 History bisacodyL [Dulcolax] 5 mg PO DAILY 02/25/23 02/25/23 History Allergies Allergy/AdvReac Type Severity Reaction Status Date / Time No Known Allergies Allergy Verified 02/25/23 07:28 Surgical - Exam Vital Signs Temp Pulse Resp BP Pulse Ox 97.9 F 100 18 116/90 100 02/24/23 22:45 02/24/23 22:45 02/24/23 22:45 02/24/23 22:45 02/24/23 22:45 Physical exam: General: Well-developed, well-nourished HEENT: Normocephalic, sclerae nonicteric Abdomen: Minimal epigastric tenderness, nondistended Extremities: No edema Neuro: Alert and oriented Results - Labs 02/25/23 05:18 02/24/23 22:55 Abnormal Lab Results - Last 24 Hours (Table) 02/24/23 02/24/23 02/25/23 Range/Units 22:55 22:55 05:18 RBC 3.45 L (4.10-5.20) X 10*6/uL Hgb 9.6 L (12.0-15.0) g/dL Hct 30.4 L (37.2-46.3) % MCHC 31.6 L (32.0-37.0) g/dL RDW 15.9 H 16.5 H (11.5-15.5) % Stool Occult Blood Positive H (Negative) Diabetes panel 02/24/23 Range/Units 22:55 Sodium 140 (137-145) mmol/L Potassium 3.7 (3.5-5.1) mmol/L Chloride 102 (98-107) mmol/L Carbon Dioxide 25 (22-30) mmol/L BUN 14 (7-17) mg/dL Creatinine 0.56 (0.52-1.04) mg/dL Glucose 93 (74-99) mg/dL Calcium 8.8 (8.4-10.2) mg/dL AST 31 (14-36) U/L ALT 26 (4-34) U/L Alkaline Phosphatase 95 (38-126) U/L Total Protein 7.0 (6.3-8.2) g/dL Albumin 4.2 (3.5-5.0) g/dL Calcium panel 02/24/23 Range/Units 22:55 Calcium 8.8 (8.4-10.2) mg/dL Albumin 4.2 (3.5-5.0) g/dL Pituitary panel 02/24/23 Range/Units 22:55 Sodium 140 (137-145) mmol/L Potassium 3.7 (3.5-5.1) mmol/L Chloride 102 (98-107) mmol/L Carbon Dioxide 25 (22-30) mmol/L BUN 14 (7-17) mg/dL Creatinine 0.56 (0.52-1.04) mg/dL Glucose 93 (74-99) mg/dL Calcium 8.8 (8.4-10.2) mg/dL Adrenal panel 02/24/23 Range/Units 22:55 Sodium 140 (137-145) mmol/L Potassium 3.7 (3.5-5.1) mmol/L Chloride 102 (98-107) mmol/L Carbon Dioxide 25 (22-30) mmol/L BUN 14 (7-17) mg/dL Creatinine 0.56 (0.52-1.04) mg/dL Glucose 93 (74-99) mg/dL Calcium 8.8 (8.4-10.2) mg/dL Total Bilirubin 0.3 (0.2-1.3) mg/dL AST 31 (14-36) U/L ALT 26 (4-34) U/L Alkaline Phosphatase 95 (38-126) U/L Total Protein 7.0 (6.3-8.2) g/dL Albumin 4.2 (3.5-5.0) g/dL Assessment and Plan (1) Gastrointestinal bleeding Narrative/Plan: 47-year-old female with GI bleeding. We'll proceed with upper endoscopy at this time. Suspect recurrent ulcer disease. Current Visit: Yes Status: Acute Code(s): K92.2 - GASTROINTESTINAL HEMORRHAGE, UNSPECIFIED SNOMED Code(s): 81461438
[2023-02-25] MEDS ORDERED: PROPOFOL 10 MG/ML 20 ML VIAL IV ONE (13:40)
[2023-02-25] MEDS ORDERED: LIDOCAINE 2% INJ 20 MG/ML (2 ML VIAL) ONE (13:40)
[2023-02-25] MEDS ORDERED: IV FLUID CONTINUATION 1,000 ML IV ONE (13:45)
[2023-02-25] MEDS ORDERED: LACTATED RINGERS 1,000 ML IV ONE (13:52)
--- NOTE | 2023-02-25 13:59 | P.PCN ---
Date of Procedure: 02/25/23 Procedure(s) Performed: Preoperative Dx: Upper GI bleed Postoperative Dx: Gastritis with erosions Procedure: EGD Anesthesia: Sedation Endoscopist: Dr. Williamson Specimens: None Endoscopic Procedure: The patient was on the endoscopy table in the left decubitus position. The Olympus gastroscope was inserted into the oropharynx and passed under direct visualization to the jejunum. The jejunum itself appeared normal. At the gastrojejunostomy there was mild circumferential inflammatory changes without significant stricture formation. Proximal to the anastomotic site there was gastritis with superficial erosions. There was a visible staple present as well as what appeared to possibly represent a silk stitch. No significant bleeding was seen other than mild irritation at the anastomotic site from passage of our scope. Esophagus was examined and appeared normal. The patient was then taken to the recovery room in stable condition per anesthesia guidelines. Recommendations: Begin full liquid diet. Add Carafate. Continue with IV Protonix.
[2023-02-25] MEDS: SUCRALFATE 1 GM TAB PO SCH (17:13)
[2023-02-25 20:16] LABS: HCT 30.6 % (37.2-46.3); HGB 9.6 g/dL (12.0-15.0); MCH 28.2 pg (27.0-32.0); MCHC 31.4 g/dL (32.0-37.0); Mean Platelet Volume 10.6 fL (9.5-12.2); NRBC Per 100 WBC 0 /100 WBCS (0.0-0.0); Platelet Count 154 X 10*3/uL (140-440); RDW 16.6 % (11.5-14.5); WBC 2.91 X 10*3/uL (4.50-10.00)
[2023-02-26] MEDS: HYDROmorphone 0.5 MG/0.5 ML SYRINGE IVP PRN (01:21)
[2023-02-26 03:54] LABS: HCT 29.7 % (37.2-46.3); HGB 9.2 g/dL (12.0-15.0); MCH 27.6 pg (27.0-32.0); MCV 89.2 fL (80.0-97.0); Mean Platelet Volume 11.1 fL (9.5-12.2); NRBC Per 100 WBC 0 /100 WBCS (0.0-0.0); Platelet Count 150 X 10*3/uL (140-440); RBC 3.33 X 10*6/uL (4.10-5.20); RDW 16.3 % (11.5-14.5); WBC 3.08 X 10*3/uL (4.50-10.00)
[2023-02-26] MEDS: SUCRALFATE 1 GM TAB PO SCH (06:31)
[2023-02-26] MEDS: SODIUM CHLORIDE 0.9% 1,000 ML IV SCH ×2 (06:32→08:17)
[2023-02-26 07:47] VITALS: BP 159/97; PULSE 64; RESP 18; TEMP 98
[2023-02-26] MEDS: PANTOPRAZOLE 40 MG/10 ML VIAL IVP SCH (08:16)
--- NOTE | 2023-02-26 09:48 | P.PN ---
Subjective Progress Note Date: 02/26/23 Principal diagnosis: GI bleed Patient doing well today. Tolerating diet. No nausea or vomiting. No pain. Hemoglobin today 9.2. No melanotic stools. Would like to go home. Objective - Vital Signs Vital signs: Vital Signs Temp 98.0 F 02/26/23 06:57 Pulse 64 02/26/23 06:57 Resp 18 02/26/23 09:19 BP 159/97 02/26/23 06:57 Pulse Ox 100 02/26/23 06:57 FiO2 Intake & Output 02/25/23 02/26/23 02/26/23 18:59 06:59 18:59 Intake Total 200 Balance 200 Intake: IV 200 Other: Voiding Method Toilet # Voids 2 2 # Bowel Movements 0 - Exam Abdomen: Soft, nontender, nondistended - Labs CBC & Chem 7: 02/25/23 18:23 02/24/23 22:55 Labs: Abnormal Lab Results - Last 24 Hours (Table) 02/25/23 02/25/23 02/25/23 Range/Units 05:18 11:46 18:23 WBC 2.91 L 3.08 L (4.50-10.00) X 10*3/uL RBC 3.45 L 3.40 L 3.33 L (4.10-5.20) X 10*6/uL Hgb 9.6 L 9.6 L 9.2 L (12.0-15.0) g/dL Hct 30.4 L 30.6 L 29.7 L (37.2-46.3) % MCHC 31.6 L 31.4 L 31.0 L (32.0-37.0) g/dL RDW 16.5 H 16.6 H 16.3 H (11.5-14.5) % Assessment and Plan (1) Gastrointestinal bleeding Narrative/Plan: Patient with upper GI bleed thought to be related to gastric erosions. Continue antiacid therapy. March discharge. Follow-up with Dr. Aquino as outpatient. Current Visit: Yes Status: Acute Code(s): K92.2 - GASTROINTESTINAL HEMORRHAGE, UNSPECIFIED SNOMED Code(s): 63092311
[2023-02-26 10:44] LABS: HCT 33.1 % (34.0-46.0); MCH 29.7 pg (25.0-35.0); MCHC 33.4 g/dL (31.0-37.0); MCV 89.2 fL (80.0-100.0); Mean Platelet Volume 8.6; Platelet Count 161 k/uL (150-450); RBC 3.71 m/uL (3.80-5.40); RDW 15.6 % (11.5-15.5); WBC 3.2 k/uL (3.8-10.6)
--- NOTE | 2023-02-26 13:47 | P.DS ---
Providers Date of admission: 02/25/23 02:42 Expected date of discharge: 02/26/23 Attending physician: Sean Valladares MD Consults: 02/25/23 02:38 Consult Physician Routine Consulting Provider: Heath Williamson Consult Reason/Comments: Gi bleed, abdominal pain, hx of surgery Do you want consulting provider notified?: Yes Primary care physician: Anabella Denton Hospital Course: Discharge Diagnosis: Gastritis with erosions Acute GI bleed secondary to above Acute blood loss anemia GERD Hypertension Sleep apnea Hospital Course: Patient is a 47-year-old female with history of peptic ulcer disease, gastric bypass, and recent colon resection who presented to the hospital with complaints of GI bleeding and diffuse epigastric pain. She underwent an extensive evaluation and was subsequently admitted for possible acute GI bleed. She did have a 2 g drop in hemoglobin from 11.5-9.6 on 02/25/23. She was seen by surgery and underwent an EGD which demonstrated gastritis with erosions. She was started on IV PPI. Her diet was advanced and she did well. Her hemoglobin remained stable and increased to 11 by the time of discharge. She was determined stable to transition to the outpatient setting. Follow-up: Dr. Aquino as previously scheduled, her primary care physician in one to 2 weeks, repeat CBC in 2 weeks was suggested and she'll follow with her primary for this, patient will start omeprazole 40 mg once daily. For the next 3 days she will increase her Carafate 4 times daily prior to meals. Patient seen and examined at bedside. Belly pain is better, no nausea, eating and drinking well. Vital signs reviewed and stable. General: nontoxic, no distress, appears at stated age Derm: warm, dry Head: atraumatic, normocephalic, symmetric Eyes: EOMI, no lid lag, anicteric sclera Mouth: no lip lesion, mucus membranes moist Cardiovascular: S1S2 reg, no murmur, positive posterior tibial pulse bilateral, Lungs: CTA bilateral, no rhonchi, no rales , no accessory muscle use Abdominal: soft, + tender to palpation epigastric, no guarding, no appreciable organomegaly Ext: no gross muscle atrophy, no edema, no contractures Neuro: CN II-XI grossly intact, no focal neuro deficits Psych: Alert, oriented, appropriate affect A total of 25 minutes of time were spent preparing this complex discharge summary. Patient was discharged on 02/26/23. This dictation was prepared using [employer] voice recognition software. Though every attempt is made to correct errors during during dictation some may still exist. Patient Condition at Discharge: Stable Plan - Discharge Summary Discharge Rx Participant: No New Discharge Prescriptions: New Omeprazole [PriLOSEC] 40 mg PO AC-BRKFST #90 cap Continue Sucralfate [Carafate] 1 gm PO ACHS #30 tab Simethicone [Gas-X] 125 mg PO AC-TID PRN #20 capsule PRN Reason: Pain Losartan-Hctz 50-12.5 mg [Hyzaar 50-12.5] 1 tab PO DAILY Unk Zinc 1 tab PO DAILY Unk Sleep Aid W/Benadryl 1 tab PO HS PRN PRN Reason: Insomnia Multivitamins, Thera [Multivitamin (formulary)] 1 tab PO DAILY Vitamin D (Unknown Dose) 1 tab PO DAILY Calcium Citrate (Unknown Dose) 1 tab PO DAILY Calcium Citrate 1,000 mg PO DAILY Lactulose [Cephulac] 30 gm PO BID PRN #480 ml PRN Reason: Constipation Magnesium (Unknown Dose) 1 tab PO DAILY bisacodyL [Dulcolax] 5 mg PO DAILY Discharge Medication List Calcium Citrate 1,000 mg PO DAILY 05/01/21 [History] Simethicone [Gas-X] 125 mg PO AC-TID PRN #20 capsule 09/17/22 [Rx] Sucralfate [Carafate] 1 gm PO ACHS #30 tab 09/17/22 [Rx] Losartan-Hctz 50-12.5 mg [Hyzaar 50-12.5] 1 tab PO DAILY 12/27/22 [History] Unk Sleep Aid W/Benadryl 1 tab PO HS PRN 12/27/22 [History] Unk Zinc 1 tab PO DAILY 12/27/22 [History] Lactulose [Cephulac] 30 gm PO BID PRN #480 ml 01/02/23 [Rx] Calcium Citrate (Unknown Dose) 1 tab PO DAILY 02/25/23 [History] Magnesium (Unknown Dose) 1 tab PO DAILY 02/25/23 [History] Multivitamins, Thera [Multivitamin (formulary)] 1 tab PO DAILY 02/25/23 [History] Vitamin D (Unknown Dose) 1 tab PO DAILY 02/25/23 [History] bisacodyL [Dulcolax] 5 mg PO DAILY 02/25/23 [History] Omeprazole [PriLOSEC] 40 mg PO AC-BRKFST #90 cap 02/26/23 [Rx] Follow up Appointment(s)/Referral(s): Anabella Denton MD [Primary Care Provider] - 1-2 days (office closed at discharge. Please call for appointment.) Patient Instructions/Handouts: Gastrointestinal Bleeding (DC) Activity/Diet/Wound Care/Special Instructions: Activity: as tolerated Diet: Low acid Special Instructions: Increase your carafate to 4 times daily for the next 3 days Take Omeprazole Follow-up with your primary care provider next week and consider CBC in 2 weeks to ensure resolution of anemia Please keep your next appointment with Dr. Denton. Discharge Disposition: HOME SELF-CARE
== END 2023-02-26 12:08 | disposition home or self-care (01) ==
LOC: EC 22:27 → 4SSUR 02-25 02:42
PROVIDERS: ADMIT Internal Medicine; ATTEND Internal Medicine
DX: K29.61 Other gastritis with bleeding (principal); D62 Acute posthemorrhagic anemia; K21.9 Gastro-esophageal reflux disease without esophagitis; I10 Essential (primary) hypertension; G47.30 Sleep apnea, unspecified; Z98.84 Bariatric surgery status; Z90.49 Acquired absence of other specified parts of digestive tract; M19.90 Unspecified osteoarthritis, unspecified site; Z87.442 Personal history of urinary calculi; Z86.14 Personal history of Methicillin resistant Staphylococcus aureus infection; Z98.890 Other specified postprocedural states; F41.9 Anxiety disorder, unspecified; Z87.891 Personal history of nicotine dependence; Z82.49 Family history of ischemic heart disease and other diseases of the circulatory system; Z80.8 Family history of malignant neoplasm of other organs or systems; Z79.899 Other long term (current) drug therapy
CPT/HCPCS: 96375 ×2; 96361; 96374; 99285; 36415; 86900; 86901; 80053; 83735; 85025; 85027 ×2; 86850; 82272; 74177; 43235; G0378 ×2; J2270; J0780; J2405; J2704; C9113 ×2; J1170 ×2; Q9967; J2001

== ENCOUNTER → 2023-11-16 | Outpatient (CLI) | payer OTHER ==
[2023-11-16 13:05] VITALS: PULSE 81; RESP 16; TEMP 98.3; BMI 30.1
[2023-11-16 13:54] VITALS: BP 139/99
--- NOTE | 2023-11-16 14:09 | P.BASOAP ---
Subjective Progress Note Date: 11/16/23 DATE OF SERVICE: 11/16/23 CHIEF COMPLAINT: Status post gastric bypass HISTORY OF PRESENT ILLNESS: Kathleen Velez is a 48-year-old female who is status post gastric bypass, 01/05/21. She is over 2 years out. She comes in with new concerns of abdominal pain for over 1 month. She only has pain on the sides and flank. She reports recurrent gastroesophageal reflux disease. Denies GI bleed or constipation or colon issues. She feels better after her colectomy 9 months ago. She has personal history of gastric ulcers. She presents due to abdominal pain. At height of 5 feet 5 inches, her ideal body weight is 149 pounds. Her highest weight was 374 pounds, BMI 62.4. She comes in 181 pounds from 181 pounds, 1 year ago. No weight loss in 1 year. Her body mass index is 30.1. Lifetime weight loss is 193 pounds. Her lifetime weight loss is 86 %. She is 32 pounds overweight. PAST MEDICAL HISTORY: 1. Morbid obesity due to excess calories 2. Body mass index of 62.4, initial 3. Hypertensive heart disease. 4. Gastroesophageal reflux disease 5. Obstructive sleep apnea 6. Hiatal hernia 7. Iron deficiency anemia 8. Kidney stones 9. Hypoglycemia 10. Gastrointestinal bleed 11. History of MRSA 12. Generalized anxiety disorder PAST SURGICAL HISTORY: 1. Right heel surgery 2. Upper endoscopy 3. Status post gastric bypass 4. Sigmoid colectomy for volvulus 5. Cholecystectomy 6. Lithotripsy 7. Laparoscopic lysis of adhesions 8. Colonoscopy with polypectomy HOME MEDICATIONS: Home Medications Medication Instructions Recorded Confirmed Calcium Citrate 1,000 mg PO DAILY 05/01/21 11/16/23 Losartan-Hctz 50-12.5 mg [Hyzaar 1 tab PO DAILY 12/27/22 11/16/23 50-12.5] Unk Sleep Aid W/Benadryl 1 tab PO HS PRN 12/27/22 11/16/23 Unk Zinc 1 tab PO DAILY 12/27/22 11/16/23 Magnesium (Unknown Dose) 1 tab PO DAILY 02/25/23 11/16/23 Multivitamins, Thera [Multivitamin 1 tab PO DAILY 02/25/23 11/16/23 (formulary)] Vitamin D (Unknown Dose) 1 tab PO DAILY 02/25/23 11/16/23 bisacodyL [Dulcolax] 5 mg PO DAILY 02/25/23 11/16/23 Previous Rx's Medication Instructions Recorded Sucralfate [Carafate] 1 gm PO ACHS #30 tab 09/17/22 Omeprazole [PriLOSEC] 40 mg PO AC-BRKFST #90 cap 02/26/23 Omeprazole [PriLOSEC] 40 mg PO DAILY #90 cap 11/16/23 ALLERGIES: Allergies Allergy/AdvReac Type Severity Reaction Status Date / Time No Known Allergies Allergy Verified 02/25/23 07:28 SOCIAL HISTORY: Past tobacco use. FAMILY HISTORY: No family history of ulcerative colitis disease or Crohn's disease. Family history of morbid obesity. No lupus in the family. No reports of stomach or esophageal cancer. REVIEW OF ORGAN SYSTEMS: CONSTITUTIONAL: At height of 5 feet 5 inches, her ideal body weight is 149 pounds. Her highest weight was 374 pounds, BMI 62.4. HEENT: Denies any active troubles with vision or hearing. ENDOCRINE: Denies diabetes. No hypothyroidism. CARDIOVASCULAR: New palpitations. No heart attacks or chest pain. Has hypertensive heart disease. RESPIRATORY: Has daytime somnolence. Denies asthma. GASTROINTESTINAL: Denies any bright red blood per rectum. No diarrhea. Has gastroesophageal reflux disease. MUSCULOSKELETAL: Has lower back pain and joint pain. Has osteoarthritis of the knees. NEURO: No headaches. No seizure disorders. PSYCH: Denies depression. No suicidal ideation. RHEUMATOLOGIC: No lupus. No rheumatoid arthritis. HEMATOLOGIC: Denies any abnormal bleeding or bruising. No personal history of DVTs. SKIN: No rash. No skin cancer. PHYSICAL EXAM: VITAL SIGNS: Height 5 foot 5 inches, weight 181 pounds. BMI 30.1 Vital Signs Temp 98.3 F 11/16/23 13:00 Pulse 81 11/16/23 13:00 Resp 16 11/16/23 13:00 BP 139/99 11/16/23 13:00 Pulse Ox FiO2 GENERAL: Well-developed in no acute distress. HEENT: No scleral icterus. Extraocular movements grossly intact. Hears conversational speech. No nasal drainage. NECK: Supple without lymphadenopathy. CHEST: Nonlabored respirations with equal bilateral excursions. CARDIOVASCULAR: Regular, rate and rhythm. 2+ radial pulses. ABDOMEN: Non-distended. No hernia. MUSCULOSKELETAL: No clubbing, cyanosis. NEURO: No focal or lateralizing signs. Cranial nerves 2 through 12 grossly within normal limits. PSYCH: Appropriate affect. Alert and oriented to person, place and time. SKIN: Good skin turgor. Well perfused. ASSESSMENT: 1. Morbid obesity due to excess calories 2. Body mass index of 62.4 to 30.1 3. Hypertensive heart disease. 4. Gastroesophageal reflux disease 5. Persistent tachycardia 6. Hiatal hernia 7. Chronic gastritis 8. Status post gastric bypass 9. Iron deficiency anemia 10. Dysphagia. 11. Kidney stones, right 12. Low hemoglobin A1c 13. Hypoglycemia 14. Chronic cholecystitis 15. Gastrojejunal ulcer with stricture. 16. Colectomy for volvulus PLAN: 1. Medical reconciliation performed. Omeprazole prescription form sent to her local pharmacy. 2. EGD advised for ulcer for which she is elevated risk for perforation with dilation. 3. Recommend bariatric labs Objective - Vital Signs Vital signs: Vital Signs Temp 98.3 F 11/16/23 13:00 Pulse 81 11/16/23 13:00 Resp 16 11/16/23 13:00 BP 139/99 11/16/23 13:00 Pulse Ox FiO2 Intake & Output 11/15/23 11/16/23 11/16/23 18:59 06:59 18:59 Weight 82.1 kg Assessment/Plan Plan: Date: 11/16/23 Initial Weight: 114.872 kg Initial BMI: 42.1 Current Weight: 82.1 kg Current BMI: 30.1 Type of Surgery: Jewels-en-Y Gastric Bypass Total Volume in Band: Previous Volume: Volume Removed: Volume Added: Band Size:
== END ==
LOC: BARWHC3 12:52
PROVIDERS: ATTEND Surgery Plastic and Reconstructive Surgery
DX: E66.01 Morbid (severe) obesity due to excess calories (principal); I11.0 Hypertensive heart disease with heart failure; K21.9 Gastro-esophageal reflux disease without esophagitis; R00.0 Tachycardia, unspecified; K44.9 Diaphragmatic hernia without obstruction or gangrene; K29.70 Gastritis, unspecified, without bleeding; R13.10 Dysphagia, unspecified; N20.0 Calculus of kidney; E16.2 Hypoglycemia, unspecified; K81.9 Cholecystitis, unspecified; K31.89 Other diseases of stomach and duodenum; F12.90 Cannabis use, unspecified, uncomplicated; Z90.49 Acquired absence of other specified parts of digestive tract; Z98.890 Other specified postprocedural states; Z98.84 Bariatric surgery status; Z68.30 Body mass index [BMI] 30.0-30.9, adult; Z87.891 Personal history of nicotine dependence
CPT/HCPCS: 99211

== ENCOUNTER → 2023-12-29 | Outpatient (CLI) | payer OTHER ==
[2023-12-29 13:46] LABS: INR 0.9 (<1.2); Partial Thromboplastin Time 23.6 sec (22.0-30.0); Prothrombin Time 10.1 sec (10.0-12.5)
[2023-12-29 16:38] LABS: HCT 35.2 % (37.2-46.3); HGB 10.8 g/dL (12.0-15.0); MCH 27.3 pg (27.0-32.0); MCHC 30.7 g/dL (32.0-37.0); MCV 88.9 FL (80.0-97.0); Mean Platelet Volume 10.6 FL (9.5-12.2); NRBC Per 100 WBC 0 X 10*3/uL (0.00-0.01); Platelet Count 264 X 10*3/uL (140-440); RBC 3.96 X 10*6/uL (4.10-5.20); RDW 13.4 % (11.5-14.5); WBC 4.21 X 10*3/uL (4.50-10.00)
[2023-12-29 17:52] LABS: % Iron Saturation 5.39 (12.00-45.00); ALT 54 U/L (8-44); AST 101 U/L (13-35); Albumin 4.3 g/dL (3.8-4.9); Albumin/Globulin Ratio 1.54 Ratio (1.60-3.17); Alkaline Phosphatase 131 U/L (41-126); BUN/Creat Ratio 17.71 Ratio (12.00-20.00); Blood Urea Nitrogen 12.4 mg/dL (9.0-27.0); Calcium 9.7 mg/dL (8.7-10.3); Carbon Dioxide 25.2 mmol/L (21.6-31.8); Chloride 101 mmol/L (96-109); Chol/HDL Ratio 1.82 Ratio; Ferritin 22.1 ng/mL (10.0-291.0); Globulin 2.8 g/dL (1.6-3.3); Glucose 84 mg/dL (70-110); Iron 26 UG/DL (50-170); LDL Cholesterol,Calculated 71.7 mg/dL (0.0-131.0); Magnesium 1.6 mg/dL (1.5-2.4); Phosphorus 3.6 mg/dL (2.4-5.1); Potassium 4.2 mmol/L (3.5-5.5); Sodium 141 mmol/L (135-145); Total Bilirubin 0.3 mg/dL (0.3-1.2); Total Iron Binding Capacity 482 UG/DL (228-460); Total Protein 7.1 g/dL (6.2-8.2); VLDL Calculation 12.26 mg/dL (5.00-40.00)
[2023-12-29 18:20] LABS: Prealbumin 23.2 mg/dL (18.0-42.0)
[2023-12-30 12:46] LABS: Zinc, Serum 57 ug/dL (60-130)
== END | disposition home or self-care (01) ==
LOC: LABWHC1 11:56
PROVIDERS: ATTEND Surgery Plastic and Reconstructive Surgery
DX: E89.1 Postprocedural hypoinsulinemia (principal); E66.01 Morbid (severe) obesity due to excess calories; D50.8 Other iron deficiency anemias; K91.2 Postsurgical malabsorption, not elsewhere classified; E44.0 Moderate protein-calorie malnutrition; E44.1 Mild protein-calorie malnutrition; E45 Retarded development following protein-calorie malnutrition; E55.9 Vitamin D deficiency, unspecified; K74.1 Hepatic sclerosis; N19 Unspecified kidney failure; T56.894A Toxic effect of other metals, undetermined, initial encounter; K50.90 Crohn's disease, unspecified, without complications
CPT/HCPCS: 36415; 80053; 80061; 82306; 82525; 82607; 82728; 82746; 83036; 83540; 83550; 83735; 83970; 84100; 84134; 84255; 84425; 84443; 84590; 84630; 85027; 85610; 85730

== ENCOUNTER 2024-01-02 06:48 | Day surgery (SDC) | payer OTHER ==
[2023-12-29 11:00] VITALS: BMI 29.1
[~2024-01-02 06:48] MED LIST changes: -DEXAMETHASONE SOD PHOSPHATE 4 MG/ML 1 ML VIAL IV ONE; -HYDROmorphone 0.5 MG/0.5 ML SYRINGE IVP PRN; -LACTATED RINGERS 1,000 ML IV SCH; +LIDOCAINE 1% (10MG/ML) FOR IV START INTRADERMA PRN; -MIDAZOLAM 2 MG/2 ML VIAL IV PRN; -ONDANSETRON 4 MG/2 ML VIAL IVP ONE; -SCOPOLAMINE 1.5MG/72HR PATCH TRANSDERM ONE
[2024-01-02] MEDS: LACTATED RINGERS 1,000 ML IV SCH (07:03)
--- NOTE | 2024-01-02 07:04 | P.GSHP ---
History of Present Illness H&P Date: 01/02/24 CHIEF COMPLAINT: GERD HISTORY OF PRESENT ILLNESS: The patient is a 48-year-old female who presents reports gastroesophageal reflux disease. Upper endoscopy was offered for further evaluation and management. PAST MEDICAL HISTORY: Please see list. PAST SURGICAL HISTORY: Please see list. MEDICATIONS: Please see list. ALLERGIES: Please see list. SOCIAL HISTORY: No illicit drug use FAMILY HISTORY: No reports of Crohn disease or ulcerative colitis. REVIEW OF ORGAN SYSTEMS: CONSTITUTIONAL: No reports of fevers or chills. GI: Denies any blood in stools or constipation. PHYSICAL EXAM: VITAL SIGNS: Stable GENERAL: Well-developed and pleasant in no acute distress. HEENT: No scleral icterus. Extraocular movements grossly intact. Moist buccal mucosa. NECK: Supple without lymphadenopathy. CHEST: Unlabored respirations. Equal bilateral excursions. CARDIOVASCULAR: Regular rate and rhythm. Distal 2+ pulses. ABDOMEN: Soft, nondistended. MUSCULOSKELETAL: No clubbing, cyanosis, or edema. ASSESSMENT: 1. Gastroesophageal reflux disease PLAN: 1. Recommend proceeding with an upper endoscopy Past Medical History Past Medical History: GERD/Reflux, GI Bleed, Hypertension, Osteoarthritis (OA), Sleep Apnea/CPAP/BIPAP Additional Past Medical History / Comment(s): Uses CPAP. HR is fast; has leaky valve being monitored. History of kidney stones. August 2021 - GI Bleed. recent ER visit with abdominal pain -had colonoscopy -twisting bowel found 2 large polyps. Gastric bypass. History of Any Multi-Drug Resistant Organisms: MRSA Date of last positivie culture/infection: 2012 MDRO Source:: left hand Past Surgical History: Bariatric Surgery, Bowel Resection, Cholecystectomy, Orthopedic Surgery Additional Past Surgical History / Comment(s): right heel surgery, Jewels-en-Y gastric bypass 01-05-2021, varicose vein leg artery cauterization. Lithotripsy. Laparoscopy x2 w/ exc pre-cancer lesions/cervical. colonoscopy with polyp removal, colon resection about 9 inches 12/29/22 Past Anesthesia/Blood Transfusion Reactions: Postoperative Nausea & Vomiting (PO NV) Additional Past Anesthesia/Blood Transfusion Reaction / Comment(s): blood transfusion no issues Smoking Status: Former smoker - Past Family History Mother Family Medical History: Hypertension Brother(s) Family Medical History: Cancer Additional Family Medical History / Comment(s): oral CA-lower lip and gums Medications and Allergies Home Medications Medication Instructions Recorded Confirmed Type Calcium Citrate 1,000 mg PO DAILY 05/01/21 12/29/23 History Losartan-Hctz 50-12.5 mg [Hyzaar 1 tab PO DAILY 12/27/22 12/29/23 History 50-12.5] Unk Sleep Aid W/Benadryl 1 tab PO HS PRN 12/27/22 12/29/23 History Multivitamins, Thera [Multivitamin 1 tab PO DAILY 02/25/23 12/29/23 History (formulary)] bisacodyL [Dulcolax] 5 mg PO DAILY PRN 02/25/23 12/29/23 History Omeprazole [PriLOSEC] 40 mg PO DAILY #90 cap 11/16/23 12/29/23 Rx Cholecalciferol [Vitamin D3 (25 25 mcg PO DAILY 12/29/23 12/29/23 History Mcg = 1000 Iu)] Magnesium Oxide [Magnesium] 500 mg PO DAILY 12/29/23 12/29/23 History Sucralfate [Carafate] 1 gm PO BID 12/29/23 12/29/23 History Allergies Allergy/AdvReac Type Severity Reaction Status Date / Time No Known Allergies Allergy Verified 12/29/23 10:17
[2024-01-02 07:33] VITALS: TEMP 98
[2024-01-02] MEDS ORDERED: PROPOFOL 10 MG/ML 20 ML VIAL IV ONE (07:48)
[2024-01-02] MEDS ORDERED: LIDOCAINE 1% INJ 10MG/ML (20 ML MDV) ONE (07:48)
--- NOTE | 2024-01-02 08:23 | P.PCN ---
Date of Procedure: 01/02/24 Description of Procedure: PREOPERATIVE DIAGNOSIS: Dysphagia. Nausea with vomiting. History of gastrojejunal stricture POSTOPERATIVE DIAGNOSIS: Dysphagia. Gastrojejunal stricture with chronic ulcer without perforation OPERATION: Esophagogastrojejunoscopy with balloon dilatation from 15 to 20 mm for gastric stricture Esophagogastrojejunoscopy with biopsies esophagus, stomach, jejunum SURGEON: Anabella Denton MD ANESTHESIA: MAC. INDICATIONS: The patient is a 48-year-old female who presents with a history of dysphagia, including nausea and vomiting. Benefits and risks of the procedure were described. Informed consent was obtained. DESCRIPTION: The patient was brought into the endoscopy suite and laid in the left lateral decubitus position. After a timeout was confirmed, the procedure was initiated. An Olympus gastroscope was passed along the posterior oropharynx down to the distal esophagus where the squamocolumnar junction was unremarkable. The gastric pouch was entered. A gastrojejunal stricture of 15 mm was found as the adult gastroscope was 9.5 mm in size. A [employer] balloon dilator was placed through the scope. The scope was reentered for balloon dilation of the gastrojejunal anastomosis. Final insufflation from 15 to 20 mm was performed with a total of 2 minutes. The scope was advanced up to 60 cm from the incisors into the Jewels limb. The mucosa of the gastrojejunal anastomosis was intact. Chronic gastrojejunal marginal ulcer was encountered. Biopsies were obtained of the jejunum, gastric pouch, esophagus with cold forceps. No full-thickness injury was encountered. The GI tract was desufflated. The patient tolerated the procedure well. FINDINGS: Squamocolumnar junction unremarkable at 37 cm. Stricture of approximately 15 mm encountered. Please obtain of esophagus, jejunum, gastric Chronic gastrojejunal ulceration, 1-mm encountered. Successful balloon dilatation to 20 mm. RECOMMENDATIONS: Upper endoscopy as needed. Plan - Discharge Summary Discharge Rx Participant: No New Discharge Prescriptions: Continue Losartan-Hctz 50-12.5 mg [Hyzaar 50-12.5] 1 tab PO DAILY Unk Sleep Aid W/Benadryl 1 tab PO HS PRN PRN Reason: Insomnia Multivitamins, Thera [Multivitamin (formulary)] 1 tab PO DAILY Omeprazole [PriLOSEC] 40 mg PO DAILY #90 cap Cholecalciferol [Vitamin D3 (25 Mcg = 1000 Iu)] 25 mcg PO DAILY Calcium Citrate 1,000 mg PO DAILY bisacodyL [Dulcolax] 5 mg PO DAILY PRN PRN Reason: Constipation Magnesium Oxide [Magnesium] 500 mg PO DAILY Sucralfate [Carafate] 1 gm PO BID Discharge Medication List Calcium Citrate 1,000 mg PO DAILY 05/01/21 [History] Losartan-Hctz 50-12.5 mg [Hyzaar 50-12.5] 1 tab PO DAILY 12/27/22 [History] Unk Sleep Aid W/Benadryl 1 tab PO HS PRN 12/27/22 [History] Multivitamins, Thera [Multivitamin (formulary)] 1 tab PO DAILY 02/25/23 [History] bisacodyL [Dulcolax] 5 mg PO DAILY PRN 02/25/23 [History] Omeprazole [PriLOSEC] 40 mg PO DAILY #90 cap 11/16/23 [Rx] Cholecalciferol [Vitamin D3 (25 Mcg = 1000 Iu)] 25 mcg PO DAILY 12/29/23 [History] Magnesium Oxide [Magnesium] 500 mg PO DAILY 12/29/23 [History] Sucralfate [Carafate] 1 gm PO BID 12/29/23 [History] [facility] [facility] [place] [place] [facility] [place] Patient Instructions/Handouts: *Surgery [facility] - (Anesthesia) Discharge Instructi ons Outpatient Surgery, Upper Endoscopy (DC), Esophageal Dilation (DC) Discharge Disposition: HOME SELF-CARE
[2024-01-02 08:33] VITALS: BP 145/67; PULSE 76
[2024-01-02 08:34] VITALS: RESP 18
== END 2024-01-02 08:45 | disposition home or self-care (01) ==
LOC: ORWHC2ENDO 06:48
PROVIDERS: ATTEND Surgery Plastic and Reconstructive Surgery
DX: K29.50 Unspecified chronic gastritis without bleeding (principal); K25.7 Chronic gastric ulcer without hemorrhage or perforation; K56.699 Other intestinal obstruction unspecified as to partial versus complete obstruction; K21.9 Gastro-esophageal reflux disease without esophagitis; I10 Essential (primary) hypertension; M19.90 Unspecified osteoarthritis, unspecified site; G47.33 Obstructive sleep apnea (adult) (pediatric); Z87.442 Personal history of urinary calculi; Z90.49 Acquired absence of other specified parts of digestive tract; Z98.84 Bariatric surgery status; Z79.899 Other long term (current) drug therapy
CPT/HCPCS: 81025; 43239; 43249; J2001; J2704; C1726; 88305

== ENCOUNTER 2025-02-21 16:06 | Observation (INO) | payer OTHER ==
--- NOTE | 2025-02-21 16:53 | ED ---
General Adult HPI - General Chief complaint: Syncope Stated complaint: Weakness Time Seen by Provider: 02/21/25 16:11 Source: patient, EMS Mode of arrival: EMS Limitations: no limitations - History of Present Illness Initial comments: 49-year-old female presents to the emergency department for evaluation of syncopal episode. Patient states that she was at work in a hot environment when she suddenly felt hot and sweaty and like she was going to faint. She states that she did lose consciousness temporarily. Afterwards she started to feel better and again felt like she was going to pass out. At the time of my evaluation she reports that she is completely asymptomatic. She denies any preceding chest pain or shortness of breath. She does note that she has been dealing with an upper respiratory infection and has been on multiple antibiotics recently. She denies any known fever, chills. Denies any lower extremity edema. - Related Data Home Medications Medication Instructions Recorded Confirmed Calcium Citrate 1,000 mg PO DAILY 05/01/21 01/26/24 Losartan-Hctz 50-12.5 mg [Hyzaar 1 tab PO DAILY 12/27/22 01/26/24 50-12.5] Unk Sleep Aid W/Benadryl 1 tab PO HS PRN 12/27/22 01/26/24 Multivitamins, Thera [Multivitamin 1 tab PO DAILY 02/25/23 01/26/24 (formulary)] bisacodyL [Dulcolax] 5 mg PO DAILY PRN 02/25/23 01/26/24 Cholecalciferol [Vitamin D3 (25 25 mcg PO DAILY 12/29/23 01/26/24 Mcg = 1000 Iu)] Magnesium Oxide [Magnesium] 500 mg PO DAILY 12/29/23 01/26/24 Sucralfate [Carafate] 1 gm PO BID 12/29/23 01/26/24 Previous Rx's Medication Instructions Recorded Omeprazole [PriLOSEC] 40 mg PO DAILY #90 cap 01/02/24 Sucralfate [Carafate] 1 gm PO BID #120 tablet 01/25/24 Allergies Allergy/AdvReac Type Severity Reaction Status Date / Time No Known Allergies Allergy Verified 02/21/25 16:14 Review of Systems ROS Statement: Those systems with pertinent positive or pertinent negative responses have been documented in the HPI. ROS Other: All systems not noted in ROS Statement are negative. Past Medical History Past Medical History: GERD/Reflux, GI Bleed, Hypertension, Osteoarthritis (OA), Sleep Apnea/CPAP/BIPAP Additional Past Medical History / Comment(s): Uses CPAP. HR is fast; has leaky valve being monitored. History of kidney stones. August 2021 - GI Bleed. recent ER visit with abdominal pain -had colonoscopy -twisting bowel found 2 large polyps. Gastric bypass. History of Any Multi-Drug Resistant Organisms: MRSA Date of last positivie culture/infection: 2012 MDRO Source:: left hand Past Surgical History: Bariatric Surgery, Bowel Resection, Cholecystectomy, Orthopedic Surgery Additional Past Surgical History / Comment(s): right heel surgery, Jewels-en-Y gastric bypass 01-05-2021, varicose vein leg artery cauterization. Lithotripsy. Laparoscopy x2 w/ exc pre-cancer lesions/cervical. colonoscopy with polyp removal, colon resection about 9 inches 12/29/22 Past Anesthesia/Blood Transfusion Reactions: Postoperative Nausea & Vomiting (PONV) Additional Past Anesthesia/Blood Transfusion Reaction / Comment(s): blood transfusion no issues Past Psychological History: Anxiety Smoking Status: Never smoker Past Alcohol Use History: Abuse, Daily Past Drug Use History: Marijuana - Past Family History Mother Family Medical History: Hypertension Brother(s) Family Medical History: Cancer Additional Family Medical History / Comment(s): oral CA-lower lip and gums General Exam Limitations: no limitations General appearance: alert, in no apparent distress Head exam: Present: atraumatic, normocephalic, normal inspection Eye exam: Present: normal appearance, PERRL, EOMI. Absent: scleral icterus, conjunctival injection, periorbital swelling ENT exam: Present: normal exam, mucous membranes moist Neck exam: Present: normal inspection. Absent: tenderness, meningismus, lymphadenopathy Respiratory exam: Present: normal lung sounds bilaterally. Absent: respiratory distress, wheezes, rales, rhonchi, stridor Cardiovascular Exam: Present: regular rate, normal rhythm, normal heart sounds. Absent: systolic murmur, diastolic murmur, rubs, gallop, clicks GI/Abdominal exam: Present: soft, normal bowel sounds. Absent: distended, ten derness, guarding, rebound, rigid Extremities exam: Present: normal inspection, full ROM, normal capillary refill. Absent: tenderness, pedal edema, joint swelling, calf tenderness Back exam: Present: normal inspection Neurological exam: Present: alert, oriented X3, CN II-XII intact Psychiatric exam: Present: normal affect, normal mood Skin exam: Present: warm, dry, intact, normal color. Absent: rash Course Vital Signs 02/21/25 02/21/25 02/21/25 16:08 17:16 17:22 Temperature 98.3 F 98.0 F Pulse Rate 89 87 Pulse Rate [ 85 Materials Assistant ] Pulse Rate [ 88 Sitting] Pulse Rate [ 110 H Standing] Pulse Rate [ 85 Supine Materials Assistant] Respiratory 18 17 17 Rate Blood Pressure 143/100 143/89 Blood Pressure 138/106 [Sitting] Blood Pressure 128/101 [Standing] Blood Pressure 138/90 [Supine] O2 Sat by Pulse 100 98 Oximetry 02/21/25 18:42 Temperature Pulse Rate 86 Pulse Rate [ Materials Assistant ] Pulse Rate [ Sitting] Pulse Rate [ Standing] Pulse Rate [ Supine Materials Assistant] Respiratory 20 Rate Blood Pressure 138/114 Blood Pressure [Sitting] Blood Pressure [Standing] Blood Pressure [Supine] O2 Sat by Pulse 100 Oximetry Medical Decision Making - Medical Decision Making Was pt. sent in by a medical professional or institution (, PA, INBOUND SALES MANAGER, urgent care, hospital, or half-way...) When possible be specific @ -[No] Did you speak to anyone other than the patient for history (EMS, parent, family, police, friend...)? What history was obtained from this source @ -[No] Did you review nursing and triage notes (agree or disagree)? Why? @ -[I reviewed and agree with nursing and triage notes] Were old charts reviewed (outside hosp., previous admission, EMS record, old EKG, old radiological studies, urgent care reports/EKG's, half-way records)? Report findings @ -[No old charts were reviewed] Differential Diagnosis (chest pain, altered mental status, abdominal pain women, abdominal pain men, vaginal bleeding, weakness, fever, dyspnea, syncope, headache, dizziness, GI bleed, back pain, seizure, CVA, palpatations, mental health, musculoskeletal)? @ -[Differential Syncope: Valvular disease, hypertrophic cardiomyopathy, pulmonary embolism, tamponade, tachycardia, bradycardia, MA, hypovolemia, hemorrhage, dissection, anemia, intracranial hemorrhage, seizure, hypoglycemia, carbon monoxide poisoning, this is not meant to be an all-inclusive list. ] EKG interpreted by me (3pts min.). @ -EKG [id number] shows sinus rhythm rate 84, GA 148, QRS 102, QTQTc [id number] X-rays interpreted by me (1pt min.). @ -[Chest x-ray shows no acute process] CT interpreted by me (1pt min.). @ -[None done] U/S interpreted by me (1pt. min.). @ -[None done] What testing was considered but not performed or refused? (CT, X-rays, U/S, labs)? Why? @ -[None] What meds were considered but not given or refused? Why? @ -[None] Did you discuss the management of the patient with other professionals (professionals i.e. , PA, INBOUND SALES MANAGER, lab, RT, psych nurse, social services director, artificial intelligence specialist, teacher, military source operations officer, case manager specialist)? Give summary @ -Case discussed with sound Was smoking cessation discussed for >3mins.? @ -[No] Was critical care preformed (if so, how long)? @ -[No] Were there social determinants of health that impacted care today? How? (Homelessness, low income, unemployed, alcoholism, drug addiction, transportation, low edu. Level, literacy, decrease access to med. care, skilled nursing, rehab)? @ -[No] Was there de-escalation of care discussed even if they declined (Discuss DNR or withdrawal of care, Hospice)? DNR status @ -[No] What co-morbidities impacted this encounter? (DM, HTN, Smoking, COPD, CAD, Cancer, CVA, ARF, Chemo, Hep., AIDS, mental health diagnosis, sleep apnea, morbid obesity)? @ -[None] Was patient admitted / discharged? Hospital course, mention meds given and route, prescriptions, significant lab abnormalities, going to OR and other pertinent info. @ -[Patient presented emergency department for evaluation of syncope. Laboratory studies performed revealing No significant leukocytosis, hemoglobin 10.8 which is stable for the patient; her localization studies; CMP shows bicarb of 18, anion gap of 20 which is likely related to the alcohol consumption tra nsaminitis also likely related to the alcohol consumption troponin is negative UA shows no evidence of infectious process. Patient was administered 2 L of normal saline in the emergency department. Patient is a heavy daily drinker and is hoping to detox. Case was discussed with Undiagnosed new problem with uncertain prognosis? @ -[No] Drug Therapy requiring intensive monitoring for toxicity (Heparin, Nitro, Insulin, Cardizem)? @ -[No] Were any procedures done? @ -[No] Diagnosis/symptom? @ -[Syncope, alcohol withdrawal Acute, or Chronic, or Acute on Chronic? @ -Acute Uncomplicated (without systemic symptoms) or Complicated (systemic symptoms)? @ -Uncomplicated Side effects of treatment? @ -[No] Exacerbation, Progression, or Severe Exacerbation? @ -[No] Poses a threat to life or bodily function? How? (Chest pain, USA, MA, pneumonia, PE, COPD, DKA, ARF, appy, cholecystitis, CVA, Diverticulitis, Homicidal, Suicidal, threat to staff... and all critical care pts) @ -Withdrawal - Lab Data Result diagrams: 02/21/25 16:54 02/21/25 16:54 Lab Results 02/21/25 02/21/25 02/21/25 Range/Units 16:54 16:54 16:54 WBC 7.7 (3.8-10.6) k/uL RBC 4.04 (3.80-5.40) m/uL Hgb 10.8 L (11.4-16.0) gm/dL Hct 35.0 (34.0-46.0) % MCV 86.7 (80.0-100.0) fL MCH 26.9 (25.0-35.0) pg MCHC 31.0 (31.0-37.0) g/dL RDW 14.4 (11.5-15.5) % Plt Count 364 (150-450) k/uL MPV 7.6 Neutrophils % 60 % Lymphocytes % 32 % Monocytes % 6 % Eosinophils % 1 % Basophils % 1 % Neutrophils # 4.6 (1.3-7.7) k/uL Lymphocytes # 2.5 (1.0-4.8) k/uL Monocytes # 0.4 (0-1.0) k/uL Eosinophils # 0.0 (0-0.7) k/uL Basophils # 0.0 (0-0.2) k/uL Hypochromasia Slight PT 10.1 (10.0-12.5) sec INR 0.9 (<1.2) APTT 20.5 L (22.0-30.0) sec Sodium 141 (137-145) mmol/L Potassium 4.2 (3.5-5.1) mmol/L Chloride 103 (98-107) mmol/L Carbon Dioxide 18 L (22-30) mmol/L Anion Gap 20 mmol/L BUN 8 (7-17) mg/dL Creatinine 0.66 (0.52-1.04) mg/dL Est GFR (CKD-EPI)AfAm >90 (>60 ml/min/1.73 sqM) Est GFR (CKD-EPI)NonAf >90 (>60 ml/min/1.73 sqM) Glucose 79 (74-99) mg/dL Calcium 9.0 (8.4-10.2) mg/dL Magnesium 1.6 (1.6-2.3) mg/dL Total Bilirubin 0.6 (0.2-1.3) mg/dL AST 140 H (14-36) U/L ALT 45 H (4-34) U/L Alkaline Phosphatase 102 (38-126) U/L Troponin I (0.000-0.034) ng/mL Total Protein 7.2 (6.3-8.2) g/dL Albumin 4.1 (3.5-5.0) g/dL Urine Color Urine Appearance (Clear) Urine pH (5.0-8.0) Ur Specific [place] (1.001-1.035) Urine Protein (Negative) Urine Glucose (UA) (Negative) Urine Ketones (Negative) Urine Blood (Negative) Urine Nitrite (Negative) Urine Bilirubin (Negative) Urine Urobilinogen (<2.0) mg/dL Ur Leukocyte Esterase (Negative) 02/21/25 02/21/25 Range/Units 16:54 16:54 WBC (3.8-10.6) k/uL RBC (3.80-5.40) m/uL Hgb (11.4-16.0) gm/dL Hct (34.0-46.0) % MCV (80.0-100.0) fL MCH (25.0-35.0) pg MCHC (31.0-37.0) g/dL RDW (11.5-15.5) % Plt Count (150-450) k/uL MPV Neutrophils % % Lymphocytes % % Monocytes % % Eosinophils % % Basophils % % Neutrophils # (1.3-7.7) k/uL Lymphocytes # (1.0-4.8) k/uL Monocytes # (0-1.0) k/uL Eosinophils # (0-0.7) k/uL Basophils # (0-0.2) k/uL Hypochromasia PT (10.0-12.5) sec INR (<1.2) APTT (22.0-30.0) sec Sodium (137-145) mmol/L Potassium (3.5-5.1) mmol/L Chloride (98-107) mmol/L Carbon Dioxide (22-30) mmol/L Anion Gap mmol/L BUN (7-17) mg/dL Creatinine (0.52-1.04) mg/dL Est GFR (CKD-EPI)AfAm (>60 ml/min/1.73 sqM) Est GFR (CKD-EPI)NonAf (>60 ml/min/1.73 sqM) Glucose (74-99) mg/dL Calcium (8.4-10.2) mg/dL Magnesium (1.6-2.3) mg/dL Total Bilirubin (0.2-1.3) mg/dL AST (14-36) U/L ALT (4-34) U/L Alkaline Phosphatase (38-126) U/L Troponin I <0.012 (0.000-0.034) ng/mL Total Protein (6.3-8.2) g/dL Albumin (3.5-5.0) g/dL Urine Color Colorless Urine Appearance Clear (Clear) Urine pH 5.0 (5.0-8.0) Ur Specific [place] 1.003 (1.001-1.035) Urine Protein Negative (Negative) Urine Glucose (UA) Negative (Negative) Urine Ketones Negative (Negative) Urine Blood Negative (Negative) Urine Nitrite Negative (Negative) Urine Bilirubin Negative (Negative) Urine Urobilinogen <2.0 (<2.0) mg/dL Ur Leukocyte Esterase Negative (Negative) Disposition Clinical Impression: Syncope, Alcohol withdrawal Disposition: ADMITTED IP TO THIS [facility] Condition: Stable Is patient prescribed a controlled substance at d/c from ED?: No Referrals: Nonstaff,Physician [Primary Care Provider] - 1-2 days
[2025-02-21] MEDS: SODIUM CHLORIDE 0.9% 1,000 ML IV STA (17:13)
[2025-02-21 17:20] LABS: Basophils % (A) 1 %; Eosinophils % (A) 1 %; HGB 10.8 gm/dL (11.4-16.0); Hypochromasia Slight; Lymphocytes # (A) 2.5 k/uL (1.0-4.8); Lymphocytes % (A) 32 %; MCH 26.9 pg (25.0-35.0); MCV 86.7 fL (80.0-100.0); Mean Platelet Volume 7.6; Monocytes # (A) 0.4 k/uL (0-1.0); Monocytes % (A) 6 %; Neutrophils # (A) 4.6 k/uL (1.3-7.7); Neutrophils % (A) 60 %; Platelet Count 364 k/uL (150-450); RBC 4.04 m/uL (3.80-5.40); RDW 14.4 % (11.5-15.5); WBC 7.7 k/uL (3.8-10.6)
[2025-02-21 17:25] LABS: Appearance,Urine Clear (Clear); Bilirubin,Urine Negative (Negative); Blood,Urine Negative (Negative); Color,Urine Colorless; Glucose,Urine (UA) Negative (Negative); Ketones,Urine Negative (Negative); Leukocyte Esterase,Urine Negative (Negative); Nitrite,Urine Negative (Negative); Protein,Urine Negative (Negative); Specific Gravity,Urine 1.003 (1.001-1.035); Urobilinogen,Urine <2.0 mg/dL (<2.0)
[2025-02-21 17:31] LABS: ALT 45 U/L (4-34); AST 140 U/L (14-36); African American GFR (CKD) >90 (>60 ml/min/1.73 sqM); Albumin 4.1 g/dL (3.5-5.0); Alkaline Phosphatase 102 U/L (38-126); Anion Gap 20 mmol/L; Blood Urea Nitrogen 8 mg/dL (7-17); Carbon Dioxide 18 mmol/L (22-30); Chloride 103 mmol/L (98-107); Glucose 79 mg/dL (74-99); Magnesium 1.6 mg/dL (1.6-2.3); Non-African American GFR(CKD) >90 (>60 ml/min/1.73 sqM); Potassium 4.2 mmol/L (3.5-5.1); Sodium 141 mmol/L (137-145); Total Bilirubin 0.6 mg/dL (0.2-1.3); Total Protein 7.2 g/dL (6.3-8.2)
[2025-02-21 17:35] LABS: INR 0.9 (<1.2); Prothrombin Time 10.1 sec (10.0-12.5)
[2025-02-21 17:36] LABS: Partial Thromboplastin Time 20.5 sec (22.0-30.0)
--- NOTE | 2025-02-21 17:45 | XR ---
EXAMINATION TYPE: XR chest 2V DATE OF EXAM: 02/21/2025 5:36 PM COMPARISON: Chest radiographs from 04/30/2021 TECHNIQUE: XR chest 2V Frontal and lateral views of the chest. CLINICAL INDICATION:Female, 49 years old with history of syncope; FINDINGS: Lungs/Pleura: There is no evidence of pleural effusion, focal consolidation, or pneumothorax. Pulmonary vascularity: Unremarkable. Heart/mediastinum: Cardiomediastinal silhouette is unremarkable. Musculoskeletal: Multiple level degenerative disc disease changes seen throughout the spine. IMPRESSION: No acute cardiopulmonary disease/process. [facility], , 02/21/2025 5:43 PM
[2025-02-21] MEDS ORDERED: LORazepam 1 MG TAB PO PRN ×2 (18:38)
[2025-02-21] MEDS ORDERED: LORazepam 2 MG/ML INJ IV PRN ×3 (18:38)
[2025-02-21] MEDS: SODIUM CHLORIDE 0.9% 1,000 ML IV ONE (18:48)
[2025-02-21] MEDS ORDERED: IBUPROFEN 400 MG TAB PO PRN (18:55)
[2025-02-21] MEDS ORDERED: NALOXONE 0.4 MG/ML 1 ML VIAL IV PRN (18:55)
[2025-02-21] MEDS ORDERED: KETOROLAC 15 MG/ML 1 ML VIAL IVP PRN (18:55)
[2025-02-21] MEDS: SODIUM CHLORIDE 0.9% 1,000 ML IV SCH (19:53)
[2025-02-21] MEDS: LORazepam 0.5 MG TAB PO PRN (19:53)
[2025-02-21] MEDS: ONDANSETRON 4 MG/2 ML VIAL IVP PRN (19:53)
[2025-02-21] MEDS: LORazepam 1 MG TAB PO PRN (21:39)
--- NOTE | 2025-02-21 22:12 | P.HPIM ---
History of Present Illness H&P Date: 02/21/25 Chief Complaint: syncope/weakness Patient is a 49 female with chronic alcohol abuse, hypertension, PUD, presenting with weakness and syncope. Patient states she was at work in a hot environment and suddenly she felt diaphoretic and states she was going to pass out. She called her telling her symptoms, and was brought to the ED. She admits to being a heavy daily drinker for the past 15 years. She says she drinks around the fifth of vodka on most days. Patient's last drink was today this morning. States she has never been hospitalized for any alcohol intoxication. She admits to falling down twice landing on her left side. Denies any head trauma. Says she lost consciousness briefly. During interview patient was asymptomatic. Currently endorses a headache and chills. Says she has been feeling nauseous and endorses bilious vomiting. Patient also had a bout of loose nonbloody diarrhea. Patient denies any fever, chest pain, shortness of breath, nausea, vomiting, urinary symptoms. EKG independently interpreted displaying sinus rhythm, rate 84 bpm, QTc 402 ms CXR independently displaying no acute cardiopulmonary process T 98.3 F, rate 99, RR 18, BP 143/100, O2 saturation 100 send room air Review of systems: Pertinent positives and negatives as discussed in HPI, a complete review of systems was performed and all other systems are negative. Physical examination: Vital signs reviewed General: non toxic, no distress, appears at stated age, obese Derm: no unusual rashes/lesions, warm Head: atraumatic, normocephalic, symmetric Eyes: EOMI, anicteric sclera, pupils equal round reactive to light ENT: Nose and ears atraumatic Mouth: no lip lesion, mucus membranes moist Cardiovascular: S1S2 reg, no murmur, positive dorsalis pedis pulse bilateral, no edema Lungs: CTA bilateral, no rhonchi, no rales, no accessory muscle use Abdominal: soft, nontender to palpation, no guarding Ext: muscle strength 5 out of 5 in all 4 extremities grossly, no gross muscle atrophy, right lower extremity tenderness Neuro: CN II-XI grossly intact, no gross focal neuro deficits Psych: Alert, oriented to person, place, and time Assessment/Plan: Patient is a 49 female with chronic alcohol abuse, hypertension, PUD, presenting with weakness and syncope. ED documentation reviewed. Discussed with patient. The patient is admitted with an anticipated less than 2 midnight stay for evaluation of acute alcohol intoxication. #. Acute alcohol intoxication #. Transaminitis #. High anion gap metabolic acidosis #. Weakness/fall/syncope, likely to above Serum alcohol 193 AST 140, ALT 45 orthostatic negative UA unremarkable Troponin <0.012 x 2 Ativan per [facility] protocol Monitor for seizure, hypoglycemia, withdrawal symptoms Thiamine 100 mg PO daily Normal saline at 100 cc an hour #. Normocytic anemia Hgb 10.8, MCV 86.7 Chronic in nature at baseline Hgb No acute bleeding Continue to monitor CBC #. Acute nonbloody diarrhea C. difficile ordered and stool culture ordered Chronic: #. Hypertension: Resume losartanHCTZ #. GERD: Omeprazole 40 mg PO QD DVT prophylaxis: Heparin SQ q8hr CODE STATUS: Full code Anticipated discharge place: pending clinical course Terrance Roe MD PGY-1 IM Dictation was produced using [employer] dictation software. please excuse any grammatical, word or spelling errors. I have seen and evaluated the patient today. I Discussed the case with the resident and agree with the resident's findings I edited the assessment and plan as necessary as documented in the resident's note. Past Medical History Past Medical History: GERD/Reflux, GI Bleed, Hypertension, Osteoarthritis (OA), Sleep Apnea/CPAP/BIPAP Additional Past Medical History / Comment(s): Uses CPAP. HR is fast; has leaky valve being monitored. History of kidney stones. August 2021 - GI Bleed. recent ER visit with abdominal pain -had colonoscopy -twisting bowel found 2 large polyps. Gastric bypass. History of Any Multi-Drug Resistant Organisms: MRSA Date of last positivie culture/infection: 2012 MDRO Source:: left hand Past Surgical History: Bariatric Surgery, Bowel Resection, Cholecystectomy, Orthopedic Surgery Additional Past Surgical History / Comment(s): right heel surgery, Jewels-en-Y gastric bypass 01-05-2021, varicose vein leg artery cauterization. Lithotripsy. Laparoscopy x2 w/ exc pre-cancer lesions/cervical. colonoscopy with polyp removal, colon resection about 9 inches 12/29/22 Past Anesthesia/Blood Transfusion Reactions: Postoperative Nausea & Vomiting (PONV) Additional Past Anesthesia/Blood Transfusion Reaction / Comment(s): blood transfusion no issues Past Psychological History: Anxiety Smoking Status: Never smoker Past Alcohol Use History: Abuse, Daily Past Drug Use History: Marijuana - Past Family History Mother Family Medical History: Hypertension Brother(s) Family Medical History: Cancer Additional Family Medical History / Comment(s): oral CA-lower lip and gums Medications and Allergies Home Medications Medication Instructions Recorded Confirmed Type Losartan-Hctz 50-12.5 mg [Hyzaar 1 tab PO DAILY 12/27/22 02/21/25 History 50-12.5] Multivitamins, Thera [Multivitamin 1 tab PO DAILY 02/25/23 02/21/25 History (formulary)] Omeprazole [PriLOSEC] 40 mg PO DAILY #90 cap 01/02/24 02/21/25 Rx Albuterol Inhaler [Ventolin Hfa 2 puff INHALATION RT-Q4H PRN 02/21/25 02/21/25 History Inhaler] norgestimate-ethinyl estradioL 1 tab PO DAILY 02/21/25 02/21/25 History [Sprintec 28 Day Tablet] Allergies Allergy/AdvReac Type Severity Reaction Status Date / Time No Known Allergies Allergy Verified 02/21/25 19:44 Physical Exam Vitals: Vital Signs Temp Pulse Pulse Pulse Pulse Pulse Resp 02/21/25 18:42 86 20 02/21/25 17:22 87 17 02/21/25 17:16 98.0 F 85 88 110 H 85 17 02/21/25 16:08 98.3 F 89 18 BP BP BP BP Pulse Ox 02/21/25 18:42 138/114 100 02/21/25 17:22 143/89 98 02/21/25 17:16 138/106 128/101 138/90 02/21/25 16:08 143/100 100 Intake and Output 02/21/25 02/21/25 02/21/25 06:59 14:59 22:59 Other: Weight 81.647 kg Results CBC & Chem 7: 02/21/25 16:54 02/21/25 16:54 Labs: Abnormal Lab Results - Last 24 Hours (Table) 02/21/25 02/21/25 02/21/25 Range/Units 16:54 16:54 16:54 Hgb 10.8 L (11.4-16.0) gm/dL APTT 20.5 L (22.0-30.0) sec Carbon Dioxide 18 L (22-30) mmol/L AST 140 H (14-36) U/L ALT 45 H (4-34) U/L
[2025-02-21] MEDS: ACETAMINOPHEN TAB 325 MG TAB PO PRN (22:36)
[2025-02-22] MEDS ORDERED: LORazepam 1 MG/0.5 ML VIAL IV PRN ×2 (00:18→00:19)
[2025-02-22] MEDS: PANTOPRAZOLE 40 MG TABLET PO SCH (05:49)
[2025-02-22 06:02] LABS: Basophils % (A) 0 %; Eosinophils % (A) 1 %; HCT 31.2 % (34.0-46.0); HGB 9.6 gm/dL (11.4-16.0); Hypochromasia Marked; Lymphocytes # (A) 1.8 k/uL (1.0-4.8); Lymphocytes % (A) 45 %; MCH 27.3 pg (25.0-35.0); MCHC 30.7 g/dL (31.0-37.0); MCV 88.9 fL (80.0-100.0); Mean Platelet Volume 7.9; Monocytes # (A) 0.3 k/uL (0-1.0); Monocytes % (A) 7 %; Neutrophils # (A) 1.8 k/uL (1.3-7.7); Neutrophils % (A) 46 %; Platelet Count 248 k/uL (150-450); RDW 14.3 % (11.5-15.5); WBC 3.9 k/uL (3.8-10.6)
[2025-02-22 06:13] LABS: ALT 31 U/L (4-34); AST 77 U/L (14-36); African American GFR (CKD) >90 (>60 ml/min/1.73 sqM); Albumin 3.1 g/dL (3.5-5.0); Albumin/Globulin Ratio 1.1; Alkaline Phosphatase 81 U/L (38-126); Anion Gap 7 mmol/L; Blood Urea Nitrogen 8 mg/dL (7-17); Calcium 8.2 mg/dL (8.4-10.2); Carbon Dioxide 23 mmol/L (22-30); Chloride 106 mmol/L (98-107); Globulin 2.7 g/dL; Glucose 64 mg/dL (74-99); Magnesium 1.4 mg/dL (1.6-2.3); Non-African American GFR(CKD) >90 (>60 ml/min/1.73 sqM); Potassium 4.1 mmol/L (3.5-5.1); Sodium 136 mmol/L (137-145); Total Bilirubin 0.9 mg/dL (0.2-1.3); Total Protein 5.8 g/dL (6.3-8.2)
[2025-02-22 07:52] VITALS: RESP 16
[2025-02-22] MEDS: LORazepam 1 MG/0.5 ML VIAL IV PRN (08:14)
[2025-02-22 08:52] VITALS: TEMP 97.9
[2025-02-22] MEDS: LOSARTAN-HCTZ 50-12.5 MG 1 EACH TAB PO SCH (09:06)
[2025-02-22] MEDS: THIAMINE 100 MG TAB PO SCH (09:06)
[2025-02-22] MEDS: ENOXAPARIN 40 MG/0.4 ML SYRINGE SQ SCH (09:06)
[2025-02-22] MEDS: NORGESTIMATE ETHINYL ESTRADIOL PO SCH (09:09)
[2025-02-22 10:23] LABS: Glucose,Whole Blood 184 mg/dL (70-110)
[2025-02-22] MEDS: MAGNESIUM SULFATE-D5W PMX 1 GM in DEXTROSE/WATER 1 100ML.BAG IVPB SCH (10:25)
[2025-02-22 10:53] VITALS: BP 155/108; PULSE 92
[2025-02-22] MEDS: MAGNESIUM OXIDE 400 MG TAB PO STA (12:04)
--- NOTE | 2025-02-22 12:27 | P.DS ---
Providers Date of admission: 02/21/25 18:57 Expected date of discharge: 02/22/25 Attending physician: Jose Harrell MD Primary care physician: Physician Nonstaff Hospital Course: Discharge Diagnosis: Alcohol withdrawal. Patient medically optimized and cleared for discharge to inpatient drug and alcohol rehabilitation facility, [facility]. Alcohol intoxication on arrival in active alcoholic Near syncopal episode, likely secondary to above High anion gap metabolic acidosis, resolved with IV fluid hydration Hypertension. Patient to continue losartan/hydrochlorothiazide 50-12.5 mg tablets daily. Anemia, likely secondary to daily alcohol use/abuse. Chronic and at baseline. Hypomagnesemia, replaced. Hospital Course: Patient is a 49-year-old female with a past medical history of chronic daily alcohol abuse drinking approximately 1/5 of vodka or more daily, hypertension, GERD, peptic ulcer disease, and obstructive sleep apnea CPAP dependent. She arrived to our facility on 02/21/2025 with a chief complaint of near syncopal episode. Patient was reportedly at work when she felt diaphoretic and like she was going to pass out. She reports she went to lay down and fell on her left side but did not pass out. Upon arrival to our facility, patient underwent evaluation in the emergency department. Vital signs upon arrival show blood pressure 143/100, heart rate 89, respiratory rate 18, temp 98.3 F, and SpO2 of 100% on room air. Orthostatic vitals were completed and negative for orthostatic hypotension. He completed showing normal sinus rhythm at 84 bpm with T wave inversion in inferior lead III otherwise no noted T wave or ST abnormality showing no signs of acute ischemia. Chest x-ray negative for acute cardiopulmonary process. Labs completed and reviewed. CBC showing normocytic anemia with hemoglobin of 10.8 and above baseline with baseline hemoglobin of 9.6. Coagulation profile showing a low PTT of 20.5 otherwise normal findings. BMP showing high anion gap metabolic acidosis with chloride of 103, bicarb of 18, and anion gap of 20. Blood glucose was 79. Magnesium was low at 1.6. Liver profile showing elevated AST of 140 and ALT of 45 otherwise normal findings. Troponin was negative at less than 0.012. Serum alcohol was elevated at 193. Patient admits that she has a serious drinking problem and requesting assistance with detox/rehab placement. She was admitted under our services for alcohol intoxication with near syncopal episode. She received aggressive IV fluid hydration and troponins were trended overnight all negative at less than 0.012 x 3 draws. Repeat morning labs did reveal magnesium of 1.4 and patient received 2 g magnesium sulfate IVPB and Mag-Ox 400 milligrams p.o. x 1 dose. Metabolic acidosis resolved with repeat chloride of 106, bicarb of 23, and anion gap decreasing to 7. Liver enzymes improving with AST of 77, ALT of 31, and alkaline phosphatase of 81. Patient is clinically sober at this time she was provided with outpatient resources including counseling services, AA meetings, and community resources. Patient was provided with information on [facility] and was accepted to their facility with intake time of 2 PM. Patient is medically optimized and cleared for discharge to [facility]. Physical exam: Patient seen and examined at bedside Vital signs reviewed and stable. General: Nontoxic, no distress and appears stated age. Derm: Skin warm and dry, normal coloration for ethnicity. Head: Atraumatic, normocephalic and symmetric. Eyes: EOM's intact, no lid lag, and anicteric sclera Mouth: no lip lesions, mucus membranes moist Cardiovascular: regular rate and rhythm with normal S1S2, no murmur, positive posterior tibial pulses bilaterally, and cap refill < 2 seconds. Lungs: Respirations even, regular, and unlabored on room air. Lungs CTA bilaterally, no rhonchi, no rales, no wheezing, and no accessory muscle usage. Abdominal: soft, nontender to palpation, no guarding, no appreciable organomegaly Ext: ROM intact. No gross muscle atrophy, no edema, no contractures Neuro: Speech clear, face symmetrical and CN II-XII grossly intact with no noted focal neuro deficits Psych: Alert and oriented to person, place, time, and situation. Appropriate and pleasant affect. A total of 34 minutes of time were spent preparing this complex discharge summary. Pt was discharged on 02/22/25 at 12:07 PM Patient was seen independently by Nurse Practitioner. This document was prepared using [employer] dictation software. Please allow for errors in credit verifier while rare they do occur. Tevin Swann NP rendered care for this patient independently, reviewed the findings and plan as documented in the note above. I did not physically speak with or examine the patient on this date. Patient Condition at Discharge: Stable Plan - Discharge Summary Discharge Rx Participant: No New Discharge Prescriptions: Continue Losartan-Hctz 50-12.5 mg [Hyzaar 50-12.5] 1 tab PO DAILY Multivitamins, Thera [Multivitamin (formulary)] 1 tab PO DAILY norgestimate-ethinyl estradioL [Sprintec 28 Day Tablet] 1 tab PO DAILY Albuterol Inhaler [Ventolin Hfa Inhaler] 2 puff INHALATION RT-Q4H PRN PRN Reason: Shortness Of Breath Omeprazole [PriLOSEC] 40 mg PO DAILY #90 cap Discharge Medication List Losartan-Hctz 50-12.5 mg [Hyzaar 50-12.5] 1 tab PO DAILY 12/27/22 [History] Multivitamins, Thera [Multivitamin (formulary)] 1 tab PO DAILY 02/25/23 [History] Omeprazole [PriLOSEC] 40 mg PO DAILY #90 cap 01/02/24 [Rx] Albuterol Inhaler [Ventolin Hfa Inhaler] 2 puff INHALATION RT-Q4H PRN 02/21/25 [History] norgestimate-ethinyl estradioL [Sprintec 28 Day Tablet] 1 tab PO DAILY 02/21/25 [History] Follow up Appointment(s)/Referral(s): [facility] [NON-STAFF] - 1 Week Patient Instructions/Handouts: Abuse of Alcohol (DC), Alcohol Withdrawal (DC), Medical Clearance for Substance Abuse Treatment (DC) Activity/Diet/Wound Care/Special Instructions: Patient medically optimized and cleared for discharge to [facility] at this time. Discharge/Stand Alone Forms: AA Luiza Chowdhury, Who Do I Call?, Community Resources, Outpatient Counseling, In Substance Abuse Facilities
== END 2025-02-22 12:54 | disposition home or self-care (01) ==
LOC: EC 16:06 → 6NMEDSUR 18:57
PROVIDERS: ADMIT Family Medicine; ATTEND Family Medicine
DX: R55 Syncope and collapse (principal); F10.139 Alcohol abuse with withdrawal, unspecified; F10.129 Alcohol abuse with intoxication, unspecified; R74.01 Elevation of levels of liver transaminase levels; E87.20 Acidosis, unspecified; I10 Essential (primary) hypertension; K21.9 Gastro-esophageal reflux disease without esophagitis; F41.9 Anxiety disorder, unspecified; D64.9 Anemia, unspecified; R19.7 Diarrhea, unspecified; E83.42 Hypomagnesemia; G47.33 Obstructive sleep apnea (adult) (pediatric); Y90.6 Blood alcohol level of 120-199 mg/100 ml; Z79.899 Other long term (current) drug therapy
CPT/HCPCS: 96376; 96365; 96372; 96375 ×2; 96361; 99285; 36415; 93005; 80053 ×2; 83735 ×2; 84484 ×2; 85025 ×2; 85610; 85730; 81003; 71046; G0378 ×2; G0480; J2060; J2405 ×2; J1650; J3475; 80320